=== PATIENT | male | born 1960 | race Caucasian/White ===

== ENCOUNTER 2023-04-18 14:37 | Outpatient (OUT) | payer MEDICARE, MEDICAID, SELFPAY ==
[2023-04-18 14:59] LABS: Estimated GFR (African America >60 (>=60); Estimated GFR (Non-African Ame 58 (>=60)
--- NOTE | 2023-04-18 15:55 | CT_ITS ---
The [address] [address] Patient Name: DAMI MAHAN MRN: [id number] date: 1960 Sex: M Assigned Patient Location: LAB Current Patient Location: LAB Accession/Order Number: [id number] Exam Date: 04/18/2023 15:43 Report Date: 04/18/2023 17:00 At the request of: NON-STAFF PHYSICIAN Procedure: CT angio head CT angio head, CT angio neck, 04/18/2023 3:43 PM EDT INDICATION: Lightheadedness R42, Family History Of Aneurysm Z82.49 COMPARISON: This study was compared to the prior CTA of the head dated 12/23/2017 TECHNIQUE: Pre and postcontrast enhanced CT angiography of the head and neck were acquired with contrast .3 D MIP images were reconstructed in sagittal and coronal format at the scanner and were evaluated at the time of dictation. Dose reduction techniques were achieved by using automated exposure control and/or adjustment of mA and/or kV according to patient size and/or use of iterative reconstruction technique. FINDINGS: The great vessels enhance normally. No filling defects are identified within the carotid arteries. There is no stenosis at the origin of the internal carotid arteries. No abnormality of [place] is noted. The IVETTE MCA and [place] PIL[place] are unremarkable. The anterior and posterior communicating arteries are patent. There is no aneurysm or significant stenosis. No abnormality of the vertebral and basilar arteries is noted. The left vertebral artery is dominant. No mass, mass effect or midline shift or hemorrhage in the brain parenchyma is noted. No significant soft tissue abnormality within the neck is noted. The visualized portion of the lungs is unremarkable. No suspicious bone lesion is noted. Multilevel degenerative changes of cervical spine. CT/CT angio head IMPRESSION: No CT evidence of aneurysm, embolus or severe stenosis or dissection in the major arteries in the current study. CAROTID STENOSIS REFERENCE: MILD = <50% stenosis. MODERATE = 50-69% stenosis. SEVERE = >70% stenosis. Electronically authenticated by: AKIL TRISTAN Date: 04/18/2023 17:00
--- NOTE | 2023-04-18 15:55 | CT_ITS ---
The [address] [address] Patient Name: DAMI MAHAN MRN: [id number] date: 1960 Sex: M Assigned Patient Location: LAB Current Patient Location: LAB Accession/Order Number: [id number] Exam Date: 04/18/2023 15:43 Report Date: 04/18/2023 17:00 At the request of: NON-STAFF PHYSICIAN Procedure: CT angio neck CT angio head, CT angio neck, 04/18/2023 3:43 PM EDT INDICATION: Lightheadedness R42, Family History Of Aneurysm Z82.49 COMPARISON: This study was compared to the prior CTA of the head dated 12/23/2017 TECHNIQUE: Pre and postcontrast enhanced CT angiography of the head and neck were acquired with contrast .3 D MIP images were reconstructed in sagittal and coronal format at the scanner and were evaluated at the time of dictation. Dose reduction techniques were achieved by using automated exposure control and/or adjustment of mA and/or kV according to patient size and/or use of iterative reconstruction technique. FINDINGS: The great vessels enhance normally. No filling defects are identified within the carotid arteries. There is no stenosis at the origin of the internal carotid arteries. No abnormality of [place] is noted. The IVETTE MCA and CAN [place]EL[place] are unremarkable. The anterior and posterior communicating arteries are patent. There is no aneurysm or significant stenosis. No abnormality of the vertebral and basilar arteries is noted. The left vertebral artery is dominant. No mass, mass effect or midline shift or hemorrhage in the brain parenchyma is noted. No significant soft tissue abnormality within the neck is noted. The visualized portion of the lungs is unremarkable. No suspicious bone lesion is noted. Multilevel degenerative changes of cervical spine. CT/CT angio neck IMPRESSION: No CT evidence of aneurysm, embolus or severe stenosis or dissection in the major arteries in the current study. CAROTID STENOSIS REFERENCE: MILD = <50% stenosis. MODERATE = 50-69% stenosis. SEVERE = >70% stenosis. Electronically authenticated by: AKIL TRISTAN Date: 04/18/2023 17:00
== END 2023-04-18 14:38 | disposition home or self-care (01) ==
LOC: LAB 14:37
PROVIDERS: PCP Internal Medicine
DX: R42 Dizziness and giddiness (principal); Z82.49 Family history of ischemic heart disease and other diseases of the circulatory system
CPT/HCPCS: 36415; 70496; 70498; 82565; 84520; Q9967

== ENCOUNTER 2023-04-26 13:47 | Outpatient (OUT) | payer MEDICARE, MEDICAID, SELFPAY ==
--- NOTE | 2023-04-26 13:59 | FL_ITS ---
The [address] [address] Patient Name: DAMI MAHAN MRN: [id number] date: 1960 Sex: M Assigned Patient Location: OR Current Patient Location: OR Accession/Order Number: [id number] Exam Date: 04/26/2023 14:00 Report Date: 04/26/2023 15:03 At the request of: STEPHEN DAVISON Procedure: FL cineradiography PROCEDURE: FL cineradiography, FL upper GI w air COMPARISON: None. HISTORY: Chest Discomfort TECHNIQUE: An air contrast upper gastrointestinal series was performed in the usual manner. Standard level fluoroscopic mode of operation utilized. FINDINGS: ESOPHAGUS:No visible obstruction, dilatation, reflux or hernia STOMACH: No obstruction, mass, or ulceration. Normal motility. DUODENUM:No ulceration or diverticulum. OTHER: Negative. FL/FL cineradiography IMPRESSION: 1. Normal examination. 2. No gastroesophageal reflux during time of study. Electronically authenticated by: FRANSICO STEINBERG Date: 04/26/2023 15:03
--- NOTE | 2023-04-26 13:59 | FL_ITS ---
The [address] [address] Patient Name: DAMI MAHAN MRN: [id number] date: 1960 Sex: M Assigned Patient Location: AR Current Patient Location: AR Accession/Order Number: [id number] Exam Date: 04/26/2023 14:00 Report Date: 04/26/2023 15:03 At the request of: STEPHEN DAVISON Procedure: FL upper GI w air PROCEDURE: FL cineradiography, FL upper GI w air COMPARISON: None. HISTORY: Chest Discomfort TECHNIQUE: An air contrast upper gastrointestinal series was performed in the usual manner. Standard level fluoroscopic mode of operation utilized. FINDINGS: ESOPHAGUS:No visible obstruction, dilatation, reflux or hernia STOMACH: No obstruction, mass, or ulceration. Normal motility. DUODENUM:No ulceration or diverticulum. OTHER: Negative. FL/FL upper GI w air IMPRESSION: 1. Normal examination. 2. No gastroesophageal reflux during time of study. Electronically authenticated by: FRANSICO STEINBERG Date: 04/26/2023 15:03
== END 2023-04-26 13:48 | disposition home or self-care (01) ==
LOC: FL 13:47
PROVIDERS: PCP Internal Medicine; Visit Provider Internal Medicine
DX: R07.89 Other chest pain (principal); K21.9 Gastro-esophageal reflux disease without esophagitis
CPT/HCPCS: 74246; 76120

== ENCOUNTER 2023-10-16 17:06 | Inpatient (IN) | payer MEDICARE, MEDICAID, SELFPAY ==
[2023-10-16 17:11] VITALS: BP 119/76; PULSE 117; TEMP 37.2; O2SAT 95; BMI 27.9
--- NOTE | 2023-10-16 17:24 | XR_ITS ---
The [address] [address] Patient Name: DAMI MAHAN MRN: [id number] date: 1960 Sex: M Assigned Patient Location: ER Current Patient Location: ED.MAIN Accession/Order Number: [id number] Exam Date: 10/16/2023 18:28 Report Date: 10/16/2023 18:56 At the request of: RUDDY PERAZA Procedure: XR chest 1V EXAM: XR chest 1V at 1823 hours HISTORY: Cough COMPARISON: 06/21/2021 TECHNIQUE: AP upright portable chest x-ray FINDINGS: The heart is borderline enlarged without cardiac decompensation. This may in part be related to projection. No acute infiltrate, effusion or pneumothorax is identified. The osseous structures are grossly intact. XR/XR chest 1V IMPRESSION: No acute infiltrate or evidence of cardiac decompensation. The overall appearance of the chest is essentially unchanged. Electronically authenticated by: CUONG POWELL Date: 10/16/2023 18:56
--- NOTE | 2023-10-16 17:26 | ED_ITS ---
HPI HPI - General Adult General Chief complaint: Nausea/Vomiting/Diarrhea Stated complaint: Nausea/Vomiting/Diarrhea Time Seen by Provider: 10/16/23 17:06 Source: patient Mode of arrival: walk-in History of Present Illness HPI narrative: Patient is a 63-year-old male sent to the emergency department from his PCP office for fever, tachycardia and vomiting. On arrival to the emergency department, patient states he has had vomiting and diarrhea for the last 2 days with some associated cough and congestion. He has not noted any objective fever at home, his PCP office reported a temperature of 102.6 Fahrenheit and the patient arrives to the emergency department afebrile. He has had 2 episodes of emesis and 1 episode of diarrhea today. He has not had any blood in his stool, no sick contacts. He has been taking Motrin and Tylenol for the last 2 days intermittently. No urinary symptoms. He has had a previous cholecystectomy. Related Data Home Medications ?Medication ?Instructions ?Recorded ?Confirmed benztropine 0.5 mg tablet 0.5 mg PO BID 10/16/23 10/16/23 dicyclomine 10 mg capsule 10 mg PO Q8H PRN abdominal pain 10/16/23 10/16/23 famotidine 20 mg tablet 20 mg PO .qd 10/16/23 10/16/23 meloxicam 15 mg tablet 15 mg PO .qd 10/16/23 10/16/23 omeprazole 40 mg capsule,delayed 40 mg PO BID 10/16/23 10/16/23 release oxcarbazepine 300 mg tablet 450 mg PO BID 10/16/23 10/16/23 simvastatin 20 mg tablet 20 mg PO QPM 10/16/23 10/16/23 tizanidine 4 mg tablet 4 mg PO .qhs PRN muscle spasticity 10/16/23 10/16/23 topiramate 25 mg tablet 25 mg PO Q12H 10/16/23 10/16/23 venlafaxine 75 mg tablet 75 mg PO QAM 10/16/23 10/16/23 Allergies Allergy/AdvReac Type Severity Reaction Status Date / Time No Known Drug Allergies Allergy Verified 10/16/23 17:15 Opioid HPI Opioid Management Most Recent Opioid Data: No Data to Display Review of Systems ROS Constitutional Reports: fever and chills Ears, nose, mouth, and throat Reports: nasal congestion; Denies: throat pain Cardiovascular Denies: chest pain Respiratory Reports: cough; Denies: shortness of breath Gastrointestinal Reports: nausea, vomiting and diarrhea; Denies: abdominal pain Musculoskeletal Denies: back pain Integumentary/Breast Denies: rash Hematologic/Lymphatic Denies: easy bruising or easy bleeding Exam Narrative Exam Narrative: Gen.: Awake, alert, in no distress Head: Normocephalic, atraumatic ENT: Moist mucous membranes Respiratory: No respiratory distress, lungs clear bilaterally Cardio: Regular rate and rhythm Gastrointestinal: Abdomen is soft, nondistended and nontender to palpation; small, soft umbilical hernia Extremities: Moves extremities equally Psych: Normal mood and affect Neuro: No focal neuro deficit Skin: Warm, dry, intact Constitutional Vital Signs, click to edit/add: Last Vital Signs Temp 98.9 F 10/16/23 17:11 Pulse 92 H 10/16/23 19:03 Resp 18 10/16/23 19:03 BP 115/67 10/16/23 19:03 Pulse Ox 94 L 10/16/23 19:03 O2 Del Method Room Air 10/16/23 17:11 Course Vital Signs Vital signs: Vital Signs Temperature 98.9 F 10/16/23 17:11 Pulse Rate 117 H 10/16/23 17:11 Respiratory Rate 18 10/16/23 17:11 Blood Pressure 119/76 10/16/23 17:11 Pulse Oximetry 95 10/16/23 17:11 Oxygen Delivery Method Room Air 10/16/23 17:11 Temperature 98.9 F 10/16/23 17:11 Pulse Rate 92 H 10/16/23 19:03 Respiratory Rate 18 10/16/23 19:03 Blood Pressure 115/67 10/16/23 19:03 Pulse Oximetry 94 L 10/16/23 19:03 Oxygen Delivery Method Room Air 10/16/23 17:11 Medical Decision Making MDM Narrative Medical decision making narrative: Patient treated with 2 L of IV fluids, Zofran. He had no episodes of emesis in the ER. He did not produce a stool specimen. He had no requirements for pain medication. Lab studies show mild leukocytosis with bandemia as well as elevated lactic acid and procalcitonin. Blood cultures and venous pH also obtained. Patient with acute kidney injury, CT scan cannot be performed with IV contrast as a result. LFTs and bilirubin are normal. CT of the abdomen and pelvis shows concern for possible small bowel obstruction. These images were reviewed by general surgery, Dr. Uribe and I discussed the case with him. He recommended admission for observation and placement of an NG tube only if the patient has persistent vomiting. GI panel was ordered but the patient did not produce a stool specimen. We will admit for dehydration and acute kidney injury, general surgery is aware of patient's admission. Stable at time of admission Medical Records Medical records reviewed: Yes I reviewed the patient's medical records Lab Data Lab results reviewed: Yes I reviewed the patient's lab results Labs: Lab Results 10/16/23 10/16/23 10/16/23 Range/Units 17:20 17:23 18:40 WBC 13.5 H (4.0-11.0) 10^3/uL RBC 4.35 L (4.70-6.10) 10^6/uL Hgb 12.7 L (14.0-18.0) g/dL Hct 37.1 L (42.0-54.0) % MCV 85.3 (80.0-94.0) fL MCH 29.2 (25.9-34.0) pg MCHC 34.2 (29.9-35.2) g/dL RDW 13.0 (11.0-15.0) % Plt Count 249 (150-450) 10^3/uL MPV 8.7 L (9.5-13.5) fL Seg Neuts % (Manual) 89.0 Band Neutrophils % 7.0 H (0-5) % Lymphocytes % (Manual) 2.0 L (20.5-60.0) % Monocytes % (Manual) 2.0 (1.7-12.0) % Eosinophils % (Manual) 0.0 L (0.9-7.0) % Basophils % (Manual) 0.0 L (0.2-2.0) % Neutrophils # (Manual) 12.01 H (1.4-6.5) 10^3/uL Band Neutrophils # 0.9 H (0.0-0.3) 10^3/uL Lymphocytes # (Manual) 0.27 L (1.20-3.80) 10^3/uL Monocytes # (Manual) 0.27 L (0.30-0.80) 10^3/uL Eosinophils # (Manual) 0.00 (0.00-0.70) 10^3/uL Basophils # (Manual) 0.00 (0.00-0.10) 10^3/uL VBG pH 7.360 (7.330-7.430) VBG pCO2 40.9 (40.0-52.0) mmHg Sodium 138 (136-145) mmol/L Potassium 3.6 (3.5-5.1) mmol/L Chloride 104 (98-107) mmol/L Carbon Dioxide 22.5 (21.0-32.0) mmol/L Anion Gap 15.1 BUN 43.0 H (7.0-18.0) mg/dL Creatinine 2.14 H (0.70-1.30) mg/dL Est GFR ( Amer) 38 L (>=60) Est GFR (Non-Af Amer) 31 L (>=60) BUN/Creatinine Ratio 20.1 Glucose 184 H (74-106) mg/dL Lactate 3.8 H* (0.4-2.0) mmol/L Calcium 9.2 (8.5-10.1) mg/dL Total Bilirubin 0.5 (0.2-1.0) mg/dL AST 30 (15-37) U/L ALT 52 (16-63) U/L Alkaline Phosphatase 130 H (46-116) U/L Total Protein 7.3 (6.4-8.2) g/dL Albumin 3.3 L (3.4-5.0) g/dL Globulin 4.0 g/dL Albumin/Globulin Ratio 0.8 Lipase 13.0 L (16.0-77.0) U/L Procalcitonin 0.51 H (0.00-0.50) ng/mL Urine Color (YELLOW) Urine Clarity (CLEAR) Urine pH (5.0-9.0) Ur Specific [place] (1.005-1.025) Urine Protein (NEG/TRACE) mg/dL Urine Glucose (UA) (NEGATIVE) mg/dL Urine Ketones (NEGATIVE) mg/dL Urine Occult Blood (NEGATIVE) Urine Nitrite (NEGATIVE) Urine Bilirubin (NEGATIVE) Urine Urobilinogen (0.2-1.0) EU/dL Ur Leukocyte Esterase (NEGATIVE) Adenovirus (PCR) Not detected (NOT DETECTE) B. pertussis DNA (PCR) Not detected (NOT DETECTE) B.parapertussis DNA PCR Not detected (NOT DETECTE) C. pneumoniae DNA (PCR) Not detected (NOT DETECTE) Coronavirus Type OC43 Not detected (NOT DETECTE) Coronavirus Type HKU1 Not detected (NOT DETECTE) Coronavirus Type 229E Not detected (NOT DETECTE) Coronavirus Type NL63 Not detected (NOT DETECTE) Human Metapneumovir PCR Not detected (NOT DETECTE) Influenza Type A (PCR) Not detected (NOT DETECTE) Influenza Type B (PCR) Not detected (NOT DETECTE) M. pneumoniae (PCR) Not detected (NOT DETECTE) Parainfluenza PCR Not detected (NOT DETECTE) Parainfluenza 2 (PCR) Not detected (NOT DETECTE) Parainfluenza 3 (PCR) Not detected (NOT DETECTE) Parainfluenza 4 (PCR) Not detected (NOT DETECTE) RSV (RT-PCR) Not detected (NOT DETECTE) Entero/Rhino (PCR) Not detected (NOT DETECTE) SARS-CoV-2 (PCR) Not detected (NOT DETECTE) 10/16/23 Range/Units 19:10 WBC (4.0-11.0) 10^3/uL RBC (4.70-6.10) 10^6/uL Hgb (14.0-18.0) g/dL Hct (42.0-54.0) % MCV (80.0-94.0) fL MCH (25.9-34.0) pg MCHC (29.9-35.2) g/dL RDW (11.0-15.0) % Plt Count (150-450) 10^3/uL MPV (9.5-13.5) fL Seg Neuts % (Manual) Band Neutrophils % (0-5) % Lymphocytes % (Manual) (20.5-60.0) % Monocytes % (Manual) (1.7-12.0) % Eosinophils % (Manual) (0.9-7.0) % Basophils % (Manual) (0.2-2.0) % Neutrophils # (Manual) (1.4-6.5) 10^3/uL Band Neutrophils # (0.0-0.3) 10^3/uL Lymphocytes # (Manual) (1.20-3.80) 10^3/uL Monocytes # (Manual) (0.30-0.80) 10^3/uL Eosinophils # (Manual) (0.00-0.70) 10^3/uL Basophils # (Manual) (0.00-0.10) 10^3/uL VBG pH (7.330-7.430) VBG pCO2 (40.0-52.0) mmHg Sodium (136-145) mmol/L Potassium (3.5-5.1) mmol/L Chloride (98-107) mmol/L Carbon Dioxide (21.0-32.0) mmol/L Anion Gap BUN (7.0-18.0) mg/dL Creatinine (0.70-1.30) mg/dL Est GFR ( Amer) (>=60) Est GFR (Non-Af Amer) (>=60) BUN/Creatinine Ratio Glucose (74-106) mg/dL Lactate (0.4-2.0) mmol/L Calcium (8.5-10.1) mg/dL Total Bilirubin (0.2-1.0) mg/dL AST (15-37) U/L ALT (16-63) U/L Alkaline Phosphatase (46-116) U/L Total Protein (6.4-8.2) g/dL Albumin (3.4-5.0) g/dL Globulin g/dL Albumin/Globulin Ratio Lipase (16.0-77.0) U/L Procalcitonin (0.00-0.50) ng/mL Urine Color Yellow (YELLOW) Urine Clarity Clear (CLEAR) Urine pH 5.5 (5.0-9.0) Ur Specific [place] 1.010 (1.005-1.025) Urine Protein Negative (NEG/TRACE) mg/dL Urine Glucose (UA) Negative (NEGATIVE) mg/dL Urine Ketones Negative (NEGATIVE) mg/dL Urine Occult Blood Negative (NEGATIVE) Urine Nitrite Negative (NEGATIVE) Urine Bilirubin Negative (NEGATIVE) Urine Urobilinogen 0.2 (0.2-1.0) EU/dL Ur Leukocyte Esterase Negative (NEGATIVE) Adenovirus (PCR) (NOT DETECTE) B. pertussis DNA (PCR) (NOT DETECTE) B.parapertussis DNA PCR (NOT DETECTE) C. pneumoniae DNA (PCR) (NOT DETECTE) Coronavirus Type OC43 (NOT DETECTE) Coronavirus Type HKU1 (NOT DETECTE) Coronavirus Type 229E (NOT DETECTE) Coronavirus Type NL63 (NOT DETECTE) Human Metapneumovir PCR (NOT DETECTE) Influenza Type A (PCR) (NOT DETECTE) Influenza Type B (PCR) (NOT DETECTE) M. pneumoniae (PCR) (NOT DETECTE) Parainfluenza PCR (NOT DETECTE) Parainfluenza 2 (PCR) (NOT DETECTE) Parainfluenza 3 (PCR) (NOT DETECTE) Parainfluenza 4 (PCR) (NOT DETECTE) RSV (RT-PCR) (NOT DETECTE) Entero/Rhino (PCR) (NOT DETECTE) SARS-CoV-2 (PCR) (NOT DETECTE) Imaging Data CT scan - abdomen: Attestation: I have reviewed the pertinent imaging results. Radiologist's impression: ITS Impressions Chest X-Ray 10/16/23 17:24 IMPRESSION: No acute infiltrate or evidence of cardiac decompensation. The overall appearance of the chest is essentially unchanged. Electronically authenticated by: CUONG POWELL Date: 10/16/2023 18:56 Abdomen/Pelvis CT 10/16/23 18:22 IMPRESSION: Multiple fluid distended loops of small bowel with transition point in the central to right abdomen concerning for small bowel obstruction. Electronically authenticated by: EDWIGE LOGAN Date: 10/16/2023 19:32 Discharge Plan Discharge Chief Complaint: Nausea/Vomiting/Diarrhea Clinical Impression: Acute kidney injury, Nausea, vomiting and diarrhea, Dehydration Patient Disposition: Admitted as Observation Time of Disposition Decision: 20:04 Prescriptions / Home Meds: No Action benztropine 0.5 mg tablet 0.5 mg PO BID venlafaxine 75 mg tablet 75 mg PO QAM tizanidine 4 mg tablet 4 mg PO .qhs PRN (Reason: muscle spasticity) Rx Instructions: 2 mg to 4 mg po q hs prn meloxicam 15 mg tablet 15 mg PO .qd topiramate 25 mg tablet 25 mg PO Q12H oxcarbazepine 300 mg tablet 450 mg PO BID omeprazole 40 mg capsule,delayed release(DR/EC) 40 mg PO BID famotidine 20 mg tablet 20 mg PO .qd simvastatin 20 mg tablet 20 mg PO QPM dicyclomine 10 mg capsule 10 mg PO Q8H PRN (Reason: abdominal pain) Print Language: Irish Referrals: STEPHEN DAVISON [Primary Care Provider] - 1 week
[2023-10-16] MEDS: ONDANSETRON PF 4 MG/2 ML VIAL IV (17:37)
[2023-10-16 17:38] LABS: Adenovirus NOT DETECTED (NOT DETECTE); Bordetella parapertussis NOT DETECTED (NOT DETECTE); Coronavirus 229E NOT DETECTED (NOT DETECTE); Coronavirus HKU1 NOT DETECTED (NOT DETECTE); Coronavirus NL63 NOT DETECTED (NOT DETECTE); Coronavirus OC43 NOT DETECTED (NOT DETECTE); Human Metapneumovirus NOT DETECTED (NOT DETECTE); Human Rhinovirus/Enterovirus NOT DETECTED (NOT DETECTE); Influenza A NOT DETECTED (NOT DETECTE); Influenza B NOT DETECTED (NOT DETECTE); Mycoplasma pneumoniae NOT DETECTED (NOT DETECTE); Parainfluenza Virus 1 NOT DETECTED (NOT DETECTE); Parainfluenza Virus 2 NOT DETECTED (NOT DETECTE); Parainfluenza Virus 3 NOT DETECTED (NOT DETECTE); Parainfluenza Virus 4 NOT DETECTED (NOT DETECTE); Respiratory Syncytial Virus NOT DETECTED (NOT DETECTE); SARS-CoV-2 NOT DETECTED (NOT DETECTE)
[2023-10-16] MEDS: FAMOTIDINE/PF 20 MG/2 ML VIAL IV (17:38)
[2023-10-16] MEDS: 0.9 % SODIUM CHLORIDE 1,000 ML 999 ML IV (17:38)
[2023-10-16 17:40] LABS: Hematocrit 37.1 % (42.0-54.0); Hemoglobin 12.7 g/dL (14.0-18.0); Mean Corpuscular HGB Conc 34.2 g/dL (29.9-35.2); Mean Corpuscular Hemoglobin 29.2 pg (25.9-34.0); Mean Corpuscular Volume 85.3 fL (80.0-94.0); Mean Platelet Volume 8.7 fL (9.5-13.5); Platelet Count 249 10^3/uL (150-450); Red Blood Count 4.35 10^6/uL (4.70-6.10); White Blood Count 13.5 10^3/uL (4.0-11.0)
[2023-10-16 18:16] LABS: Alanine Aminotransferase 52 U/L (16-63); Albumin Globulin Ratio 0.8; Albumin Level 3.3 g/dL (3.4-5.0); Alkaline Phosphatase 130 U/L (46-116); Anion Gap 15.1; Aspartate Amino Transferase 30 U/L (15-37); BUN Creatinine Ratio 20.1; Bilirubin Total 0.5 mg/dL (0.2-1.0); Calcium 9.2 mg/dL (8.5-10.1); Carbon Dioxide 22.5 mmol/L (21.0-32.0); Chloride 104 mmol/L (98-107); Estimated GFR (African America 38 (>=60); Estimated GFR (Non-African Ame 31 (>=60); Glucose 184 mg/dL (74-106); Potassium 3.6 mmol/L (3.5-5.1); Sodium 138 mmol/L (136-145); Total Protein 7.3 g/dL (6.4-8.2)
[2023-10-16 18:22] LABS: Lactate/Lactic Acid 3.8 mmol/L (0.4-2.0)
--- NOTE | 2023-10-16 18:22 | CT_ITS ---
[address] [address] Patient Name: DAMI MAHAN MRN: [id number] date: 1960 Sex: M Assigned Patient Location: ER Current Patient Location: Accession/Order Number: [id number] Exam Date: 10/16/2023 18:29 Report Date: 10/16/2023 19:32 At the request of: RUDDY PERAZA Procedure: CT abdomen pelvis wo con EXAMINATION: CT abdomen pelvis wo con, 10/16/2023 3:29 PM PDT HISTORY: vomiting and diarrhea COMPARISON: None. TECHNIQUE: CT scan of the abdomen and pelvis was performed without IV contrast. CT dose reduction technique was used, including Automated Exposure Control. FINDINGS: Lung: Mild bronchiectasis. Liver: No significant finding. Gallbladder: Absent. Spleen: No significant finding. Pancreas: No significant finding. Adrenal glands: No significant finding. Kidneys, ureters and bladder: No renal/urinary tract calculi. No hydronephrosis. Simple right renal cyst. Bladder is unremarkable. Bowel: Multiple distended loops of small bowel with transition point in the central to right lower abdomen to decompressed small bowel. Fluid in the large bowel. Colonic diverticulosis without diverticulitis. Peritoneum/retroperitoneum: engorgement of the vasa recta. Trace free fluid. Lymph nodes: No significant finding. Vessels: Mild scattered atherosclerotic calcification. Body wall: Fat-containing ventral hernia without complicating features. Reproductive: No significant finding. Bones: No significant finding. CT/CT abdomen pelvis wo con IMPRESSION: Multiple fluid distended loops of small bowel with transition point in the central to right abdomen concerning for small bowel obstruction. Electronically authenticated by: EDWIGE LOGAN Date: 10/16/2023 19:32
[2023-10-16 18:29] LABS: Band Neutrophils Absolute 0.9 10^3/uL (0.0-0.3); Lymphocytes Absolute Manual 0.27 10^3/uL (1.20-3.80); Monocytes Absolute Manual 0.27 10^3/uL (0.30-0.80); Segmented Neut Absolute Manual 12.01 10^3/uL (1.4-6.5)
[2023-10-16 18:58] LABS: PCO2 VBG 40.9 mmHg (40.0-52.0)
[2023-10-16 19:03] VITALS: BP 115/67; PULSE 92; O2SAT 94
[2023-10-16] MEDS: 0.9 % SODIUM CHLORIDE 1,000 ML 1000 ML IV (19:16)
[2023-10-16 19:25] LABS: Bilirubin Urine NEGATIVE (NEGATIVE); Blood Urine NEGATIVE (NEGATIVE); Clarity Urine CLEAR (CLEAR); Color Urine YELLOW (YELLOW); Glucose Urine UA NEGATIVE (NEGATIVE); Ketones Urine NEGATIVE (NEGATIVE); Leukocyte Esterase Urine NEGATIVE (NEGATIVE); Nitrite Urine NEGATIVE (NEGATIVE); Protein Urine NEGATIVE (NEG/TRACE); Urobilinogen Urine 0.2 EU/dL (0.2-1.0); pH Urine 5.5 (5.0-9.0)
--- NOTE | 2023-10-16 19:26 | PC.NURSE ---
Ambulates to BR and back without difficulty. U/a obtained and taken to lab. Denies needs at this time.
[2023-10-16 19:27] LABS: Urine Microscopic Indicated NO
[2023-10-16 19:28] LABS: PROCALCITONIN 0.51 ng/mL (0.00-0.50)
[2023-10-16 21:19] LABS: Lactate/Lactic Acid 1.5 mmol/L (0.4-2.0)
--- OUTSIDE RECORDS SUMMARY | 2023-10-16 21:27 | XMS_ITS | CCD ---
Author Organization [facility] Care Team Providers Care Beverage Host Name Role Phone ADÁN EDWARDS Consulting Unavailable MARIA L, YOSVANY Admitting Unavailable MOTT, DR MITCHELL Primary Care Unavailable LOWJacque, YOSVANY Attending Unavailable LOWE, YOSVANY Consulting Unavailable SAROJ, SAVI Attending Unavailable AHMED, ADÁN Consulting Unavailable MOTT, DR MITCHELL Primary Care Unavailable SAROJ, SAVI Admitting Unavailable Rojelio, Cj Consulting Unavailable SAROJ, SAVI Consulting Unavailable PANTERA, DR MITCHELL Admitting Unavailable MOTT, DR MITCHELL Attending Unavailable MOTT, DR MITCHELL Consulting Unavailable PANTERA, DR MITCHELL Primary Care Unavailable REQUEST, DR CALZADA LISTED Admitting Unavaila ble MISC, DR PATEL Primary Care Unavailable REQUEST, DR CALZADA LISTED Attending Unavaila ble REQUEST, NONE LISTED Consulting Unavaila ble REQUEST, NONE LISTED Consulting Unavaila ble MISC, DR PATEL Primary Care Unavailable REQUEST, NONE LISTED Admitting Unavaila ble REQUEST, DR CALZADA LISTED Attending Unavaila THOR Blackmon Primary Care Physician Unavailable Unavailable LOLA Mott Primary Care Provider MD Jose Kimbrough Attending Provider Unavailable Unavailable Jose Kimbrough Attending Unavail able Jose Kimbrough Admitting Unavail able Thor Mott Primary Care Unavailable Thor Mott Unavailable Pantera DAVILA, Dr. Thor Salazar Primary Care [place] vailable Luis E DAVILA, Dr. Jose Steiner Attending Unavailable Luis E II, Dr. Jose Steiner Referring Unavailable Palak Wagner Attending Unavailable Palak Wagner Attending Unavailable Palak Wagner Attending Unavailable Humberto Hernandez Referring Unavaila ble Humberto Hernandez Attending Unavaila Humberto Hitchcock Admitting Unavaila Palak Concepcion Attending Unavailable Palak Wagner Admitting Unavailable BEA FOUNTAIN Attending Unavailable THOR MOTT Attending Unavailable THOR MOTT Attending Unavailable JAYE SMITH Attending Unavailable BEA FOUNTAIN Attending Unavailable Allergies Allergy Classification Reported Allergen(s) Allergy Type Date of Onset Reaction(s) Facility (7 sources) Shellfish; Translations: [shellfish] [facility] (2 sources) Shellfish; Translations: [shellfish derived] Allergy to substance 7 Swelling of Lip/Tongue/Thro at [facility] (8 sources) Shellfish; Translations: [shellfish] Drug allergy [facility] Medications Current Medications Medication Drug Class(es) Dates Sig (Normalized) Sig (Original) benztropine mesylate 0.5 mg oral tablet (19 sources) Anticholinergic, Antihistamine Start: 03-14-2022 take 1 tablet by mouth twice daily benztropine 0.5 mg oral tablet 0.5 mg = 1 tab(s), Oral, BID, Refills(s) 0, Other (see comment) Start Date: 03/14/22 Status: Ordered Start: 10-10-2016 take 1 mg by mouth once daily benztropine 1 mg, Oral, Daily, Refills(s) 0, Psychosis Start Date: 10/10/16 Status: Ordered take 1 tablet by taryn th twice daily as needed Benztropine Mesylate 1 MG Oral Tablet TAKE 1 TABLET TWICE DAILY NEEDED. Quantity: 0 Refills: 0 Ordered: 06-Dec-2021 DO Active Fiber Tab (2 sources) Start: 06-05-2023 take 1 tablet by taryn th twice daily Fiber Tabs 1,250 mg, Oral, BID, Refills(s) 0, Constipation Start Date: 06/05/23 Status: Ordered Start: 06-05-2023 Fiber Tabs Ref ills(s) 0 Start Date: 06/05/23 Status: Ordered dicyclomine hydrochloride 10 mg oral capsule (7 sources) Anticholinergic Start: 06-05-2023 take 1 capsule by mouth four times daily as needed for muscle spasms dicyclomine 10 mg Cap 10 mg = 1 cap(s), Oral, QID, PRN Spasm, Refills(s) 0 Start Date: 06/05/23 Status: Ordered Start: 06-05-2023 dicyclomine 10 mg Cap Refills(s) 0 Start Date: 06/05/23 Status: Ordered Start: 10-26-2020 End: 10-21-2021 take 1 capsule by mouth twice daily dicyclomine 10 mg Cap 10 mg = 1 cap(s), Oral, BID, X 90 day(s), # 180 cap(s), Refills(s) 3, Pharmacy: [facility], 167, cm, 10/26/20 15:36:00 EDT, Height/Length Dosing, 82.8, kg, 10/26/20 15:36:00 EDT, Weight Dosing Start Date: 10/26/20 Stop Date: 10/21/21 Status: Ordered famotidine 40 mg oral tablet (6 sources) Histamine-2 Receptor Antagonist Start: 06-05-2023 End: 09-03-2023 take 1 tablet by mouth once daily at bedtime Pepcid 40 mg Tab 40 mg = 1 tab(s), Oral, Once a day (at bedtime), X 90 day(s), # 90 tab(s), Refills(s) 0, Pharmacy: [facility], 167, cm, 06/05/23 15:25:00 EST, Height/Length Dosing, 80.1, kg, 06/05/23 15:25:00 EST, Weight Dosing Start Date: 06/05/23 Stop Date: 09/03/23 Status: Ordered Start: 03-05-2023 End: 09-01-2023 take 1 tablet by mouth once daily at bedtime Pepcid 20 mg Tab 20 mg = 1 tab(s), Oral, Once a day (at bedtime), X 90 day(s), # 90 tab(s), Refills(s) 1, Pharmacy: [facility], 167, cm, 03/05/23 14:46:00 EDT, Height/Length Dosing, 81.8, kg, 03/05/23 14:46:00 EDT, Weight Dosing Start Date: 03/05/23 Stop Date: 09/01/23 Status: Ordered Start: 05-08-2022 End: 08-06-2022 take 1 tablet by mouth once daily at bedtime Pepcid 20 mg Tab 20 mg = 1 tab(s), Oral, Once a day (at bedtime), X 90 day(s), # 90 tab(s), Refills(s) 0, Pharmacy: [facility], 167, cm, 05/08/22 15:44:00 EST, Height/Length Dosing, 80.1, kg, 05/08/22 15:44:00 EST, Weight Dosing Start Date: 05/08/22 Stop Date: 08/06/22 Status: Ordered Fish Oils (10 sources) Start: 09-04-2017 take 1000 mg by mouth twice daily Fish Oil 1,000 mg, Oral, BID, Refill(s) 0, Prophylaxis Start Date: 09/04/17 Status: Ordered meloxicam 15 mg oral tablet (20 sources) Nonsteroidal Anti-inflammatory Drug Start: 08-08-2021 take 1 tablet by mouth once daily meloxicam 15 mg oral tablet 15 mg = 1 tab(s), Oral, Daily, Refills(s) 0 Start Date: 10/04/21 Status: Ordered Start: 11-03-2019 meloxicam 7.5 mg oral tablet Refills(s) 0 Start Date: 11/03/19 Status: Ordered Methocarbamol (7 sources) Muscle Relaxant Start: 05-08-2022 methocarbamol Oral, TID, Refills(s) 0, Spasm Start Date: 05/08/22 Status: Ordered Start: 05-08-2022 methocarbamol Refills(s) 0 Start Date: 05/08/22 Status: Ordered take 1 tablet by taryn th twice daily as needed Methocarbamol 750 MG Oral Tablet TAKE 1 TABLET TWICE DAILY NEEDED. Quantity: 0 Refills: 0 Ordered: 23-Jan-2023 DO Active Miralax 3350 17 gram packet (3 sources) Start: 01-21-2020 Miralax 3350 1 7 gram packet 17 gram, Oral, Daily, # 30 EA, Refills(s) 1, Pharmacy: [facility], 167.64, cm, 01/21/20 15:03:00 EDT, Height/Length Measured, 77.7, kg, 01/21/20 15:03:00 EDT, Weight Measured Start Date: 01/21/20 Status: Ordered omeprazole 40 mg delayed release oral capsule (16 sources) Proton Pump Inhibitor Start: 06-05-2023 omeprazole 40 mg Cap -DR 40 mg = 1 cap(s), Oral, Daily, Refills(s) 0, Control of stomach acid Start Date: 06/05/23 Status: Ordered Start: 03-05-2023 End: 09-01-2023 take 1 capsule by mouth once daily omeprazole 20 mg Cap-DR 20 mg = 1 cap(s), Oral, Daily, X 90 day(s), # 90 cap(s), Refills(s) 1, Pharmacy: [facility], 167, cm, 03/05/23 14:46:00 EDT, Height/Length Dosing, 81.8, kg, 03/05/23 14:46:00 EDT, Weight Dosing Start Date: 03/05/23 Stop Date: 09/01/23 Status: Ordered Start: 01-27-2021 Omeprazole 20 MG Oral Capsule Delayed Release TAKE ONE CAPSULE BY MOUTH ONCE DAILY 30 MINUTES BEFORE MORING MEAL Quantity: 30 Refills: 0 Ordered: 19-Jul-2021 DO Start : 19-Jul-2021 Active omeprazole 20 mg Cap-DR (3 sources) Start: 01-27-2021 take 1 capsule by mouth once daily omeprazole 20 mg Cap-DR 20 mg = 1 cap(s), Oral, Daily, # 30 cap(s), Refills(s) 5, Pharmacy: [facility], 167, cm, 10/26/20 15:36:00 EDT, Height/Length Dosing, 82.8, kg, 10/26/20 15:36:00 EDT, Weight Dosing Start Date: 01/27/21 Status: Ordered polyethylene glycol 3350 92362 mg powder for oral solution (10 sources) Osmotic Laxative Start: 01-21-2020 Miralax 3350 17 gram packet 17 gram, Oral, Daily, # 30 EA, Refills(s) 1, Pharmacy: [facility], 167.64, cm, 01/21/20 15:03:00 EDT, Height/Length Measured, 77.7, kg, 01/21/20 15:03:00 EDT, Weight Measured Start Date: 01/21/20 Status: Ordered polyethylene glycol 3350 with electrolytes Oral Pwdr for Marina 4000 mL (NuLytely) (2 sources) Start: 10-04-2021 take 1 dose by mouth once polyethylene glycol 3350 with electrolytes Oral Pwdr for Marina 4000 mL (NuLytely) See Instructions, 1 EA, Refill(s) 0, PER PHYSICIAN INSTRUCTIONS. PRIOR TO COLONOSCOPY., [facility], 167, cm, 10/04/21 15:39:00 EDT, Height/Length Dosing, 79.6, kg, 10/04/21 15:39:00 EDT, Weight Dosing Start Date: 10/04/21 Status: Ordered simvastatin 20 mg oral tablet (19 sources) HMG-CoA Reductase Inhibitor Start: 10-10-2016 take 20 mg by mouth once daily at bedtime simvastatin 20 mg, Oral, Once a day (at bedtime), Refills(s) 0, High cholesterol Start Date: 10/10/16 Status: Ordered topiramate 25 mg oral tablet (3 sources) Start: 03-05-2023 take 1 tablet by mouth once daily Topamax 25 mg Tab 25 mg = 1 tab(s), Oral, Daily, Refills(s) 0, Headache Start Date: 03/05/23 Status: Ordered venlafaxine 75 mg oral tablet (19 sources) Serotonin and Norepinephrine Reuptake Inhibitor Start: 10-10-2016 take 75 mg by mouth once daily venlafaxine 75 mg, Oral, Daily, Refills(s) 0, Depression Start Date: 10/10/16 Status: Ordered vitamin B12 (2 sources) Vitamin B12 Start: 06-05-2023 Vitamin B12 Oral, Daily, Refills(s) 0, Prophylaxis Start Date: 06/05/23 Status: Ordered Start: 06-05-2023 Vitamin B12 Re fills(s) 0 Start Date: 06/05/23 Status: Ordered Completed/Discontinued Medications Medication Drug Class(es) Dates Sig (Normalized) Sig (Original) iloperidone 6 mg oral tablet (19 sources) Atypical Antipsychotic Start: 04-04-2021 take 0.5 tablet by mouth twice daily Fanapt 6 MG Oral Tablet TAKE 1/2 TABLET (3MG) TWICE A DAY ORALLY Quantity: 0 Refills: 0 Ordered: 15-Jun-2021 DO Start : 04-Apr-2021 Active Start: 10-10-2016 take 6 mg by mouth twice daily Fanapt 6 mg, Oral, BID, Refills(s) 0, Psychosis Start Date: 10/10/16 Status: Ordered OXcarbazepine 300 mg oral tablet (20 sources) Anti-epileptic Agent Start: 04-17-2021 take 2 tablets by mouth at bedtime OXcarbazepine 300 MG Oral Tablet TAKE TWO TABLETS BY MOUTH AT BEDTIME FOR 30 DAYS Quantity: 60 Refills: 0 Ordered: 19-Jul-2021 DO Start : 17-Apr-2021 Active Start: 10-21-2019 Trileptal Oral , BID, Refills(s) 0, Seizure Start Date: 10/21/19 Status: Ordered Start: 10-21-2019 Trileptal Oral , Refills(s) 0 Start Date: 10/21/19 Status: Ordered Trileptal 300 MG /5ML Oral Suspension as directed Quantity: 0 Refills: 0 Ordered: 06-Dec-2021 DO Active psyllium 525 mg oral capsule (10 sources) Start: 10-04-2021 End: 01-02-2022 take 8 capsules by mouth once daily Metamucil 525 mg oral capsule 1,575 mg = 3 cap(s), Oral, Daily, with at least 8 ounces of water, X 90 day(s), # 270 cap(s), Refills(s) 0, Pharmacy: [facility], 167, cm, 10/04/21 15:39:00 EDT, Height/Length Dosing, 79.6, kg, 10/04/21 15:39:00 EDT, Weight Dosing Start Date: 10/04/21 Stop Date: 01/02/22 Status: Ordered Start: 10-04-2021 Daily Fiber 40 0 MG Oral Capsule TAKE THREE CAPSULES BY MOUTH DAILY WITH AT LEAST 8 OUNCES OF WATER Quantity: 270 Refills: 0 Ordered: 04-Oct-2021 DO Start : 04-Oct-2021 Active tiZANidine 4 mg oral tablet (19 sources) Central alpha-2 Adrenergic Agonist Start: 04-17-2021 take 0.5-1 tablets by mouth twice daily tiZANidine HCl - 4 MG Oral Tablet TAKE HALF TO ONE TABLET TWICE A DAY FOR 30 DAYS Quantity: 60 Refills: 0 Ordered: 19-Jul-2021 DO Start : 17-Apr-2021 Active Start: 10-06-2018 take 4 mg by mouth once daily tizanidine 4 mg, Oral, Daily, Refills(s) 0, Muscle pain Start Date: 10/06/18 Status: Ordered Problems Active Problems Problem Classification Problem Date Documented Da te Episodic/Chronic Abdominal hernia (16 sources) Umbilical hernia; Translations: [Umbilical hernia without obstruction or gangrene] Onset: 2 Episodic Abdominal pain (19 sources) Abdominal pain; Translations: [Unspecified abdominal pain] Onset: 2 Episodic Anxiety disorders (8 sources) Anxiety; Translations: [Anxiety state, unspecified] Chronic Aortic; peripheral; and visceral artery aneurysms (20 sources) Aortic aneurysm of unspecified site, without rupture; Translations: [Aneurysm of ascending aorta] Onset: 2 10-21-2019 Chronic Deficiency and other anemia (4 sources) Anemia; Translations: [Anemia, unspecified] Onset: 3 Episodic Disorders of lipid metabolism (8 sources) Hyperlipidemia; Translations: [Other and unspecified hyperlipidemia] Chronic Diverticulosis and diverticulitis (11 sources) Diverticula of intestine; Translations: [Diverticulosis of intestine, part unspecified, without perforation or abscess without bleeding] Onset: 2 Chronic Esophageal disorders (16 sources) Gastroesophageal reflux disease; Translations: [Gastroesophageal reflux disease without esophagitis] Onset: 2 01-21-2020 Chronic Essential hypertension (8 sources) Essential hypertension; Translations: [Unspecified essential hypertension] Chronic Hemorrhoids (11 sources) Hemorrhoids; Translations: [Unspecified hemorrhoids] Onset: 2 Episodic Miscellaneous mental health disorders (13 sources) Mental disorder 10-21-2019 Chronic Mood disorders (13 sources) Depressive disorder 10-21-2019 Chronic Nonspecific chest pain (4 sources) Chest pain, unspecified; Translations: [Chest pain] Onset: 2 Episodic Osteoarthritis (13 sources) Osteoarthritis 10-21-2019 Chronic Other aftercare (1 source) Other usp (current) drug therapy; Translations: [OTH CUSTOMER SUPPORT REPRESENTATIVE CURRENT DRUG THERAPY] Onset: 2 Episodic Other and unspecified benign neoplasm (18 sources) History of polyp of colon; Translations: [Personal history of colonic polyps] Onset: 2 Episodic Other and unspecified benign neoplasm (13 sources) Polyp of colon 10-21-2019 Episodic Other circulatory disease (8 sources) History of hypotension; Translations: [Personal history of other diseases of circulatory system] Episodic Other connective tissue disease (1 source) Diastasis of muscle; Translations: [Separation of muscle (nontraumatic), other site] Onset: 2 Episodic Other connective tissue disease (7 sources) Diastasis recti 03-14-2022 Episodic Other disorders of stomach and duodenum (13 sources) Gastroparesis syndrome 01-21-2020 Episodic Other gastrointestinal disorders (18 sources) Chronic idiopathic constipation; Translations: [Chronic idiopathic constipation] Onset: 2 Chronic Other gastrointestinal disorders (1 source) H/O: gastrointestinal disease; Translations: [Personal history of other diseases of the digestive system] Onset: 2 Episodic Other gastrointestinal disorders (1 source) Digestive system finding; Translations: [Other specified symptoms and signs involving the digestive system and abdomen] Onset: 2 Episodic Other gastrointestinal disorders (9 sources) H/O: abdominal hernia 02-14-2022 Episodic Other gastrointestinal disorders (9 sources) Irregular bowel habits 02-14-2022 Episodic Other gastrointestinal disorders (3 sources) Altered bowel function; Translations: [Change in bowel habit] Onset: 3 Episodic Other nervous system disorders (1 source) Chronic pain; Translations: [Other chronic pain] Onset: 4 Chronic Other nervous system disorders (4 sources) Abnormal reflex; Translations: [ABNORMAL REFLEX] Onset: 2 Episodic Other nutritional; endocrine; and metabolic disorders (2 sources) Body mass index 25-29 - overweight; Translations: [Body Mass Index 29.0-29.9, adult] Episodic Other nutritional; endocrine; and metabolic disorders (2 sources) Overweight; Translations: [Overweight] Episodic Other nutritional; endocrine; and metabolic disorders (13 sources) Overweight in adulthood with body mass index of 25 or more but less than 30; Translations: [Overweight] 03-14-2022 Episodic Other screening for suspected conditions (not mental disorders or infectious disease) (4 sources) Abnormal electrocardiogram [ECG] [EKG]; Translations: [Blood chemistry abnormal] Onset: 2 Episodic Other upper respiratory infections (1 source) Acute pharyngitis, unspecified; Translations: [ACUTE PHARYNGITIS UNSPECIFIED] Onset: 1 Episodic Pneumonia (except that caused by tuberculosis or sexually transmitted disease) (1 source) Pneumonia, unspecified organism; Translations: [PNEUMONIA UNSPECIFIED ORGANISM] Onset: 2 Episodic Residual codes; unclassified (20 sources) Sleep apnea; Translations: [Unspecified sleep apnea] 10-21-2019 Chronic Residual codes; unclassified (1 source) Pain, unspecified; Translations: [PAIN UNSPECIFIED] Onset: 1 Episodic Sickle cell anemia (8 sources) Sickle cell trait; Translations: [Sickle-cell trait] Chronic Unclassified (2 sources) COUGH, UNSPECIFIED; Translations: [COUGH, UNSPECIFIED] Onset: 2 Unclassified (4 sources) CONTACT W/AND (SUSP) EXPOS COVID-19; Translations: [CONTACT W/AND (SUSP) EXPOS COVID-19] Onset: 1 Unclassified (1 source) Aneurysm of the ascending aorta, without rupture; Translations: [Aneurysm of the ascending aorta, without rupture] Onset: 3 Past or Other Problems Problem Classification Problem Date Documented Da te Episodic/Chronic Immunizations and screening for infectious disease (2 sources) Patient encounter status; Translations: [Other specified vaccination] Resolved: 01-23-2023 Episodic Unclassified (1 source) COUGH, UNSPECIFIED; Translations: [COUGH, UNSPECIFIED] Onset: 06-21-2021 Unclassified (1 source) CONTACT W/AND (SUSP) EXPOS COVID-19; Translations: [CONTACT W/AND (SUSP) EXPOS COVID-19] Onset: 05-25-2021 Unclassified (6 sources) Never smoked tobacco; Translations: [Never a smoker] Results Test Name Value Interpretation Reference Range Facility IntraOperative Documentson 0 08-07-2023 IntraOperative Documents [id number] Normal [facility] Postoperative Documentson Postoperative Documents [id number] [facility] Reminderson 08-05-2023 Reminders - From: Janes Blanco To: [facility] - Reminders/Recalls; Sent: 08/05/2023 15:13:53 EST Show up: 07/18/2033 15:13:00 EST Subject: Ambulatory Reminder Due Date/Time: 07/29/2033 15:13:00 EST Reminder/Recall Repeat colonoscopy in 10 years(2033) [facility] Result Letter Officeon 08-05 Result Letter Office (Inserted Image. Un able to display) August 05, 2023 CECILIO DERICKJacque [address] [place] [id number] : 1960 Below is a summary of the results of your recent colonoscopy. Your results have been sent to your primary care provider along with recommendations on when the procedure should be repeated. COLONOSCOPY Type of polyp no polyps identified Based on your results we are recommending you repeat the procedure in 10 years EGD Normal EGD Please contact the office with any further questions or concerns or if you wish to make an appointment. [facility] [phone] [facility] Consenton 07-31-2023 Consent [id number] [facility] Discharge Instructionson Discharge Instructions [id number] [facility] Progress Note-Physicianon Progress Note-Physician Patient: CECILIO NICKERSON Age: 63 years Sex: Male : 1960 Associated Diagnoses: None Author: MD Em, Mikala Townsend Postoperative Information Postoperative disposition: Postoperative disposition: To PACU. Optimetrix number: Optimetrix number [id number]. Anesthetic utilized: General. Health Status Allergies: Allergic Reactions (Selected) Severity Not Documented Shellfish- Hives. Physical Examination VS/Measurements Pain Assessment: Controlled. General: Awake, Alert, Appropriate. Respiratory: Adequate air exchange. Cardiovascular: Stable, Normal peripheral perfusion. Neurological: Normal sensory function, Normal motor function. Assessment Anesthetic outcome No anesthetic complications noted. Adequate pain relief. able to void without difficulty, able to ambulate with assist, tolerating PO intake, no N/V. Review / Management Condition: Stable. Plan Transfer/Discharge: Transfer/Discharge Discharge when meets criteria ( To home ). Normal [facility] Comment on above: Result Comment: Elec tronically Signed By: MD Em, Mikala Townsend\.br\Date and Time Signed: 07/31/23 11:48 EST Main OR Intraoperative Recor don 07-30-2023 Main OR Intraoperative Record IntraOp Document Type FT Summary Primary Physician: Humberto Hernandez MD Finalized Date/Time: 07/30/23 10:47:30 Pt. Name: CECILIO NICKERSON Nicolas Coates/Sex: 1960 Male Med Rec #: [id number] Physician: Humberto Hernandez MD Financial #: [id number] Pt. Type: O Room/Bed: / Admit/Disch: 07/29/23 13:25:45 - 07/29/23 23:59:59 Institution: Case Times FT Entry 1 Patient Times In Room 07/29/23 16:04:00 Out Room 07/29/23 16:33:00 Procedure Times Start 07/29/23 16:09:00 Stop 07/29/23 16:31:00 Anesthesia Times Start 07/29/23 16:04:00 Stop 07/29/23 16:33:00 Time at [facility] 07/29/23 16:20:00 Last Modified By: Bertha Charles RN 07/29/23 16:33:34 General Comments: EGD stop time at 1612./EDDIE CAZARES Colonoscopy start time at 1615./EDDIE CAZARES 07/30/23 Chart opened to review and send charges [facility] Case Attendance FT Entry 1 Entry 2 Entry 3 Case Attendee Russell CARDOZA, Truong Charles RN, Airam Sanchez Role Performed Anesthesiologist Hair Sample Matcher - Primary Staff - Other Machine Candle Molder Time In 07/29/23 16:04:00 07/29/23 16:04:00 07/29/23 16:04:00 Time Out 07/29/23 16:33:00 07/29/23 16:33:00 07/29/23 16:33:00 Procedure EGD AND COLONOSCOPY(.) EGD AND COLONOSCOPY(.) EGD AND COLONOSCOPY(.) Comments Dr. Strickland is supervising Last Modified By: Melvin MORGAN, Bertha Charles RN, Bertha Saini RN 07/29/23 16:33:35 07/29/23 16:33:35 07/29/23 16:33:35 Entry 4 Entry 5 Case Attendee Luis Enrique Nowak MD, Humberto Still Role Performed Scrub - Primary Surgeon - Primary Time In 07/29/23 16:04:00 07/29/23 16:04:00 Time Out 07/29/23 16:33:00 07/29/23 16:33:00 Procedure EGD AND COLONOSCOPY(.) EGD AND COLONOSCOPY(.) Comments Last Modified By: Bertha Charles RN, RN, Kristin N 07/29/23 16:33:35 07/29/23 16:33:35 Perioperative Protocols FT Pre-Care Text: Implements protective measures prior to operative or invasive procedure, confirms identity before the operative or invasive procedure, verifies operative procedure, surgical site, and laterality Entry 1 Procedure(s) EGD AND COLONOSCOPY(.) Patient Identity Birthday, ID Band Verified (select at Check, Patient least 2): Participation Consents / H and P Anesthesia Consent, Operative Site N/A Verified HandP, Surgery/Procedure Marking Verified Consent Surgical Site No Laterality Verified n/a Verified Procedure Verified Yes Correct Patient Yes Position Verified Availability Equipment, Medication Prep Dry n/a Verified (If Applicable) PreOp Antibiotic No Time Out Bertha Charles RN, Given Participants Truong Muñoz Miles, Kirstyn K, Sparks, Micala E, Sarmini MD, Humberto Still Time Out Complete 07/29/23 16:07:00 Outcomes Met? Yes Last Modified By: Bertha Charles RN 07/29/23 16:07:36 Post-Care Text: The patient is free from signs and symptoms of injury caused by extraneous objects Allergy Information FT Pre-Care Text: Verifies allergies Entry 1 Allergies Reviewed? Yes Allergies Reviewed Self/Patient With Outcomes Met? Yes Last Modified By: Bertha Charles RN 07/29/23 16:07:44 Post-Care Text: The patient received appropriate medication(s) safely administered during the perioperative period Surgical Procedures FT Entry 1 Procedure Description Procedure EGD AND COLONOSCOPY Modifiers . Surgeon Description EGD with gastric biopsy. Colonoscopy Primary Procedure Yes Primary Surgeon Mary BHAGAT, Humberto Still Start 07/29/23 16:09:00 Stop 07/29/23 16:31:00 Anesthesia Type General Surgical Service Gastroenterology Wound Class 2 - Clean-Contaminated Last Modified By: Bertha Charles RN 07/29/23 16:31:36 General Case Data FT Pre-Care Text: Classifies surgical wound, implements aseptic technique, initiates traffic control Entry 1 Case Information OR ENDO 1 FT Case Level Level 2 Wound Class 2 - Clean-Contaminated Specialty Gastroenterology ASA Class 2 Preop Diagnosis Abdominal pain, change Postop Same As Preop No in bowel habits GERD, left sided chest pain Postop Diagnosis EGD- Mild duodenitis. Outcomes Met? Yes Colonoscopy- Diverticulosis Last Modified By: Bertha Charles RN 07/29/23 16:23:01 Post-Care Text: The patient is free from signs and symptoms of infection Skin Assessment (Pre Procedure) FT Pre-Care Text: Implements protective measures to prevent skin/ tissue injury due to thermal or mechanical sources Evaluates for signs and symptoms of physical injury to skin and tissue Entry 1 Skin Integrity Intact, [place], Warm, and Skin Abnormality No Dry Outcomes Met? Yes Last Modified By: Bertha Charles RN 07/29/23 16:09:56 Post-Care Text: The patient is free from signs and symptoms of injury caused by extraneous objects Patient Positioning FT Pre-Care Text: Identifies physical alterations that require additional precautions for procedure-specific positioning, v (more content not included)... Normal [facility] Progress Note-Physicianon Progress Note-Physician Patient: CECILIO NICKERSON Age: 63 years Sex: Male : 1960 Associated Diagnoses: None Author: Ayush Borja Jr, DO Preoperative Information Anesthesia Preop Info: Time patient last ate or drank 07/29/2023 00:00:00. Anesthesia history: Patient history: None. Family history+: None. Informed consent: Signed by patient. Re-evaluation prior to induction: Initial evaluation reviewed: No significant change. Review of Systems Eye: Negative except as documented in history of present illness. Ear/Nose/Mouth/Throat: Negative except as documented in history of present illness. Respiratory: Negative except as documented in history of present illness. Cardiovascular: Negative except as documented in history of present illness. Musculoskeletal: Negative except as documented in history of present illness. Neurologic: Negative except as documented in history of present illness. Health Status Allergies: Allergic Reactions (Selected) Severity Not Documented Shellfish- Hives. Problem list: All Problems Low vitamin B12 level / SNOMED CT 3640731241 / Confirmed Sleep apnea / SNOMED CT 518061995 / Confirmed Reducible umbilical hernia / SNOMED CT 123791377 / Confirmed Colon polyps / SNOMED CT 847479219 / Confirmed BMI 28.0-28.9,adult / SNOMED CT 6132731181 / Confirmed Osteoarthritis / SNOMED CT 7999819484 / Confirmed Psychiatric disorder / SNOMED CT 034661933 / Confirmed Left-sided chest pain / SNOMED CT 494565084 / Confirmed Irregular bowel habits / SNOMED CT 9365139023 / Confirmed History of colon polyps / SNOMED CT 0097610142 / Confirmed Hemorrhoids / SNOMED CT 515217013 / Confirmed History of umbilical hernia / SNOMED CT 301860582 / Confirmed Gastroparesis / SNOMED CT 518957896 / Confirmed GERD (gastroesophageal reflux disease) / SNOMED CT 560225564 / Confirmed Epigastric hernia / SNOMED CT 939304550 / Confirmed Diverticulosis / SNOMED CT 9098150503 / Confirmed Diastasis recti / SNOMED CT 079677977 / Confirmed Depression / SNOMED CT 38952148 / Confirmed Chronic idiopathic constipation / SNOMED CT 725179953 / Confirmed Ascending aortic aneurysm / SNOMED CT 3350572265 / Confirmed Anemia / SNOMED CT 431911297 / Confirmed Change in bowel habits / SNOMED CT 944088071 / Confirmed Abdominal pain / SNOMED CT 40784795 / Confirmed Canceled: Blood in diaper / SNOMED CT 609719808 Canceled: Change in bowel habits / SNOMED CT 597544317 Histories Procedure history: Esophagogastroduodenoscopy ([id number]) on 11/15/2021 at 61 Years. Comments: 11/15/2021 14:24 EDT - Gerry RN, Danita normal Colonoscopy ([id number]) on 11/15/2021 at 61 Years. Comments: 11/15/2021 14:24 EDT - Gerry RN Danita diverticulosis t/o colon Cholecystectomy; (35277). Colonoscopy (311436061). Social History Social & Psychosocial Habits Alcohol 06/05/2023 Risk Assessment: Denies Alcohol Use Substance Abuse 06/05/2023 Risk Assessment: Denies Substance Abuse Tobacco 06/05/2023 Risk Assessment: Denies Tobacco Use 06/05/2023 Tobacco Use: Never (less than 100 in l Smokeless tobacco use: Never . Physical Examination Airway: Mallampati classification: II (soft palate, fauces, uvula visible). Respiratory: adequate air exchange. Cardiovascular: Regular rhythm. Plan [place] [employer] (ASA) physical status classification: Class II. Anesthetic Preoperative Plan: Anesthesia General. Normal [facility] Comment on above: Result Comment: Elec tronically Signed By: Ayush Borja Jr, DO\.jamel\Date and Time Signed: 07/30/23 15:58 EST Consent for Treatmenton 07-18 Consent for Treatment [id number] [facility] Discharge Instructionson Discharge Instructions CECILIO NICKERSON :1960 Visit Date:07/29/2023 Inpatient Discharge Instructions Your Care Team Admitting Physician - Humberto Hernandez MD Referring Physician - Humberto Hernandez MD Reason for Your Visit ABDOMINAL PAIN, CHANGE IN BOWEL HABITS, GERD, LEFT SIDED CHEST PAIN Your Diagnosis Abdominal pain, chronic, generalized Other chronic pain Tests Performed Pathology Tissue Exam -- Results Pending -- Please visit your patient portal for your results or contact your primary care physician. This Is Your Medications List benztropine (benztropine 0.5 mg oral tablet) cyanocobalamin (Vitamin B12) dicyclomine (dicyclomine 10 mg Cap) famotidine (Pepcid 40 mg Tab) iloperidone (Fanapt) meloxicam (meloxicam 15 mg oral tablet) methocarbamol omeprazole (omeprazole 40 mg Cap-DR) oxcarbazepine (Trileptal) polycarbophil (Fiber Tabs) polyethylene glycol 3350 (Miralax 3350 17 gram packet) simvastatin tizanidine topiramate (Topamax 25 mg Tab) venlafaxine Procedure History Colonoscopy (11/15/2021), Esophagogastroduodenoscopy (11/15/2021), Cholecystectomy;, Colonoscopy. Discharge Vitals Temperature (Temporal Artery) 36.4 ?C Heart Rate (Monitored) 67 Respiratory Rate 22 Blood Pressure 107/62 Height 167 cm Weight 80.1 kg BMI 28.72 What to do next Instructions From Your Doctor Event Name Event Result Discharge Activity Resume normal activities in 24 hours Discharge Restrictions No driving for 24 hrs Discharge Diet(s) Regular Call Your Doctor For Persistent or heavy bleeding [facility]acy Information [facility] [place] [facility] [place] Discharge Instructions Discharge Instructions New Follow Up Appointments after Discharge Follow Up with Humberto Hernandez When: Only if needed Comments: Call for any problems. Where: [facility] Vladislav Morrison, [facility] [address] [phone] Business (1) Medications What How Much When Why Instructions Next Dose Unchanged benztropine (benztropine 0.5 mg oral tablet) 1 Tablets By Mouth 2 times a day Unchanged cyanocobalamin (Vitamin B12) By Mouth Every day Unchanged dicyclomine (dicyclomine 10 mg Cap) 1 Capsules By Mouth 4 times a day as needed for Spasm Unchanged famotidine (Pepcid 40 mg Tab) 1 Tablets By Mouth Once a day (at bedtime) GERD (gastroesophageal reflux disease) Duration: 90 Days Unchanged iloperidone (Fanapt) 6 Milligram By Mouth 2 times a day Unchanged meloxicam (meloxicam 15 mg oral tablet) 1 Tablets By Mouth Every day Unchanged methocarbamol By Mouth 3 times a day Unchanged omeprazole (omeprazole 40 mg Cap-DR) 1 Capsules By Mouth Every day Unchanged oxcarbazepine (Trileptal) By Mouth 2 times a day Unchanged polycarbophil (Fiber Tabs) 1,250 Milligram By Mouth 2 times a day Unchanged polyethylene glycol 3350 (Miralax 3350 17 gram packet) 17 Gram By Mouth Every day Chronic idiopathic constipation Unchanged simvastatin 20 Milligram By Mouth Once a day (at bedtime) Unchanged tizanidine 4 Milligram By Mouth Every day Unchanged topiramate (Topamax 25 mg Tab) 1 Tablets By Mouth Every day Unchanged venlafaxine 75 Milligram By Mouth Every day Test Results No qualifying data available. Allergies shellfish (Hives) Problems Ongoing - Any problem that you are currently receiving treatment for. Abdominal pain Anemia Ascending aortic aneurysm BMI 28.0-28.9,adult Change in bowel habits Chronic idiopathic constipation Colon polyps Depression Diastasis recti Diverticulosis Epigastric hernia Gastroparesis GERD (gastroesophageal reflux disease) Hemorrhoids History of colon polyps History of umbilical hernia Irregular bowel habits Left-sided chest pain Low vitamin B12 level Osteoarthritis Psychiatric disorder Reducible umbilical hernia Sleep apnea Education Materials Diverticulosis Many people have small pouches in their colon called diverticulum. The diverticulum bulge outward through weak spots in the colon. You could have one or more of these pouches in the colon. The condition of having these pouches in the colon is called diverticulosis or diverticular disease. Diverticulosis is usually diagnosed by tests to evaluate something else. For example, you may have had a colonoscopy to screen for colon cancer when the diverticulosis was found. Most people with diverticulosis do not have any discomfort or problems. If symptoms develop, they may include mild cramps, bloating, and constipation. A complication of this condition is called diverticulitis. This is when the diverticulum become inflamed and infected. How to treat diverticulosis: Increasing the amount of fiber in the diet may reduce symptoms of diverticulosis and prevent complications such as diverticulitis (infected diverticuli). Fiber keeps stool soft and lowers pressure ins (more content not included)... Normal [facility] Comment on above: Result Comment: Elec tronically Signed By: Michell Husain RN\.jamel\Date and Time Signed: 07/29/23 16:41 EST Endoscopic Procedure Report - Otheron 07-29-2023 Endoscopic Procedure Report - Other Patient: CECILIO NICKERSON Age: 63 years Sex: Male : 1960 Associated Diagnoses: None Author: Humberto Hernandez MD Pre-Procedure Procedure Date 07/29/2023 16:32:00 . Procedure Type: Colonoscopy. Procedure provider Performed by Humberto Hernandez MD. Current history and physical Documented on chart. Colorectal neoplasm risk assessment Average risk. Informed Consent After discussing the rationale, risks and benefits, and alternatives to this procedure, the patient provided signed consent for the procedure. Pre-procedure diagnosis: Diagnostic: Abdominal pain, diarrhea, change in bowel habits. ASA Classification: Class II. . Monitoring: See anesthesia record. . Procedure The procedure was performed in the hospital. See anesthesia record for sedation given during procedure. The patient was positioned starting in the left lateral decubitus position. Endoscope type used was a pediatric-size. The endoscope was lubricated then introduced through the anus. The scope was advanced to the terminal ileum. No difficulties encountered during the procedure. The bowel preparation quality was adequate (see polyps greater than or equal to 6 millimeters). The patient tolerated the procedure well. Time to Cecum: 5 min Withdrawal time: 11 min Findings 1. Small internal hemorrhoids 2. Sigmoid diverticulosis, otherwise normal colon 3. Normal terminal ileum Images Procedure images: [id number] . Post-Procedure Complications: none. Estimated blood loss: none. Specimens: none. Devices/ implants: none left in place. Impression and Plan 1. Small internal hemorrhoids 2. Sigmoid diverticulosis, otherwise normal colon 3. Normal terminal ileum Recommendations: Repeat colonoscopy:: In 10 years. Follow-up:: in clinic as scheduled. Diet:: Previous. Medication resumption:: Continue current medications, Avoid NSAIDs. Return to activities:: After 24 hours. Education and Follow-up: Counseled: Patient, Family. [facility] Comment on above: Result Comment: Elec tronically Signed By: Humberto Hernandez MD\.br\Date and Time Signed: 07/29/23 16:33 EST Other Comment: Abigail hoskins Attachment - attachment storage system not supported [id number] Can be viewed in source systemMissing Attachment - attachment storage system not supported [id number] Can be viewed in source systemMissing Attachment - attachment storage system not supported [id number] Can be viewed in source system Endoscopic Procedure Report - Other Patient: CECILIO NICKERSON Age: 63 years Sex: Male : 1960 Associated Diagnoses: None Author: Humberto Hernandez MD Pre-Procedure Procedure Date 07/29/2023 16:12:00 . Procedure Type: Esophagogastroduodenoscopy with biopsy. Procedure provider Performed by Humberto Hrenandez MD. Current history and physical Documented on chart. Informed Consent After discussing the rationale, risks and benefits, and alternatives to this procedure, the patient provided signed consent for the procedure. Pre-procedure diagnosis: abdominal pain, change in bowel habits. Medications Anticoagulant/antiplatelet None. ASA Classification: Class II. . Monitoring: See anesthesia record. . Procedure The procedure was performed in the hospital. See anesthesia record for sedation given during procedure. The patient was positioned starting in the left lateral decubitus position and with safety measures. Endoscope type used was an adult-size, introduced orally, advanced to the 3rd portion of the duodenum. No difficulty was encountered during the procedure. Views were excellent. The patient tolerated the procedure well. Extent reached: Duodenum third portion Findings 1. Normal esophagus 2. Normal examined stomach. Random biopsies were taken to rule out H. pylori 3. Mild patchy erythema in the duodenal bulb, otherwise normal examined duodenum Post-Procedure Complications: none. Estimated blood loss: minimal. Specimens: sent to pathology. Devices/ implants: none left in place. Impression and Plan 1. Normal esophagus 2. Normal examined stomach. Random biopsies were taken to rule out H. pylori 3. Mild patchy erythema in the duodenal bulb, otherwise normal examined duodenum Recommendations: -Resume previous diet -Resume home medications -Await pathology results, follow in GI clinic in 1-2 after discharge Normal [facility] Comment on above: Result Comment: Elec tronically Signed By: Humberto Hernandez MD\.br\Date and Time Signed: 07/29/23 16:13 EST Inpatient Patient Summaryon 07-29-2023 Inpatient Patient Summary [place] [id number] [facility] Clinical Discharge Instructions PERSON INFORMATION Name: CECILIO NICKERSON [facility]#:[id number] PHYSICIANS Admitting Physician: Humberto Hernandez MD Attending Physician: Humberto Hernandez MD PCP: THOR MOTT MD Discharge Diagnosis: Other chronic pain Comment: PATIENT EDUCATION INFORMATION Instructions: Medication Leaflets: Follow up: MEDICATION LIST Medications to Continue with No Changes Other Medications benztropine (benztropine 0.5 mg oral tablet) 1 Tablets By Mouth 2 times a day. cyanocobalamin (Vitamin B12) By Mouth every day. dicyclomine (dicyclomine 10 mg Cap) 1 Capsules By Mouth 4 times a day as needed Spasm. famotidine (Pepcid 40 mg Tab) 1 Tablets By Mouth once a day (at bedtime) for 90 Days. Refills: 0. iloperidone (Fanapt) 6 Milligram By Mouth 2 times a day. meloxicam (meloxicam 15 mg oral tablet) 1 Tablets By Mouth every day. methocarbamol By Mouth 3 times a day. omeprazole (omeprazole 40 mg Cap-DR) 1 Capsules By Mouth every day. oxcarbazepine (Trileptal) By Mouth 2 times a day. polycarbophil (Fiber Tabs) 1,250 Milligram By Mouth 2 times a day. polyethylene glycol 3350 (Miralax 3350 17 gram packet) 17 Gram By Mouth every day. Refills: 1. simvastatin 20 Milligram By Mouth once a day (at bedtime). tizanidine 4 Milligram By Mouth every day. topiramate (Topamax 25 mg Tab) 1 Tablets By Mouth every day. venlafaxine 75 Milligram By Mouth every day. Comment: Normal [facility] Main OR PACU I Recordon 07-18 Main OR PACU I Record PACU Phase I Document Type FT Summary Primary Physician: Humberto Hernandez MD Finalized Date/Time: 07/29/23 17:19:05 Pt. Name: CECILIO NICKERSON Nicolas Ozuna/Sex: 1960 Male Med Rec #: [id number] Physician: Humberto Hernandez MD Financial #: [id number] Pt. Type: O Room/Bed: / Admit/Disch: 07/29/23 13:25:45 - Institution: Case Times PACU I FT Pre-Care Text: Identifies barriers to communication and implements measures to provide psychological support Develops individualized plan of care, and ensures continuity of care Maintains patient's dignity and privacy, and maintains patient confidentiality Identifies and reports philosophical, cultural, and spiritual beliefs and values Identifies individual values and wishes concerning care Implements aseptic technique, and administers prescribed antibiotic therapy and immunizing agents as ordered Evaluates postoperative tissue perfusion Implements thermoregulation measures, and monitors body temperature Evaluates postoperative respiratory status Evaluates postoperative cardiac status Evaluates postoperative neurological status Assesses pain control, collaborated in initiating patient-controlled analgesia and implements alternative methods of pain control Verifies allergies, administers prescribed medications and solutions, evaluates response to medications Entry 1 In PACU I 07/29/23 16:34:00 Discharge from PACU 07/29/23 17:04:00 I Outcomes Met? Yes Last Modified By: Michell Husain RN 07/29/23 17:18:45 Post-Care Text: The patient demonstrates knowledge of the expected response to the operative or invasive procedure The patient's care is consistent with the individualized perioperative plan of care The patient's right to privacy is maintained The patient's value system, lifestyle, ethnicity, and culture are considered, respected, and incorporated into the perioperative plan of care The patient participates in decisions affecting his or her perioperative plan of care The patient is free from signs and symptoms of infection The patient has wound/tissue perfusion consistent with or improved from baseline levels established preoperatively The patient is at or returning to normothermia at the conclusion of the immediate postoperative period The patient's respiratory function is consistent with or improved from baseline levels established preoperatively The patient's cardiovascular status is consistent with or improved from baseline levels established preoperatively The patient's cardiovascular status is consistent with or improved from baseline levels established preoperatively The patient demonstrates and/or reports adequate pain control throughout the perioperative period The patient received appropriate medication(s), safely administered during the perioperative period Acuity Level PACU I FT Entry 1 Start Time 07/29/23 16:34:00 Stop Time 07/29/23 17:04:00 Acuity Level Acuity Level I Last Modified By: Michell Husain RN 07/29/23 17:19:01 Finalized By: Michell Husain RN Document Signatures Signed By: Michell Husain RN 07/29/23 17:19 Normal [facility] Main OR Preoperative Recordo n 07-29-2023 Main OR Preoperative Record Holding Area Document Type FT Summary Primary Physician: Humberto Hernandez MD Finalized Date/Time: 07/29/23 13:42:27 Pt. Name: CECILIO NICKERSON Nicolas Argueta/Sex: 1960 Male Med Rec #: [id number] Physician: Humberto Hernandez MD Financial #: [id number] Pt. Type: O Room/Bed: / Admit/Disch: 07/29/23 13:25:45 - Institution: Case Times Holding FT Pre-Care Text: Verifies consent for planned procedure, identifies individual values and wishes concerning care, includes family members in perioperative teaching Secures patient's records' belongings, and valuables, maintains patient's dignity and privacy, and maintains patient confidentiality Entry 1 In Holding 07/29/23 13:30:00 Outcomes Met? Yes Last Modified By: Winsome Perdomo RN 07/29/23 13:41:07 Post-Care Text: The patient participates in decisions affecting his or her perioperative plan of care The patient's right to privacy is maintained Surgery Checklist FT Entry 1 Patient Birthday, ID Band Procedure History and Physical, Identification: Check, Patient Verification: Surgical Consent, With Participation Patient NPO after Midnight: Yes Date/Time: 07/29/23 10:30:00 Personal Items: Glasses Personal Items glasses, clothes, shoes Comment: Limitations: n/a Complaints of Pain: No Pain Comment: denies Operative Site n/a Marking: Marked By: n/a Availability Equipment Verified: Does Patient Smoke No Patient states Yes Comment - Adult Feliciano- relative postop adult Supervision supervision available Case Cancelled in No Holding Area see comments below for reason Last Modified By: Winsome Perdomo RN 07/29/23 13:42:24 General Comments: Pt finished colon prep at 1030, states stool is clear liquid. Has been NPO since. /MDRN Finalized By: Winsome Perdomo RN Document Signatures Signed By: Winsome Perdomo RN 07/29/23 13:42 Normal [facility] Monitor Recordon 07-29-2023 Monitor Record [id number] Normal [facility] Monitor Record [id number] [facility] Outpatient Surgery Discharge Instructionon 07-29-2023 Outpatient Surgery Discharge Instruction [place] [id number] Patient Discharge Instructions PERSON INFORMATION Name: CECILIO NICKERSON Date of : 1960 Current Date: 07/29/2023 16:35:21 PHYSICIANS Admitting Physician: Mary BHAGAT, Humberto Still Discharge Diagnosis: Other chronic pain CECILIO NICKERSON has been given the following list of follow-up instructions, prescriptions, and patient education materials: PATIENT FOLLOW-UP INFORMATION Diet: Regular Discharge Activity: Resume normal activities in 24 hours Discharge Restrictions: No driving for 24 hrs Call Your Doctor For: Persistent or heavy bleeding IF UNABLE TO CONTACT YOUR PHYSICIAN AND YOU FEEL IT IS AN EMERGENCY, GO TO THE NEAREST EMERGENCY ROOM OR CALL 911 KALLI Plascencia VINCENT O, have received the attached patient education materials/instructions and have verbalized understanding: May we do a follow up call? Yes No I was present when discharge instructions were given __ Patient Signature Date Clinican/Nurse Signature Date Follow up: [facility] [place] [facility] [place] You may receive a survey from Martha Becerra asking you to rate your care experience. Your feedback is important and will help us understand what we do well and how we can improve the quality of care we provide to you, your loved ones and our community. It?s an honor to serve you. Thank you for choosing [facility] HERE ARE THE MEDICATION CHANGES THAT OCCURRED DURING YOUR HOSPITAL STAY Medications to Continue with No Changes Other Medications benztropine (benztropine 0.5 mg oral tablet) 1 Tablets By Mouth 2 times a day. cyanocobalamin (Vitamin B12) By Mouth every day. dicyclomine (dicyclomine 10 mg Cap) 1 Capsules By Mouth 4 times a day as needed Spasm. famotidine (Pepcid 40 mg Tab) 1 Tablets By Mouth once a day (at bedtime) for 90 Days. Refills: 0. iloperidone (Fanapt) 6 Milligram By Mouth 2 times a day. meloxicam (meloxicam 15 mg oral tablet) 1 Tablets By Mouth every day. methocarbamol By Mouth 3 times a day. omeprazole (omeprazole 40 mg Cap-DR) 1 Capsules By Mouth every day. oxcarbazepine (Trileptal) By Mouth 2 times a day. polycarbophil (Fiber Tabs) 1,250 Milligram By Mouth 2 times a day. polyethylene glycol 3350 (Miralax 3350 17 gram packet) 17 Gram By Mouth every day. Refills: 1. simvastatin 20 Milligram By Mouth once a day (at bedtime). tizanidine 4 Milligram By Mouth every day. topiramate (Topamax 25 mg Tab) 1 Tablets By Mouth every day. venlafaxine 75 Milligram By Mouth every day. PATIENT EDUCATION INFORMATION Instructions: Medication Leaflets: [facility] Patient Education - Texton 0 07-29-2023 Patient Education - Text Diverticulosis Many people have small pouches in their colon called diverticulum. The diverticulum bulge outward through weak spots in the colon. You could have one or more of these pouches in the colon. The condition of having these pouches in the colon is called diverticulosis or diverticular disease. Diverticulosis is usually diagnosed by tests to evaluate something else. For example, you may have had a colonoscopy to screen for colon cancer when the diverticulosis was found. Most people with diverticulosis do not have any discomfort or problems. If symptoms develop, they may include mild cramps, bloating, and constipation. A complication of this condition is called diverticulitis. This is when the diverticulum become inflamed and infected. How to treat diverticulosis: Increasing the amount of fiber in the diet may reduce symptoms of diverticulosis and prevent complications such as diverticulitis (infected diverticuli). Fiber keeps stool soft and lowers pressure inside the colon so that bowel contents can move through easily. You should eat 20 to 35 grams of fiber each day. The table below shows the amount of fiber in some foods that you can easily add to your diet. Adding fiber slowly may decrease the bloating and fullness sometimes felt with an immediate high fiber diet. The doctor may also recommend taking a fiber product such as Citrucel or Metamucil once a day. In the past people with diverticulosis were to avoid nuts, corn, and seeds. This has not been found to be true. If you find that certain foods create cramping or bloating, avoid that food. Foods high in fiber include: Fresh fruits, fresh vegetables, legumes (beans), whole wheat bread, bran muffins or cereal, and nuts. See the table below for examples of high fiber foods. Remember, your goal is 20-35 grams per day. Amount of fiber in different foods Food Serving Grams of fiber Fruits Apple (with skin) 1 medium apple 4.4 Banana 1 medium banana 3.1 Oranges 1 orange 3.1 Prunes 1 cup, pitted 12.4 Juices Apple, unsweetened, w/added ascorbic acid 1 cup 0.5 Grapefruit, white, canned, sweetened 1 cup 0.2 Grape, unsweetened, w/added ascorbic acid 1 cup 0.5 [place] 1 cup 0.7 Vegetables Cooked Green beans 1 cup 4.0 Carrots 1/2 cup sliced 2.3 Peas 1 cup 8.8 Potato (baked, with skin) 1 medium potato 3.8 Raw [place] (with peel) 1 cucumber 1.5 Lettuce 1 cup shredded 0.5 Tomato 1 medium tomato 1.5 Spinach 1 cup 0.7 Legumes Baked beans, canned, no salt added 1 cup 13.9 Kidney beans, canned 1 cup 13.6 Schmidt beans, canned 1 cup 11.6 Lentils, boiled 1 cup 15.6 Breads, pastas, flours Bran muffins 1 medium muffin 5.2 Oatmeal, cooked 1 cup 4.0 White bread 1 slice 0.6 Whole-wheat bread 1 slice 1.9 Pasta and rice, cooked Macaroni 1 cup 2.5 Rice, brown 1 cup 3.5 Rice, white 1 cup 0.6 Spaghetti (regular) 1 cup 2.5 Nuts Almonds 1/2 cup 8.7 Peanuts 1/2 cup 7.9 Chart from [facility] 2013. SEEK IMMEDIATE MEDICAL CARE IF: You develop abdominal (belly) pain. An oral temperature above _ 101? F__develops. Repeated vomiting occurs. Blood is being passed in stools (bright red or black tarry stools). You develop any bowel problems or changes which you have not had before. Extra Information: To learn how much fiber and other nutrients are in different foods, visit the [place] Department of Agriculture (USDA) National Nutrient Database at: http://www.nal.usda.gov/fnic /foodcomp/search/ Created using data from the USDA National Nutrient Database for Standard Reference. Available at http://www.nal.usda.gov/fnic /foodcomp/search/. Information adapted from: ExitCare? Patient Information ?2009 [employer] 2012 [email or web address] [email or web address]/[email or web address]-jd [email or web address]-vjunxb Endoscopy Care After Procedure Please read the instructions outlined below and refer to this sheet in the next few weeks. These discharge instructions provide you with general information on caring for yourself after you leave the hospital. Your doctor may also give you specific instructions. While your treatment has been planned according to the most current medical practices available, unavoidable complications occasionally occur. If you have any problems or questions after discharge, please call your doctor. ACTIVITY ? You may resume your regular activity but move at a slower pace for the next 24 hours. ? Take frequent rest periods for the next 24 hours. ? Walking will help expel (get rid of) the air and reduce the bloated feeling in your abdomen. ? No driving for 24 hours (because of the anesthesia (medicine) used during the test). ? You may shower. ? Do not sign any important legal documents or operate any machinery for 24 hours (because of the anesthesia used during the test). NUTRITION ? Drink plenty of fluids. ? You may resume your normal diet. ? Begin with a light meal and progress to your nor (more content not included)... [facility] Insurance Correspondenceon 0 2023 Insurance Correspondence [id number]#1.00TIFF [facility] Consultation Noteon 06-18-19 Consultation Note [id number]#1.00TIFF [facility] Consultation Noteon 06-13-20 Consultation Note [id number]#1.00TIFF [facility] RAD - CT Reporton 06-13-2023 RAD - CT Report [id number]#1.00TIFF [facility] RAD - CT Report [id number]#1.00TIFF [facility] RAD - CT Report [id number]#1.00TIFF [facility] RAD - MISCon 06-13-2023 RAD - MISC [id number]#1.00TIFF [facility] Consent for Procedure/Surger yon 06-07-2023 Consent for Procedure/Surgery [id number]#1.00TIFF [facility] Physician Referralon 023 Physician Referral [id number]#1.00TIFF [facility] Gastroenterology Office/Clin ic Noteon 06-05-2023 Gastroenterology Office/Clinic Note Chief Complaint Non Cardiac left side chest pain and belching. HPI Staff This is a 62 year old male who presents today for complaints of abdominal pain. Patient states that Dr Mott referred patient to schedule this appointment fro a second opinion. Patient c/o intermittent left side non cardiac chest pain. Patient states that he will notice the pain the evenings after dinner. Dr Mott prescribed omeprazole 40 mg and Dicyclomine. History of Present Illness Patient is a 62-year-old male who presents for follow-up. Patient was previously evaluated 02/2023 and has history of generalized abdominal pain, GERD, and constipation. Previous labs 02/2023 revealed normal H&H, normal BMP, normal magnesium, B12 slightly low at 292. Patient was previously advised to start B12 supplementation. Patient is currently taking omeprazole 20 mg daily and Pepcid 20 mg at bedtime for acid reflux. Patient was also previously advised regarding fiber supplementation daily for constipation. Patient had previous ultrasound of abdomen 02/2022 that was negative. Patient reported history of umbilical hernia and I had previously ordered CT abdomen/pelvis to further evaluate however insurance would not cover. Patient was previously referred to general surgery for further evaluation/management of umbilical hernia. Patient had seen general surgery 02/2022 and was advised to observe umbilical hernia. Previous EGD 11/15/2021 that revealed normal esophagus, normal stomach, normal duodenum. Patient had previous colonoscopy 11/15/2021 that revealed hemorrhoids, diverticulosis, and was recommended to repeat colonoscopy in 2026. Previous colonoscopy 09/[address] Medina that revealed hemorrhoids, hypertrophic sigmoid folds, tubular adenoma removed from the ascending colon, 2 descending polyps that pathology revealed were tubular adenoma and hyperplastic, and tubular adenoma removed from sigmoid colon, random colon biopsy within normal limits. Patient reported during most recent visit with me that he had joined [employer] and was exercising routinely. He reported that exercise had helped his bowel movements and was having 1 bowel movement that was formed daily. He reported taking 2 capsules of fiber supplementation daily. He reported belching had improved with omeprazole 20 mg daily and Pepcid 20 mg at bedtime. He explained if he over ate he would have pain in umbilical region?educated to follow-up with general surgery regarding. During today's visit, patient reports he has been experiencing left sided chest pain that started about 1 month ago and is described as sharp , occurring 30 minutes after eating with associated belching. Denies current chest pain. Reports chest pain occurs 2-3 times a week. Is having acid reflux that is occurring 2 times a week. He explains he is currently taking omeprazole 40mg daily and pepcid 20mg at bedtime. Reports having previous cardiac evaluation 2 years ago. He explains he is currently having a change in bowel habits over the last month. Was previously having 1 formed BM daily. Is now having 4 loose BMs a week. Is having occasional periumbilical pain described as sharp that started 2 weeks, occurring 1-2 times a week. Periumbilical pain is worse with tomato based products. Is taking oral B12 supplementation daily. Patient reports hx. of aortic aneurysm and follows with cardiology regarding. Denies black/bloody stools, nausea/vomiting, fevers/chills, and denies having any other GI complaints. Review of Systems PHQ Score Initial Depression Screen Score: 0 SCORE ROS - Provider Constitutional: no fever, no chills. Skin: no Jaundice. ENMT: Denies dysphagia. Yes acid reflux. Respiratory: no shortness of breath. Gastrointestinal: no nausea, no vomiting, yes loose stools, no GI bleeding. Physical Exam Vitals & Measurements T: 36.4 ?C(Temporal Artery) HR: 65(Peripheral) BP: 148/92 HT: 66 in HT: 167 cm WT: 80.1 kg WT: 176.22 lb BMI: 28.72 General: Well developed, well nourished, in no acute distress Head: Normocephalic/atraumatic Lungs: Normal respiratory effort and clear to auscultation Cardio: Grade III/ systolic heart murmur, Regular rate and rhythm, normal S1 and S2, no rub Abdomen: Soft, non-distended, non-tender. Outpouch of umbilicus- likely umbilical hernia and upper mid abdomen- likely abdominal hernia. Normoactive bowel sounds present in all 4 abdominal quadrants, bilaterally. Mental Status: Alert and oriented x3. Normal mood and affect Assessment/Plan BP elevated today at 148/92- BP managed by patient's PCP. 1. Abdominal pain (R10.9: Unspecified abdominal pain) Is having occasional periumbilical pain described as sharp that started 2 weeks, occurring 1-2 times a week. Periumbilical pain is worse with tomato based products. Previous EGD 11/15/2021 that revealed normal esophagus, normal stomach, normal duodenum. Ordered referral to cardiology to evaluate for cardiac etiology prior to proceeding with EGD. Ordered: CBC w/ Auto Diff (more content not included)... [facility] Comment on above: Result Comment: Elec tronically Signed By: Kristy MILTON, Palak Qiu\.br\Date and Time Signed: 06/05/23 16:51 EST Patient Educationon 06-05-20 Patient Education Gastroenterology Food Choices for Gastroesophageal Reflux Disease, Adult When you have gastroesophageal reflux disease (GERD), the foods you eat and your eating habits are very important. Choosing the right foods can help ease the discomfort of GERD. Consider working with a dietitian to help you make healthy food choices. What are tips for following this plan? Reading food labels ? Look for foods that are low in saturated fat. Foods that have less than 5% of daily value (DV) of fat and 0 g of trans fats may help with your symptoms. Cooking ? Cook foods using methods other than frying. This may include baking, steaming, grilling, or broiling. These are all methods that do not need a lot of fat for cooking. ? To add flavor, try to use herbs that are low in spice and acidity. Meal planning ? Choose healthy foods that are low in fat, such as fruits, vegetables, whole grains, low-fat dairy products, lean meats, fish, and poultry. ? Eat frequent, small meals instead of three large meals each day. Eat your meals slowly, in a relaxed setting. Avoid bending over or lying down until 2?3 hours after eating. ? Limit high-fat foods such as fatty meats or fried foods. ? Limit your intake of fatty foods, such as oils, butter, and shortening. ? Avoid the following as told by your health care provider: ? Foods that cause symptoms. These may be different for different people. Keep a food diary to keep track of foods that cause symptoms. ? Alcohol. ? Drinking large amounts of liquid with meals. ? Eating meals during the 2?3 hours before bed. Lifestyle ? Maintain a healthy weight. Ask your health care provider what weight is healthy for you. If you need to lose weight, work with your health care provider to do so safely. ? Exercise for at least 30 minutes on 5 or more days each week, or as told by your health care provider. ? Avoid wearing clothes that fit tightly around your waist and chest. ? Do not use any products that contain nicotine or tobacco. These products include cigarettes, chewing tobacco, and vaping devices, such as e-cigarettes. If you need help quitting, ask your health care provider. ? Sleep with the head of your bed raised. Use a wedge under the mattress or blocks under the bed frame to raise the head of the bed. ? Chew sugar-free gum after mealtimes. What foods should I eat? Eat a healthy, well-balanced diet of fruits, vegetables, whole grains, low-fat dairy products, lean meats, fish, and poultry. Each person is different. Foods that may trigger symptoms in one person may not trigger any symptoms in another person. Work with your health care provider to identify foods that are safe for you. The items listed above may not be a complete list of recommended foods and beverages. Contact a dietitian for more information. What foods should I avoid? Limiting some of these foods may help manage the symptoms of GERD. Everyone is different. Consult a dietitian or your health care provider to help you identify the exact foods to avoid, if any. Fruits Any fruits prepared with added fat. Any fruits that cause symptoms. For some people this may include citrus fruits, such as oranges, grapefruit, pineapple, and ida. Vegetables Deep-fried vegetables. [place]ian fries. Any vegetables prepared with added fat. Any vegetables that cause symptoms. For some people, this may include tomatoes and tomato products, chili peppers, onions and garlic, and horseradish. Grains Pastries or quick breads with added fat. Meats and other proteins High-fat meats, such as fatty beef or pork, hot dogs, ribs, ham, sausage, salami, and diaz. Fried meat or protein, including fried fish and fried chicken. Nuts and nut butters, in large amounts. Dairy Whole milk and chocolate milk. Sour cream. Cream. Ice cream. Cream cheese. Milkshakes. Fats and oils Butter. Margarine. Shortening. Ghee. Beverages Coffee and tea, with or without caffeine. Carbonated beverages. Sodas. Energy drinks. Fruit juice made with acidic fruits, such as orange or grapefruit. Tomato juice. Alcoholic drinks. Sweets and desserts Chocolate and cocoa. Donuts. Seasonings and condiments Pepper. Peppermint and spearmint. Added salt. Any condiments, herbs, or seasonings that cause symptoms. For some people, this may include arenas, hot sauce, or vinegar-based salad dressings. The items listed above may not be a complete list of foods and beverages to avoid. Contact a dietitian for more information. Questions to ask your health care provider Diet and lifestyle changes are usually the first steps that are taken to manage symptoms of GERD. If diet and lifestyle changes do not improve your symptoms, talk with your health care provider about taking medicines. Where to find more information ? International [employer] for Gastrointestinal Disorders: aboutgerd.org Summary ? When you have gastroesophageal reflux di (more content not included)... [facility] Ambulatory Visit Summaryon 0 03-05-2023 Ambulatory Visit Summary CECILIO NICKERSON :1960 Visit Date:03/05/2023 Ambulatory Visit Instructions Your Diagnosis GERD (gastroesophageal reflux disease) Chronic idiopathic constipation Anemia Abdominal pain History of colon polyps Your Care Team Attending Physician - Palak Wagner CNP Primary Care Physician - THOR MOTT MD This Is Your Medications List famotidine (Pepcid 20 mg Tab) omeprazole (omeprazole 20 mg Cap-DR) Contact prescribing physician if questions or concerns benztropine (benztropine 0.5 mg oral tablet) iloperidone (Fanapt) meloxicam (meloxicam 15 mg oral tablet) methocarbamol oxcarbazepine (Trileptal) polyethylene glycol 3350 (Miralax 3350 17 gram packet) simvastatin tizanidine topiramate (Topamax 25 mg Tab) venlafaxine Procedures Performed Colonoscopy (11/15/2021), Esophagogastroduodenoscopy (11/15/2021), Cholecystectomy;, Colonoscopy. Discharge Vitals Temperature (Temporal Artery) 36.3 ?C Heart Rate (Peripheral) 59 Blood Pressure 135/86 Height 167 cm Height 66 in Weight 81.8 kg Weight 179.96 lb BMI 29.33 What to do next You Need to Schedule the Following Appointments Follow Up with Palak Wagner CNP When: Within 6 months Where: Medications What How Much When Why Instructions New famotidine (Pepcid 20 mg Tab) 1 Tablets By Mouth Once a day (at bedtime) GERD (gastroesophageal reflux disease) Duration: 90 Days Refills: 1 Pickup at [facility] Changed omeprazole (omeprazole 20 mg Cap-DR) 1 Capsules By Mouth Every day GERD (gastroesophageal reflux disease) Duration: 90 Days Pickup at [facility] Unchanged benztropine (benztropine 0.5 mg oral tablet) 1 Tablets By Mouth 2 times a day Contact prescribing physician if questions or concerns Unchanged iloperidone (Fanapt) 6 Milligram By Mouth 2 times a day Contact prescribing physician if questions or concerns Unchanged meloxicam (meloxicam 15 mg oral tablet) 1 Tablets By Mouth Every day Contact prescribing physician if questions or concerns Unchanged methocarbamol Contact prescribing physician if questions or concerns Unchanged oxcarbazepine (Trileptal) By Mouth Contact prescribing physician if questions or concerns Unchanged polyethylene glycol 3350 (Miralax 3350 17 gram packet) 17 Gram By Mouth Every day Chronic idiopathic constipation Contact prescribing physician if questions or concerns Unchanged simvastatin 20 Milligram By Mouth Once a day (at bedtime) Contact prescribing physician if questions or concerns Unchanged tizanidine 4 Milligram By Mouth Every day Contact prescribing physician if questions or concerns Unchanged topiramate (Topamax 25 mg Tab) Contact prescribing physician if questions or concerns Unchanged venlafaxine 75 Milligram By Mouth Every day Contact prescribing physician if questions or concerns Pharmacy Information [facility]: [address], [place] [phone] Allergies shellfish (Hives) Problems Ongoing - Any problem that you are currently receiving treatment for. Abdominal pain Anemia Ascending aortic aneurysm BMI 28.0-28.9,adult Chronic idiopathic constipation Colon polyps Depression Diastasis recti Diverticulosis Epigastric hernia Gastroparesis GERD (gastroesophageal reflux disease) Hemorrhoids History of colon polyps History of umbilical hernia Irregular bowel habits Osteoarthritis Psychiatric disorder Reducible umbilical hernia Sleep apnea Education Materials Chronic Constipation Chronic constipation is a condition in which a person has three or fewer bowel movements a week, for 3 months or longer. This condition is especially common in older adults. What are the causes? Causes of chronic constipation may include: ? Not drinking enough fluid, eating enough food or fiber, or getting enough physical activity. ? . ? A tear in the anus (anal fissure). ? Blockage in the bowel (bowel obstruction). ? Narrowing of the bowel (bowel stricture). ? Having a long-term medical condition, such as: ? Diabetes, hypothyroidism, or iron-deficiency anemia. ? Stroke or spinal cord injury. ? Multiple sclerosis or Parkinson's disease. ? Colon cancer. ? Dementia. ? Inflammatory bowel disease (IBD), outward collapse of the rectum (rectal prolapse), or hemorrhoids. ? Taking certain medicines, including: ? Narcotics. These are a certain type of prescription pain medicine. ? Antacids or iron supplements. ? Water pills (diuretics). ? Certain blood pressure medicines. ? Anti-seizure medicines. ? Antidepressants. ? Medicines for Parkinson's disease. Other causes of this condition may include: ? Stress. ? Problems in the nerves and muscles that control the movement of stool. ? Weak or impaired pelvic floor muscles. What increases the risk? You may be at hig (more content not included)... Normal [facility] Auto Diffon 03-05-2023 Basophils/100 WBC (Bld) 0.4 % Normal 0.0-2.0 [facility] Comment on above: Order Comment: Order Added by Discern Expert. Performed By: #### 2 [id number], [id number], 6080531, 8289050, [id number], [id number] ####[address] [place] [address] Basophils/Leukocytes Auto (Bld) [Pure # fraction] 0.0 E9/L Normal 0.0-0.2 [facility] Comment on above: Order Comment: Order Added by Discern Expert. Performed By: #### 2 371195, [id number], 0789714, 8199853, [id number], [id number] ####[address] [address] Eosinophils/100 WBC (Bld) 2.7 % Normal 0.0-8.0 [facility] Comment on above: Order Comment: Order Added by Discern Expert. Performed By: #### 2 979051, 5608455, 4151930, 1592570, [id number], [id number] ####[address] [address] Eosinophils/Leukocyt es Auto (Bld) [Pure # fraction] 0.2 E9/L Normal 0.0-0.5 [facility] Comment on above: Order Comment: Order Added by Discern Expert. Performed By: #### 2 469710, 7758784, 2568461, 6227693, [id number], 7463972 ####[address] [address] Lymphocytes/100 WBC (Bld) 15.7 % Normal 14.0-50.0 [facility] Comment on above: Order Comment: Order Added by Discern Expert. Performed By: #### 2 390424, 9107608, 0932115, 5493535, [id number], [id number] ####[address] [address] Lymphocytes/Leukocyt es Auto (Bld) [Pure # fraction] 1.1 E9/L Normal 1.0-4.0 [facility] Comment on above: Order Comment: Order Added by Discern Expert. Performed By: #### 2 722332, 4083323, 2743667, 6988973, [id number], 3090896 ####[facility] [address] [place] [address] Monocytes/100 WBC (Bld) 8.5 % Normal 4.0-14.0 [facility] Comment on above: Order Comment: Order Added by Discern Expert. Performed By: #### 2 053208, 4238206, 7574799, 8417269, 14521708, 6136537 ####[facility] [address] [place] [address] Monocytes/Leukocytes Auto (Bld) [Pure # fraction] 0.6 E9/L Normal 0.2-1.0 [facility] Comment on above: Order Comment: Order Added by Discern Expert. Performed By: #### 2 261827, 2424799, 5635558, 9255062, 11346108, 0645133 ####[address] [address] Neutrophils/100 WBC (Bld) 72.7 % Normal 36.0-75.0 [facility] Comment on above: Order Comment: Order Added by Discern Expert. Performed By: #### 2 274680, 3616833, 3831309, 9475697, [id number], 6346924 ####[address] [place] [address] Neutrophils/Leukocyt es Auto (Bld) [Pure # fraction] 5.3 E9/L Normal 2.0-7.5 [facility] Comment on above: Order Comment: Order Added by Discern Expert. Performed By: #### 2 416301, 6527129, 1740710, 4169455, 17776689, 9919044 ####[facility] [address] [place] [address] BMPon 03-05-2023 Anion gap [Moles/Vol] 10 mmol/L Normal 6-16 [facility] Comment on above: Performed By: #### 2 134229, 1510314, 4965062, 4980096, 70161328, 2809797 ####[facility] [address] [place] [address] Calcium [Mass/Vol] 9.3 mg/dL Normal 8.9-11.1 [facility] Comment on above: Performed By: #### 2 081505, 5954056, 6400290, 6258963, 09501632, 4075702 ####[facility] [address] [place] [address] Chloride [Moles/Vol] 104 mmol/L Normal 101-111 [facility] Comment on above: Performed By: #### 2 839020, 0353195, 7678930, 3011308, 76444580, 6286849 ####[facility] [address] [place] [address] CO2 [Moles/Vol] 29 mmol/L Normal 21-31 [facility] Comment on above: Performed By: #### 2 302616, 6094950, 4904877, 5536024, [id number], 8375980 ####[facility] [address] [place] [address] Creatinine [Mass/Vol] 1.1 mg/dL Normal 0.5-1.3 [facility] Comment on above: Performed By: #### 2 690037, 2483812, 9751695, 5819667, 98873080, 1940526 ####[facility] [address] [place] [address] Glucose [Mass/Vol] 97 mg/dL Normal 55-199 [facility] Comment on above: Result Comment: If t his glucose result represents a fasting glucose, interpretation should refer to the following reference range: 55-99 mg/dL Performed By: #### 2 197681, 4592077, 4067842, 4779323, 17373785, 3307294 ####[facility] [address] [place] [address] Potassium [Moles/Vol] 4.5 mmol/L Normal 3.5-5.3 [facility] Comment on above: Performed By: #### 2 397285, 5913507, 0521317, 0202651, 21506651, 9759151 ####[facility] [address] [place] [address] Sodium [Moles/Vol] 138 mmol/L Normal 135-145 [facility] Comment on above: Performed By: #### 2 165013, 6288390, 1119864, 5276027, 90224197, 3558016 ####[facility] [address] [place] [address] Urea nitrogen [Mass/Vol] 19 mg/dL Normal 5-21 [facility] Comment on above: Performed By: #### 2 897182, 4243101, 4705186, 9684074, 16914070, 2060097 ####[facility] [address] [place] [address] Urea nitrogen/Creatinine [Mass ratio] 17 No Units Normal 10-20 [facility] Comment on above: Performed By: #### 2 702674, 4139711, 6147855, 8548922, 47486291, 3305191 ####[facility] [address] [place] [address] CBC w/ Auto Diffon 3 Erythrocyte distribution width (RBC) [Ratio] 13.4 % Normal 10.9-14.2 [facility] Comment on above: Performed By: #### 2 271366, 9957858, 8277241, 7625506, 01034884, 8986427 ####[facility] [address] [place] [address] Hematocrit (Bld) [Volume fraction] 39.5 % Normal 37.7-49.0 [facility] Comment on above: Performed By: #### 2 317818, 7243974, 5153921, 5962902, 27936955, 2538900 ####[facility] [address] [place] [address] Hemoglobin (Bld) [Mass/Vol] 13.5 g/dL Normal 13.5-17.5 [facility] Comment on above: Performed By: #### 2 293315, 6853941, 5373916, 1106260, 22591921, 8689427 ####[facility] [address] [place] [address] MCH (RBC) [Entitic mass] 29.8 pg Normal 27.0-34.0 [facility] Comment on above: Performed By: #### 2 788073, 8126483, 7258727, 0629951, 35762578, 0074134 ####[address] [address] MCHC (RBC) [Mass/Vol] 34.3 g/dL Normal 31.4-36.0 [facility] Comment on above: Performed By: #### 2 725277, 4311125, 6811771, 0189246, 35436831, 0698572 ####[address] [address] MCV (RBC) [Entitic vol] 86.8 fL Normal 80.0-100.0 [facility] Comment on above: Performed By: #### 2 387527, 8301243, 1911429, 2930960, 87154448, 7883333 ####[address] [address] Platelet mean volume (Bld) [Entitic vol] 7.0 fL Normal 6.4-10.8 [facility] Comment on above: Performed By: #### 2 686657, 7628221, 2425401, 4810708, 15055004, 5244839 ####[address] [place] [address] Platelets (Bld) [#/Vol] 195.0 E9/L Normal 150.0-500. 0 [facility] Comment on above: Performed By: #### 2 684685, 7125817, 6140655, 7876108, 90001238, 5182050 ####[address] [place] [address] RBC (Bld) [#/Vol] 4.5 E12/L Normal 4.3-5.9 [facility] Comment on above: Performed By: #### 2 814864, 2918479, 6711440, 2341036, 07885959, 5296993 ####[facility] [address] [place] [address] WBC corrected for nucl RBC Auto (Bld) [#/Vol] 7.3 E9/L Normal 4.0-11.0 [facility] Comment on above: Performed By: #### 2 842502, 3432313, 4109997, 7071793, 89596347, 5126402 ####[facility] [address] [place] [address] Consent for Treatmenton 02-15 Consent for Treatment [id number]:127 Normal [facility] Gastroenterology Office/Clin ic Noteon 03-05-2023 Gastroenterology Office/Clinic Note Chief Complaint Intermittent mid abdominal pain. HPI Staff This is a 62 year old male who presents today for a 6 month follow up. Patients last office visit was 08/28/2022 for GERD and constipation. History of Present Illness Patient is a 62-year-old male who presents for follow-up. Patient was previously evaluated 08/2022 and had reported during visit with me that he was taking Pepcid 20 mg at bedtime and omeprazole 20 mg daily that was controlling his acid reflux. He reported rare occasions of acid reflux and belching had improved with Pepcid at bedtime with omeprazole. He reported having discomfort in umbilical region over the last 3 months off-and-on?patient with history of umbilical hernia and was advised to follow-up with general surgery regarding. He reported having 1 formed bowel movement daily and was taking 2 capsules of fiber daily. Patient had previous ultrasound of abdomen 02/2022 that was negative. Previous labs 01/2022 revealed slightly low hemoglobin of 13.3, normal hematocrit, normal BUN, normal creatinine, normal LFTs. Patient was previously ordered CBC/BMP, B12 and magnesium level 08/2022- not done. Patient had also reported umbilical hernia over the last year and I previously ordered CT abdomen/pelvis to further evaluate for umbilical hernia which his insurance would not cover. Patient was previously referred to general surgery for further management/evaluation of umbilical hernia. Patient saw Dr. Uribe, general surgery 03/14/22 who indicated hernia was small and to observe umbilical hernia. Patient reported during most recent visit with me 04/2022 that he was having pain in umbilical region that had improved and is following with general surgery regarding. Previous EGD 11/15/2021 that revealed normal esophagus, normal stomach, normal duodenum. Patient had previous colonoscopy 11/15/2021 that revealed hemorrhoids, diverticulosis, and was recommended to repeat colonoscopy in 2026. Previous colonoscopy 09/[address] Medina that revealed hemorrhoids, hypertrophic sigmoid folds, tubular adenoma removed from the ascending colon, 2 descending polyps that pathology revealed were tubular adenoma and hyperplastic, and tubular adenoma removed from sigmoid colon, random colon biopsy within normal limits. During today's visit, patient reports he joined [employer] and has been exercising routinely: has been walking and has been stretching, performing yoga, ramon, and Pilates. He explains exercise has helped his bowel movements. Is having 1 BM that is formed daily on average. Is taking 2 capsules of fiber supplementation daily. Reports rare occasions of loose stool. He reports belching has improved with omeprazole 20mg daily and pepcid 20mg at bedtime. Patient reports if he overeats, he will have pain in umbilical region, occurring 2 times a month that has improved- educated to follow-up with general surgery regarding given hx. umbilical hernia. Patient reports having black stool that occurred last week and is having no further black stool- educated to call office if he experiences black stool again. He reports stool is currently brown in color. Denies bloody stools, nausea/vomiting, fevers/chills, and denies having any other GI complaints. Review of Systems ROS - Provider Constitutional: no fever, no chills. Skin: no Jaundice. ENMT: Denies dysphagia and heartburn. Respiratory: no shortness of breath. Cardiovascular: no chest pain. Gastrointestinal: no nausea, no vomiting, no diarrhea. See HPI for details regarding. Physical Exam Vitals & Measurements T: 36.3 ?C(Temporal Artery) HR: 59(Peripheral) BP: 135/86 HT: 66 in HT: 167 cm WT: 81.8 kg WT: 179.96 lb BMI: 29.33 General: Well developed, well nourished, in no acute distress Head: Normocephalic/atraumatic Lungs: Normal respiratory effort and clear to auscultation Cardio: Regular rate and rhythm, normal S1 and S2, no murmur, no rub Abdomen: Soft, non-distended, non-tender. Outpouch of umbilicus- likely umbilical hernia and upper mid abdomen- likely abdominal hernia. Normoactive bowel sounds present in all 4 abdominal quadrants, bilaterally. Mental Status: Alert and oriented x3. Normal mood and affect Assessment/Plan 1. GERD (gastroesophageal reflux disease) (K21.9: Gastro-esophageal reflux disease without esophagitis) Belching improved with omeprazole 20mg daily and pepcid 20mg at bedtime. Previous EGD 11/15/2021 that revealed normal esophagus, normal stomach, normal duodenum. Continue omeprazole 20mg daily and pepcid 20mg at bedtime. Ordered: famotidine, 20 mg = 1 tab(s), Oral, Once a day (at bedtime), X 90 day(s), # 90 tab(s), Refills(s) 1, Pharmacy: [facility], 167, cm, 03/05/23 14:46:00 EDT, Height/Length Dosing, 81.8, kg, 03/05/23 14:46:00 EDT, Weight Dosing omeprazole, 20 mg = 1 cap(s), Oral, Daily, X 90 day(s), # 90 cap(s), Refills(s) 1, Pharmacy: [facility], 167, cm, 03/05/23 14:46:00 EDT, Height/Length Dosing, 81.8, kg, 03/05/23 14:46:00 EDT, Maxi (more content not included)... Normal [facility] Comment on above: Result Comment: Elec tronically Signed By: Kristy MILTON, Palak Qiu\.br\Date and Time Signed: 03/05/23 15:24 EDT Magnesiumon 03-05-2023 Magnesium [Mass/Vol] 2.1 mg/dL Normal 1.3-2.4 [facility] Comment on above: Performed By: #### 2 996261, 6384957, 2015143, 8494574, 37941213, 0572465 ####[facility] [address] [place] [address] Patient Educationon 03-05-20 Patient Education Gastroenterology Chronic Constipation Chronic constipation is a condition in which a person has three or fewer bowel movements a week, for 3 months or longer. This condition is especially common in older adults. What are the causes? Causes of chronic constipation may include: ? Not drinking enough fluid, eating enough food or fiber, or getting enough physical activity. ? . ? A tear in the anus (anal fissure). ? Blockage in the bowel (bowel obstruction). ? Narrowing of the bowel (bowel stricture). ? Having a long-term medical condition, such as: ? Diabetes, hypothyroidism, or iron-deficiency anemia. ? Stroke or spinal cord injury. ? Multiple sclerosis or Parkinson's disease. ? Colon cancer. ? Dementia. ? Inflammatory bowel disease (IBD), outward collapse of the rectum (rectal prolapse), or hemorrhoids. ? Taking certain medicines, including: ? Narcotics. These are a certain type of prescription pain medicine. ? Antacids or iron supplements. ? Water pills (diuretics). ? Certain blood pressure medicines. ? Anti-seizure medicines. ? Antidepressants. ? Medicines for Parkinson's disease. Other causes of this condition may include: ? Stress. ? Problems in the nerves and muscles that control the movement of stool. ? Weak or impaired pelvic floor muscles. What increases the risk? You may be at higher risk for chronic constipation if: ? You are older than age 70. ? You are female. ? You live in a long-term care facility. ? You have a long-term disease. ? You have a mental health disorder or eating disorder. What are the signs or symptoms? The main symptom of chronic constipation is having three or fewer bowel movements a week for several weeks. Other signs and symptoms may vary from person to person. These include: ? Pushing hard (straining) to pass stool, or having hard or lumpy stools. ? Painful bowel movements. ? Having lower abdominal discomfort, such as cramps or bloating. ? Being unable to have a bowel movement when you feel the urge, or feeling like you still need to pass stool after a bowel movement. ? Feeling that you have something in your rectum that is blocking or preventing bowel movements. ? Seeing blood on the toilet paper or in your stool. ? Worsening confusion (in older adults). How is this diagnosed? This condition may be diagnosed based on: ? Your symptoms and medical history. You will be asked about your symptoms, lifestyle, diet, and any medicines that you are taking. ? A physical exam. ? Your abdomen will be examined. ? A digital rectal exam may be done. For this exam, a health care provider places a lubricated, gloved finger into the rectum. ? Tests to check for any underlying causes of your constipation. These may be ordered if you have bleeding in your rectum, weight loss, or a family history of colon cancer. In these cases, you may have: ? Imaging studies of the colon. These may include X-ray, ultrasound, or a CT scan. ? Blood tests. ? A procedure to examine the inside of your colon (colonoscopy). ? More specialized tests to check: ? Whether your anal sphincter works well. This is a ring-shaped muscle that controls the closing of the anus. ? How well food moves through your colon. ? Tests to measure the nerve signal in your pelvic floor muscles (electromyography). How is this treated? Treatment for chronic constipation depends on the cause. Most often, treatment starts with: ? Being more active and getting regular exercise. ? Drinking more fluids. ? Adding fiber to your diet. Sources of fiber include fruits, vegetables, whole grains, and fiber supplements. ? Using medicines such as stool softeners or medicines that increase contractions in your digestive system (pro-motility agents). ? Training your pelvic muscles with biofeedback. ? Surgery, if there is obstruction. Treatment may also include: ? Stopping or changing some medicines if they cause constipation. ? Using a fiber supplement (bulk laxative) or stool softener. ? Using a prescription laxative. This works by absorbing water into your colon (osmotic laxative). You may also need to see a specialist who treats conditions of the digestive system (endoscopy support specialist). Follow these instructions at home: Medicines ? Take pzak-uoh-jodvpcb and prescription medicines only as told by your health care provider. ? If you are taking a laxative, take it as told by your health care provider. Eating and drinking ? Eat a balanced diet that includes enough fiber. Ask your health care provider to recommend a diet that is right for you. ? Drink clear fluids, especially water. Avoid drinking alcohol, caffeine, and soda. These can make constipation worse. ? Drink enough fluid to keep your urine pale yellow. General instructions ? Get some physical activity every day. Ask your h (more content not included)... Normal [facility] Vit B12on 03-05-2023 Cobalamin (Vitamin B12) [Mass/Vol] 292 pg/mL Normal 50-1500 [facility] Comment on above: Performed By: #### 2 636496, 0533269, 0253158, 4899280, 77605137, 7030370 ####[facility] [address] [place] [address] eGFRon 03-05-2023 GFR/1.73 sq M.predicted among non-blacks MDRD (S/P/Bld) [Vol rate/Area] 75 mL/min/1.73 m2 Normal >=59 [facility] Comment on above: Order Comment: Order added by Discern Expert. Result Comment: Sales Coach alexa kidney disease could be indicated at eGFR's of less than 60 mL/min/1.73m2. Kidney failure is indicated at less than 15 mL/min/1.73m2. Performed By: #### 2 647756, 4651015, 3339544, 3268300, 35291676, 9666711 ####[facility] [address] [place] [address] Office Visit (Cardiology)on 01-23-2023 Follow-up visit Diagnoses/Problems Assessed Essential hypertension (401.9) (I10) Hyperlipidemia (272.4) (E78.5) History of orthostatic hypotension (V12.59) (Z86.79) Ascending aortic aneurysm (441.2) (I71.21) Overweight with body mass index (BMI) of 28 to 28.9 in adult (278.02,V85.24) (E66.3,Z68.28) Never a smoker Orders Ascending aortic aneurysm CT Angio Chest; Status:Hold For - Scheduling,Retrospective Authorization; Requested for:16Oct2023; Patient taking Metformin or Derivatives? : No Radiologist to Determine Optimal Study : Y What are the patient's signs and symptoms? : aortic aneurysm Overweight with body mass index (BMI) of 28 to 28.9 in adult Healthy Weight Tips; Status:Complete - Retrospective Authorization; Done: 23Jan2023 Some eating tips that can help you lose weight.; Status:Complete - Retrospective Authorization; Done: 23Jan2023 SocHx: Never a smoker Tobacco Use Screening; Status:Complete; Done: 23Jan2023 Patient Instructions Please bring all medicines, vitamins, and herbal supplements with you when you come to the office. Prescriptions will not be filled unless you are compliant with your follow up appointments or have a follow up appointment scheduled as per instruction of your physician. Refills should be requested at the time of your visit. Follow up in 1 year. Chief Complaint CECILIO NICKERSON is being seen for an annual follow-up of. History of Present Illness walks 1.5 miles a day Patient returns in follow-up of problems as noted. In the interim he has done well. He denies any the orthostatic symptomatology that he used to have in the past. Blood pressure is adequately controlled as his hyperlipidemia and because of all the above we suggest no adjustments or changes in therapy. His ascending aortic aneurysm was again evaluated by CT scan with contrast and it demonstrates no change in dimension and hence we do not recommend surgical consultation at this time. He was educated regarding cardiac signs and symptoms to watch for and we also reminded him of the merits of diet and weight loss. Surgical History Problems History of Cholecystectomy History of Colonoscopy 15nov2021 History of Oral surgery History of Sinus surgery Past Medical History Problems History of Encounter for immunization (V03.89) (Z23) Resolved Date: 23 Jan 2023 Current Meds Medication NameInstruction Benztropine Mesylate 1 MG Oral TabletTAKE 1 TABLET TWICE DAILY NEEDED. Daily Fiber 400 MG Oral CapsuleTAKE THREE CAPSULES BY MOUTH DAILY WITH AT LEAST 8 OUNCES OF WATER Fanapt 6 MG Oral TabletTAKE 1/2 TABLET (3MG) TWICE A DAY ORALLY Meloxicam 15 MG Oral TabletTAKE ONE TABLET BY MOUTH DAILY Methocarbamol 750 MG Oral TabletTAKE 1 TABLET TWICE DAILY NEEDED. Omeprazole 20 MG Oral Capsule Delayed ReleaseTAKE ONE CAPSULE BY MOUTH ONCE DAILY 30 MINUTES BEFORE MORING MEAL OXcarbazepine 300 MG Oral TabletTAKE TWO TABLETS BY MOUTH AT BEDTIME FOR 30 DAYS Pepcid 20 MG Oral TabletTAKE 1 TABLET AT BEDTIME. Simvastatin 20 MG Oral TabletTAKE ONE TABLET BY MOUTH ONCE DAILY IN THE EVENING ORALLY ONCE A DAY 90 DAYS tiZANidine HCl - 4 MG Oral TabletTAKE HALF TO ONE TABLET TWICE A DAY FOR 30 DAYS Venlafaxine HCl - 75 MG Oral TabletTAKE ONE TABLET BY MOUTH ONCE DAILY IN THE MORNING Allergies Medication No Known Drug Allergies Recorded By: Lauren Tellez; 11/02/2021 12:16:06 PM Social History Problems Never a smoker No caffeine use No illicit drug use Occasional alcohol use Review of Systems Constitutional: not feeling tired. Eyes: no eyesight problems. ENT: no hearing loss and no nosebleeds. Cardiovascular: no intermittent leg claudication and as noted in HPI. Respiratory: no chronic cough and no shortness of breath. Gastrointestinal: no change in bowel habits and no blood in stools. Genitourinary: no urinary frequency and no hematuria. Skin: no skin rashes. Neurological: no seizures and no frequent falls. Psychiatric: no depression and not suicidal. All other systems have been reviewed and are negative for complaint. Vitals Vital Signs Recorded: [id number] 03:43PM Heart Rate58, L Radial Lrlqcrfl323, LUE, Sitting Kgxddwiss29, LUE, Sitting Height5 ft 6 in Uhotds698 lb BMI Smoqdqodhw25.73 kg/m2 BSA Calculated1.9 Tobacco Useb) No PHQ-2 #1. Over the last 2 weeks have you felt down, depressed or hopeless? (If yes, answer PHQ-9 below)No PHQ-2 #2. Over the last 2 weeks have you felt little interest or pleasure in doing things? (If yes, answer PHQ-9 below)No Falls Screening (Age 18+)c) Not medically indicated Physical Exam Constitutional: alert and in no acute distress. Eyes: no erythema, swelling or discharge from the eye . Neck: neck is supple, symmetric, trachea midline, no masses and no thyromegaly . Pulmonary: no increased work of breathing or signs of respiratory distress and lungs clear to auscultation. Cardiovascular: carotid pulses 2+ bilaterally with no bruit (more content not included)... Normal [facility] Tobacco Screening.on 023 Adult depression screening assessment No [facility] Buy buy tea 250 DO Work Phone: Fall risk assessment c) Not medically indicated [facility] [employer] tea 250 DO Work Phone: Tobacco use status [facility] b) No -[facility]-Sandu marielena 250 DO Work Phone: CT angio cheston 11-08-2022 CT angio chest [facility] Main [place] [address] [place] [address] Scan Report Signed Patient: Cecilio Nickerson MR#: [id number] : 1960 Acct:[id number] Age/Sex: 62 / M ADM Date: 11/08/22 Loc: CT Room: Type: [facility] Attending Dr: Jose Kimbrough MD Copies to: Jose Kimbrough MD Ordering Provider: Jose Kimbrough MD Date of Service: 11/08/22 CT/CT angio chest: I71.21 CTA Chest TECHNIQUE: Axial imaging with 2-D and 3-D reconstruction. 90cc of Isovue-[address] exam was performed using one or more the following dose reduction techniques: Automated exposure control, adjustment of the MA and/or Kv according to patient size, or use of the iterative reconstruction technique. History: Recheck ascending aortic aneurysm COMPARISON: 11/22/21 THYROID: Unremarkable TRACHEA AND BRONCHI: Patent ESOPHAGUS: Unremarkable. HEART: Similar mild cardiomegaly. PERICARDIAL EFFUSION: None CORONARY ARTERY CALCIFICATION: Present MEDIASTINUM: No adenopathy. No pneumoperitoneum. No mediastinal hematoma. PULMONARY LEXY: No hilar mass or adenopathy is seen. THORACIC AORTA fusiform aneurysmal dilatation of the ascending aorta measures up to 4.9 cm in diameter unchanged from prior examination. PULMONARY EMBOLUS: None LUNG NODULE None LUNGS: Lungs are clear PLEURAL EFFUSION: Done PNEUMOTHORAX: No pneumothorax seen. CHEST WALL: No abnormality AXILLA: Unremarkable BONY STRUCTURES degenerative change of thoracic spine. UPPER ABDOMEN: Cholecystectomy CT/CT angio chest IMPRESSION: Similar 4.9 cm fusiform ascending aortic aneurysm. Impression dictated by: Lorenzo Terry M.D.11/08/2022 4:13 PM Dictation Location: [place] [address] Transcribed By: [facility] 11/08/22 1613 Dictated By: Lorenzo Terry DO 11/08/22 1609 Signed By: 11/08/22 1613 [facility] Radiologyon 11-08-2022 CTA Chest vessels Normal [facility]-Sandu marielena 250 DO Work Phone: Gastroenterology Office/Clin ic Noteon 08-28-2022 Gastroenterology Office/Clinic Note Chief Complaint Followup from 05/08/22. HPI Staff Patient is a 62 year old male here today to followup from 05/08/22 office visit for constipation and GERD. History of Present Illness Patient is a 62-year-old male who presents for follow-up. Patient was previously evaluated 04/2022 and has PMH of HLD?managed by patient's PCP. Patient had reported during previous evaluation 11/2021 having mid abdominal discomfort that had improved. Patient taking fiber supplementation daily. Patient had previous ultrasound of abdomen 02/2022 that was negative. Previous labs 01/2022 revealed slightly low hemoglobin of 13.3, normal hematocrit, normal BUN, normal creatinine, normal LFTs. Patient had also reported umbilical hernia over the last year and I previously ordered CT abdomen/pelvis to further evaluate for umbilical hernia which his insurance would not cover. Patient was previously referred to general surgery for further management/evaluation of umbilical hernia. Patient saw Dr. Uribe, general surgery 03/14/22 who indicated hernia was small and to observe umbilical hernia. Patient reported during most recent visit with me 04/2022 that he was having pain in umbilical region that had improved and is following with general surgery regarding. Previous EGD 11/15/2021 that revealed normal esophagus, normal stomach, normal duodenum. Patient had previous colonoscopy 11/15/2021 that revealed hemorrhoids, diverticulosis, and was recommended to repeat colonoscopy in 2026. Previous colonoscopy 09/[address] Medina that revealed hemorrhoids, hypertrophic sigmoid folds, tubular adenoma removed from the ascending colon, 2 descending polyps that pathology revealed were tubular adenoma and hyperplastic, and tubular adenoma removed from sigmoid colon, random colon biopsy within normal limits. Patient reported acid reflux was occurring 2 times a week with associated belching for years. Patient was taking omeprazole 20 mg daily. He also reported 5 BMs a week that were primarily formed and is taking 2 capsules of fiber daily. Pepcid 20 mg at bedtime was added to patient's regimen for acid reflux. Patient was not seen in office 08/08/22 as patient was noted as no show for his appointment. During today's visit, patient reports he is doing well. He explains when he was taking pepcid 20mg at bedtime with omeprazole 20mg daily this was controlling his acid reflux. He explains he needs refill on pepcid. Rare occasions of acid reflux. He reports his belching improved with pepcid at bedtime with omeprazole daily. He reports he is getting discomfort in umbilical region over the last 3 months off/on- patient with hx. of umbilical hernia- patient to follow-up with Dr. Uribe, general surgery regarding. Is having 1 BM, formed daily. Is taking 2 capsules of fiber daily. Denies black/bloody stools, nausea/vomiting, fevers/chills, and denies having any other GI complaints. Review of Systems PHQ Score Initial Depression Screen Score: 1 ROS - Provider Constitutional: no fever, no chills. Skin: no Jaundice. ENMT: Denies dysphagia. Respiratory: no shortness of breath. Gastrointestinal: no nausea, no vomiting, no diarrhea, no GI bleeding. Physical Exam Vitals & Measurements T: 36 ?C(Temporal Artery) HR: 71(Peripheral) BP: 122/77 HT: 66 in HT: 167 cm WT: 82.1 kg WT: 180.62 lb BMI: 29.44 General: Well developed, well nourished, in no acute distress Head: Normocephalic/atraumatic Lungs: Normal respiratory effort and clear to auscultation Cardio: Regular rate and rhythm, normal S1 and S2, no murmur, no rub Abdomen: Soft, non-distended, non-tender. Normoactive bowel sounds present in all 4 abdominal quadrants, bilaterally. Outpouch of umbilicus- likely umbilical hernia and upper mid abdomen- likely abdominal hernia. Mental Status: Alert and oriented x3. Normal mood and affect Assessment/Plan 1. GERD (gastroesophageal reflux disease) (K21.9: Gastro-esophageal reflux disease without esophagitis) Well-controlled with omeprazole 20mg daily and pepcid 20mg at bedtime. Previous EGD 11/15/2021 that revealed normal esophagus, normal stomach, normal duodenum. Continue omeprazole 20 mg daily and pepcid 20mg at bedtime. Refilled pepcid today. Ordered vitamin B12 level and magnesium level to evaluate for deficiencies and BMP to evaluate renal function while on PPI long-term. Ordered: famotidine, 20 mg = 1 tab(s), Oral, Once a day (at bedtime), X 90 day(s), # 90 tab(s), Refills(s) 1, Pharmacy: [facility], 167, cm, 08/28/22 14:54:00 EDT, Height/Length Dosing, 82.1, kg, 08/28/22 14:54:00 EDT, Weight Dosing Basic Metabolic Panel Magnesium Level Vitamin B12 Level 2. History of colon polyps (Z86.010: Personal history of colonic polyps) Previous colonoscopy 11/15/2021 that revealed hemorrhoids, diverticulosis. Previous colonoscopy 09/[address] Medina that revealed hemorrhoids, hypertrophic sigmoid folds, tubular adenoma removed from the ascending colon, 2 descending polyps that pathology re (more content not included)... Normal [facility] Comment on above: Result Comment: Elec tronically Signed By: Palak Wagner CNP\.br\Date and Time Signed: 08/28/22 15:13 EDT Patient Educationon 08-29-19 Patient Education Gastroenterology Chronic Constipation Chronic constipation is a condition in which a person has three or fewer bowel movements a week, for three months or longer. This condition is especially common in older adults. The two main kinds of chronic constipation are secondary constipation and functional constipation. Secondary constipation results from another condition or a treatment. Functional constipation, also called primary or idiopathic constipation, is divided into three types: ? Normal transit constipation. In this type, movement of stool through the colon (stool transit) occurs normally. ? Slow transit constipation. In this type, stool moves slowly through the colon. ? Outlet constipation or pelvic floor dysfunction. In this type, the nerves and muscles that empty the rectum do not work normally. What are the causes? Causes of secondary constipation may include: ? Failing to drink enough fluid, eat enough food or fiber, or get physically active. ? . ? A tear in the anus (anal fissure). ? Blockage in the bowel (bowel obstruction). ? Narrowing of the bowel (bowel stricture). ? Having a long-term medical condition, such as: ? Diabetes. ? Hypothyroidism. ? Multiple sclerosis. ? Parkinson disease. ? Stroke. ? Spinal cord injury. ? Dementia. ? Colon cancer. ? Inflammatory bowel disease (IBD). ? Iron-deficiency anemia. ? Outward collapse of the rectum (rectal prolapse). ? Hemorrhoids. ? Taking certain medicines, including: ? Narcotics. These are a certain type of prescription pain medicine. ? Antacids. ? Iron supplements. ? Water pills (diuretics). ? Certain blood pressure medicines. ? Anti-seizure medicines. ? Antidepressants. ? Medicines for Parkinson disease. The cause of functional constipation is not known, but some conditions are associated with it. These conditions include: ? Stress. ? Problems in the nerves and muscles that control stool transit. ? Weak or impaired pelvic floor muscles. What increases the risk? You may be at higher risk for chronic constipation if you: ? Are older than age 70. ? Are female. ? Live in a long-term care facility. ? Do not get much exercise or physical activity (have a sedentary lifestyle). ? Do not drink enough fluids. ? Do not eat enough food, especially fiber. ? Have a long-term disease. ? Have a mental health disorder or eating disorder. ? Take many medicines. What are the signs or symptoms? The main symptom of chronic constipation is having three or fewer bowel movements a week for several weeks. Other signs and symptoms may vary from person to person. These include: ? Pushing hard (straining) to pass stool. ? Painful bowel movements. ? Having hard or lumpy stools. ? Having lower belly discomfort, such as cramps or bloating. ? Being unable to have a bowel movement when you feel the urge. ? Feeling like you still need to pass stool after a bowel movement. ? Feeling that you have something in your rectum that is blocking or preventing bowel movements. ? Seeing blood on the toilet paper or in your stool. ? Worsening confusion (in older adults). How is this diagnosed? This condition may be diagnosed based on: ? Symptoms and medical history. You will be asked about your symptoms, lifestyle, diet, and any medicines that you are taking. ? Physical exam. ? Your belly (abdomen) will be examined. ? A digital rectal exam may be done. For this exam, a health care provider places a lubricated, gloved finger into the rectum. ? Other tests to check for any underlying causes of your constipation. These may be ordered if you have bleeding in your rectum, weight loss, or a family history of colon cancer. In these cases, you may have: ? Imaging studies of the colon. These may include X-ray, ultrasound, or CT scan. ? Blood tests. ? A procedure to examine the inside of your colon (colonoscopy). ? More specialized tests to check: ? Whether your anal sphincter works well. This is a ring-shaped muscle that controls the closing of the anus. ? How well food moves through your colon. ? Tests to measure the nerve signal in your pelvic floor muscles (electromyography). How is this treated? Treatment for chronic constipation depends on the cause. Most often, treatment starts with: ? Being more active and getting regular exercise. ? Drinking more fluids. ? Adding fiber to your diet. Sources of fiber include fruits, vegetables, whole grains, and fiber supplements. ? Using medicines such as stool softeners or medicines that increase contractions in your digestive system (pro-motility agents). ? Training your pelvic muscles with biofeedback. ? Surgery, if there is obstruction. Treatment for secondary chronic constipation depends on the underlying condition. You may need to: ? Stop or change some medicines if they cause constipation. ? Use a fiber (more content not included)... Normal [facility] Tobacco Screening.on 022 Adult depression screening assessment No [facility] [employer] 250 DO Work Phone: Fall risk assessment a) No falls within the last year [facility] [employer] 250 DO Work Phone: Tobacco use status [facility] b) No [facility] CHNLy 250 DO Work Phone: Creatinine and Glomerular fi ltration rate.predicted panel (S/P/Bld)Ordered By: Jose Kimbrough on 11-22-2021 Creatinine [Mass/Vol] 1.09 mg/dL 0.64-1.27 [facility] Estimated glomerular filtrat ion rate (GFR) non- AmericanOrdered By: Jose Kimbrough on 11-22-2021 GFR/1.73 sq M.predicted among non-blacks MDRD (S/P/Bld) [Vol rate/Area] > 60 mL/Min [facility] No Panel InformationOrdered By: Jose Kimbrough on 11-22-2021 Estimated GFR () > 60 mL/Min [facility] Comment on above: GFR estimated refere nce range: According to KDOQI guidelines, <60 ml/min/1.73m2 is sufficient to diagnose a patient with chronic kidney disease. Pharmacy Creatinine Clearance (Chem N/A [facility] No Panel Informationon 11-22 14\S\14 [facility] Work Phone: > 60 Normal [facility] lk 600 DO Work Phone: Comment on above: GFR estimated refere nce range: According to KDOQI guidelines, <60 ml/min/1.73m2 is sufficient to diagnose a patient with chronic kidney disease.PERFORMED BY:[facility] [place] [place], [place] [id number] MEDICAL DIRECTORESTEBAN RUIZ M.D. 1.09\S\1.09 Normal 0.64-1.27 [facility] lk 600 DO Work Phone: [phone] 25.3\S\25.3 Normal 22.0-30.0 [facility] 600 DO Work Phone: [phone] 103\S\103 Normal 95-114 [facility] 600 DO Work Phone: [phone] 4.3\S\4.3 Normal 3.5-5.1 [facility] 600 DO Work Phone: [phone] 138\S\138 Normal 136-146 [facility] lk 600 DO Work Phone: [phone] Radiologyon 11-22-2021 CTA Chest vessels [facility] Work Phone: Serum or plasma chloride april surement (moles/volume)Ordered By: Jose Kimbrough on 11-22-2021 Chloride [Moles/Vol] 103 mmol/L 95-114 [facility] Serum or plasma potassium me asurement (moles/volume)Ordered By: Jose Kimbrough on 11-22-2021 Potassium [Moles/Vol] 4.3 mmol/L 3.5-5.1 [facility] Serum or plasma sodium measu rement (moles/volume)Ordered By: Jose Kimbrough on 11-22-2021 Sodium [Moles/Vol] 138 mmol/L 136-146 [facility] Serum or plasma total carbon dioxide measurement (moles/volume)Ordered By: Jose Kimbrough on 11-22-2021 CO2 [Moles/Vol] 25.3 mmol/L 22.0-30.0 [facility] Serum or plasma urea nitroge n measurement (mass/volume)Ordered By: Jose Kimbrough on 11-22-2021 Urea nitrogen [Mass/Vol] 14 mg/dL 9- [facility] MRI CSPINE WO CONon 08-18-19 MRI CSPINE WO CON EXAM: MRI CSPINE WO CON INDICATION: Abnormal reflex. COMPARISON: MRI cervical spine on 12/23/2017. TECHNIQUE: Sagittal T2, sagittal T1, sagittal STIR, axial T2, axial T2*imaging was obtained without any contrast administration. FINDINGS: Overall quality of the study is degraded due to motion artifact. The visualized portion of the posterior fossa appears unremarkable. There is prominence of the cerebellar sulci, suggestive of volume loss. The craniocervical alignment is preserved. There is no cervical lymphadenopathy. The visualized portion of the parotid gland, submandibular glands demonstrates normal signal intensity. The prevertebral soft tissues appear unremarkable. The cervical alignment is preserved. The vertebral body heights are preserved. There is no focal bone marrow edema to suggest acute fracture. The bone marrow signal is diffusely heterogeneous, not significantly changed from the prior study dated back to 2018. This is likely related to heterogeneous fatty marrow replacement. Superior endplate deformity at T2 is likely related to prominent Schmorl node. This is new from the prior study of 2018. However, there is no associated bone marrow edema, suggestive of chronic changes. The cervical cord demonstrates normal signal and morphology. Degenerative disc disease are described level by level below: C2-C3: Mild central disc protrusion without any significant thecal sac compression or neural foraminal narrowing. C3-C4: Broad-based posterior disc-osteophyte complex extending up to the lateral recess. Constellation of the findings are causing [id number] right neural foraminal narrowing. There is also mild effacement of the ventral thecal sac on the right. C4-C5: Broad-based posterior disc-osteophyte complex extending up to the lateral recess. Constellation of the findings are causing mild bilateral neural foraminal narrowing, left greater than the right. C5-C6: There is broad-based disc bulge superimposed with posterior disc-osteophyte complex. There is also mild facet hypertrophy. This is causing effacement of the ventral subarachnoid space. The disc-osteophyte complex is extending up to the lateral recess causing mild right, minimal left-sided neural foraminal narrowing. C6-C7: Broad-based posterior disc-osteophyte complex extending up to the lateral recess. There is no significant thecal sac compression. The disc-osteophyte complex is extending up to the right lateral recess causing mild right-sided neural foraminal narrowing. C7-T1: Broad-based posterior disc-osteophyte complex extending up to the left paracentral region. There is also superimposed disc protrusion with fissuring. There is no significant neural foraminal narrowing. There is mild effacement of the ventral thecal sac on the left. IMPRESSION: Heterogeneous bone marrow signal is likely related to heterogeneous fatty marrow replacement. No acute fracture. Superior endplate deformity at T2 is likely chronic in nature. Multilevel degenerative disc disease without any significant neural foraminal narrowing or thecal sac compression. Electronically authenticated by: ADÁN EDWARDS Date: 2021-08-17 13:09 Normal [facility] Comprehensive Metabolic [facility] 06-28-2021 Albumin [Mass/Vol] 4.5 g/dL Normal 3.6-5.1 [facility] Comment on above: Performed By: #### C MP #### [facility] [address], [place] [id number] Albumin/Globulin [Mass ratio] 1.9 {ratio} Normal 1.0-2.5 [facility] Specialist Comment on above: Performed By: #### C MP #### [facility] [address], [place] [id number] ALP [Catalytic activity/Vol] 108 U/L Normal 40-129 [facility] Specialist Comment on above: Performed By: #### C MP #### [facility] [address], [place] [id number] ALT [Catalytic activity/Vol] 36 U/L Normal 9-46 [facility] Comment on above: Result Comment: 05/17 Female reference range changed. Performed By: #### C MP #### [facility] [address], [place] [id number] Anion gap [Moles/Vol] 17 mmol/L Normal 12-20 [facility] Specialist Comment on above: Result Comment: Effe ctive 06/22/2019 reference range changed. Performed By: #### C MP #### [facility] [address], [place] [id number] AST [Catalytic activity/Vol] 29 U/L Normal 10-40 [facility] Comment on above: Performed By: #### C MP #### [facility] [address], [place] [id number] BUN/CREA 21 Ratio Normal 6-22 [facility] Comment on above: Performed By: #### C MP #### [facility] [address], [place] [id number] Calcium [Mass/Vol] 9.9 mg/dL Normal 8.6-10.2 [facility] Comment on above: Performed By: #### C MP #### [facility] [address], [place] [id number] Chloride [Moles/Vol] 107 mmol/L Normal 98-107 [facility] Comment on above: Performed By: #### C MP #### [facility] [address], [place] [id number] CO2 [Moles/Vol] 23 mmol/L Normal 20-31 [facility] Comment on above: Performed By: #### C MP #### [facility] [address], [place] [id number] Creatinine [Mass/Vol] 1.1 mg/dL Normal 0.7-1.4 [facility] Comment on above: Performed By: #### C MP #### [facility] [address], [place] [id number] eGFRAA 86 mL/min/1.73m2 Normal >60 [facility] Comment on above: Performed By: #### C MP #### [facility] [address], [place] [id number] eGFRNAA 71 mL/min/1.73m2 Normal >60 [facility] Specialist Comment on above: Performed By: #### C MP #### [facility] [address], [place] [id number] Globulin (S) [Mass/Vol] 2.4 g/dL Normal 1.9-3.7 [facility] Specialist Comment on above: Performed By: #### C MP #### [facility] [address], [place] [id number] Glucose [Mass/Vol] 84 mg/dL Normal 65-99 [facility] Specialist Comment on above: Result Comment: For FASTING Glucose --- ADA reference ranges: Normal 65-99 mg/dl Prediabetes 100-125 Diabetes >/= 126 Performed By: #### C MP #### [facility] [address], [place] [id number] Potassium [Moles/Vol] 4.5 mmol/L Normal 3.5-5.5 [facility] Specialist Comment on above: Performed By: #### C MP #### [facility] [address], [place] [id number] Protein [Mass/Vol] 6.9 g/dL Normal 6.1-8.1 [facility] Tender Comment on above: Performed By: #### C MP #### [facility] [address], [place] [id number] Sodium [Moles/Vol] 143 mmol/L Normal 135-146 [facility] Comment on above: Performed By: #### C MP #### [facility] [address], [place] [id number] TBIL <0.3 Normal [facility] Specialist Comment on above: Performed By: #### C MP #### [facility] [address], [place] [id number] Urea nitrogen [Mass/Vol] 22 mg/dL Normal 7-25 [facility] Comment on above: Performed By: #### C MP #### [facility] [address], [place] [id number] BNPon 06-21-2021 Natriuretic peptide B (Bld) [Mass/Vol] 114.0 pg/mL Normal <=900.0 [facility] Comment on above: Performed By: #### H STROPN, CMP, BNP #### [facility] [address] [place] [address] Dr. Ashely Garibay CBC AUTO DIFFon 06-21-2021 BASO # 0.0 103/ul Normal 0.0-0.1 [facility] Comment on above: Performed By: #### C BC #### [facility] [address] [place] [address] Dr. Ashely Garibay Basophils/100 WBC (Bld) 0.2 % Normal 0.2-2.0 [facility] Comment on above: Performed By: #### C BC #### [facility] [address] [place] [address] Dr. Ashely Garibay EO # 0.0 103/ul Normal 0.0-0.7 [facility] Comment on above: Performed By: #### C BC #### [facility] [address] [place] [address] Dr. Ashely Garibay Eosinophils/100 WBC (Bld) 0.1 % Critically low 0.9-7.0 [facility] Comment on above: Performed By: #### C BC #### [facility] [address] [place] [address] Dr. Ashely Garibay Erythrocyte distribution width (RBC) [Ratio] 13.0 % Normal 11.0-15.0 [facility] Comment on above: Performed By: #### C BC #### [facility] [address] [place] [address] Dr. Ashely Garibay Hematocrit (Bld) [Volume fraction] 43.2 % Normal 42.0-54.0 [facility] Comment on above: Performed By: #### C BC #### [facility] [address] [place] [address] Dr. Ashely Garibay Hemoglobin (Bld) [Mass/Vol] 14.8 g/dL Normal 14.0-18.0 [facility] Comment on above: Performed By: #### C BC #### [facility] [address] [place] [address] Dr. Ashely Garibay IG # 0.08 10e3/ul Critically high 0.00-0.03 [facility] Comment on above: Performed By: #### C BC #### [facility] [address] [place] [address] Dr. Ashely Garibay IG % 0.8 % Critically high 0.0-0.5 [facility] Comment on above: Performed By: #### C BC #### [facility] [address] [place] [address] Dr. Ashely Garibay LYMPH # 0.8 103/ul Critically low 1.2-3.8 [facility] Comment on above: Performed By: #### C BC #### [facility] [address] [place] [address] Dr. Ashely Garibay Lymphocytes/100 WBC (Bld) 7.6 % Critically low 20.5-60.0 [facility] Comment on above: Performed By: #### C BC #### [facility] [address] [place] [address] Dr. Ashely Garibay MANUAL DIFF REQ NO Normal [facility] Comment on above: Performed By: #### C BC #### [facility] [address] [place] [address] Dr. Ashely Garibay MCH (RBC) [Entitic mass] 28.6 pg Normal 25.9-34.0 [facility] Comment on above: Performed By: #### C BC #### [facility] [address] [place] [address] Dr. Ashely Garibay MCHC (RBC) [Mass/Vol] 34.3 g/dL Normal 29.9-35.2 [facility] Comment on above: Performed By: #### C BC #### [facility] [address] [place] [address] Dr. Ashely Garibay MCV (RBC) [Entitic vol] 83.6 fL Normal 80.0-94.0 [facility] Comment on above: Performed By: #### C BC #### [facility] [address] [place] [address] Dr. Ashely Garibay MONO # 0.7 103/ul Normal 0.3-0.8 [facility] Comment on above: Performed By: #### C BC #### [facility] [address] [place] [address] Dr. Ashely Garibay Monocytes/100 WBC (Bld) 6.3 % Normal 1.7-12.0 [facility] Comment on above: Performed By: #### C BC #### [facility] [address] [place] [address] Dr. Ashely Garibay NEUT # 9.0 103/ul Critically high 1.4-6.5 [facility] Comment on above: Performed By: #### C BC #### [facility] [address] [place] [address] Dr. Ashely Garibay Neutrophils/100 WBC (Bld) 85.0 % Critically high 43.0-75.0 [facility] Comment on above: Performed By: #### C BC #### [facility] [address] [place] [address] Dr. Ashely Garibay Platelet mean volume (Bld) [Entitic vol] 9.3 fL Critically low 9.5-13.5 [facility] Comment on above: Performed By: #### C BC #### [facility] [address] [place] [address] Dr. Ashely Garibay PLT 146 103/ul Critically low 150-450 [facility] Comment on above: Performed By: #### C BC #### [facility] [address] [place] [address] Dr. Ashely Garibay RBC 5.17 106/ul Normal 4.70-6.10 [facility] Comment on above: Performed By: #### C BC #### [facility] [address] [place] [address] Dr. Ashely Garibay WBC 10.6 103/ul Normal 4.0-11.0 [facility] Comment on above: Performed By: #### C BC #### [facility] [address] [place] [address] Dr. Ashely Garibay CTA CHEST WO W CONon 01-05-2 022 CTA CHEST WO W CON EXAM: CTA chest. CLINICAL SYMPTOMS: Male, 60 years, CHEST PAIN, UNSPECIFIED. COMPARISONS: Chest radiograph, same date. TECHNIQUE: Helical CTA of the pulmonary arteries was performed following rapid injection of intravenous contrast with coronal and sagittal MIP images following the administration of 100 mL of Visipaque 270 IV contrast. Dose reduction techniques were achieved by using automated exposure control and/or adjustment of mA and/or KVP according to patient size and/or use of iterative reconstruction technique. CTA: There are no filling defects identified in the pulmonary arteries to suggest pulmonary embolism. The ascending aorta measures 4.6 cm in diameter. No aortic dissection. CT CHEST: There is left lower lobe airspace disease suggesting pneumonia. No mediastinal or hilar adenopathy. Heart size is normal. The visualized portion of the abdomen is unremarkable. IMPRESSION: No evidence for pulmonary embolism or aortic dissection. Ascending aorta aneurysm measuring 4.6 cm in diameter. Left lower lobe pneumonia. Electronically authenticated by: CJ MULLER Date: 2021-06-21 16:57 Normal [facility] Covid-19 PCR (CVDTB)on SARS-CoV-2 (COVID-19) RNA NIECY+probe Ql (Unsp spec) Not detected Normal NOT DETECTED [facility] Comment on above: Result Comment: When diagnostic testing is negative, the possibility of a false negative should be considered in the context of a patient's recent exposures and the presence of clinical signs and symptoms consistent with SARS-CoV-2. This test is not yet approved or cleared by the [place] Food and Drug Administration (FDA). This test was developed by [employer], [place], [place]. The performance characteristics of this test were validated by [facility]. The results are not intended to be used as the sole means for clinical diagnosis or patient management decisions. The [facility] is authorized under Clinical Laboratory Improvement Amendments (CLIA) to perform high- complexity testing. This test is not yet approved or cleared by the [place] FDA. When there are no FDA-approved or cleared tests available, and other criteria are met, FDA can make tests available under an emergency access mechanism called an Emergency Use Authorization (EUA). The EUA for this test is supported by the [place] of Health and Human Service's declaration that circumstances exist to justify the emergency use of in vitro diagnostics for the detection and/or diagnosis of the virus that causes COVID-19. This EUA will remain in effect for the duration of the COVID-19 declaration justifying emergency of IVDs, unless it is terminated or revoked by the FDA (after which the test may no longer be used). Performed By: #### C VDTBH ####[facility] [id number] [place], [place] [id number]. Ashely Garibay D-DIMERon 06-21-2021 D-DIMER 0.74 mg/L FEU Critically high 0.19-0.50 [facility] Comment on above: Performed By: #### P TT, DDIM, PT #### [facility] [address] [address] [address] Ashely Garibay D-DIMER COMMENTS SEE BELOW Normal [facility] Comment on above: Result Comment: Incr eases in D-Dimer concentration observed with thromboembolic events can be variable due to localization, size, and age of the thrombus. Therefore, a thromboembolic event cannot be diagnosed with certainty on the basis of the reference range. D-Dimers may also be elevated for a variety of disorders including: advanced age, , coronary disease, cancer, liver disease, infection, inflammation, hematoma, DIC, trauma, post-surgery, diabetes, thrombolytic or anticoagulant therapy, stress, and generalized hospitalization. Performed By: #### P TT, DDIM, PT #### [facility] [address] [address] [address] Ashely Garibay PROF 14(COMP METB)on 022 Albumin [Mass/Vol] 3.6 g/dL Normal 3.5-5.0 [facility] Comment on above: Performed By: #### H STROPN, CMP, BNP #### [facility] [address] [address] [address] Ashely Garibay Albumin/Globulin [Mass ratio] 0.8 {ratio} Normal [facility] Comment on above: Performed By: #### H STROPN, CMP, BNP #### [facility] [address] [address] [address] Ashely Garibay ALP [Catalytic activity/Vol] 130 U/L Critically high 38-126 [facility] Comment on above: Performed By: #### H STROPN, CMP, BNP #### [facility] [address] [address] [address] Ashely Garibay ALT [Catalytic activity/Vol] 94 U/L Critically high 21-72 [facility] Comment on above: Performed By: #### H STROPN, CMP, BNP #### [facility] [address] [address] [address] Ashely Garibay Anion gap [Moles/Vol] 16.8 mmol/L Normal [facility] Comment on above: Performed By: #### H STROPN, CMP, BNP #### [facility] [address] [address] [address] Ashely Garibay AST [Catalytic activity/Vol] 85 U/L Critically high 17-59 [facility] Comment on above: Performed By: #### H STROPN, CMP, BNP #### [facility] [address] [place] [address] Dr. Ashely Garibay Bilirubin [Mass/Vol] 0.9 mg/dL Normal 0.2-1.3 [facility] Comment on above: Performed By: #### H STROPN, CMP, BNP #### [facility] [address] [place] [address] Dr. Ashely Garibay Calcium [Mass/Vol] 8.9 mg/dL Normal 8.4-10.2 [facility] Comment on above: Performed By: #### H STROPN, CMP, BNP #### [facility] [address] [address] [address] Ashely Garibay Chloride [Moles/Vol] 101 mmol/L Normal 98-107 [facility] Comment on above: Performed By: #### H STROPN, CMP, BNP #### [facility] [address] [place] [address] Dr. Ashely Garibay CO2 [Moles/Vol] 25.4 mmol/L Normal 22.0-30.0 [facility] Comment on above: Performed By: #### H STROPN, CMP, BNP #### [facility] [address] [place] [address] Dr. Ashely Garibay Creatinine [Mass/Vol] 2.07 mg/dL Critically high 0.66-1.25 [facility] Comment on above: Performed By: #### H STROPN, CMP, BNP #### [facility] [address] [address] [address] Ashely Garibay EGFR-AF PERUVIAN 40 mL/min/1.73m2 Critically low >=60 [facility] Comment on above: Performed By: #### H STROPN, CMP, BNP #### [facility] [address] [place] [address] Dr. Ashely Garibay EGFR-NON AF PERUVIAN 33 mL/min/1.73m2 Critically low >=60 [facility] Comment on above: Performed By: #### H STROPN, CMP, BNP #### [facility] [address] [place] [address] Dr. Ashely Garibay Globulin (S) [Mass/Vol] 4.7 g/dL Normal [facility] Comment on above: Performed By: #### H STROPN, CMP, BNP #### [facility] [address] [place] [address] Dr. Ashely Garibay Glucose [Mass/Vol] 99 mg/dL Normal 74-106 [facility] Comment on above: Performed By: #### H STROPN, CMP, BNP #### [facility] [address] [place] [address] Dr. Ashely Garibay Potassium [Moles/Vol] 4.2 mmol/L Normal 3.4-5.0 [facility] Comment on above: Performed By: #### H STROPN, CMP, BNP #### [facility] [address] [place] [address] Dr. Ashely Garibay Protein [Mass/Vol] 8.3 g/dL Critically high 6.1-8.2 T [facility] Comment on above: Performed By: #### H STROPN, CMP, BNP #### [facility] [address] [address] [address] Ashely Garibay Sodium [Moles/Vol] 139 mmol/L Normal 137-145 [facility] Comment on above: Performed By: #### H STROPN, CMP, BNP #### [facility] [address] [place] [address] Dr. Ashely Garibay Urea nitrogen [Mass/Vol] 31.0 mg/dL Critically high 9.0-20.0 [facility] Comment on above: Performed By: #### H STROPN, CMP, BNP #### [facility] [address] [place] [address] Dr. Ashely Garibay Urea nitrogen/Creatinine [Mass ratio] 15.0 mg/mg Normal [facility] Comment on above: Performed By: #### H STROPN, CMP, BNP #### [facility] [address] [place] [address] Dr. Ashely Garibay PROTIMEon 06-21-2021 INR Coag (PPP) [Relative time] 1.02 {INR} Normal [facility] Comment on above: Performed By: #### P TT, DDIM, PT #### [facility] [address] [place] [address] Dr. Ashely Garibay INR GUIDELINES SEE BELOW Normal [facility] Comment on above: Result Comment: SENA RED INR: 2.0 - 3.0 CONDITIONS NOT LISTED BELOW 2.5 - 3.5 FOR PROSTHETIC HEART VALVE REPLACEMENT 2.5 - 3.5 RECURRENT THROMBOSIS Performed By: #### P TT, DDIM, PT #### [facility] [address] [place] [address] Dr. Ashely Garibay PT Coag (PPP) [Time] 11.0 s Normal 9.0-11.6 [facility] Comment on above: Performed By: #### P TT, DDIM, PT #### [facility] [address] [place] [address] Dr. Ashely Garibay PTTon 06-21-2021 aPTT Coag (Bld) [Time] 32.2 s Normal 22.3-36.2 [facility] Comment on above: Performed By: #### P TT, DDIM, PT #### [facility] [address] [place] [address] Dr. Ashely Garibay TROPONIN, HIGH SENSITIVITYon 06-21-2021 HSTROP 19.4 pg/mL Normal 4.0-42.2 [facility] Comment on above: Result Comment: CUT- OFF POINTS HAVE BEEN ESTABLISHED BASED ON THE FOURTH UNIVERSAL DEFINITIONS OF MYOCARDIAL INFARCTION. THE UPPER REFERENCE LIMIT (URL) OF TROPONIN, DEFINED THE 99TH PERCENTILE OF cTnI DISTRIBUTION IN A REFERENCE POPULATION, HAS BEEN CONFIRMED THE DECISION THRESHOLD FOR MA DIAGNOSIS. Performed By: #### H STROPN, CMP, BNP ####[facility] [id number] [place], [place] [address]Cc. Ashely Garibay XR CHEST 1 Von 06-21-2021 XR CHEST 1 V EXAM: XR CHEST 1 V INDICATION: Chest pain, unspecified. COMPARISON: Radiograph on 07/15/2019. FINDINGS: Portable AP upright chest radiograph. The cardiomediastinal contour is within normal limits. The heart size is enlarged. Calcified aortic knob. There are ill-defined reticulonodular opacities in the bilateral lower lung zones. No gross abnormalities of the visualized osseous structures. No pleural effusion. No visible pneumothorax. IMPRESSION: Ill-defined reticulonodular opacities in the bilateral lower lung zones. Differential diagnoses include mild basilar fibrosis versus atelectasis. Pneumonia is also in the differential diagnosis, less likely. Electronically authenticated by: ADÁN EDWARDS Date: 2021-06-21 21:12 Normal [facility] Covid-19 PCR (CVDTB)on 05-17 SARS-CoV-2 (COVID-19) RNA NIECY+probe Ql (Unsp spec) Not detected Normal NOT DETECTED [facility] Comment on above: Result Comment: This test is not yet approved or cleared by the [place] FDA. When there are no FDA-approved or cleared tests available, and other criteria are met, FDA can make tests available under an emergency access mechanism called an Emergency Use Authorization (EUA). The EUA for this test is supported by the [place] of Health and Human Service's (HHS's) declaration that circumstances exist to justify the emergency use of in vitro diagnostics for the detection and/or diagnosis of the virus that causes COVID-19. This EUA will remain in effect (meaning this test can be used) for the duration of the COVID-19 declaration justifying emergency of IVDs, unless it is terminated or revoked by FDA (after which the test may no longer be used). When diagnostic testing is negative, the possibility of a false negative should be considered in the context of a patient's recent exposures and the presence of clinical signs and symptoms consistent with SARS-CoV-2. Performed By: #### C [facility] #### [facility] [address] [place] [address] Dr. Ashely Garibay Vital Signs Date Time Vital Sign Value Performing Clinician Facility 07-29-2023 17:00-0500 Heart rate 63 /min Paul [facility] 07-29-2023 17:00-0500 Respiratory rate 21 /min Paul Sar[facility] 07-29-2023 17:00-0500 Systolic blood pressure 128 mm[Hg] Paul Sarmini [facility] 07-29-2023 16:50-0500 Blood Pressure Location Paul Sarmini [facility] 07-29-2023 16:50-0500 Diastolic blood pressure 76 mm[Hg] Paul Sarmini [facility] 07-29-2023 16:50-0500 Heart rate 64 /min Paul Sarmini [facility] 07-29-2023 16:50-0500 Mean blood pressure 93 mm[Hg] Paul Sarmini [facility] 07-29-2023 16:50-0500 Respiratory rate 27 /min Paul Sarmini [facility] 07-29-2023 16:50-0500 SaO2% (BldA) [Mass fraction] 97 % Paul Sarmini [facility] 07-29-2023 16:50-0500 Systolic blood pressure 127 mm[Hg] Paul Sarmini [facility] 07-29-2023 16:45-0500 Diastolic blood pressure 68 mm[Hg] Paul Sarmini [facility] 07-29-2023 16:45-0500 Heart rate 66 /min Paul Sarmini [facility] 07-29-2023 16:45-0500 Mean blood pressure 83 mm[Hg] Paul Sarmini [facility] 07-29-2023 16:45-0500 Respiratory rate 13 /min Paul Sarmini [facility] 07-29-2023 16:45-0500 Systolic blood pressure 112 mm[Hg] Paul Sarmini [facility] 07-29-2023 16:34-0500 Body temperature 97.52 [degF] Paul Sarmini [facility] 07-29-2023 16:30-0500 Respiratory rate 14 /min Paul Sarmini [facility] 07-29-2023 16:25-0500 Respiratory rate 14 /min Paul Sarmini [facility] 07-29-2023 16:20-0500 Respiratory rate 14 /min Paul Sarmini [facility] 07-29-2023 13:35-0500 Body temperature 97.7 [degF] Paul Sarmini [facility] 06-05-2023 15:25-0500 Diastolic blood pressure 92 mm[Hg] Palak Wagner [facility] 06-05-2023 15:25-0500 Mean blood pressure 111 mm[Hg] Palak Kristy [facility] 06-05-2023 15:25-0500 Systolic blood pressure 148 mm[Hg] Palak Kristy [facility] 06-05-2023 15:03-0500 Blood Pressure Location Palak Kristy [facility] 06-05-2023 15:03-0500 Body temperature 97.52 [degF] Palak Kristy [facility] 06-05-2023 15:03-0500 Diastolic blood pressure 90 mm[Hg] Palak Kristy [facility] 06-05-2023 15:03-0500 Heart rate 65 /min Palak Kristy [facility] 06-05-2023 15:03-0500 Systolic blood pressure 156 mm[Hg] Palak Kristy [facility] 03-05-2023 14:41-0400 Blood Pressure Location Palak Kristy [facility] 03-05-2023 14:41-0400 Body temperature 97.34 [degF] Palak Kristy [facility] 03-05-2023 14:41-0400 Diastolic blood pressure 86 mm[Hg] Palak Kristy [facility] 03-05-2023 14:41-0400 Heart rate 59 /min Palak Kristy [facility] 03-05-2023 14:41-0400 Systolic blood pressure 135 mm[Hg] Palak Kristy [facility] 01-23-2023 15:43-0400 Body height 167.64 cm Thor Hector Pantera Work Phone: [facility] [address] DO Work Phone: 01-23-2023 15:43-0400 Body mass index (BMI) [Ratio] 28.73 kg/m2 Thor Hcetor Pantera Work Phone: [facility] [address] DO Work Phone: 01-23-2023 15:43-0400 Body surface area Derived from formula 1.9 m2 Thor Hector Pantera Work Phone: [facility] [address] DO Work Phone: 01-23-2023 15:43-0400 Body weight 80.74 kg Thor Hector Mott Work Phone: [facility] [address] DO Work Phone: 01-23-2023 15:43-0400 Diastolic blood pressure 62 mm[Hg] Thor Hector Pantera Work Phone: [facility] [address] DO Work Phone: 01-23-2023 15:43-0400 Heart rate 58 /min Thor Hector Mott Work Phone: [facility] DO Work Phone: 01-23-2023 15:43-0400 Systolic blood pressure 104 mm[Hg] Thor Hector Mott Work Phone: [facility] [address] DO Work Phone: 05-08-2022 15:42-0500 Blood Pressure Location Palak Wagner [facility] 05-08-2022 15:42-0500 Body temperature 97.52 [degF] Palak Wagner [facility] 05-08-2022 15:42-0500 Diastolic blood pressure 74 mm[Hg] Palak Kristy [facility] 05-08-2022 15:42-0500 Heart rate 68 /min Palak Kristy [facility] 05-08-2022 15:42-0500 Systolic blood pressure 119 mm[Hg] Palak Kristy [facility] 03-14-2022 15:47-0400 Blood Pressure Location Kenan NILL [facility] 03-14-2022 15:47-0400 Diastolic blood pressure 80 mm[Hg] Kenan NILL [facility] 03-14-2022 15:47-0400 Heart rate 72 /min Kenan NILL [facility] 03-14-2022 15:47-0400 Respiratory rate 16 /min Kenan NILL [facility] 03-14-2022 15:47-0400 Systolic blood pressure 120 mm[Hg] Kenan NILL [facility] 02-14-2022 10:15-0400 Blood Pressure Location Palak Sanchesmetz [facility] 02-14-2022 10:15-0400 Body temperature 97.16 [degF] Palak Kristy [facility] 02-14-2022 10:15-0400 Diastolic blood pressure 77 mm[Hg] Palak Sanchesmetz [facility] 02-14-2022 10:15-0400 Heart rate 63 /min Palak Sanchesmetz [facility] 02-14-2022 10:15-0400 Systolic blood pressure 117 mm[Hg] Palak Sanchesmetz [facility] 12-11-2021 12:52-0400 Blood Pressure Location Palak Wagner [facility] 12-11-2021 12:52-0400 Body temperature 96.8 [degF] Palak Wagner [facility] 12-11-2021 12:52-0400 Diastolic blood pressure 66 mm[Hg] Palak Wagner [facility] 12-11-2021 12:52-0400 Heart rate 61 /min Palak Wagner [facility] 12-11-2021 12:52-0400 SaO2% (BldA) [Mass fraction] 98 % Palak Wagner [facility] 12-11-2021 12:52-0400 Systolic blood pressure 103 mm[Hg] Palak Wagner [facility] 12-06-2021 13:34-0400 Body height 167.64 cm Jose Kimbrough MD Work Phone: [facility] DO Work Phone: 12-06-2021 13:34-0400 Body mass index (BMI) [Ratio] 28.25 kg/m2 Jose Kimbrough MD Work Phone: [facility] DO Work Phone: 12-06-2021 13:34-0400 Body surface area Derived from formula 1.89 m2 Jose Kimbrough MD Work Phone: [facility] DO Work Phone: 12-06-2021 13:34-0400 Body weight 79.38 kg Jose Kimbrough MD Work Phone: [facility] DO Work Phone: 12-06-2021 13:34-0400 Diastolic blood pressure 68 mm[Hg] Jose Kimbrough MD Work Phone: [facility] DO Work Phone: 12-06-2021 13:34-0400 Heart rate 60 /min Jose Kimbrough MD Work Phone: [facility] DO Work Phone: 12-06-2021 13:34-0400 Systolic blood pressure 120 mm[Hg] Jose Kimbrough MD Work Phone: [facility] DO Work Phone: 11-15-2021 13:05-0400 Diastolic blood pressure 85 mm[Hg] Lees SAL[facility] 11-15-2021 13:05-0400 Heart rate 60 /min Lees SAL[facility] 11-15-2021 13:05-0400 Respiratory rate 12 /min Le[facility] 11-15-2021 13:05-0400 SaO2% (BldA) [Mass fraction] 97 % Lees [facility] 11-15-2021 13:05-0400 Systolic blood pressure 129 mm[Hg] Le[facility] 11-15-2021 12:50-0400 Diastolic blood pressure 79 mm[Hg] [facility] 11-15-2021 12:50-0400 Heart rate 65 /min Le[facility] SAL[facility] 11-15-2021 12:50-0400 Respiratory rate 25 /min Le[facility] 11-15-2021 12:50-0400 SaO2% (BldA) [Mass fraction] 94 % [facility] 11-15-2021 12:50-0400 Systolic blood pressure 116 mm[Hg] [facility] 11-15-2021 12:45-0400 Diastolic blood pressure 70 mm[Hg] [facility] 11-15-2021 12:45-0400 Heart rate 64 /min [facility] 11-15-2021 12:45-0400 Respiratory rate 24 /min [facility] 11-15-2021 12:45-0400 SaO2% (BldA) [Mass fraction] 96 % [facility] 11-15-2021 12:45-0400 Systolic blood pressure 110 mm[Hg] [facility] 11-15-2021 12:38-0400 Body temperature 98.24 [degF] [facility] 11-15-2021 12:35-0400 Respiratory rate 3 /min [facility] 11-15-2021 12:30-0400 Respiratory rate 18 /min [facility] 11-15-2021 12:24-0400 Respiratory rate 18 /min [facility] 11-15-2021 11:46-0400 Blood Pressure Location [facility] 11-15-2021 11:46-0400 Body temperature 98.6 [degF] [facility] 10-04-2021 15:40-0400 Diastolic blood pressure 86 mm[Hg] Palaklesia SanchesKristy [facility] 10-04-2021 15:40-0400 Mean blood pressure 104 mm[Hg] Palak Kristy [facility] 10-04-2021 15:40-0400 Systolic blood pressure 140 mm[Hg] Palak Kristy [facility] 10-04-2021 15:32-0400 Blood Pressure Location Palaklesia SanchesKristy [facility] 10-04-2021 15:32-0400 Body temperature 97.52 [degF] Palak Kristy [facility] 10-04-2021 15:32-0400 Diastolic blood pressure 89 mm[Hg] Palak Kristy [facility] 10-04-2021 15:32-0400 Heart rate 73 /min Palak Kristy [facility] 10-04-2021 15:32-0400 SaO2% (BldA) [Mass fraction] 97 % Palak Kristy [facility] 10-04-2021 15:32-0400 Systolic blood pressure 149 mm[Hg] Palak Wagner [facility] Encounters Encounter Date Encounter Type Care Provider Facility Start: 10-10-2023 End: 10-10-2023 ambulatory BEA FOUNTAIN Not Available Start: 10-07-2023 End: 10-07-2023 ambulatory JAYE SMITH Not Available Start: 09-04-2023 End: 09-04-2023 ambulatory THOR MOTT Not Available Start: 07-29-2023 End: 07-30-2023 ambulatory Paul Talal Sarmini Facility:[facility] Start: 07-29-2023 End: 07-29-2023 Patient encounter procedure Paulmarcella Mcnealal [facility] Start: 07-04-2023 End: 07-04-2023 ambulatory BEA FOUNTAIN Not Available Start: 06-05-2023 End: 06-06-2023 ambulatory Palak Wagner Facility:[facility] Start: 06-05-2023 End: 06-05-2023 Patient encounter procedure Palak Wagner [facility] Start: 05-08-2023 End: 05-08-2023 ambulatory THOR MOTT Not Available Start: 03-05-2023 End: 03-06-2023 ambulatory Palak Wagner Facility:[facility] Start: 03-05-2023 End: 03-06-2023 ambulatory Palak Wagner Facility:[facility] Start: 03-05-2023 End: 03-05-2023 Patient encounter procedure Palak Wagner [facility] Start: 01-23-[address] Thor Mott II Facility: Start: 01-23-2023 Office outpatient vi sit 25 minutes Thor Mott Work Phone: [facility] DO Work Phone: Start: 11-13-2022 Chart Update Jose grayson MD Work Phone: [facility] DO Work Phone: Start: 11-08-2022 End: 11-08-2022 ambulatory Jose Kimbrough Facility:[facility] Start: 08-28-2022 End: 08-29-2022 ambulatory Palak Wagner Facility:[facility] Start: 08-08-2022 End: 08-08-2022 Patient encounter procedure Palak Wagner [facility] Start: 05-08-2022 End: 05-08-2022 Patient encounter procedure Palak Wagner [facility] Start: 03-22-2022 End: 03-22-2022 Patient encounter procedure Palak Wagner [facility] Start: 03-14-2022 End: 03-14-2022 Patient encounter procedure Kenan Terry [facility] Start: 02-21-2022 End: 02-21-2022 Patient encounter procedure Palak Wagner [facility] Start: 02-14-2022 End: 02-14-2022 Patient encounter procedure Palak Wagner [facility] Start: 12-11-2021 End: 12-11-2021 Patient encounter procedure Palak Sanchesmetz [facility] Start: 12-06-2021 Office outpatient vi sit 15 minutes Jose Kimbrough MD Work Phone: [facility] 250 DO Work Phone: Start: 11-23-2021 Chart Update Jose grayson MD Work Phone: [facility] 600 DO Work Phone: Start: 11-22-2021 Chart Update Jose grayson MD Work Phone: [facility] 600 DO Work Phone: Start: 11-22-2021 End: 11-22-2021 Patient encounter procedure LOLA Mott Work Phone: [facility] [place] Start: 11-15-2021 End: 11-15-2021 Patient encounter procedure [facility] Start: 10-31-2021 End: 10-31-2021 Patient encounter procedure Nabeel CHUNG [facility] Start: 10-04-2021 End: 10-04-2021 Patient encounter procedure Palak Wagner [facility] Start: 08-16-2021 End: 08-17-2021 ambulatory ADÁN EDWARDS Facility:[facility] Start: 06-21-2021 End: 06-21-2021 ambulatory SAVI KYLE Facility:[facility] Start: 05-25-2021 End: 05-25-[address] THOR MOTT Facility:[facility] Start: 09-20-2020 End: 09-21-2020 ambulatory NONE LISTED REQUEST Facility:[facility] Start: 08-29-2020 End: 08-30-2020 ambulatory NONE LISTED REQUEST Facility: Patient encounter status [facility] Procedures Date Procedure Procedure Detail Performing Clinician Start: 07-29-2023 Colonoscopy Humberto leblanc Start: 07-29-2023 Esophagogastroduodenoscopy Paulra Hernandez Start: 11-22-2021 CT of chest II Thor Mott Work Phone: Start: 11-15-2021 Colonoscopy Nabeel Gutierrez Comment on above: diverticulosis t/o c olon Start: 11-15-2021 Esophagogastroduodenoscopy Nabeel CHUNG Comment on above: normal Cholecystectomy Palak rothman Cholecystectomy Jose anguiano MD Work Phone: Colonoscopy Palak Wagner Colonoscopy Jose Kimbrough MD Work Phone: Comment on above: [id number]; 15nov2021; Nasal sinus procedure Corina Kimbrough MD Work Phone: Operation on mouth Jose Tobin MD Work Phone: Plan of Treatment Date Care Activity Detail Author Start: 01-29-2024 FUV, Provider: Jose Kimbrough, Status: Pen, Time: 3:40 PM FUV, Provider: Jose Kimbrough, Status: Pen, Time: 3:40 PM [facility] 250 DO Work Phone: Start: 01-09-2023 FUV, Provider: Jose Kimbrough, Status: Pen, Time: 1:00 PM FUV, Provider: Jose Kimbrough, Status: Pen, Time: [facility]: Start: 12-06-2021 FUV, Provider: Jose Kimbrough, Status: Pen, Time: 1:15 PM FUV, Provider: Jose Kimbrough, Status: Pen, Time: 1:15 [facility] Work Phone: Immunizations Immunization Date Immunization Notes Care Provider Fa [facility] 04-04-2023 influenza virus vaccine, unspecified formulation Palaklesia SanchesKristy [facility] 04-11-2022 influenza virus vaccine, unspecified formulation Palak Chavarriaz [facility] 04-11-2022 influenza, injectabl e, quadrivalent, preservative free Thor Mott Work Phone: [facility] 250 DO Work Phone: 03-17-2022 influenza virus vaccine, unspecified formulation Palak Wagner [facility] 03-17-2022 influenza, seasonal, injectable Thor Mott Work Phone: [facility] 250 DO Work Phone: Comment on above: Series: 06-05-2021 Pfizer-BioNTech COVID-19 Vacc 30 MCG/0.3ML Intramuscular Suspension Jose Kimbrough MD Work Phone: [facility] Comment on above: Result Comment: 2021: [id number] 04-13-2021 influenza virus vaccine, unspecified formulation Palak Sanchesmetz [facility] 04-13-2021 influenza, injectabl e, quadrivalent, contains preservative Jose Kimbrough MD Work Phone: [facility] 250 DO Work Phone: 09-20-2020 Pfizer-BioNTech COVID-19 Vacc 30 MCG/0.3ML Intramuscular Suspension Jose Kimbrough MD Work Phone: [facility] 08-29-2020 Pfizer-BioNTech COVID-19 Vacc 30 MCG/0.3ML Intramuscular Suspension Jose Kimbrough MD Work Phone: [facility] 03-29-2020 influenza virus vaccine, unspecified formulation Palak Wagner [facility] 03-29-2020 influenza, injectabl e, quadrivalent, preservative free Jose Kimbrough MD Work Phone: [facility] [employer] 250 DO Work Phone: 03-17-2020 influenza virus vaccine, unspecified formulation Jose Kimbrough MD Work Phone: [facility] 05-27-2019 zoster vaccine recombinant Jose Kimbrough MD Work Phone: [facility] 03-18-2019 influenza virus vaccine, unspecified formulation Palak Wagner [facility] 03-17-2019 influenza virus vaccine, unspecified formulation [facility] Work Phone: 02-20-2019 zoster vaccine recombinant Jose Kimbrough MD Work Phone: [facility] 07-17-2017 influenza virus vaccine, unspecified formulation Palak Wagner [facility] 07-17-2017 seasonal influenza, intradermal, preservative free Jose Kimbrough MD Work Phone: [facility] [employer] 250 DO Work Phone: 03-17-2017 influenza virus vaccine, unspecified formulation Jose Kimbrough MD Work Phone: [facility] [employer] 600 DO Work Phone: 08-14-2016 zoster vaccine, live Jose Kimbrough MD Work Phone: [facility] 05-03-2016 influenza virus vaccine, unspecified formulation Palak Wagner [facility] 05-03-2016 influenza, injectabl e, quadrivalent, contains preservative Jose Kimbrough MD Work Phone: [facility] 250 DO Work Phone: 03-17-2016 influenza virus vaccine, unspecified formulation Jose Kimbrough MD Work Phone: [facility] 600 DO Work Phone: 03-17-2015 influenza virus vaccine, unspecified formulation Jose Kimbrough MD Work Phone: [facility] 600 DO Work Phone: 12-15-2014 pneumococcal polysaccharide vaccine, 23 valchalo Kimbrough MD Work Phone: [facility] 600 DO Work Phone: 12-14-2014 pneumococcal conjuga te vaccine, 13 valchalo Kimbrough MD Work Phone: [facility] 08-15-2014 pneumococcal conjuga te vaccine, 13 valchalo Kimbrough MD Work Phone: [facility] 11-25-2013 pneumococcal polysaccharide vaccine, 23 valchalo Kimbrough MD Work Phone: [facility] 03-17-2011 pneumococcal polysaccharide vaccine, 23 valchalo Kimbrough MD Work Phone: [facility] 600 DO Work Phone: NEGATED: Highlighted row has not occurred!02-14-2022 influenza virus vaccine, unspecified formulation Palak Wagner [facility] Payers Date Payer Category Payer Medicaid [id number] 1961 Self-pay 1961 Unknown [id number] 1961 Unknown [id number] 1960 Unknown [id number] 2.16.84 [id number] 1958 Unknown [id number] 2.16.84 [id number] 1958 Unknown [id number] 2.16.84 [id number] 1958 Unknown [id number] 2.16. [id number] 1958 Unknown [id number] 2.16.8 40.1.281784.3.579.2.727 1958 Unknown [id number] 2.16.8 40.1.969031.3.579.2.727 1958 Unknown [id number] 2.16.8 40.1.756909.3.579.2.727 1958 Unknown [id number] 2.16.8 40.1.047367.3.579.2.727 1958 Unknown [id number] 2.16.8 40.1.916054.3.579.2.727 1958 Unknown [id number] 2.16.84 0.1.945957.3.579.2.1259 1958 Unknown [id number] 2.16.84 0.1.275368.3.579.2.1259 1958 Unknown [id number] 2.16.84 0.1.262761.3.579.2.1259 1958 Unknown [id number] 2.16.84 0.1.124499.3.579.2.1259 1958 Unknown [id number] 2.16.840 .1.764198.3.579.2.1259 Unknown [id number] 2.16.84 0.1.634359.3.579.2.593 Unknown [id number] 2.16.84 0.1.207853.3.579.2.593 Unknown Unknown HCAP/HFA/FAP Active [id number] Unknown [id number] 2.16.8 [id number] Social History Date Type Detail Facility Start: 10-04-2021 End: 06-05-2023 Tobacco smoking status Never smoked tobacco (finding) [facility] Tobacco smoking status Never [facility] Sex Assigned At Male [facility] Never a smoker Never a smoker [facility] [employer] DO Work Phone: Start: 1960 Sex Assigned At Male F [facility] Functional Status Date Assessment Result Facility 07-29-2023 Functional Status N/A [facility] 06-05-2023 Functional Status N/A [facility] 03-05-2023 Functional Status N/A [facility] 05-08-2022 Functional Status N/A [facility] 03-14-2022 Functional Status N/A [facility] 02-14-2022 Functional Status N/A [facility] 12-11-2021 Functional Status N/A [facility] Clinical Notes 10-04-2021 to 07-31-2023 LaboratoryRadiology Note Date & Type Note Facility 07-31-2023 Note [id number] [facility] 07-29-2023 Hospital Discharge instructions Patient Education 07/29/2023 16:41:15 Diverticulosis MAGR (CUSTOM) Diverticulosis Many people have small pouches in their colon called diverticulum. The diverticulum bulge outward through weak spots in the colon. You could have one or more of these pouches in the colon. The condition of having these pouches in the colon is called diverticulosis or diverticular disease. Diverticulosis is usually diagnosed by tests to evaluate something else. For example, you may have had a colonoscopy to screen for colon cancer when the diverticulosis was found. Most people with diverticulosis do not have any discomfort or problems. If symptoms develop, they may include mild cramps, bloating, and constipation. A complication of this condition is called diverticulitis. This is when the diverticulum become inflamed and infected. How to treat diverticulosis: Increasing the amount of fiber in the diet may reduce symptoms of diverticulosis and prevent complications such as diverticulitis (infected diverticuli). Fiber keeps stool soft and lowers pressure inside the colon so that bowel contents can move through easily. You should eat 20 to 35 grams of fiber each day. The table below shows the amount of fiber in some foods that you can easily add to your diet. Adding fiber slowly may decrease the bloating and fullness sometimes felt with an immediate high fiber diet. The doctor may also recommend taking a fiber product such as Citrucel or Metamucil once a day. In the past people with diverticulosis were to avoid nuts, corn, and seeds. This has not been found to be true. If you find that certain foods create cramping or bloating, avoid that food. Foods high in fiber include: Fresh fruits, fresh vegetables, legumes (beans), whole wheat bread, bran muffins or cereal, and nuts. See the table below for examples of high fiber foods. Remember, your goal is 20-35 grams per day. Amount of fiber in different foods Food Serving Grams of fiber Fruits Apple (with skin) 1 medium apple 4.4 Banana 1 medium banana 3.1 Oranges 1 orange 3.1 Prunes 1 cup, pitted 12.4 Juices Apple, unsweetened, w/added ascorbic acid 1 cup 0.5 Grapefruit, white, canned, sweetened 1 cup 0.2 Grape, unsweetened, w/added ascorbic acid 1 cup 0.5 [place] 1 cup 0.7 Vegetables Cooked Green beans 1 cup 4.0 Carrots 1/2 cup sliced 2.3 Peas 1 cup 8.8 Potato (baked, with skin) 1 medium potato 3.8 Raw [place] (with peel) 1 cucumber 1.5 Lettuce 1 cup shredded 0.5 Tomato 1 medium tomato 1.5 Spinach 1 cup 0.7 Legumes Baked beans, canned, no salt added 1 cup 13.9 Kidney beans, canned 1 cup 13.6 Schmidt beans, canned 1 cup 11.6 Lentils, boiled 1 cup 15.6 Breads, pastas, flours Bran muffins 1 medium muffin 5.2 Oatmeal, cooked 1 cup 4.0 White bread 1 slice 0.6 Whole-wheat bread 1 slice 1.9 Pasta and rice, cooked Macaroni 1 cup 2.5 Rice, brown 1 cup 3.5 Rice, white 1 cup 0.6 Spaghetti (regular) 1 cup 2.5 Nuts Almonds 1/2 cup 8.7 Peanuts 1/2 cup 7.9 Chart from [facility] 2013. SEEK IMMEDIATE MEDICAL CARE IF: You develop abdominal (belly) pain. An oral temperature above _ 101 F__develops. Repeated vomiting occurs. Blood is being passed in stools (bright red or black tarry stools). You develop any bowel problems or changes which you have not had before. Extra Information: To learn how much fiber and other nutrients are in different foods, visit the [place] Department of Agriculture (USDA) National Nutrient Database at: http://www.nal.usda.gov/fnic/rebecca dcomp/search/ Created using data from the USDA National Nutrient Database for Standard Reference. Available at http://www.nal.usda.gov/fnic/rebecca dcomp/search/. Information adapted from: ExitCare Patient Information 2009 [employer]. [facility] 2012 [email or web address] [email or web address] -[email or web address] 07/29/2023 16:40:57 Duodenitis Duodenitis Duodenitis is inflammation of the lining of the first part of the small intestine (duodenum). It is commonly caused by an infection from bacteria, which may also lead to open sores (ulcers) in the intestine. Duodenitis may develop suddenly and last for a short time (acute), or it may develop gradually and last for months or years (chronic). What are the causes? The most common cause of duodenitis is an infection from a type of bacteria called Helicobacter pylori (H. pylori). Other causes of this condition include: Long-term use of NSAIDs. Excessive use of alcohol. An infection of the small intestine caused by the Giardia parasite (giardiasis). Crohn's disease. Certain diseases of the body's defense system (immune system). Certain treatments for cancer. What increases the risk? The following factors may make you more likely to develop this condition: Smoking cigarettes. Drinking alcohol. Having a family history of duodenitis. Taking NSAIDs. Eating a high-fat diet. What are the signs or symptoms? Symptoms of this condition may include: Gnawing or burning pain in the upper center of the abdomen (epigastric pain). This may get worse when the stomach is empty and may get better after eating. Abdominal cramps. Nausea and vomiting. Bloody vomit. Stools that are bloody, dark, or look like tar. Diarrhea. Weight loss. Fatigue. How is this diagnosed? This condition may be diagnosed based on your medical history and a physical exam. You may also have tests, such as: Blood tests. Stool tests. A test that checks the gases in your breath. An X-ray that is done after you swallow a liquid (barium) that makes your digestive tract easier to see. Endoscopy. This is an exam of the duodenum that is done by putting a thin tube with a tiny camera on the end (endoscope) down your throat. A sample of tissue from your duodenum (biopsy) may be removed with the endoscope and examined under a microscope for signs of inflammation and infection. How is this treated? Treatment depends on the cause of your condition. Treatment may include: Antibiotic medicine to treat H. pylori infection. Stopping your intake of NSAIDs. Medicine to reduce stomach acids. Medicines to treat other conditions, such as Crohn's disease or giardiasis. Surgery to treat severe inflammation that causes scarring or severe bleeding. Follow these instructions at home: Medicines Take ieys-lxe-jvcelfl and prescription medicines only as told by your health care provider. If you were prescribed an antibiotic medicine, take it as told by your health care provider. Do not stop taking the antibiotic even if you start to feel better. Eating and drinking Eat small, frequent meals. Do not drink alcohol. Drink enough water to keep your urine pale yellow. Follow instructions from your health care provider about eating or drinking restrictions. You may be asked to avoid: ?Caffeinated drinks. ?Chocolate. ?Peppermint or mint-flavored food or drinks. ?Garlic or onions. ?Spicy foods. ?[place] fruits. ?Tomato-based foods. ?Fatty or fried foods. General instructions Do not use any products that contain nicotine or tobacco, such as cigarettes and e-cigarettes. If you need help quitting, ask your health care provider. Keep all follow-up visits as told by your health care provider. This is important. Contact a health care provider if: You have a fever. Your symptoms come back, get worse, or do not get better with treatment. Get help right away if: You vomit blood. You have severe abdominal pain. Your abdomen swells and is painful. You have a lot of blood in your stool. You feel dizzy or light-headed. Summary Duodenitis is inflammation of the lining of the first part of the small intestine. This part of the small intestine is called the duodenum. Duodenitis may develop suddenly and last for a short time (acute), or it may develop gradually and last longer (chronic). The most common cause of duodenitis is an infection from a type of bacteria. Take xghg-lqo-pdjtarf and prescription medicines only as told by your health care provider. This information is not intended to replace advice given to you by your health care provider. Make sure you discuss any questions you have with your health care provider. Document Revised: 12/12/2021 Document Reviewed: 12/13/2021 [employer] Patient Education 2022 [employer]. 07/29/2023 16:40:51 Hemorrhoids, Qfrv-je-Zgto Hemorrhoids Hemorrhoids are swollen veins that may develop: In the butt (rectum). These are called internal hemorrhoids. Around the opening of the butt (anus). These are called external hemorrhoids. Hemorrhoids can cause pain, itching, or bleeding. Most of the time, they do not cause serious problems. They usually get better with diet changes, lifestyle changes, and other home treatments. What are the causes? This condition may be caused by: Having trouble pooping (constipation). Pushing hard (straining) to poop. Watery poop (diarrhea). . Being very overweight (obese). Sitting for long periods of time. Heavy lifting or other activity that causes you to strain. Anal sex. Riding a bike for a long period of time. What are the signs or symptoms? Symptoms of this condition include: Pain. Itching or soreness in the butt. Bleeding from the butt. Leaking poop. Swelling in the area. One or more lumps around the opening of your butt. How is this diagnosed? A doctor can often diagnose this condition by looking at the affected area. The doctor may also: Do an exam that involves feeling the area with a gloved hand (digital rectal exam). Examine the area inside your butt using a small tube (anoscope). Order blood tests. This may be done if you have lost a lot of blood. Have you get a test that involves looking inside the colon using a flexible tube with a camera on the end (sigmoidoscopy or colonoscopy). How is this treated? This condition can usually be treated at home. Your doctor may tell you to change what you eat, make lifestyle changes, or try home treatments. If these do not help, procedures can be done to remove the hemorrhoids or make them smaller. These may involve: Placing rubber bands at the base of the hemorrhoids to cut off their blood supply. Injecting medicine into the hemorrhoids to shrink them. Shining a type of light energy onto the hemorrhoids to cause them to fall off. Doing surgery to remove the hemorrhoids or cut off their blood supply. Follow these instructions at home: Eating and drinking Eat foods that have a lot of fiber in them. These include whole grains, beans, nuts, fruits, and vegetables. Ask your doctor about taking products that have added fiber (fibersupplements). Reduce the amount of fat in your diet. You can do this by: ?Eating low-fat dairy products. ?Eating less red meat. ?Avoiding processed foods. Drink enough fluid to keep your pee (urine) pale yellow. Managing pain and swelling Take a warm-water bath (sitz bath) for 20 minutes to ease pain. Do this 3 4 times a day. You may do this in a bathtub or using a portable sitz bath that fits over the toilet. If told, put ice on the painful area. It may be helpful to use ice between your warm baths. ?Put ice in a plastic bag. ?Place a towel between your skin and the bag. ?Leave the ice on for 20 minutes, 2 3 times a day. General instructions Take wfuj-jlp-bwlulny and prescription medicines only as told by your doctor. ?Medicated creams and medicines may be used as told. Exercise often. Ask your doctor how much and what kind of exercise is best for you. Go to the bathroom when you have the urge to poop. Do not wait. Avoid pushing too hard when you poop. Keep your butt dry and clean. Use wet toilet paper or moist towelettes after pooping. Do not sit on the toilet for a long time. Keep all follow-up visits as told by your doctor. This is important. Contact a doctor if you: Have pain and swelling that do not get better with treatment or medicine. Have trouble pooping. Cannot poop. Have pain or swelling outside the area of the hemorrhoids. Get help right away if you have: Bleeding that will not stop. Summary Hemorrhoids are swollen veins in the butt or around the opening of the butt. They can cause pain, itching, or bleeding. Eat foods that have a lot of fiber in them. These include whole grains, beans, nuts, fruits, and vegetables. Take a warm-water bath (sitz bath) for 20 minutes to ease pain. Do this 3 4 times a day. This information is not intended to replace advice given to you by your health care provider. Make sure you discuss any questions you have with your health care provider. Document Revised: 12/13/2021 Document Reviewed: 12/13/2021 [employer] Patient Education 2022 [employer]. 07/29/2023 16:40:37 Endoscopy, Care After Procedure [facility] ([facility]) Endoscopy Care After Procedure Please read the instructions outlined below and refer to this sheet in the next few weeks. These discharge instructions provide you with general information on caring for yourself after you leave the hospital. Your doctor may also give you specific instructions. While your treatment has been planned according to the most current medical practices available, unavoidable complications occasionally occur. If you have any problems or questions after discharge, please call your doctor. ACTIVITY You may resume your regular activity but move at a slower pace for the next 24 hours. Take frequent rest periods for the next 24 hours. Walking will help expel (get rid of) the air and reduce the bloated feeling in your abdomen. No driving for 24 hours (because of the anesthesia (medicine) used during the test). You may shower. Do not sign any important legal documents or operate any machinery for 24 hours (because of the anesthesia used during the test). NUTRITION Drink plenty of fluids. You may resume your normal diet. Begin with a light meal and progress to your normal diet. Avoid alcoholic beverages for 24 hours or as instructed by your caregiver. MEDICATIONS You may resume your normal medications unless your caregiver tells you otherwise. WHAT YOU CAN EXPECT TODAY You may experience abdominal discomfort such as a feeling of fullness or gas pains. FOLLOW-UP Your doctor will discuss the results of your test with you. SEEK IMMEDIATE MEDICAL ATTENTION IF ANY OF THE FOLLOWING OCCUR: Excessive nausea (feeling sick to your stomach) and/or vomiting. Severe abdominal pain and distention (swelling). Trouble swallowing. Temperature over 100 F (37.8 C). Rectal bleeding or vomiting of blood. Document Released: 01/15/2005 Document Re-Released: 11/25/2006 [employer] Patient Information [employer]. 07/29/2023 16:40:34 Colonoscopy, Care After Surgery [facility] (CUSTOM) Colonoscopy Care After Surgery Please read the instructions outlined below and refer to this sheet in the next few weeks. These discharge instructions provide you with general information on caring for yourself after you leave the hospital. Your doctor may also give you specific instructions. While your treatment has been planned according to the most current medical practices available, unavoidable complications occasionally occur. If you have any problems or questions after discharge, please call your doctor. ACTIVITY You may resume your regular activity, but move at a slower pace for the next 24 hours. Take frequent rest periods for the next 24 hours. Walking will help get rid of the air and reduce the bloated feeling in your abdomen (belly). No driving for 24 hours (because of the anesthesia (medicine) used during the test). You may shower. Do not sign any important legal documents or operate any machinery for 24 hours (because of the anesthesia used during the test). NUTRITION Drink plenty of fluids. You may resume your normal diet as instructed by your doctor. Begin with a light meal and progress to your normal diet. Heavy or fried foods are harder to digest and may make you feel nauseated (sick to your stomach). Avoid alcoholic beverages for 24 hours or as instructed. MEDICATIONS You may resume your normal medications unless your doctor tells you otherwise. WHAT YOU CAN EXPECT TODAY Some feelings of bloating in the abdomen. Passage of more gas than usual. Spotting of blood in your stool or on the toilet paper. FOLLOW-UP Your doctor will discuss the results of your test with you. SEEK IMMEDIATE MEDICAL ATTENTION IF: There is more than a spotting of blood in your stool. There is abdominal distention (your abdomen is swollen). There is vomiting. You have a temperature over 101.5 F. There is abdominal pain or discomfort that is severe or gets worse throughout the day. Follow Up Care 06/05/2023 16:35:30 With:Humberto Hernandez Address: [facility] [address], [address] [phone]- [phone] Business (1) When: only if needed Comments:Call for any problems. [facility] 06-05-2023 Hospital Discharge instructions Patient Education 06/05/2023 16:03:23 Food Choices for Gastroesophageal Reflux Disease, Adult Food Choices for Gastroesophageal Reflux Disease, Adult When you have gastroesophageal reflux disease (GERD), the foods you eat and your eating habits are very important. Choosing the right foods can help ease the discomfort of GERD. Consider working with a dietitian to help you make healthy food choices. What are tips for following this plan? Reading food labels Look for foods that are low in saturated fat. Foods that have less than 5% of daily value (DV) of fat and 0 g of trans fats may help with your symptoms. Cooking Cook foods using methods other than frying. This may include baking, steaming, grilling, or broiling. These are all methods that do not need a lot of fat for cooking. To add flavor, try to use herbs that are low in spice and acidity. Meal planning Choose healthy foods that are low in fat, such as fruits, vegetables, whole grains, low-fat dairy products, lean meats, fish, and poultry. Eat frequent, small meals instead of three large meals each day. Eat your meals slowly, in a relaxed setting. Avoid bending over or lying down until 2 3 hours after eating. Limit high-fat foods such as fatty meats or fried foods. Limit your intake of fatty foods, such as oils, butter, and shortening. Avoid the following as told by your health care provider: ?Foods that cause symptoms. These may be different for different people. Keep a food diary to keep track of foods that cause symptoms. ?Alcohol. ?Drinking large amounts of liquid with meals. ?Eating meals during the 2 3 hours before bed. Lifestyle Maintain a healthy weight. Ask your health care provider what weight is healthy for you. If you need to lose weight, work with your health care provider to do so safely. Exercise for at least 30 minutes on 5 or more days each week, or as told by your health care provider. Avoid wearing clothes that fit tightly around your waist and chest. Do not use any products that contain nicotine or tobacco. These products include cigarettes, chewing tobacco, and vaping devices, such as e-cigarettes. If you need help quitting, ask your health care provider. Sleep with the head of your bed raised. Use a wedge under the mattress or blocks under the bed frame to raise the head of the bed. Chew sugar-free gum after mealtimes. What foods should I eat? Eat a healthy, well-balanced diet of fruits, vegetables, whole grains, low-fat dairy products, lean meats, fish, and poultry. Each person is different. Foods that may trigger symptoms in one person may not trigger any symptoms in another person. Work with your health care provider to identify foods that are safe for you. The items listed above may not be a complete list of recommended foods and beverages. Contact a dietitian for more information. What foods should I avoid? Limiting some of these foods may help manage the symptoms of GERD. Everyone is different. Consult a dietitian or your health care provider to help you identify the exact foods to avoid, if any. Fruits Any fruits prepared with added fat. Any fruits that cause symptoms. For some people this may include citrus fruits, such as oranges, grapefruit, pineapple, and ida. Vegetables Deep-fried vegetables. Liberian fries. Any vegetables prepared with added fat. Any vegetables that cause symptoms. For some people, this may include tomatoes and tomato products, chili peppers, onions and garlic, and horseradish. Grains Pastries or quick breads with added fat. Meats and other proteins High-fat meats, such as fatty beef or pork, hot dogs, ribs, ham, sausage, salami, and diaz. Fried meat or protein, including fried fish and fried chicken. Nuts and nut butters, in large amounts. Dairy Whole milk and chocolate milk. Sour cream. Cream. Ice cream. Cream cheese. Milkshakes. Fats and oils Butter. Margarine. Shortening. Ghee. Beverages Coffee and tea, with or without caffeine. Carbonated beverages. Sodas. Energy drinks. Fruit juice made with acidic fruits, such as orange or grapefruit. Tomato juice. Alcoholic drinks. Sweets and desserts Chocolate and cocoa. Donuts. Seasonings and condiments Pepper. Peppermint and spearmint. Added salt. Any condiments, herbs, or seasonings that cause symptoms. For some people, this may include arenas, hot sauce, or vinegar-based salad dressings. The items listed above may not be a complete list of foods and beverages to avoid. Contact a dietitian for more information. Questions to ask your health care provider Diet and lifestyle changes are usually the first steps that are taken to manage symptoms of GERD. If diet and lifestyle changes do not improve your symptoms, talk with your health care provider about taking medicines. Where to find more information [employer]: aboutgerd.org Summary When you have gastroesophageal reflux disease (GERD), food and lifestyle choices may be very helpful in easing the discomfort of GERD. Eat frequent, small meals instead of three large meals each day. Eat your meals slowly, in a relaxed setting. Avoid bending over or lying down until 2 3 hours after eating. Limit high-fat foods such as fatty meats or fried foods. This information is not intended to replace advice given to you by your health care provider. Make sure you discuss any questions you have with your health care provider. Document Revised: 12/12/2020 Document Reviewed: 12/12/2020 [employer] Patient Education 2022 [employer]. Follow Up Care 03/05/2023 15:29:52 With:Palak Wagner CNP Address: When:1 week Comments:Following EGD/Colonoscopy. [facility] 06-05-2023 Evaluation + Plan note Future Scheduled TestsFecal WBC Lactoferrin 06/05/23Giardia lamblia, Direct Detection EIA 06/05/23O & P Exam, Routine 06/05/23Clostridium Difficile PCR 06/05/23Enteric Panel by PCR 06/05/23CBC w/ Auto Diff 06/05/23Comprehensive Metabolic Panel 06/05/23Vitamin B12 Level 06/05/23 [facility] 03-05-2023 Hospital Discharge instructions Patient Education 03/05/2023 15:18:13 Chronic Constipation Chronic Constipation Chronic constipation is a condition in which a person has three or fewer bowel movements a week, for 3 months or longer. This condition is especially common in older adults. What are the causes? Causes of chronic constipation may include: Not drinking enough fluid, eating enough food or fiber, or getting enough physical activity. . A tear in the anus (anal fissure). Blockage in the bowel (bowel obstruction). Narrowing of the bowel (bowel stricture). Having a long-term medical condition, such as: ?Diabetes, hypothyroidism, or iron-deficiency anemia. ?Stroke or spinal cord injury. ?Multiple sclerosis or Parkinson's disease. ?Colon cancer. ?Dementia. ?Inflammatory bowel disease (IBD), outward collapse of the rectum (rectal prolapse), or hemorrhoids. Taking certain medicines, including: ?Narcotics. These are a certain type of prescription pain medicine. ?Antacids or iron supplements. ?Water pills (diuretics). ?Certain blood pressure medicines. ?Anti-seizure medicines. ?Antidepressants. ?Medicines for Parkinson's disease. Other causes of this condition may include: Stress. Problems in the nerves and muscles that control the movement of stool. Weak or impaired pelvic floor muscles. What increases the risk? You may be at higher risk for chronic constipation if: You are older than age 70. You are female. You live in a long-term care facility. You have a long-term disease. You have a mental health disorder or eating disorder. What are the signs or symptoms? The main symptom of chronic constipation is having three or fewer bowel movements a week for several weeks. Other signs and symptoms may vary from person to person. These include: Pushing hard (straining) to pass stool, or having hard or lumpy stools. Painful bowel movements. Having lower abdominal discomfort, such as cramps or bloating. Being unable to have a bowel movement when you feel the urge, or feeling like you still need to pass stool after a bowel movement. Feeling that you have something in your rectum that is blocking or preventing bowel movements. Seeing blood on the toilet paper or in your stool. Worsening confusion (in older adults). How is this diagnosed? This condition may be diagnosed based on: Your symptoms and medical history. You will be asked about your symptoms, lifestyle, diet, and any medicines that you are taking. A physical exam. ?Your abdomen will be examined. ?A digital rectal exam may be done. For this exam, a health care provider places a lubricated, gloved finger into the rectum. Tests to check for any underlying causes of your constipation. These may be ordered if you have bleeding in your rectum, weight loss, or a family history of colon cancer. In these cases, you may have: ?Imaging studies of the colon. These may include X-ray, ultrasound, or a CT scan. ?Blood tests. ?A procedure to examine the inside of your colon (colonoscopy). ?More specialized tests to check: ?Whether your anal sphincter works well. This is a ring-shaped muscle that controls the closing of the anus. ?How well food moves through your colon. ?Tests to measure the nerve signal in your pelvic floor muscles (electromyography). How is this treated? Treatment for chronic constipation depends on the cause. Most often, treatment starts with: Being more active and getting regular exercise. Drinking more fluids. Adding fiber to your diet. Sources of fiber include fruits, vegetables, whole grains, and fiber supplements. Using medicines such as stool softeners or medicines that increase contractions in your digestive system (pro-motility agents). Training your pelvic muscles with biofeedback. Surgery, if there is obstruction. Treatment may also include: Stopping or changing some medicines if they cause constipation. Using a fiber supplement (bulk laxative) or stool softener. Using a prescription laxative. This works by absorbing water into your colon (osmotic laxative). You may also need to see a specialist who treats conditions of the digestive system (endoscopy support specialist). Follow these instructions at home: Medicines Take [id number] and prescription medicines only as told by your health care provider. If you are taking a laxative, take it as told by your health care provider. Eating and drinking Eat a balanced diet that includes enough fiber. Ask your health care provider to recommend a diet that is right for you. Drink clear fluids, especially water. Avoid drinking alcohol, caffeine, and soda. These can make constipation worse. Drink enough fluid to keep your urine pale yellow. General instructions Get some physical activity every day. Ask your health care provider what activities are safe for you. Get colon cancer screenings as told by your health care provider. Keep all follow-up visits as told by your health care provider. This is important. Contact a health care provider if you have: Three or fewer bowel movements a week. Stools that are hard or lumpy. Blood on the toilet paper or in your stool after you have a bowel movement. Unexplained weight loss. Rectum (rectal) pain. Stool leakage. Nausea or vomiting. Get help right away if you have: Rectal bleeding or you pass blood clots. Severe rectal pain. Body tissue that pushes out (protrudes) from your anus. Severe pain or bloating (distension) in your abdomen. Vomiting that you cannot control. Summary Chronic constipation is a condition in which a person has three or fewer bowel movements a week, for 3 months or longer. You may have a higher risk for this condition if you are an older adult, you are female, or you have a long-term disease. Treatment for this condition depends on the cause. Most treatments for chronic constipation include adding fiber to your diet, drinking more fluids, and getting more physical activity. You may also need to treat any underlying medical conditions or stop or change certain medicines if they cause constipation. If lifestyle changes do not relieve constipation, your health care provider may recommend taking a laxative. This information is not intended to replace advice given to you by your health care provider. Make sure you discuss any questions you have with your health care provider. Document Revised: 04/20/2020 Document Reviewed: 04/20/2020 [employer] Patient Education 2022 [employer]. 03/05/2023 15:04:46 Food Choices for Gastroesophageal Reflux Disease, Adult Food Choices for Gastroesophageal Reflux Disease, Adult When you have gastroesophageal reflux disease (GERD), the foods you eat and your eating habits are very important. Choosing the right foods can help ease the discomfort of GERD. Consider working with a dietitian to help you make healthy food choices. What are tips for following this plan? Reading food labels Look for foods that are low in saturated fat. Foods that have less than 5% of daily value (DV) of fat and 0 g of trans fats may help with your symptoms. Cooking Cook foods using methods other than frying. This may include baking, steaming, grilling, or broiling. These are all methods that do not need a lot of fat for cooking. To add flavor, try to use herbs that are low in spice and acidity. Meal planning Choose healthy foods that are low in fat, such as fruits, vegetables, whole grains, low-fat dairy products, lean meats, fish, and poultry. Eat frequent, small meals instead of three large meals each day. Eat your meals slowly, in a relaxed setting. Avoid bending over or lying down until 2 3 hours after eating. Limit high-fat foods such as fatty meats or fried foods. Limit your intake of fatty foods, such as oils, butter, and shortening. Avoid the following as told by your health care provider: ?Foods that cause symptoms. These may be different for different people. Keep a food diary to keep track of foods that cause symptoms. ?Alcohol. ?Drinking large amounts of liquid with meals. ?Eating meals during the 2 3 hours before bed. Lifestyle Maintain a healthy weight. Ask your health care provider what weight is healthy for you. If you need to lose weight, work with your health care provider to do so safely. Exercise for at least 30 minutes on 5 or more days each week, or as told by your health care provider. Avoid wearing clothes that fit tightly around your waist and chest. Do not use any products that contain nicotine or tobacco. These products include cigarettes, chewing tobacco, and vaping devices, such as e-cigarettes. If you need help quitting, ask your health care provider. Sleep with the head of your bed raised. Use a wedge under the mattress or blocks under the bed frame to raise the head of the bed. Chew sugar-free gum after mealtimes. What foods should I eat? Eat a healthy, well-balanced diet of fruits, vegetables, whole grains, low-fat dairy products, lean meats, fish, and poultry. Each person is different. Foods that may trigger symptoms in one person may not trigger any symptoms in another person. Work with your health care provider to identify foods that are safe for you. The items listed above may not be a complete list of recommended foods and beverages. Contact a dietitian for more information. What foods should I avoid? Limiting some of these foods may help manage the symptoms of GERD. Everyone is different. Consult a dietitian or your health care provider to help you identify the exact foods to avoid, if any. Fruits Any fruits prepared with added fat. Any fruits that cause symptoms. For some people this may include citrus fruits, such as oranges, grapefruit, pineapple, and ida. Vegetables Deep-fried vegetables. Liberian fries. Any vegetables prepared with added fat. Any vegetables that cause symptoms. For some people, this may include tomatoes and tomato products, chili peppers, onions and garlic, and horseradish. Grains Pastries or quick breads with added fat. Meats and other proteins High-fat meats, such as fatty beef or pork, hot dogs, ribs, ham, sausage, salami, and diaz. Fried meat or protein, including fried fish and fried chicken. Nuts and nut butters, in large amounts. Dairy Whole milk and chocolate milk. Sour cream. Cream. Ice cream. Cream cheese. Milkshakes. Fats and oils Butter. Margarine. Shortening. Ghee. Beverages Coffee and tea, with or without caffeine. Carbonated beverages. Sodas. Energy drinks. Fruit juice made with acidic fruits, such as orange or grapefruit. Tomato juice. Alcoholic drinks. Sweets and desserts Chocolate and cocoa. Donuts. Seasonings and condiments Pepper. Peppermint and spearmint. Added salt. Any condiments, herbs, or seasonings that cause symptoms. For some people, this may include arenas, hot sauce, or vinegar-based salad dressings. The items listed above may not be a complete list of foods and beverages to avoid. Contact a dietitian for more information. Questions to ask your health care provider Diet and lifestyle changes are usually the first steps that are taken to manage symptoms of GERD. If diet and lifestyle changes do not improve your symptoms, talk with your health care provider about taking medicines. Where to find more information [employer] Disorders: aboutgerd.org Summary When you have gastroesophageal reflux disease (GERD), food and lifestyle choices may be very helpful in easing the discomfort of GERD. Eat frequent, small meals instead of three large meals each day. Eat your meals slowly, in a relaxed setting. Avoid bending over or lying down until 2 3 hours after eating. Limit high-fat foods such as fatty meats or fried foods. This information is not intended to replace advice given to you by your health care provider. Make sure you discuss any questions you have with your health care provider. Document Revised: 12/12/2020 Document Reviewed: 12/12/2020 [employer] Patient Education 2022 [employer]. 03/05/2023 14:56:07 Colonoscopy, Adult Colonoscopy, Adult A colonoscopy is a procedure to look at the entire large intestine. This procedure is done using a long, thin, flexible tube that has a camera on the end. You may have a colonoscopy: As a part of normal colorectal screening. If you have certain symptoms, such as: ?A low number of red blood cells in your blood (anemia). ?Diarrhea that does not go away. ?Pain in your abdomen. ?Blood in your stool. A colonoscopy can help screen for and diagnose medical problems, including: An abnormal growth of cells or tissue (tumor). Abnormal growths within the lining of your intestine (polyps). Inflammation. Areas of bleeding. Tell your health care provider about: Any allergies you have. All medicines you are taking, including vitamins, herbs, eye drops, creams, and [id number] medicines. Any problems you or family members have had with anesthetic medicines. Any bleeding problems you have. Any surgeries you have had. Any medical conditions you have. Any problems you have had with having bowel movements. Whether you are or may be . What are the risks? Generally, this is a safe procedure. However, problems may occur, including: Bleeding. Damage to your intestine. Allergic reactions to medicines given during the procedure. Infection. This is rare. What happens before the procedure? Eating and drinking restrictions Follow instructions from your health care provider about eating or drinking restrictions, which may include: A few days before the procedure: ?Follow a low-fiber diet. ?Avoid nuts, seeds, dried fruit, raw fruits, and vegetables. 1 3 days before the procedure: ?Eat only gelatin dessert or ice pops. ?Drink only clear liquids, such as water, clear juice, clear broth or bouillon, black coffee or tea, or clear soft drinks or sports drinks. ?Avoid liquids that contain red or purple dye. The day of the procedure: ?Do not eat solid foods. You may continue to drink clear liquids until up to 2 hours before the procedure. ?Do not eat or drink anything starting 2 hours before the procedure, or within the time period that your health care provider recommends. Bowel prep If you were prescribed a bowel prep to take by mouth (orally) to clean out your colon: Take it as told by your health care provider. Starting the day before your procedure, you will need to drink a large amount of liquid medicine. The liquid will cause you to have many bowel movements of loose stool until your stool becomes almost clear or light green. If your skin or the opening between the buttocks (anus) gets irritated from diarrhea, you may relieve the irritation using: ?Wipes with medicine in them, such as adult wet wipes with aloe and vitamin E. ?A product to soothe skin, such as petroleum jelly. If you vomit while drinking the bowel prep: ?Take a break for up to 60 minutes. ?Begin the bowel prep again. ?Call your health care provider if you keep vomiting or you cannot take the bowel prep without vomiting. To clean out your colon, you may also be given: ?Laxative medicines. These help you have a bowel movement. ?Instructions for enema use. An enema is liquid medicine injected into your rectum. Medicines Ask your health care provider about: Changing or stopping your regular medicines or supplements. This is especially important if you are taking iron supplements, diabetes medicines, or blood thinners. Taking medicines such as aspirin and ibuprofen. These medicines can thin your blood. Do not take these medicines unless your health care provider tells you to take them. Taking rfqk-[id number]-cwtmgvs medicines, vitamins, herbs, and supplements. General instructions Ask your health care provider what steps will be taken to help prevent infection. These may include washing skin with a germ-killing soap. If you will be going home right after the procedure, plan to have a responsible adult: ?Take you home from the hospital or clinic. You will not be allowed to drive. ? Care for you for the time you are told. What happens during the procedure? An IV will be inserted into one of your veins. You will be given a medicine to make you fall asleep (general anesthetic). You will lie on your side with your knees bent. A lubricant will be put on the tube. Then the tube will be: ?Inserted into your anus. ?Gently eased through all parts of your large intestine. Air will be sent into your colon to keep it open. This may cause some pressure or cramping. Images will be taken with the camera and will appear on a screen. A small tissue sample may be removed to be looked at under a microscope (biopsy). The tissue may be sent to a lab for testing if any signs of problems are found. If small polyps are found, they may be removed and checked for cancer cells. When the procedure is finished, the tube will be removed. The procedure may vary among health care providers and hospitals. What happens after the procedure? Your blood pressure, heart rate, breathing rate, and blood oxygen level will be monitored until you leave the hospital or clinic. You may have a small amount of blood in your stool. You may pass gas and have mild cramping or bloating in your abdomen. This is caused by the air that was used to open your colon during the exam. If you were given a sedative during the procedure, it can affect you for several hours. Do not drive or operate machinery until your health care provider says that it is safe. It is up to you to get the results of your procedure. Ask your health care provider, or the department that is doing the procedure, when your results will be ready. Summary A colonoscopy is a procedure to look at the entire large intestine. Follow instructions from your health care provider about eating and drinking before the procedure. If you were prescribed an oral bowel prep to clean out your colon, take it as told by your health care provider. During the colonoscopy, a flexible tube with a camera on its end is inserted into the anus and then passed into all parts of the large intestine. This information is not intended to replace advice given to you by your health care provider. Make sure you discuss any questions you have with your health care provider. Document Revised: 05/28/2022 Document Reviewed: 01/24/2022 [employer] Patient Education 2022 [employer]. Follow Up Care 08/28/2022 15:16:00 With:Palak Wagner CNP Address: When:6 months [facility] 05-08-2022 Hospital Discharge instructions Patient Education 05/08/2022 15:47:37 Colonoscopy, Adult Colonoscopy, Adult A colonoscopy is an exam to look at the entire large intestine. During the exam, a lubricated, flexible tube that has a camera on the end of it is inserted into the anus and then passed into the rectum, colon, and other parts of the large intestine. You may have a colonoscopy as a part of normal colorectal screening or if you have certain symptoms, such as: Lack of red blood cells (anemia). Diarrhea that does not go away. Abdominal pain. Blood in your stool (feces). A colonoscopy can help screen for and diagnose medical problems, including: Tumors. Polyps. Inflammation. Areas of bleeding. Tell a health care provider about: Any allergies you have. All medicines you are taking, including vitamins, herbs, eye drops, creams, and rvfc-kpe-gvthsap medicines. Any problems you or family members have had with anesthetic medicines. Any blood disorders you have. Any surgeries you have had. Any medical conditions you have. Any problems you have had passing stool. What are the risks? Generally, this is a safe procedure. However, problems may occur, including: Bleeding. A tear in the intestine. A reaction to medicines given during the exam. Infection (rare). What happens before the procedure? Eating and drinking restrictions Follow instructions from your health care provider about eating and drinking, which may include: A few days before the procedure follow a low-fiber diet. Avoid nuts, seeds, dried fruit, raw fruits, and vegetables. 1 3 days before the procedure follow a clear liquid diet. Drink only clear liquids, such as clear broth or bouillon, black coffee or tea, clear juice, clear soft drinks or sports drinks, gelatin dessert, and popsicles. Avoid any liquids that contain red or purple dye. On the day of the procedure do not eat or drink anything starting 2 hours before the procedure, or within the time period that your health care provider recommends. Up to 2 hours before the procedure, you may continue to drink clear liquids, such as water or clear fruit juice. Bowel prep If you were prescribed an oral bowel prep to clean out your colon: Take it as told by your health care provider. Starting the day before your procedure, you will need to drink a large amount of medicated liquid. The liquid will cause you to have multiple loose stools until your stool is almost clear or light green. If your skin or anus gets irritated from diarrhea, you may use these to relieve the irritation: ?Medicated wipes, such as adult wet wipes with aloe and vitamin E. ?A skin-soothing product like petroleum jelly. If you vomit while drinking the bowel prep, take a break for up to 60 minutes and then begin the bowel prep again. If vomiting continues and you cannot take the bowel prep without vomiting, call your health care provider. To clean out your colon, you may also be given: ?Laxative medicines. ?Instructions about how to use an enema. General instructions Ask your health care provider about: ?Changing or stopping your regular medicines or supplements. This is especially important if you are taking iron supplements, diabetes medicines, or blood thinners. ?Taking medicines such as aspirin and ibuprofen. These medicines can thin your blood. Do not take these medicines before the procedure if your health care provider tells you not to. Plan to have someone take you home from the hospital or clinic. What happens during the procedure? An IV may be inserted into one of your veins. You will be given medicine to help you relax (sedative). To reduce your risk of infection: ?Your health care team will wash or sanitize their hands. ?Your anal area will be washed with soap. You will be asked to lie on your side with your knees bent. Your health care provider will lubricate a long, thin, flexible tube. The tube will have a camera and a light on the end. The tube will be inserted into your anus. The tube will be gently eased through your rectum and colon. Air will be delivered into your colon to keep it open. You may feel some pressure or cramping. The camera will be used to take images during the procedure. A small tissue sample may be removed to be examined under a microscope (biopsy). If small polyps are found, your health care provider may remove them and have them checked for cancer cells. When the exam is done, the tube will be removed. The procedure may vary among health care providers and hospitals. What happens after the procedure? Your blood pressure, heart rate, breathing rate, and blood oxygen level will be monitored until the medicines you were given have worn off. Do not drive for 24 hours after the exam. You may have a small amount of blood in your stool. You may pass gas and have mild abdominal cramping or bloating due to the air that was used to inflate your colon during the exam. It is up to you to get the results of your procedure. Ask your health care provider, or the department performing the procedure, when your results will be ready. Summary A colonoscopy is an exam to look at the entire large intestine. During a colonoscopy, a lubricated, flexible tube with a camera on the end of it is inserted into the anus and then passed into the colon and other parts of the large intestine. Follow instructions from your health care provider about eating and drinking before the procedure. If you were prescribed an oral bowel prep to clean out your colon, take it as told by your health care provider. After your procedure, your blood pressure, heart rate, breathing rate, and blood oxygen level will be monitored until the medicines you were given have worn off. This information is not intended to replace advice given to you by your health care provider. Make sure you discuss any questions you have with your health care provider. Document Released: 05/31/2001 Document Revised: 03/26/2018 Document Reviewed: 08/14/2016 [employer] Patient Education 2020 [employer]. Follow Up Care 04/05/2022 13:22:50 With:Palak Wagner CNP Address: When:3 months [facility] 02-14-2022 Evaluation + Plan note Future Scheduled TestsCT Abdomen/Pelvis w/ Contrast 02/14/22 [facility] 02-14-2022 Hospital Discharge instructions Patient Education 02/14/2022 10:05:46 Chronic Constipation Chronic Constipation Chronic constipation is a condition in which a person has three or fewer bowel movements a week, for three months or longer. This condition is especially common in older adults. The two main kinds of chronic constipation are secondary constipation and functional constipation. Secondary constipation results from another condition or a treatment. Functional constipation, also called primary or idiopathic constipation, is divided into three types: Normal transit constipation. In this type, movement of stool through the colon (stool transit) occurs normally. Slow transit constipation. In this type, stool moves slowly through the colon. Outlet constipation or pelvic floor dysfunction. In this type, the nerves and muscles that empty the rectum do not work normally. What are the causes? Causes of secondary constipation may include: Failing to drink enough fluid, eat enough food or fiber, or get physically active. . A tear in the anus (anal fissure). Blockage in the bowel (bowel obstruction). Narrowing of the bowel (bowel stricture). Having a long-term medical condition, such as: ?Diabetes. ?Hypothyroidism. ?Multiple sclerosis. ?Parkinson disease. ?Stroke. ?Spinal cord injury. ?Dementia. ?Colon cancer. ?Inflammatory bowel disease (IBD). ?Iron-deficiency anemia. ?Outward collapse of the rectum (rectal prolapse). ?Hemorrhoids. Taking certain medicines, including: ?Narcotics. These are a certain type of prescription pain medicine. ?Antacids. ?Iron supplements. ?Water pills (diuretics). ?Certain blood pressure medicines. ?Anti-seizure medicines. ?Antidepressants. ?Medicines for Parkinson disease. The cause of functional constipation is not known, but some conditions are associated with it. These conditions include: Stress. Problems in the nerves and muscles that control stool transit. Weak or impaired pelvic floor muscles. What increases the risk? You may be at higher risk for chronic constipation if you: Are older than age 70. Are female. Live in a long-term care facility. Do not get much exercise or physical activity (have a sedentary lifestyle). Do not drink enough fluids. Do not eat enough food, especially fiber. Have a long-term disease. Have a mental health disorder or eating disorder. Take many medicines. What are the signs or symptoms? The main symptom of chronic constipation is having three or fewer bowel movements a week for several weeks. Other signs and symptoms may vary from person to person. These include: Pushing hard (straining) to pass stool. Painful bowel movements. Having hard or lumpy stools. Having lower belly discomfort, such as cramps or bloating. Being unable to have a bowel movement when you feel the urge. Feeling like you still need to pass stool after a bowel movement. Feeling that you have something in your rectum that is blocking or preventing bowel movements. Seeing blood on the toilet paper or in your stool. Worsening confusion (in older adults). How is this diagnosed? This condition may be diagnosed based on: Symptoms and medical history. You will be asked about your symptoms, lifestyle, diet, and any medicines that you are taking. Physical exam. ?Your belly (abdomen) will be examined. ?A digital rectal exam may be done. For this exam, a health care provider places a lubricated, gloved finger into the rectum. Other tests to check for any underlying causes of your constipation. These may be ordered if you have bleeding in your rectum, weight loss, or a family history of colon cancer. In these cases, you may have: ?Imaging studies of the colon. These may include X-ray, ultrasound, or CT scan. ?Blood tests. ?A procedure to examine the inside of your colon (colonoscopy). ?More specialized tests to check: ?Whether your anal sphincter works well. This is a ring-shaped muscle that controls the closing of the anus. ?How well food moves through your colon. ?Tests to measure the nerve signal in your pelvic floor muscles (electromyography). How is this treated? Treatment for chronic constipation depends on the cause. Most often, treatment starts with: Being more active and getting regular exercise. Drinking more fluids. Adding fiber to your diet. Sources of fiber include fruits, vegetables, whole grains, and fiber supplements. Using medicines such as stool softeners or medicines that increase contractions in your digestive system (pro-motility agents). Training your pelvic muscles with biofeedback. Surgery, if there is obstruction. Treatment for secondary chronic constipation depends on the underlying condition. You may need to: Stop or change some medicines if they cause constipation. Use a fiber supplement (bulk laxative) or stool softener. Use prescription laxative. This works by absorbing water into your colon (osmotic laxative). You may also need to see a specialist who treats conditions of the digestive system (endoscopy support specialist). Follow these instructions at home: Take cbcu-[id number] and prescription medicines only as told by your health care provider. If you are taking a laxative, take it as told by your health care provider. Eat a balanced diet that includes enough fiber. Ask your health care provider to recommend a diet that is right for you. Drink clear fluids, especially water. Avoid drinking alcohol, caffeine, and soda. Drink enough fluid to keep your urine pale yellow. Get some physical activity every day. Ask your health care provider what physical activities are safe for you. Get colon cancer screenings as told by your health care provider. Keep all follow-up visits as told by your health care provider. This is important. Contact a health care provider if: You are having three or fewer bowel movements a week. Your stools are hard or lumpy. You notice blood on the toilet paper or in your stool after you have a bowel movement. You have unexplained weight loss. You have rectum (rectal) pain. You have stool leakage. You experience nausea or vomiting. Get help right away if: You have rectal bleeding or you pass blood clots. You have severe rectal pain. You have body tissue that pushes out (protrudes) from your anus. You have severe pain or bloating (distension) in your abdomen. You have vomiting that you cannot control. Summary Chronic constipation is a condition in which a person has three or fewer bowel movements a week, for three months or longer. You may have a higher risk for this condition if you are an older adult, or if you do not drink enough water or get enough physical activity (are sedentary). Treatment for this condition depends on the cause. Most treatments for chronic constipation include adding fiber to your diet, drinking more fluids, and getting more physical activity. You may also need to treat any underlying medical conditions or stop or change certain medicines if they cause constipation. If lifestyle changes do not relieve constipation, your health care provider may recommend taking a laxative. This information is not intended to replace advice given to you by your health care provider. Make sure you discuss any questions you have with your health care provider. Document Released: 12/31/2017 Document Revised: 05/16/2018 Document Reviewed: 02/18/2018 [employer] Patient Education 2020 [employer]. Follow Up Care 12/11/2021 13:08:43 With:Palak Wagner CNP Address: When:1 month [facility] 12-11-2021 Hospital Discharge instructions Patient Education 12/11/2021 12:52:05 High-Fiber Diet High-Fiber Diet Fiber, also called dietary fiber, is a type of carbohydrate that is found in fruits, vegetables, whole grains, and beans. A high-fiber diet can have many health benefits. Your health care provider may recommend a high-fiber diet to help: Prevent constipation. Fiber can make your bowel movements more regular. Lower your cholesterol. Relieve the following conditions: ?Swelling of veins in the anus (hemorrhoids). ?Swelling and irritation (inflammation) of specific areas of the digestive tract (uncomplicated diverticulosis). ?A problem of the large intestine (colon) that sometimes causes pain and diarrhea (irritable bowel syndrome, IBS). Prevent overeating as part of a weight-loss plan. Prevent heart disease, type 2 diabetes, and certain cancers. What is my plan? The recommended daily fiber intake in grams (g) includes: 38 g for men age 50 or younger. 30 g for men over age 50. 25 g for women age 50 or younger. 21 g for women over age 50. You can get the recommended daily intake of dietary fiber by: Eating a variety of fruits, vegetables, grains, and beans. Taking a fiber supplement, if it is not possible to get enough fiber through your diet. What do I need to know about a high-fiber diet? It is better to get fiber through food sources rather than from fiber supplements. There is not a lot of research about how effective supplements are. Always check the fiber content on the nutrition facts label of any prepackaged food. Look for foods that contain 5 g of fiber or more per serving. Talk with a diet and nutrition faculty member (dietitian) if you have questions about specific foods that are recommended or not recommended for your medical condition, especially if those foods are not listed below. Gradually increase how much fiber you consume. If you increase your intake of dietary fiber too quickly, you may have bloating, cramping, or gas. Drink plenty of water. Water helps you to digest fiber. What are tips for following this plan? Eat a wide variety of high-fiber foods. Make sure that half of the grains that you eat each day are whole grains. Eat breads and cereals that are made with whole-grain flour instead of refined flour or white flour. Eat brown rice, bulgur wheat, or millet instead of white rice. Start the day with a breakfast that is high in fiber, such as a cereal that contains 5 g of fiber or more per serving. Use beans in place of meat in soups, salads, and pasta dishes. Eat high-fiber snacks, such as berries, raw vegetables, nuts, and popcorn. Choose whole fruits and vegetables instead of processed forms like juice or sauce. What foods can I eat? Fruits Berries. Pears. Apples. Oranges. Avocado. Prunes and raisins. Dried figs. Vegetables Sweet potatoes. Spinach. Kale. Artichokes. Cabbage. Broccoli. Cauliflower. Green peas. Carrots. Squash. Grains Whole-grain breads. Multigrain cereal. Oats and oatmeal. Brown rice. Barley. Bulgur wheat. Millet. Quinoa. Bran muffins. Popcorn. [place] wafer crackers. Meats and other proteins [place], kidney, and marcos beans. Soybeans. Split peas. Lentils. Nuts and seeds. Dairy Fiber-fortified yogurt. Beverages Fiber-fortified soy milk. Fiber-fortified orange juice. Other foods Fiber bars. The items listed above may not be a complete list of recommended foods and beverages. Contact a dietitian for more options. What foods are not recommended? Fruits Fruit juice. Cooked, strained fruit. Vegetables Fried potatoes. Canned vegetables. Well-cooked vegetables. Grains White bread. Pasta made with refined flour. White rice. Meats and other proteins Fatty cuts of meat. Fried chicken or fried fish. Dairy Milk. Yogurt. Cream cheese. Sour cream. Fats and oils [place]. Beverages Soft drinks. Other foods Cakes and pastries. The items listed above may not be a complete list of foods and beverages to avoid. Contact a dietitian for more information. Summary Fiber is a type of carbohydrate. It is found in fruits, vegetables, whole grains, and beans. There are many health benefits of eating a high-fiber diet, such as preventing constipation, lowering blood cholesterol, helping with weight loss, and reducing your risk of heart disease, diabetes, and certain cancers. Gradually increase your intake of fiber. Increasing too fast can result in cramping, bloating, and gas. Drink plenty of water while you increase your fiber. The best sources of fiber include whole fruits and vegetables, whole grains, nuts, seeds, and beans. This information is not intended to replace advice given to you by your health care provider. Make sure you discuss any questions you have with your health care provider. Document Released: 06/03/2006 Document Revised: 04/07/2018 Document Reviewed: 04/07/2018 [employer] Patient Education 2020 [employer]. 12/11/2021 12:52:04 Hemorrhoids Hemorrhoids Hemorrhoids are swollen veins in and around the rectum or anus. There are two types of hemorrhoids: Internal hemorrhoids. These occur in the veins that are just inside the rectum. They may poke through to the outside and become irritated and painful. External hemorrhoids. These occur in the veins that are outside the anus and can be felt as a painful swelling or hard lump near the anus. Most hemorrhoids do not cause serious problems, and they can be managed with home treatments such as diet and lifestyle changes. If home treatments do not help the symptoms, procedures can be done to shrink or remove the hemorrhoids. What are the causes? This condition is caused by increased pressure in the anal area. This pressure may result from various things, including: Constipation. Straining to have a bowel movement. Diarrhea. . Obesity. Sitting for long periods of time. Heavy lifting or other activity that causes you to strain. Anal sex. Riding a bike for a long period of time. What are the signs or symptoms? Symptoms of this condition include: Pain. Anal itching or irritation. Rectal bleeding. Leakage of stool (feces). Anal swelling. One or more lumps around the anus. How is this diagnosed? This condition can often be diagnosed through a visual exam. Other exams or tests may also be done, such as: An exam that involves feeling the rectal area with a gloved hand (digital rectal exam). An exam of the anal canal that is done using a small tube (anoscope). A blood test, if you have lost a significant amount of blood. A test to look inside the colon using a flexible tube with a camera on the end (sigmoidoscopy or colonoscopy). How is this treated? This condition can usually be treated at home. However, various procedures may be done if dietary changes, lifestyle changes, and other home treatments do not help your symptoms. These procedures can help make the hemorrhoids smaller or remove them completely. Some of these procedures involve surgery, and others do not. Common procedures include: Rubber band ligation. Rubber bands are placed at the base of the hemorrhoids to cut off their blood supply. Sclerotherapy. Medicine is injected into the hemorrhoids to shrink them. Infrared coagulation. A type of light energy is used to get rid of the hemorrhoids. Hemorrhoidectomy surgery. The hemorrhoids are surgically removed, and the veins that supply them are tied off. Stapled hemorrhoidopexy surgery. The surgeon matias the base of the hemorrhoid to the rectal wall. Follow these instructions at home: Eating and drinking Eat foods that have a lot of fiber in them, such as whole grains, beans, nuts, fruits, and vegetables. Ask your health care provider about taking products that have added fiber (fiber supplements). Reduce the amount of fat in your diet. You can do this by eating low-fat dairy products, eating less red meat, and avoiding processed foods. Drink enough fluid to keep your urine pale yellow. Managing pain and swelling Take warm sitz baths for 20 minutes, 3 4 times a day to ease pain and discomfort. You may do this in a bathtub or using a portable sitz bath that fits over the toilet. If directed, apply ice to the affected area. Using ice packs between sitz baths may be helpful. ?Put ice in a plastic bag. ?Place a towel between your skin and the bag. ?Leave the ice on for 20 minutes, 2 3 times a day. General instructions Take rsou-nma-yuqzbxv and prescription medicines only as told by your health care provider. Use medicated creams or suppositories as told. Get regular exercise. Ask your health care provider how much and what kind of exercise is best for you. In general, you should do moderate exercise for at least 30 minutes on most days of the week (150 minutes each week). This can include activities such as walking, biking, or yoga. Go to the bathroom when you have the urge to have a bowel movement. Do not wait. Avoid straining to have bowel movements. Keep the anal area dry and clean. Use wet toilet paper or moist towelettes after a bowel movement. Do not sit on the toilet for long periods of time. This increases blood pooling and pain. Keep all follow-up visits as told by your health care provider. This is important. Contact a health care provider if you have: Increasing pain and swelling that are not controlled by treatment or medicine. Difficulty having a bowel movement, or you are unable to have a bowel movement. Pain or inflammation outside the area of the hemorrhoids. Get help right away if you have: Uncontrolled bleeding from your rectum. Summary Hemorrhoids are swollen veins in and around the rectum or anus. Most hemorrhoids can be managed with home treatments such as diet and lifestyle changes. Taking warm sitz baths can help ease pain and discomfort. In severe cases, procedures or surgery can be done to shrink or remove the hemorrhoids. This information is not intended to replace advice given to you by your health care provider. Make sure you discuss any questions you have with your health care provider. Document Released: 05/31/2001 Document Revised: 10/30/2019 Document Reviewed: 10/23/2018 [employer] Patient Education 2020 [employer]. 12/11/2021 12:52:02 Diverticulosis Diverticulosis Diverticulosis is a condition that develops when small pouches (diverticula) form in the wall of the large intestine (colon). The colon is where water is absorbed and stool is formed. The pouches form when the inside layer of the colon pushes through weak spots in the outer layers of the colon. You may have a few pouches or many of them. What are the causes? The cause of this condition is not known. What increases the risk? The following factors may make you more likely to develop this condition: Being older than age 60. Your risk for this condition increases with age. Diverticulosis is rare among people younger than age 30. By age 80, many people have it. Eating a low-fiber diet. Having frequent constipation. Being overweight. Not getting enough exercise. Smoking. Taking whev-aku-ajmbeae pain medicines, like aspirin and ibuprofen. Having a family history of diverticulosis. What are the signs or symptoms? In most people, there are no symptoms of this condition. If you do have symptoms, they may include: Bloating. Cramps in the abdomen. Constipation or diarrhea. Pain in the lower left side of the abdomen. How is this diagnosed? This condition is most often diagnosed during an exam for other colon problems. Because diverticulosis usually has no symptoms, it often cannot be diagnosed independently. This condition may be diagnosed by: Using a flexible scope to examine the colon (colonoscopy). Taking an X-ray of the colon after dye has been put into the colon (barium enema). Doing a CT scan. How is this treated? You may not need treatment for this condition if you have never developed an infection related to diverticulosis. If you have had an infection before, treatment may include: Eating a high-fiber diet. This may include eating more fruits, vegetables, and grains. Taking a fiber supplement. Taking a live bacteria supplement (probiotic). Taking medicine to relax your colon. Taking antibiotic medicines. Follow these instructions at home: Drink 6 8 glasses of water or more each day to prevent constipation. Try not to strain when you have a bowel movement. If you have had an infection before: ?Eat more fiber as directed by your health care provider or your diet and nutrition faculty member (dietitian). ?Take a fiber supplement or probiotic, if your health care provider approves. Take wmth-jsq-agadefl and prescription medicines only as told by your health care provider. If you were prescribed an antibiotic, take it as told by your health care provider. Do not stop taking the antibiotic even if you start to feel better. Keep all follow-up visits as told by your health care provider. This is important. Contact a health care provider if: You have pain in your abdomen. You have bloating. You have cramps. You have not had a bowel movement in 3 days. Get help right away if: Your pain gets worse. Your bloating becomes very bad. You have a fever or chills, and your symptoms suddenly get worse. You vomit. You have bowel movements that are bloody or black. You have bleeding from your rectum. Summary Diverticulosis is a condition that develops when small pouches (diverticula) form in the wall of the large intestine (colon). You may have a few pouches or many of them. This condition is most often diagnosed during an exam for other colon problems. If you have had an infection related to diverticulosis, treatment may include increasing the fiber in your diet, taking supplements, or taking medicines. This information is not intended to replace advice given to you by your health care provider. Make sure you discuss any questions you have with your health care provider. Document Released: 02/28/2005 Document Revised: 05/16/2018 Document Reviewed: 04/22/2017 [employer] Patient Education 2020 [employer]. Follow Up Care 11/22/2021 09:59:49 With:Palak Wagner CNP Address: When:3 months [facility] 11-15-2021 Hospital Discharge instructions Patient Education 11/15/2021 12:56:45 Upper Endoscopy, Adult, Care After Upper Endoscopy, Adult, Care After This sheet gives you information about how to care for yourself after your procedure. Your health care provider may also give you more specific instructions. If you have problems or questions, contact your health care provider. What can I expect after the procedure? After the procedure, it is common to have: A sore throat. Mild stomach pain or discomfort. Bloating. Nausea. Follow these instructions at home: Follow instructions from your health care provider about what to eat or drink after your procedure. Return to your normal activities as told by your health care provider. Ask your health care provider what activities are safe for you. Take txhk-hfz-ikzfoch and prescription medicines only as told by your health care provider. Do not drive for 24 hours if you were given a sedative during your procedure. Keep all follow-up visits as told by your health care provider. This is important. Contact a health care provider if you have: A sore throat that lasts longer than one day. Trouble swallowing. Get help right away if: You vomit blood or your vomit looks like coffee grounds. You have: ?A fever. ?Bloody, black, or tarry stools. ?A severe sore throat or you cannot swallow. ?Difficulty breathing. ?Severe pain in your chest or abdomen. Summary After the procedure, it is common to have a sore throat, mild stomach discomfort, bloating, and nausea. Do not drive for 24 hours if you were given a sedative during the procedure. Follow instructions from your health care provider about what to eat or drink after your procedure. Return to your normal activities as told by your health care provider. This information is not intended to replace advice given to you by your health care provider. Make sure you discuss any questions you have with your health care provider. Document Released: 12/02/2012 Document Revised: 11/25/2018 Document Reviewed: 11/03/2018 [employer] Patient Education 2020 [employer]. 11/15/2021 12:56:45 Colonoscopy, Care After Surgery [facility] (CUSTOM) Colonoscopy Care After Surgery Please read the instructions outlined below and refer to this sheet in the next few weeks. These discharge instructions provide you with general information on caring for yourself after you leave the hospital. Your doctor may also give you specific instructions. While your treatment has been planned according to the most current medical practices available, unavoidable complications occasionally occur. If you have any problems or questions after discharge, please call your doctor. ACTIVITY You may resume your regular activity, but move at a slower pace for the next 24 hours. Take frequent rest periods for the next 24 hours. Walking will help get rid of the air and reduce the bloated feeling in your abdomen (belly). No driving for 24 hours (because of the anesthesia (medicine) used during the test). You may shower. Do not sign any important legal documents or operate any machinery for 24 hours (because of the anesthesia used during the test). NUTRITION Drink plenty of fluids. You may resume your normal diet as instructed by your doctor. Begin with a light meal and progress to your normal diet. Heavy or fried foods are harder to digest and may make you feel nauseated (sick to your stomach). Avoid alcoholic beverages for 24 hours or as instructed. MEDICATIONS You may resume your normal medications unless your doctor tells you otherwise. WHAT YOU CAN EXPECT TODAY Some feelings of bloating in the abdomen. Passage of more gas than usual. Spotting of blood in your stool or on the toilet paper. FOLLOW-UP Your doctor will discuss the results of your test with you. SEEK IMMEDIATE MEDICAL ATTENTION IF: There is more than a spotting of blood in your stool. There is abdominal distention (your abdomen is swollen). There is vomiting. You have a temperature over 101.5 F. There is abdominal pain or discomfort that is severe or gets worse throughout the day. 11/15/2021 12:56:45 Diverticulosis [facility] (CUSTOM) Diverticulosis Many people have small pouches in their colon called diverticulum. The diverticulum bulge outward through weak spots in the colon. You could have one or more of these pouches in the colon. The condition of having these pouches in the colon is called diverticulosis or diverticular disease. Diverticulosis is usually diagnosed by tests to evaluate something else. For example, you may have had a colonoscopy to screen for colon cancer when the diverticulosis was found. Most people with diverticulosis do not have any discomfort or problems. If symptoms develop, they may include mild cramps, bloating, and constipation. A complication of this condition is called diverticulitis. This is when the diverticulum become inflamed and infected. How to treat diverticulosis: Increasing the amount of fiber in the diet may reduce symptoms of diverticulosis and prevent complications such as diverticulitis (infected diverticuli). Fiber keeps stool soft and lowers pressure inside the colon so that bowel contents can move through easily. You should eat 20 to 35 grams of fiber each day. The table below shows the amount of fiber in some foods that you can easily add to your diet. Adding fiber slowly may decrease the bloating and fullness sometimes felt with an immediate high fiber diet. The doctor may also recommend taking a fiber product such as Citrucel or Metamucil once a day. In the past people with diverticulosis were to avoid nuts, corn, and seeds. This has not been found to be true. If you find that certain foods create cramping or bloating, avoid that food. Foods high in fiber include: Fresh fruits, fresh vegetables, legumes (beans), whole wheat bread, bran muffins or cereal, and nuts. See the table below for examples of high fiber foods. Remember, your goal is 20-35 grams per day. Amount of fiber in different foods Food Serving Grams of fiber Fruits Apple (with skin) 1 medium apple 4.4 Banana 1 medium banana 3.1 Oranges 1 orange 3.1 Prunes 1 cup, pitted 12.4 Juices Apple, unsweetened, w/added ascorbic acid 1 cup 0.5 Grapefruit, white, canned, sweetened 1 cup 0.2 Grape, unsweetened, w/added ascorbic acid 1 cup 0.5 [place] 1 cup 0.7 Vegetables Cooked Green beans 1 cup 4.0 Carrots 1/2 cup sliced 2.3 Peas 1 cup 8.8 Potato (baked, with skin) 1 medium potato 3.8 Raw [place] (with peel) 1 cucumber 1.5 Lettuce 1 cup shredded 0.5 Tomato 1 medium tomato 1.5 Spinach 1 cup 0.7 Legumes Baked beans, canned, no salt added 1 cup 13.9 Kidney beans, canned 1 cup 13.6 Schmidt beans, canned 1 cup 11.6 Lentils, boiled 1 cup 15.6 Breads, pastas, flours Bran muffins 1 medium muffin 5.2 Oatmeal, cooked 1 cup 4.0 White bread 1 slice 0.6 Whole-wheat bread 1 slice 1.9 Pasta and rice, cooked Macaroni 1 cup 2.5 Rice, brown 1 cup 3.5 Rice, white 1 cup 0.6 Spaghetti (regular) 1 cup 2.5 Nuts Almonds 1/2 cup 8.7 Peanuts 1/2 cup 7.9 Chart from [facility] 2013. SEEK IMMEDIATE MEDICAL CARE IF: You develop abdominal (belly) pain. An oral temperature above _ 101 F__develops. Repeated vomiting occurs. Blood is being passed in stools (bright red or black tarry stools). You develop any bowel problems or changes which you have not had before. Extra Information: To learn how much fiber and other nutrients are in different foods, visit the [place] Department of Agriculture (USDA) National Nutrient Database at: http://www.nal.usda.gov/fnic/rebecca dcomp/search/ Created using data from the USDA National Nutrient Database for Standard Reference. Available at http://www.nal.usda.gov/fnic/rebecca dcomp/search/. Information adapted from: [employer] Patient Information 2009 [employer]. [employer] 2012 [email or web address].Flutter/contents /pvbhqutsstnv-fqddmwj-fdiomu-the -basics [facility] 11-15-2021 Evaluation + Plan note Extrac maryjane from: Title:Post-anesthesia - General Author:Marvin Dunn DO Date:11/15/21 Plan Transfer/ Discharge: Condition stable. Extracted from: Title:Pre-anesthesia - Endoscopy Author:Marvin Nguyen Jr., DO Date:11/15/21 Plan [place] [employer] Anesthesiologists (ASA) physical status classification: Class II. Anesthetic Preoperative Plan Anesthesia: General. . Anesthetic plan, risks, benefits, and alternatives discussed with the patient and/or family. Patient verbalized understanding. Future Scheduled Tests Laboratory* CBC w/ Auto Diff 10/04/21 * Comprehensive Metabolic Panel 10/04/21 Radiology* US Abdomen Complete 10/04/21 [facility]04[facility]20[facility]22 Hospital Discharge instructions Patient Education 10/04/2021 15:27:33 Colonoscopy, Adult Colonoscopy, Adult A colonoscopy is an exam to look at the entire large intestine. During the exam, a lubricated, flexible tube that has a camera on the end of it is inserted into the anus and then passed into the rectum, colon, and other parts of the large intestine. You may have a colonoscopy as a part of normal colorectal screening or if you have certain symptoms, such as: Lack of red blood cells (anemia). Diarrhea that does not go away. Abdominal pain. Blood in your stool (feces). A colonoscopy can help screen for and diagnose medical problems, including: Tumors. Polyps. Inflammation. Areas of bleeding. Tell a health care provider about: Any allergies you have. All medicines you are taking, including vitamins, herbs, eye drops, creams, and bhhy-lap-mmipdao medicines. Any problems you or family members have had with anesthetic medicines. Any blood disorders you have. Any surgeries you have had. Any medical conditions you have. Any problems you have had passing stool. What are the risks? Generally, this is a safe procedure. However, problems may occur, including: Bleeding. A tear in the intestine. A reaction to medicines given during the exam. Infection (rare). What happens before the procedure? Eating and drinking restrictions Follow instructions from your health care provider about eating and drinking, which may include: A few days before the procedure follow a low-fiber diet. Avoid nuts, seeds, dried fruit, raw fruits, and vegetables. 1 3 days before the procedure follow a clear liquid diet. Drink only clear liquids, such as clear broth or bouillon, black coffee or tea, clear juice, clear soft drinks or sports drinks, gelatin dessert, and popsicles. Avoid any liquids that contain red or purple dye. On the day of the procedure do not eat or drink anything starting 2 hours before the procedure, or within the time period that your health care provider recommends. Up to 2 hours before the procedure, you may continue to drink clear liquids, such as water or clear fruit juice. Bowel prep If you were prescribed an oral bowel prep to clean out your colon: Take it as told by your health care provider. Starting the day before your procedure, you will needto drink a large amount of medicated liquid. The liquid will cause you to have multiple loose stools until your stool is almost clear or light green. If your skin or anus gets irritated from diarrhea, you may use these to relieve the irritation: ?Medicated wipes, such as adult wet wipes with aloe and vitamin E. ?A skin-soothing product like petroleum jelly. If you vomit while drinking the bowel prep, take a break for up to 60 minutes and then begin the bowel prep again. If vomiting continues and you cannot take the bowel prep without vomiting, call yourhealth care provider. To clean out your colon, you may also be given: ?Laxative medicines. ?Instructions about how to use an enema. General instructions Ask your health care provider about: ?Changing or stopping your regular medicines or supplements. This is especially important if you are taking iron supplements, diabetes medicines, or blood thinners. ?Taking medicines such as aspirin and ibuprofen. These medicines can thin your blood. Do not take these medicines before the procedure if your health care provider tells you not to. Plan to have someone take you home from the hospital or clinic. What happens during the procedure? An IV may be inserted into one of your veins. You will be given medicine to help you relax (sedative). To reduce your risk of infection: ?Your health care team will wash or sanitize their hands. ?Your anal area will be washed with soap. You will be asked to lie on your side with your knees bent. Your health care provider will lubricate a long, thin, flexible tube. The tube will have a camera and a light on the end. The tube will be inserted into your anus. The tube will be gently eased through your rectum and colon. Air will be delivered into your colon to keep it open. You may feel some pressure or cramping. The camera will be used to take images during the procedure. A small tissue sample may be removed to be examined under a microscope (biopsy). If small polyps are found, your health care provider may remove them and have them checked for cancer cells. When the exam is done, the tube will be removed. The procedure may vary among health care providers and hospitals. What happens after the procedure? Your blood pressure, heart rate, breathing rate, and blood oxygen level will be monitored until themedicines you were given have worn off. Do not drive for 24 hours after the exam. You may have a small amount of blood in your stool. You may pass gas and have mild abdominal cramping or bloating due to the air that was used to inflate your colon during the exam. It is up to you to get the results of your procedure. Ask your health care provider, or the department performing the procedure, when your results will be ready. Summary A colonoscopy is an exam to look at the entire large intestine. During a colonoscopy, a lubricated, flexible tube with a camera on the end of it is inserted into the anus and then passed into the colon and other parts of the large intestine. Follow instructions from your health care provider about eating and drinking before the procedure. If you were prescribed an oral bowel prep to clean out your colon, take it as told by your health care provider. After your procedure, your blood pressure, heart rate, breathing rate, and blood oxygen level will be monitored until the medicines you were given have worn off. This information is not intended to replace advice given to you by your health care provider. Make sure you discuss any questions you have with your health care provider. Document Released: 05/31/2001 Document Revised: 03/26/2018 Document Reviewed: 08/14/2016 [employer] Patient Education 2020 [employer]. Follow Up Care 05/16/2021 10:18:44 With:Palak Wagner CNP Address: When:2 to 4 weeks [facility] 04-20-2022 Evaluation + Plan note Future Scheduled Tests Laboratory* CBC w/ Auto Diff 10/04/21 * Comprehensive Metabolic Panel 10/04/21 Radiology* US Abdomen Complete 10/04/21 [facility] evaluation + Plan note Future Appointments Appointment Date:11/15/2021 12:15:00 PM Scheduled Provider: Location:[facility] Appointment Type:Surgery FT Future Scheduled Tests Laboratory* CBC w/ Auto Diff 10/04/21 * Comprehensive Metabolic Panel 10/04/21 Radiology* US Abdomen Complete 10/04/21 [facility] evaluation + Plan note Future Appointments Appointment Date:03/07/2022 12:20:00 PM Scheduled Provider:Palak Wagner CNP Location:[facility] Appointment Type:[facility] Follow Up Future Scheduled Tests Laboratory* CBC w/ Auto Diff 10/04/21 * Comprehensive Metabolic Panel 10/04/21 Radiology* US Abdomen Complete 10/04/21 [facility] Evaluation + Plan note Future Appointments Appointment Date:02/21/2022 10:00:00 AM Scheduled Provider: [facility] Type:US Abdominal/Pelvis () Appointment Date:03/22/2022 03:20:00 PM Scheduled Provider:Palak Wagner CNP Location:[facility] Appointment Type:[facility] Follow Up Future Scheduled Tests Radiology* CT Abdomen/Pelvis w/ Contrast 02/14/22 * US Abdomen Complete 02/21/22 [facility] Evaluation + Plan note Future Appointments Appointment Date:03/22/2022 03:20:00 PM Scheduled Provider:Palak Wagner CNP Location:[facility] Appointment Type:BAD Follow Up Future Scheduled Tests Radiology* CT [facility] Appointment Date:08/08/2022 02:40:00 PM Scheduled Provider:Palak Wagner CNP Location:[facility] Appointment Type:BAD Follow Up Future Scheduled Tests Radiology* CT Abdomen/Pelvis w/ Contrast 02/14/22 [facility] Evaluation + Plan note Future Appointments Appointment Date:08/28/2022 02:40:00 PM Scheduled Provider:Palak Wagner CNP Location:[facility] Appointment Type:BAD Follow Up Future Scheduled Tests Radiology* CT Abdomen/Pelvis w/ Contrast 02/14/22 [facility] Evaluation + Plan note Future Appointments Appointment Date:09/03/2023 02:40:00 PM Scheduled Provider:Palak Wagner CNP Location:[facility] Appointment Type:[facility] Follow Up [facility] Evaluation + Plan note Future Appointments Appointment Date:07/29/2023 02:45:00 PM Scheduled Provider: Location:[facility] Appointment Type:Surgery FT Future Scheduled Tests Laboratory* Fecal WBC Lactoferrin 06/05/23 * Giardia lamblia, Direct Detection EIA 06/05/23 * O & P Exam, Routine 06/05/23 * Clostridium Difficile PCR 06/05/23 * Enteric Panel by PCR 06/05/23 * CBC w/ Auto Diff 06/05/23 * Comprehensive Metabolic Panel 06/05/23 * Vitamin B12 Level 06/05/23 [facility] evaluation noteNo assessment information available [facility] Work Phone: History of Present illness Narrative* walks 1.5 miles a day * Patient returns in follow-up of problems as noted. In the interim he has done well. He denies any the orthostatic symptomatology that he used to have in the past. Blood pressure is adequately controlled as his hyperlipidemia and because of all the above we suggest no adjustments or changes in therapy. His ascending aortic aneurysm was again evaluated by CT scan with contrast and it demonstrates no change in dimension and hence we do not recommend surgical consultation at this time. He was educated regarding cardiac signs and symptoms to watch for and we also reminded him of the merits of dietand weight loss. [facility] [address] DO Work Phone: Hospital course Narrative No data available for this section [facility] Discharge instructions No data available for this section [facility] Progress note No data available for this section [facility] Reason for referral (narrative) Referred by: Palak Wagner CNP [facility] Summary Purpose Family History No Family History Records FoundUnknown Family Member Name Dates Details Family history of aortic ane urysm: Brother(V17.49, Z82.49) Status:Active Family history of hypertensi on: Father(V17.49, Z82.49) Status:Active Family history of myocardial infarction: Father(V17.3, Z82.49) Status:Active Unknown Family Member Name Dates Details Family history of aortic ane urysm: Brother(V17.49, Z82.49) Status:Active Family history of hypertensi on: Father(V17.49, Z82.49) Status:Active Family history of myocardial infarction: Father(V17.3, Z82.49) Status:Active Unknown Family Member Name Dates Details Family history of aortic ane urysm: Brother(V17.49, Z82.49) Status:Active Family history of hypertensi on: Father(V17.49, Z82.49) Status:Active Family history of myocardial infarction: Father(V17.3, Z82.49) Status:Active Unknown Family Member Name Dates Details Family history of aortic ane urysm: Brother(V17.49, Z82.49) Status:Active Family history of hypertensi on: Father(V17.49, Z82.49) Status:Active Family history of myocardial infarction: Father(V17.3, Z82.49) Status:Active Unknown Family Member Name Dates Details Family history of aortic ane urysm: Brother(V17.49, Z82.49) Status:Active Family history of hypertensi on: Father(V17.49, Z82.49) Status:Active Family history of myocardial infarction: Father(V17.3, Z82.49) Status:Active Unknown Family Member Name Dates Details Family history of aortic ane urysm: Brother(V17.49, Z82.49) Status:Active Family history of hypertensi on: Father(V17.49, Z82.49) Status:Active Family history of myocardial infarction: Father(V17.3, Z82.49) Status:Active Advance Directives No Advanced Directives Records Found Advance Directive Response Recorded Date/ Time Advance Directives No February 3:52pm Chief Complaint and Reason for Visit Chief Complaint AAA I71.2 I10 Chief Complaint CECILIO NICKERSON is being seen for an annual follow-up of.CECILIO NICKERSON is being seen for an annual follow-up of. Additional Source Comments (unrecognized sect ion and content) No Status Records FoundNo Status Records FoundNo Status Records FoundNo Status Records FoundNo Status Records FoundNo Status Records FoundNo Status Records Found INFORMATION SOURCE (unrecogn ized section and content) DATE CREATED AUTHOR 06/29/2021 [facility] DATE CREATED AUTHOR AUTHOR'S ORGANIZ ATION 08/18/2021 [facility] DATE CREATED AUTHOR AUTHOR'S ORGANIZ ATION 11/23/2022 [facility] DATE CREATED AUTHOR AUTHOR'S ORGANIZ ATION 01/24/2023 [facility] DATE CREATED AUTHOR AUTHOR'S ORGANIZ ATION 01/24/2023 [employer] DATE CREATED AUTHOR AUTHOR'S ORGANIZ ATION 08/14/2023 [facility] DATE CREATED AUTHOR AUTHOR'S ORGANIZ ATION 10/12/2023 [facility] Specialists EPIC Care Teams (unrecognized sec tion and content) Team Status: Inactive Member Role Status Dates Thor Mott II MD Primary Care Provider Active Jose Kimbrough MD Attending Provider Active Team Status: Active Member Role Status Dates Thor Mott II MD Primary Care Provider Active Goals (unrecognized section and content) Goals may be documented in a n alternate section FOR RECORDS PERTAINING TO PATIENTS WHO ARE OR HAVE BEEN ENROLLED IN A CHEMICAL DEPENDENCY/SUBSTANCEABUSE PROGRAM, SOME INFORMATION MAY BE OMITTED. This clinical summary was aggregated from multiple sources. Caution should be exercised in using it in the provision of clinical care. This summary normalizes information from multiple sources, and as a consequence, information in this document may materially change the coding, format and clinical context of patient data. In addition, data may be omitted in some cases. CLINICAL DECISIONS SHOULD BE BASED ON THE PRIMARY CLINICAL RECORDS. [facility] [employer] [facility]. provides no warranty or guarantee of the accuracy or completeness of information in this document.
[2023-10-16 21:28] VITALS: BP 107/67; PULSE 110; TEMP 36.6; O2SAT 93; BMI 28.0
[2023-10-16] MEDS: HEPARIN SODIUM (PORCINE) 5,000 UNIT/ML VIAL 5000 UNIT SUBQ (23:02)
[2023-10-16] MEDS: 0.9 % SODIUM CHLORIDE 1,000 ML 100 ML IV (23:02)
[2023-10-16] MEDS: TOPIRAMATE 25 MG TABLET PO (23:02)
[2023-10-16 23:09] VITALS: BP 102/66; PULSE 73; TEMP 36.6; O2SAT 90
[2023-10-17] VITALS (7 sets, daily range): BP systolic 104–120; BP diastolic 60–76; PULSE 72–101; TEMP 35.4–36.9; O2SAT 92–95
--- NOTE | 2023-10-17 | CONS_ITS ---
CONSULTATION DATE: 10/17/2023 REASON FOR CONSULTATION: Nausea, vomiting, diarrhea, abnormal CT scan. HISTORY OF PRESENT ILLNESS: Patient is a 63-year-old male who presented to the emergency room last evening with a two day history of nausea, vomiting, diarrhea. He does have a history of TMJ, anxiety, depression, chronic abdominal complaints for which he is followed by Gastroenterology at [facility]. Workup in the emergency room revealed evidence of dehydration. He did undergo a CT scan of the abdomen and pelvis without IV contrast, that revealed dilated loops of small bowel. There was no free fluid or inflammatory changes. The stomach was decompressed. These images were personally reviewed. He has had no further nausea, vomiting, diarrhea since he has come to the hospital. His labs have improved with hydration, not normalized. He did have an acute abdominal series this morning that still revealed evidence of dilated loops of small bowel. Denies any significant abdominal pain. His only abdominal surgery has been laparoscopic cholecystectomy in the past. He did have a recent EGD and colonoscopy in July at [facility]. Those results are not currently available. Patient denies any recent antibiotic use or travel. No new medications or lrvd-all-aabxdmy medication. Has had no other ill contacts. ALLERGIES: He has no known drug allergies. MEDICATIONS: Some medications include benztropine, dicyclomine, famotidine, loperamide, meloxicam, omeprazole, oxcarbazepine, simvastatin, tizanidine, toperimate, venlafaxine. PAST SURGICAL HISTORY: As noted in the HPI. SOCIAL HISTORY: Patient denies tobacco use, alcohol use, illicit drug use. FAMILY HISTORY: Noncontributory. REVIEW OF SYSTEMS: Ten system review of systems is negative for recent weight loss or weight gain. Denies increased fatigue or light-headedness. Has had no earache or tinnitus. No sinus congestion. No sore throat or hoarseness. No chest pain, palpitations or syncope. No chronic cough, shortness of breath or hemoptysis. He has had the abdominal complaints as noted in the HPI. No dysuria, frequency, urgency or hematuria. No headaches, seizures or tremors. No easy bruising or bleeding. No heat or cold intolerance. No polydipsia, polyphagia or polyuria. PHYSICAL EXAM: VITAL SIGNS: Patient is afebrile. Blood pressure 105/65, heart rate is 78 and regular. Respiratory rate is 18. O2 saturation is 95% on room air. GENERAL: In general, he is a well developed, well nourished male, currently in no acute distress. HEENT: Normocephalic, atraumatic. Sclerae anicteric. Conjunctiva not injected. Oral mucosa is moist without lesions. NECK: Supple. There is no adenopathy, thyromegaly or JVD. LUNGS: Clear bilaterally. CARDIAC EXAM: Regular rhythm and rate without appreciable murmurs, rubs or gallops. ABDOMEN: Distended. There are hypoactive bowel sounds. It is soft, non-tender with no peritoneal signs. No masses. No hepatosplenomegaly. There is a reducible, soft, non-tender umbilical hernia with a less than 1 cm fascial defect. No CVA tenderness. SKIN: Warm and dry without lesions, rashes or ulcers. NEURO EXAM: Non-focal. Non-lateralizing. Patient is awake, alert, oriented with appropriate affect. ASSESSMENT: A 63-year-old male with nausea, vomiting diarrhea, dilated loops of small bowel, most consistent with a gastroenteritis. Certainly, if he does have any further diarrhea, I would recommend stool studies be performed. He is currently being hydrated and on presumptive antibiotics for possible infection. Certainly a partial small bowel obstruction could not be ruled out. Appears less likely based on CT and exam findings. RECOMMENDATIONS: I would recommend continued supportive care with IV hydration. Patient NPO. May require small bowel follow through for further evaluation, but I would hold off on that for today. Thank you for allowing me to participate in his care. I will be happy to follow along with you during his hospital course. CC: Sean Villegas M.D. JENNIE
[2023-10-17 04:53] LABS: Basophils Percent Auto 0.4 % (0.2-2.0); Eosinophils Absolute Auto 0.3 10^3/uL (0.0-0.7); Eosinophils Percent Auto 2.6 % (0.9-7.0); Hematocrit 33.1 % (42.0-54.0); Immature Granulocytes Abs Auto 0.04 10^3/uL (0.00-0.03); Immature Granulocytes Pct Auto 0.4 % (0.0-0.5); Lymphocytes Absolute Auto 1.5 10^3/uL (1.2-3.8); Lymphocytes Percent Auto 12.9 % (20.5-60.0); Mean Corpuscular HGB Conc 33.2 g/dL (29.9-35.2); Mean Corpuscular Hemoglobin 28.9 pg (25.9-34.0); Mean Corpuscular Volume 86.9 fL (80.0-94.0); Mean Platelet Volume 8.7 fL (9.5-13.5); Monocytes Absolute Auto 1.1 10^3/uL (0.3-0.8); Monocytes Percent Auto 10.1 % (1.7-12.0); Neutrophils Absolute Auto 8.3 10^3/uL (1.4-6.5); Neutrophils Percent Auto 73.6 % (43.0-75.0); Platelet Count 227 10^3/uL (150-450); Red Blood Count 3.81 10^6/uL (4.70-6.10); Red Cell Distribution Width 13.1 % (11.0-15.0); White Blood Count 11.2 10^3/uL (4.0-11.0)
[2023-10-17 05:15] LABS: Alanine Aminotransferase 42 U/L (16-63); Albumin Globulin Ratio 0.7; Albumin Level 2.6 g/dL (3.4-5.0); Alkaline Phosphatase 103 U/L (46-116); Anion Gap 11.5; Aspartate Amino Transferase 23 U/L (15-37); BUN Creatinine Ratio 22.3; Bilirubin Total 0.4 mg/dL (0.2-1.0); Calcium 8.5 mg/dL (8.5-10.1); Carbon Dioxide 25.3 mmol/L (21.0-32.0); Chloride 110 mmol/L (98-107); Estimated GFR (African America 58 (>=60); Estimated GFR (Non-African Ame 48 (>=60); Globulin 3.5 g/dL; Glucose 99 mg/dL (74-106); Potassium 3.8 mmol/L (3.5-5.1); Sodium 143 mmol/L (136-145); Total Protein 6.1 g/dL (6.4-8.2)
--- NOTE | 2023-10-17 05:45 | XR_ITS ---
The [address] [address] Patient Name: DAMI MAHAN MRN: [id number] date: 1960 Sex: M Assigned Patient Location: [place] Current Patient Location: [place] Accession/Order Number: [id number] Exam Date: 10/17/2023 06:20 Report Date: 10/17/2023 07:55 At the request of: MARLYN BARFIELD Procedure: XR acute abdomen series EXAMINATION: XR acute abdomen series HISTORY: sbo COMPARISON: 10/16/2023 FINDINGS: LUNGS: Moderate right basilar infiltrate and small pleural effusion obscuring the hemidiaphragm. The left lung is clear MEDIASTINUM: No abnormal widening. BOWEL GAS PATTERN: Non-obstructed. mild dilation of small bowel loops measuring up to 4.6 cm. Air is seen extending down to the sigmoid colon. Scattered air-fluid levels. FREE AIR: None. CALCIFICATIONS: None significant. BONES: No fracture or visible bone lesion. OTHER: Negative. XR/XR acute abdomen series IMPRESSION: Dilated small bowel loops with air-fluid levels. An ileus is favored Moderate right basilar infiltrate and small pleural effusion Electronically authenticated by: LC CHUA Date: 10/17/2023 07:55
[2023-10-17] MEDS: PIPERACILLIN SODIUM/TAZOBACTAM 3.375 GM in 0.9 % SODIUM CHLORIDE 50 ML IV ×3 (06:38→21:07)
--- NOTE | 2023-10-17 07:27 | PM.GSCN ---
History of Present Illness Consult details Consult date: 10/17/23 Requesting physician: Sean Villegas Narrative: patient seen/examined/chart and x-ray images reviewed/consult dictated; in brief, patient is a 63 yo male with a h/o TMJ, anxiety/depression, gastroparesis, long h/o chronic abd complaints for which he is followed by gastroenterology at [facility]; presented to ED yesterday with complaint of 2 day h/o N/V and diarrhea; found to be dehydrated; abd/pelvic ct scan with dilated loops of small bowel, no free fluid or inflammation; no further N/V or diarrhea since coming to the hospital; denies significant abd pain; only abd operation LS cholecystectomy; exam with distended abd, hyperactive bs; nontender, no peritoneal signs; labs improving with hydration; AAS still with some dilated loops of small bowel; likely gastroenteritis; cannot rule out partial small bowel obstruction; continue hydration, supportive care, npo; will follow. [facility] Medical History (Updated 10/16/23 @ 21:48 by Jose Nagel) TMJ dysfunction ?M26.609 - Unspecified temporomandibular joint disorder, unspecified side (ICD-10) Aortic aneurysm ?I71.9 - Aortic aneurysm of unspecified site, without rupture (ICD-10) Anxiety ?F41.9 - Anxiety disorder, unspecified (ICD-10) Depression ?F32.A - Depression, unspecified (ICD-10) Surgical History (Updated 10/16/23 @ 22:23 by Jose Nagel) H/O colonoscopy ?Z98.890 - Other specified postprocedural states (ICD-10) Social History Highest level of school completed/degree received: 12th grade, no diploma Meds Home Medications and Allergies Home Medications ?Medication ?Instructions ?Recorded ?Confirmed ?Type benztropine 0.5 mg tablet 0.5 mg PO BID 10/16/23 10/16/23 History dicyclomine 10 mg capsule 10 mg PO Q8H PRN abdominal pain 10/16/23 10/16/23 History famotidine 20 mg tablet 20 mg PO .qd 10/16/23 10/16/23 History iloperidone 4 mg tablet (Fanapt) 4 mg PO BID 10/16/23 10/16/23 History meloxicam 15 mg tablet 15 mg PO .qd 10/16/23 10/16/23 History omeprazole 40 mg capsule,delayed 40 mg PO BID 10/16/23 10/16/23 History release oxcarbazepine 300 mg tablet 450 mg PO BID 10/16/23 10/16/23 History simvastatin 20 mg tablet 20 mg PO QPM 10/16/23 10/16/23 History tizanidine 4 mg tablet 4 mg PO .qhs PRN muscle spasticity 10/16/23 10/16/23 History topiramate 25 mg tablet 25 mg PO Q12H 10/16/23 10/16/23 History venlafaxine 75 mg tablet 75 mg PO QAM 10/16/23 10/16/23 History Allergies Allergy/AdvReac Type Severity Reaction Status Date / Time No Known Drug Allergies Allergy Verified 10/16/23 21:22 Exam Constitutional Vital Signs, click to edit/add: Last Vital Signs Temp 98.5 F 10/17/23 03:45 Pulse 78 10/17/23 03:45 Resp 20 10/17/23 03:45 BP 105/65 10/17/23 03:45 Pulse Ox 95 10/17/23 03:45 O2 Del Method Room Air 10/17/23 03:45 Results Labs Labs: Abnormal lab results 10/16/23 10/16/23 10/17/23 Range/Units 17:23 18:40 04:11 WBC 13.5 H 11.2 H (4.0-11.0) 10^3/uL RBC 4.35 L 3.81 L (4.70-6.10) 10^6/uL Hgb 12.7 L 11.0 L (14.0-18.0) g/dL Hct 37.1 L 33.1 L (42.0-54.0) % MPV 8.7 L 8.7 L (9.5-13.5) fL Lymph % (Auto) 12.9 L (20.5-60.0) % Neut # (Auto) 8.3 H (1.4-6.5) 10^3/uL Perry # (Auto) 1.1 H (0.3-0.8) 10^3/uL Abs Immat Gran (auto) 0.04 H (0.00-0.03) 10^3/uL Band Neutrophils % 7.0 H (0-5) % Lymphocytes % (Manual) 2.0 L (20.5-60.0) % Eosinophils % (Manual) 0.0 L (0.9-7.0) % Basophils % (Manual) 0.0 L (0.2-2.0) % Neutrophils # (Manual) 12.01 H (1.4-6.5) 10^3/uL Band Neutrophils # 0.9 H (0.0-0.3) 10^3/uL Lymphocytes # (Manual) 0.27 L (1.20-3.80) 10^3/uL Monocytes # (Manual) 0.27 L (0.30-0.80) 10^3/uL Chloride 110 H (98-107) mmol/L BUN 43.0 H 33.0 H (7.0-18.0) mg/dL Creatinine 2.14 H 1.48 H (0.70-1.30) mg/dL Est GFR ( Amer) 38 L 58 L (>=60) Est GFR (Non-Af Amer) 31 L 48 L (>=60) Glucose 184 H (74-106) mg/dL Lactate 3.8 H* (0.4-2.0) mmol/L Alkaline Phosphatase 130 H (46-116) U/L Total Protein 6.1 L (6.4-8.2) g/dL Albumin 3.3 L 2.6 L (3.4-5.0) g/dL Lipase 13.0 L (16.0-77.0) U/L Procalcitonin 0.51 H (0.00-0.50) ng/mL Diabetes panel 10/16/23 10/17/23 Range/Units 17:23 04:11 Sodium 138 143 (136-145) mmol/L Potassium 3.6 3.8 (3.5-5.1) mmol/L Chloride 104 110 H (98-107) mmol/L Carbon Dioxide 22.5 25.3 (21.0-32.0) mmol/L BUN 43.0 H 33.0 H (7.0-18.0) mg/dL Creatinine 2.14 H 1.48 H (0.70-1.30) mg/dL Glucose 184 H 99 (74-106) mg/dL Calcium 9.2 8.5 (8.5-10.1) mg/dL AST 30 23 (15-37) U/L ALT 52 42 (16-63) U/L Alkaline Phosphatase 130 H 103 (46-116) U/L Total Protein 7.3 6.1 L (6.4-8.2) g/dL Albumin 3.3 L 2.6 L (3.4-5.0) g/dL Calcium panel 10/16/23 10/17/23 Range/Units 17:23 04:11 Calcium 9.2 8.5 (8.5-10.1) mg/dL Albumin 3.3 L 2.6 L (3.4-5.0) g/dL Pituitary panel 10/16/23 10/17/23 Range/Units 17:23 04:11 Sodium 138 143 (136-145) mmol/L Potassium 3.6 3.8 (3.5-5.1) mmol/L Chloride 104 110 H (98-107) mmol/L Carbon Dioxide 22.5 25.3 (21.0-32.0) mmol/L BUN 43.0 H 33.0 H (7.0-18.0) mg/dL Creatinine 2.14 H 1.48 H (0.70-1.30) mg/dL Glucose 184 H 99 (74-106) mg/dL Calcium 9.2 8.5 (8.5-10.1) mg/dL Adrenal panel 10/16/23 10/17/23 Range/Units 17:23 04:11 Sodium 138 143 (136-145) mmol/L Potassium 3.6 3.8 (3.5-5.1) mmol/L Chloride 104 110 H (98-107) mmol/L Carbon Dioxide 22.5 25.3 (21.0-32.0) mmol/L BUN 43.0 H 33.0 H (7.0-18.0) mg/dL Creatinine 2.14 H 1.48 H (0.70-1.30) mg/dL Glucose 184 H 99 (74-106) mg/dL Calcium 9.2 8.5 (8.5-10.1) mg/dL Total Bilirubin 0.5 0.4 (0.2-1.0) mg/dL AST 30 23 (15-37) U/L ALT 52 42 (16-63) U/L Alkaline Phosphatase 130 H 103 (46-116) U/L Total Protein 7.3 6.1 L (6.4-8.2) g/dL Albumin 3.3 L 2.6 L (3.4-5.0) g/dL All other labs normal.
--- NOTE | 2023-10-17 08:25 | CM.NOTE ---
Rounds made with Dr. Villegas, will advance pt's diet today. If pt tolerates diet possible discharge to home this afternoon.
[2023-10-17] MEDS: PANTOPRAZOLE SODIUM 40 MG VIAL IV ×2 (10:37→20:09)
[2023-10-17] MEDS: VENLAFAXINE HCL 50 MG TABLET 75 MG PO (10:38)
[2023-10-17] MEDS: OXcarbazepine 300 MG TABLET 450 MG PO ×2 (10:38→20:09)
[2023-10-17] MEDS: BENZTROPINE MESYLATE 1 MG TABLET 0.5 MG PO ×2 (10:38→20:08)
[2023-10-17] MEDS: TOPIRAMATE 25 MG TABLET PO ×2 (10:39→20:09)
[2023-10-17] MEDS: HEPARIN SODIUM (PORCINE) 5,000 UNIT/ML VIAL 5000 UNIT SUBQ ×2 (10:39→20:09)
[2023-10-17] MEDS: FAMOTIDINE 20 MG TABLET PO (10:39)
--- NOTE | 2023-10-17 11:21 | P.HP_ITS ---
<Statement entered by Sean Villegas MD - 10/18/23 10:20> Patient was seen and evaluated in the room, she fairly comfortable except during the physical examination portion resulting in abdominal tenderness. Agree with above findings provided by nurse practitioners notations. Additional findings Criteria for acute renal failure with creatinine of 2.14 on admission, baseline is about 1.26 which is 170% above baseline. Also elevated liver function test possibly related to the severity of his sepsis. Continue current treatment plan HPI H&P: HPI History of Present Illness Chief complaint: Nausea/Vomiting, Dehydration, Acute Kidney Injury Narrative: 10/17/23 0910 This is a 63-year-old male patient with a past medical history as outlined below including GERD, hyperlipidemia, chronic headaches, chronic pain, chronic abdominal complaints, depression and anxiety; who presented to the ED last complaining of a 2 day course of abdominal pain and N/V/D. The patient reports onset of symptoms on Saturday with harsh, burning pain to the left upper quadrant. He began to experience vomiting on Saturday and light diarrhea that was uncontrollable, along with a mild cough/congestion. He had very little oral intake and noted his abdomen was distended. When his symptoms persisted into Saturday afternoon he presented to the ED for further evaluation. Workup in the ED revealed leukocytosis (13.5, with 7% bands), anemia (12.7), MURIEL (BUN 43, CR 2.14, GFR 31), lactic acidosis (3.8), and elevated procalcitonin (0.51). A UA, respiratory panel, and lipase were all unremarkable. Chest x-ray revealed no acute disease. A CT of the abdomen and pelvis was suspicious for small bowel obstruction with multiple fluid filled distended loops of small bowel with a transition point in the central to right abdomen. Dr. Uribe, general surgeon, was contacted by the ED provider. Dr. Uribe reviewed the CT imaging and felt the patient likely had acute gastroenteritis rather than complete SBO. He recommended an NG tube only be inserted if the patient was experiencing uncontrolled vomiting which he has not to date. The patient was admitted last night to the hospitalist service initially in observation. At the time of my exam, the patient is resting in bed. He reports subjective fevers and chills over the last 2 days but did not take his temperature at home. He denies melena or hematochezia, but did report dark black emesis with coffee- ground appearance we suspect possible upper GI bleeding. He continues to c/o mild LUQ pain, but has had no further emesis since admission. A repeat acute abdomen series x-ray this morning continue to note dilated small bowel loops with air-fluid levels, but favored an ileus. Moderate right basilar infiltrate was also noted on x-ray today. Patient's status is being changed to inpatient as he actually meets criteria for sepsis with infectious sources of right lower lobe pneumonia and/or gastroenteritis, along with SBO vs Ileus. Opioid HPI Opioid Management Most Recent Opioid Data: Last Pain Scale 4 10/17/23 12:43 Last Pain Assessment 10/17/23 12:43 Last ORT Total Score 2 10/16/23 21:28 Last ORT Risk Category Low Risk 10/16/23 21:28 Review of Systems ROS Status of ROS 10 or more systems reviewed and unremark able except as noted in history and below [facility] Medical History (Updated 10/17/23 @ 12:27 by Danielle Angeles NP) Intractable headache ?R51.9 - Headache, unspecified (ICD-10) Chronic pain ?G89.29 - Other chronic pain (ICD-10) Sickle cell trait ?D57.3 - Sickle-cell trait (ICD-10) Osteoarthritis ?M19.90 - Unspecified osteoarthritis, unspecified site (ICD-10) GERD (gastroesophageal reflux disease) ?K21.9 - Gastro-esophageal reflux disease without esophagitis (ICD-10) Umbilical hernia ?K42.9 - Umbilical hernia without obstruction or gangrene (ICD-10) Hyperlipidemia ?E78.5 - Hyperlipidemia, unspecified (ICD-10) TMJ dysfunction ?M26.609 - Unspecified temporomandibular joint disorder, unspecified side (ICD-10) Aortic aneurysm ?I71.9 - Aortic aneurysm of unspecified site, without rupture (ICD-10) Anxiety ?F41.9 - Anxiety disorder, unspecified (ICD-10) Depression ?F32.A - Depression, unspecified (ICD-10) Surgical History (Updated 10/16/23 @ 22:23 by Jose Nagel) H/O colonoscopy ?Z98.890 - Other specified postprocedural states (ICD-10) Social History Highest level of school completed/degree received: 12th grade, no diploma Meds Home Medications and Allergies Home Medications ?Medication ?Instructions ?Recorded ?Confirmed ?Type benztropine 0.5 mg tablet 0.5 mg PO BID 10/16/23 10/16/23 History dicyclomine 10 mg capsule 10 mg PO Q8H PRN abdominal pain 10/16/23 10/16/23 History famotidine 20 mg tablet 20 mg PO .qd 10/16/23 10/16/23 History iloperidone 4 mg tablet (Fanapt) 4 mg PO BID 10/16/23 10/16/23 History meloxicam 15 mg tablet 15 mg PO .qd 10/16/23 10/16/23 History omeprazole 40 mg capsule,delayed 40 mg PO BID 10/16/23 10/16/23 History release oxcarbazepine 300 mg tablet 450 mg PO BID 10/16/23 10/16/23 History simvastatin 20 mg tablet 20 mg PO QPM 10/16/23 10/16/23 History tizanidine 4 mg tablet 4 mg PO .qhs PRN muscle spasticity 10/16/23 10/16/23 History topiramate 25 mg tablet 25 mg PO Q12H 10/16/23 10/16/23 History venlafaxine 75 mg tablet 75 mg PO QAM 10/16/23 10/16/23 History Allergies Allergy/AdvReac Type Severity Reaction Status Date / Time No Known Drug Allergies Allergy Verified 10/16/23 21:22 Exam Constitutional Vital Signs, click to edit/add: Last Vital Signs Temp 98.0 F 10/17/23 10:36 Pulse 72 10/17/23 10:36 Resp 18 10/17/23 10:36 BP 104/60 10/17/23 10:36 Pulse Ox 93 L 10/17/23 10:36 O2 Del Method Room Air 10/17/23 10:36 Common normals: no apparent distress, oriented x3, alert and well nourished General appearance: cooperative Orientation/consciousness: Yes awake HENMS Common normals: normocephalic, head/scalp atraumatic, hearing grossly normal bilaterally, external nose normal and moist oral mucous membranes Head and scalp: normocephalic and atraumatic Face and sinus: normal facial exam Nose: external nose normal Eye Common normals: PERRL, EOMs intact bilaterally, conjunctivae normal and no scleral icterus Alignment: alignment normal Eyelid: eyelids normal Conjunctiva: conjunctiva(e) normal Pupil: PERRL Neck & C-Spine Common normals: full ROM, supple and no JVD Chest Common normals: inspection of chest normal Chest: symmetrical chest wall rise Respiratory Common normals: normal respiratory effort, no retractions, no use of accessory muscles and clear to auscultation bilaterally Effort & inspection: able to speak in complete sentences Auscultation: diminished lung sounds (RLL) Cardio Common normals: no JVD, regular rate, regular rhythm, S1 normal heart sound, S2 normal heart sound, no gallops, no clicks, no murmurs, no rub and peripheral pulses 2+ throughout GI Common normals: Normal to inspection, nondistended, normoactive bowel sounds present, soft to palpation, no hepatosplenomegaly, no masses and no bruits Auscultation: hyperactive bowel sounds Palpation: tender (Left side, greatest at LUQ) and rebound tenderness present (equivocal, LUQ); no guarding Bladder/kidney exam: bladder normal to palpation Back & Pelvis Common normals: thoracic and lumbar spine normal to inspection Extremity Common normals: normal capillary refill and no pedal edema General: normal exam except as noted; no clubbing and no cyanosis Neuro [place] Coma Scale: GCS not evaluated Common normals: CN's II-XII intact bilaterally, moves all extremities, no focal motor deficits and no sensory deficits noted Speech: speech normal Motor exam: strength 5/5 throughout Psych Common normals: mental status grossly normal, thought process normal, affect normal and activity/motor behavior normal Results Labs Labs: Short CBC 10/16/23 10/17/23 Range/Units 17:23 04:11 WBC 13.5 H 11.2 H (4.0-11.0) 10^3/uL Hgb 12.7 L 11.0 L (14.0-18.0) g/dL Hct 37.1 L 33.1 L (42.0-54.0) % Plt Count 249 227 (150-450) 10^3/uL BMP 10/16/23 10/17/23 17:23 04:11 Sodium 138 143 Potassium 3.6 3.8 Chloride 104 110 H Carbon Dioxide 22.5 25.3 BUN 43.0 H 33.0 H Creatinine 2.14 H 1.48 H Glucose 184 H 99 Calcium 9.2 8.5 Liver Function 10/16/23 10/17/23 Range/Units 17:23 04:11 Total Bilirubin 0.5 0.4 (0.2-1.0) mg/dL AST 30 23 (15-37) U/L ALT 52 42 (16-63) U/L Alkaline Phosphatase 130 H 103 (46-116) U/L Albumin 3.3 L 2.6 L (3.4-5.0) g/dL Urine 10/16/23 Range/Units 19:10 Urine Color Yellow (YELLOW) Urine Clarity Clear (CLEAR) Urine pH 5.5 (5.0-9.0) Ur Specific [place] 1.010 (1.005-1.025) Urine Protein Negative (NEG/TRACE) mg/dL Urine Glucose (UA) Negative (NEGATIVE) mg/dL ABG ABG results: 10/16/23 18:40 VBG pH 7.360 VBG pCO2 40.9 Pulse Oximetry Attestation: I have reviewed the pertinent pulse oximetry results. Imaging Chest x-ray: Attestation: I have reviewed the pertinent imaging results. Radiologist's impression: IMPRESSION: No acute infiltrate or evidence of cardiac decompensation. The overall appearance of the chest is essentially unchanged. CT scan - abdomen: Attestation: I have reviewed the pertinent imaging results. Radiologist's impression: IMPRESSION: Multiple fluid distended loops of small bowel with transition point in the central to right abdomen concerning for small bowel obstruction. Chest/Abdomen X-ray: Attestation: I have reviewed the pertinent imaging results. Radiologist's impression: IMPRESSION: Dilated small bowel loops with air-fluid levels. An ileus is favored Moderate right basilar infiltrate and small pleural effusion Assessment and Plan Assessment and Plan (1) SBO (small bowel obstruction): Assessment and Plan: Acute * Adm inpatient * We expect greater than a 2 midnight stay for medically necessary hospital care including General Surgery consult, IVPB ABX, and IVFs * C/S Dr Uribe, general surgeon - we appreciate his assistance with this pt's care * conservative management for now * Dr Uribe suspects gastroenteritis/ileus over SBO (cannot be ruled out) * SBO noted on CT A/P in the ED * NPO x/ ice chips * NS IVF @ 100/hr for hydration * Consider NGT if N/V recur - currently no further N/V/D since admission * Repeat Acute Abdomen XR in AM * CBC, CMP daily (2) Gastroenteritis: Assessment and Plan: Acute * Suspected w/ leukocytosis, clinical presentation of N/V/D, abd pain, and subjective fevers * GI panel ordered - pending collection * IVPB Zosyn for broad gram neg and anaerobic coverage * NS IVF * CBC, CMP daily (3) Pneumonia: Assessment and Plan: Acute * RLL infiltrate noted on repeat CXR today after receiving hydration * Pt c/o of some cough/congestion w/ onset of symptoms, but currently denies * Cannot r/o concurrent RLL pneumonia as additional infectious source * IVPB Zosyn as above will also cover concurrent pneumonia * O2 if needed to keep sats above 90%, currently satting 90-95% on RA * Duonebs PRN for SOB or wheezing (4) Sepsis: Assessment and Plan: Acute * AEB * SEP3 criteria - SOFA score of 2 (Cr 2.14), lactic acidosis (3.8), elevated procalcitonin (0.51), Source: gastroenteritis and/or pneumonia * 2 liter IVF boluses given in ED * lactic acidosis resolved to 1.5 on repeat lab * NS IVF at 100/hr * No evidence of mottling or impaired peripheral circulation on exam * See gastroenteritis and pneumonia above (5) Acute kidney injury: Assessment and Plan: Acute Laboratory Tests 10/16/23 10/17/23 17:23 04:11 BUN 43.0 H 33.0 H Creatinine 2.14 H 1.48 H Est GFR (Non-Af Amer) 31 L 48 L * Improved after IVF boluses and maintenance fluids overnight * 2/2 poor PO intake and acute infection/sepsis * NS IVF as above * CMP daily (6) Upper GI bleeding: Assessment and Plan: Acute * Suspected - pt reports coffee ground emesis at home * Hx of GERD * Mild anemia on labs * Send gastric fluid for occult blood testing if emesis recurs * IVP protonix BID - Hold home PPI * GS already consulted - consider endoscopy pending clinical course (7) Anemia: Assessment and Plan: Acute * Suspect acute on chronic - suspect UGIB * Add iron studies to AM labs * Monitor daily w/ CBC * Consider PRBC transfusion for hgb < 7 (8) Depression: Assessment and Plan: Chronic * Continue home Venlafaxine (9) Anxiety: Assessment and Plan: Chronic * Continue home Fanapt (10) Hyperlipidemia: Assessment and Plan: Chronic * Continue home statin (11) GERD (gastroesophageal reflux disease): Assessment and Plan: Chronic * See UGIB above (12) Chronic pain: Assessment and Plan: Chronic * Continue home antispasmodics, dicyclomine (13) Intractable headache: Assessment and Plan: Chronic * Continue home Topamax
[2023-10-17] MEDS: 0.9 % SODIUM CHLORIDE 1,000 ML 100 ML IV ×2 (11:33→23:48)
[2023-10-17 12:42] LABS: Reticulocyte Pct Auto 1.28 % (0.60-3.10)
[2023-10-17 12:46] LABS: Percent Iron Saturation 5.5 %
--- NOTE | 2023-10-17 14:12 | CM.NOTE ---
Important Message From Medicare discussed with pt, pt verbalizes understanding and signs paper. Original given to pt and copy placed on pt's chart.
[2023-10-17 19:17] LABS: Adenovirus F 40/41 NOT DETECTED (NOT DETECTE); Astrovirus NOT DETECTED (NOT DETECTE); Campylobacter NOT DETECTED (NOT DETECTE); Cryptosporidium NOT DETECTED (NOT DETECTE); Cyclospora cayetanensis NOT DETECTED (NOT DETECTE); Entamoeba histolytica NOT DETECTED (NOT DETECTE); Enteroaggregative E.coli NOT DETECTED (NOT DETECTE); Enteropathogenic E.coli NOT DETECTED (NOT DETECTE); Enterotoxigenic E. coli NOT DETECTED (NOT DETECTE); Giardia lamblia NOT DETECTED (NOT DETECTE); Norovirus GI/GII NOT DETECTED (NOT DETECTE); Plesiomonas shigelloides NOT DETECTED (NOT DETECTE); Rotavirus A NOT DETECTED (NOT DETECTE); Salmonella NOT DETECTED (NOT DETECTE); Sapovirus NOT DETECTED (NOT DETECTE); Shiga-like toxin-producing E.C NOT DETECTED (NOT DETECTE); Shigella/Enteroinvasive E.coli NOT DETECTED (NOT DETECTE); Vibrio NOT DETECTED (NOT DETECTE); Vibrio cholerae NOT DETECTED (NOT DETECTE); Yersinia enterocolitica NOT DETECTED (NOT DETECTE)
[2023-10-17 19:37] LABS: Occult Blood Negative
[2023-10-17] MEDS: ATORVASTATIN CALCIUM 10 MG TABLET PO (20:09)
[2023-10-18] VITALS (8 sets, daily range): BP systolic 108–140; BP diastolic 63–86; PULSE 69–81; TEMP 36.6–36.8; O2SAT 93–98
[2023-10-18] MEDS: PIPERACILLIN SODIUM/TAZOBACTAM 3.375 GM in 0.9 % SODIUM CHLORIDE 50 ML IV ×3 (05:07→21:13)
[2023-10-18 05:17] LABS: Basophils Absolute Auto 0.1 10^3/uL (0.0-0.1); Basophils Percent Auto 0.9 % (0.2-2.0); Eosinophils Absolute Auto 0.4 10^3/uL (0.0-0.7); Eosinophils Percent Auto 4.4 % (0.9-7.0); Hematocrit 32.8 % (42.0-54.0); Hemoglobin 10.7 g/dL (14.0-18.0); Immature Granulocytes Abs Auto 0.04 10^3/uL (0.00-0.03); Immature Granulocytes Pct Auto 0.5 % (0.0-0.5); Lymphocytes Absolute Auto 1.6 10^3/uL (1.2-3.8); Mean Corpuscular HGB Conc 32.6 g/dL (29.9-35.2); Mean Corpuscular Hemoglobin 28.7 pg (25.9-34.0); Mean Corpuscular Volume 87.9 fL (80.0-94.0); Mean Platelet Volume 8.9 fL (9.5-13.5); Monocytes Absolute Auto 0.8 10^3/uL (0.3-0.8); Monocytes Percent Auto 9.9 % (1.7-12.0); Neutrophils Absolute Auto 5.2 10^3/uL (1.4-6.5); Neutrophils Percent Auto 64.3 % (43.0-75.0); Platelet Count 235 10^3/uL (150-450); Red Blood Count 3.73 10^6/uL (4.70-6.10); Red Cell Distribution Width 13.1 % (11.0-15.0); White Blood Count 8.1 10^3/uL (4.0-11.0)
[2023-10-18 05:42] LABS: Alanine Aminotransferase 38 U/L (16-63); Albumin Globulin Ratio 0.7; Albumin Level 2.5 g/dL (3.4-5.0); Alkaline Phosphatase 101 U/L (46-116); Anion Gap 12.9; Aspartate Amino Transferase 53 U/L (15-37); BUN Creatinine Ratio 16.1; Bilirubin Total 0.3 mg/dL (0.2-1.0); Calcium 8.7 mg/dL (8.5-10.1); Carbon Dioxide 22.1 mmol/L (21.0-32.0); Chloride 112 mmol/L (98-107); Estimated GFR (African America >60 (>=60); Estimated GFR (Non-African Ame 52 (>=60); Globulin 3.4 g/dL; Glucose 77 mg/dL (74-106); Sodium 143 mmol/L (136-145); Total Protein 5.9 g/dL (6.4-8.2)
[2023-10-18 05:59] LABS: PROCALCITONIN 0.27 ng/mL (0.00-0.50)
--- NOTE | 2023-10-18 06:00 | XR_ITS ---
The [address] [address] Patient Name: DAMI MAHAN MRN: [id number] date: 1960 Sex: M Assigned Patient Location: [place] Current Patient Location: [place] Accession/Order Number: [id number] Exam Date: 10/18/2023 06:00 Report Date: 10/18/2023 07:19 At the request of: FELICIA MURRIETA Procedure: XR acute abdomen series EXAMINATION: XR acute abdomen series HISTORY: SBO vs ileus resolution COMPARISON: 10/17/2023 FINDINGS: LUNGS: Minimal right basilar infiltrate, significantly improved from yesterday's exam. The left lung is clear MEDIASTINUM: No abnormal widening. BOWEL GAS PATTERN: Air is seen throughout the GI tract and overall nonobstructive bowel gas pattern. Some mild gaseous distention of small bowel loops in the left abdomen measuring up to 3.6 cm. Scattered air-fluid levels. FREE AIR: None. CALCIFICATIONS: None significant. BONES: No fracture or visible bone lesion. OTHER: Negative. XR/XR acute abdomen series IMPRESSION: Significant improvement of now minimal right basilar infiltrate Findings suggesting an ileus Electronically authenticated by: LC CHUA Date: 10/18/2023 07:19
--- NOTE | 2023-10-18 07:56 | CM.NOTE ---
Rounds made with Dr. Villegas, will await abdominal x-ray results and further recommendations from Dr. Uribe prior to advancing diet.
[2023-10-18] MEDS: FAMOTIDINE 20 MG TABLET PO (09:30)
[2023-10-18] MEDS: HEPARIN SODIUM (PORCINE) 5,000 UNIT/ML VIAL 5000 UNIT SUBQ ×2 (09:30→20:28)
[2023-10-18] MEDS: OXcarbazepine 300 MG TABLET 450 MG PO ×2 (09:30→20:28)
[2023-10-18] MEDS: VENLAFAXINE HCL 50 MG TABLET 75 MG PO (09:30)
[2023-10-18] MEDS: PANTOPRAZOLE SODIUM 40 MG VIAL IV ×2 (09:30→20:29)
[2023-10-18] MEDS: TOPIRAMATE 25 MG TABLET PO ×2 (09:31→20:28)
[2023-10-18] MEDS: BENZTROPINE MESYLATE 1 MG TABLET 0.5 MG PO ×2 (09:32→20:28)
[2023-10-18] MEDS: 0.9 % SODIUM CHLORIDE 1,000 ML 100 ML IV ×2 (09:34→19:17)
--- NOTE | 2023-10-18 11:52 | PM.GSPN ---
Progress Note: A&P Assessment and Plan (1) SBO (small bowel obstruction): (2) Gastroenteritis: Assessment and Plan: improving; advance to full liquid diet; stool studies negative, may be viral; no evidence of obstruction; continue supportive care, can advance to low residue diet as tolerated. (3) Pneumonia: (4) Sepsis: (5) Acute kidney injury: (6) Upper GI bleeding: (7) Anemia: Assessment and Plan: normal EGD and colonoscopy 07/2023 at [facility] [place], except for mild diverticulosis. (8) Depression: (9) Anxiety: (10) Hyperlipidemia: (11) GERD (gastroesophageal reflux disease): (12) Chronic pain: (13) Intractable headache: Subjective Subjective Interval history: no N/V, several loose stools overnight; denies pain; tolerating clear liquid diet. afeb, VSS Exam Narrative Exam Narrative: abd: soft, decreased distension; normal bs, nontender Constitutional Vital Signs, click to edit/add: Last Vital Signs Temp 98 F 10/18/23 07:28 Pulse 79 10/18/23 07:28 Resp 20 10/18/23 07:28 BP 111/63 10/18/23 07:28 Pulse Ox 98 10/18/23 10:27 O2 Del Method Room Air 10/18/23 10:27
--- NOTE | 2023-10-18 14:54 | P.PN_ITS ---
<Statement entered by Sean Villegas MD - 10/19/23 08:31> This documentation has been reviewed and approved. Pt seen and evaluated at bedside - in am felt much improved. Case discuss with LABORATORY [employer]IMAL [employer]ET[employer]ER and gen surgery - advancing diet and see how eating goes, Agree with inoput an dfinding from [employer]ORATORY [employer]IMAL [employer]ETAKER notations Progress Note: Subjective Subjective Interval history: 10/18/23 0830 The pt is currently resting comfortably in bed. He reports improved L side pain, although it is not completely resolved, and had a loose bowel movement overnight. His stool was negative for occult blood and the complete GI panel was also negative. A repeat acute abdomen series XR showed persistent ileus, but improved bowel gas pattern and no evidence of a SBO. He continues to feel somewhat distended. Dr Uribe approved advancing his diet to clears and then up to low residue as tolerated. Exam Constitutional Vital Signs, click to edit/add: Last Vital Signs Temp 97.9 F 10/18/23 12:00 Pulse 76 10/18/23 12:00 Resp 18 10/18/23 12:00 BP 108/74 10/18/23 12:00 Pulse Ox 94 L 10/18/23 12:00 O2 Del Method Room Air 10/18/23 12:00 Common normals: no apparent distress, oriented x3 and alert General appearance: cooperative Orientation/consciousness: Yes awake HENSD Common normals: normocephalic, head/scalp atraumatic and hearing grossly normal bilaterally Eye Common normals: PERRL, EOMs intact bilaterally, conjunctivae normal and no scleral icterus General eye: normal appearance of both eyes Chest Common normals: inspection of chest normal Chest: symmetrical chest wall rise Respiratory Common normals: normal respiratory effort, no use of accessory muscles and clear to auscultation bilaterally Effort & inspection: able to speak in complete sentences Cardio Common normals: regular rate, S1 normal heart sound, S2 normal heart sound, no murmurs and peripheral pulses 2+ throughout Rhythm: regular rhythm (w/ frequent ectopy) GI Common normals: Normal to inspection, nondistended, normoactive bowel sounds present, soft to palpation and no hepatosplenomegaly Palpation: tender (diffuse BLQ); no guarding and no rebound tenderness present Bladder/kidney exam: bladder normal to palpation Extremity Common normals: normal to inspection and no calf tenderness General: no clubbing, no cyanosis and no edema Neuro Common normals: CN's II-XII intact bilaterally, moves all extremities, no focal motor deficits and no sensory deficits noted Psych Common normals: mental status grossly normal Progress Note: Objective Labs Labs: Short CBC 10/18/23 Range/Units 04:00 WBC 8.1 (4.0-11.0) 10^3/uL Hgb 10.7 L (14.0-18.0) g/dL Hct 32.8 L (42.0-54.0) % Plt Count 235 (150-450) 10^3/uL BMP 10/18/23 04:00 Sodium 143 Potassium 4.0 Chloride 112 H Carbon Dioxide 22.1 BUN 22.0 H Creatinine 1.37 H Glucose 77 Calcium 8.7 Liver Function 10/18/23 Range/Units 04:00 Total Bilirubin 0.3 (0.2-1.0) mg/dL AST 53 H (15-37) U/L ALT 38 (16-63) U/L Alkaline Phosphatase 101 (46-116) U/L Albumin 2.5 L (3.4-5.0) g/dL Progress Note: A&P Assessment and Plan (1) SBO (small bowel obstruction): Assessment and Plan: Acute * Improving * SBO/partial SBO resolved on repeat XR * BM produced overnight * Pain resolving * C/S Dr Uribe, general surgeon - we appreciate his assistance with this pt's care * OK to advance to clears and then up to low residue as tolerated * Continue NS IVF @ 100/hr for hydration * Consider NGT if N/V recur - no further N/V/D since admission * Possibly d/c later today or tomorrow once we are able to advance his diet successfully without recurrent symptoms * CBC, CMP daily (2) Gastroenteritis: Assessment and Plan: Acute * Suspected * GI panel neg - possibly viral * Continue IVPB Zosyn for broad gram neg and anaerobic coverage * leukocytosis resolved * NS IVF * CBC, CMP daily (3) Pneumonia: Assessment and Plan: Acute * Improving * Significantly improved RLL infiltrated on XR today * Remains afebrile * No significant cough * Continue IVPB Zosyn as above will also cover concurrent pneumonia * O2 if needed to keep sats above 90%, currently satting 90-95% on RA * Duonebs PRN for SOB or wheezing (4) Sepsis: Assessment and Plan: Acute * Resolving * Lactic acidosis resolved * Procalcitonin trending down - 0.27 today * Continue NS IVF at 100/hr * Still no evidence of mottling or impaired peripheral circulation on exam * See gastroenteritis and pneumonia above (5) Acute kidney injury: Assessment and Plan: Acute * Resolving * Renal function nearly back to baseline on AM labs today * 2/2 poor PO intake and acute infection/sepsis * Continue NS IVF as above * CMP daily (6) Upper GI bleeding: Assessment and Plan: Acute * Suspected - pt reports coffee ground emesis at home * Hx of GERD * Mild anemia on labs - stable * Send gastric fluid for occult blood testing if emesis recurs - no emesis to date * IVP protonix BID - Hold home PPI for now, resume at d/c * Likely follow up with current outpatient GI team after discharge for repeat endoscopy (7) Anemia: Assessment and Plan: Acute * Stable * Stool for occult blood neg * Iron deficiency/low TIBC, but high ferritin. Possibly reactive. * Monitor daily w/ CBC * Consider PRBC transfusion for hgb < 7 (8) Depression: Assessment and Plan: Chronic * Continue home Venlafaxine (9) Anxiety: Assessment and Plan: Chronic * Continue home Fanapt (10) Hyperlipidemia: Assessment and Plan: Chronic * Continue home statin (11) GERD (gastroesophageal reflux disease): Assessment and Plan: Chronic * See UGIB above (12) Chronic pain: Assessment and Plan: Chronic * Continue home antispasmodics, dicyclomine (13) Intractable headache: Assessment and Plan: Chronic * Continue home Topamax
--- NOTE | 2023-10-18 14:54 | PM.PN ---
Progress Note: Subjective Subjective Interval history: 10/18/23 0830 The pt is currently resting comfortably in bed. He reports improved L side pain, although it is not completely resolved, and had a loose bowel movement overnight. His stool was negative for occult blood and the complete GI panel was also negative. A repeat acute abdomen series XR showed persistent ileus, but improved bowel gas pattern and no evidence of a SBO. He continues to feel somewhat distended. Dr Uribe approved advancing his diet to clears and then up to low residue as tolerated. Exam Constitutional Vital Signs, click to edit/add: Last Vital Signs Temp 97.9 F 10/18/23 12:00 Pulse 76 10/18/23 12:00 Resp 18 10/18/23 12:00 BP 108/74 10/18/23 12:00 Pulse Ox 94 L 10/18/23 12:00 O2 Del Method Room Air 10/18/23 12:00 Common normals: no apparent distress, oriented x3 and alert General appearance: cooperative Orientation/consciousness: Yes awake HENMT Common normals: normocephalic, head/scalp atraumatic and hearing grossly normal bilaterally Eye Common normals: PERRL, EOMs intact bilaterally, conjunctivae normal and no scleral icterus General eye: normal appearance of both eyes Chest Common normals: inspection of chest normal Chest: symmetrical chest wall rise Respiratory Common normals: normal respiratory effort, no use of accessory muscles and clear to auscultation bilaterally Effort & inspection: able to speak in complete sentences Cardio Common normals: regular rate, S1 normal heart sound, S2 normal heart sound, no murmurs and peripheral pulses 2+ throughout Rhythm: regular rhythm (w/ frequent ectopy) GI Common normals: Normal to inspection, nondistended, normoactive bowel sounds present, soft to palpation and no hepatosplenomegaly Palpation: tender (diffuse BLQ); no guarding and no rebound tenderness present Bladder/kidney exam: bladder normal to palpation Extremity Common normals: normal to inspection and no calf tenderness General: no clubbing, no cyanosis and no edema Neuro Common normals: CN's II-XII intact bilaterally, moves all extremities, no focal motor deficits and no sensory deficits noted Psych Common normals: mental status grossly normal Progress Note: Objective Labs Labs: Short CBC 10/18/23 Range/Units 04:00 WBC 8.1 (4.0-11.0) 10^3/uL Hgb 10.7 L (14.0-18.0) g/dL Hct 32.8 L (42.0-54.0) % Plt Count 235 (150-450) 10^3/uL BMP 10/18/23 04:00 Sodium 143 Potassium 4.0 Chloride 112 H Carbon Dioxide 22.1 BUN 22.0 H Creatinine 1.37 H Glucose 77 Calcium 8.7 Liver Function 10/18/23 Range/Units 04:00 Total Bilirubin 0.3 (0.2-1.0) mg/dL AST 53 H (15-37) U/L ALT 38 (16-63) U/L Alkaline Phosphatase 101 (46-116) U/L Albumin 2.5 L (3.4-5.0) g/dL Progress Note: A&P Assessment and Plan (1) SBO (small bowel obstruction): Assessment and Plan: Acute Improving SBO/partial SBO resolved on repeat XR BM produced overnight Pain resolving C/S Dr Uribe, general surgeon - we appreciate his assistance with this pt's care OK to advance to clears and then up to low residue as tolerated Continue NS IVF @ 100/hr for hydration Consider NGT if N/V recur - no further N/V/D since admission Possibly d/c later today or tomorrow once we are able to advance his diet successfully without recurrent symptoms CBC, CMP daily (2) Gastroenteritis: Assessment and Plan: Acute Suspected GI panel neg - possibly viral Continue IVPB Zosyn for broad gram neg and anaerobic coverage leukocytosis resolved NS IVF CBC, CMP daily (3) Pneumonia: Assessment and Plan: Acute Improving Significantly improved RLL infiltrated on XR today Remains afebrile No significant cough Continue IVPB Zosyn as above will also cover concurrent pneumonia O2 if needed to keep sats above 90%, currently satting 90-95% on RA Duonebs PRN for SOB or wheezing (4) Sepsis: Assessment and Plan: Acute Resolving Lactic acidosis resolved Procalcitonin trending down - 0.27 today Continue NS IVF at 100/hr Still no evidence of mottling or impaired peripheral circulation on exam See gastroenteritis and pneumonia above (5) Acute kidney injury: Assessment and Plan: Acute Resolving Renal function nearly back to baseline on AM labs today 2/2 poor PO intake and acute infection/sepsis Continue NS IVF as above CMP daily (6) Upper GI bleeding: Assessment and Plan: Acute Suspected - pt reports coffee ground emesis at home Hx of GERD Mild anemia on labs - stable Send gastric fluid for occult blood testing if emesis recurs - no emesis to date IVP protonix BID - Hold home PPI for now, resume at d/c Likely follow up with current outpatient GI team after discharge for repeat endoscopy (7) Anemia: Assessment and Plan: Acute Stable Stool for occult blood neg Iron deficiency/low TIBC, but high ferritin. Possibly reactive. Monitor daily w/ CBC Consider PRBC transfusion for hgb < 7 (8) Depression: Assessment and Plan: Chronic Continue home Venlafaxine (9) Anxiety: Assessment and Plan: Chronic Continue home Fanapt (10) Hyperlipidemia: Assessment and Plan: Chronic Continue home statin (11) GERD (gastroesophageal reflux disease): Assessment and Plan: Chronic See UGIB above (12) Chronic pain: Assessment and Plan: Chronic Continue home antispasmodics, dicyclomine (13) Intractable headache: Assessment and Plan: Chronic Continue home Topamax
[2023-10-18] MEDS: ATORVASTATIN CALCIUM 10 MG TABLET PO (20:28)
[2023-10-19 03:06] VITALS: BP 132/82; PULSE 73; TEMP 37.1; O2SAT 93
[2023-10-19] MEDS: PIPERACILLIN SODIUM/TAZOBACTAM 3.375 GM in 0.9 % SODIUM CHLORIDE 50 ML IV (05:14)
[2023-10-19] MEDS: 0.9 % SODIUM CHLORIDE 1,000 ML 100 ML IV (05:14)
[2023-10-19 05:42] LABS: Basophils Percent Auto 0.3 % (0.2-2.0); Eosinophils Absolute Auto 0.3 10^3/uL (0.0-0.7); Hematocrit 28.1 % (42.0-54.0); Hemoglobin 9.4 g/dL (14.0-18.0); Immature Granulocytes Abs Auto 0.04 10^3/uL (0.00-0.03); Immature Granulocytes Pct Auto 0.4 % (0.0-0.5); Lymphocytes Percent Auto 10.4 % (20.5-60.0); Mean Corpuscular HGB Conc 33.5 g/dL (29.9-35.2); Mean Corpuscular Hemoglobin 28.7 pg (25.9-34.0); Mean Corpuscular Volume 85.7 fL (80.0-94.0); Mean Platelet Volume 8.7 fL (9.5-13.5); Monocytes Percent Auto 10.7 % (1.7-12.0); Neutrophils Absolute Auto 6.9 10^3/uL (1.4-6.5); Neutrophils Percent Auto 75.2 % (43.0-75.0); Platelet Count 235 10^3/uL (150-450); Red Blood Count 3.28 10^6/uL (4.70-6.10); Red Cell Distribution Width 12.8 % (11.0-15.0); White Blood Count 9.1 10^3/uL (4.0-11.0)
[2023-10-19 05:55] VITALS: O2SAT 94
[2023-10-19 05:58] LABS: Alanine Aminotransferase 40 U/L (16-63); Albumin Globulin Ratio 0.8; Albumin Level 2.6 g/dL (3.4-5.0); Alkaline Phosphatase 115 U/L (46-116); Aspartate Amino Transferase 45 U/L (15-37); BUN Creatinine Ratio 10.3; Bilirubin Total 0.3 mg/dL (0.2-1.0); Calcium 8.6 mg/dL (8.5-10.1); Carbon Dioxide 22.6 mmol/L (21.0-32.0); Chloride 110 mmol/L (98-107); Estimated GFR (African America >60 (>=60); Estimated GFR (Non-African Ame 57 (>=60); Globulin 3.2 g/dL; Glucose 98 mg/dL (74-106); Potassium 3.6 mmol/L (3.5-5.1); Sodium 142 mmol/L (136-145); Total Protein 5.8 g/dL (6.4-8.2)
[2023-10-19] MEDS: DICYCLOMINE HCL 10 MG CAPSULE PO (07:54)
[2023-10-19] MEDS: ACETAMINOPHEN 325 MG TABLET 650 MG PO (07:54)
[2023-10-19 08:00] VITALS: BP 124/76; PULSE 66; TEMP 37.7; O2SAT 92
[2023-10-19] MEDS: TOPIRAMATE 25 MG TABLET PO (09:58)
[2023-10-19] MEDS: HEPARIN SODIUM (PORCINE) 5,000 UNIT/ML VIAL 5000 UNIT SUBQ (09:58)
[2023-10-19] MEDS: OXcarbazepine 300 MG TABLET 450 MG PO (09:58)
[2023-10-19] MEDS: PANTOPRAZOLE SODIUM 40 MG VIAL IV (09:59)
[2023-10-19] MEDS: VENLAFAXINE HCL 50 MG TABLET 75 MG PO (09:59)
[2023-10-19] MEDS: FAMOTIDINE 20 MG TABLET PO (09:59)
[2023-10-19] MEDS: BENZTROPINE MESYLATE 1 MG TABLET 0.5 MG PO (09:59)
--- NOTE | 2023-10-19 11:30 | PM.DS1 ---
DS: Providers Provider Date of admission: 10/17/23 09:46 Primary care physician: STEPHEN DAVISON Admitting clinician: Sean Villegas Attending physician on admission: Sean Villegas Consults: 10/17/23 07:00 Consult to General Surgeon Routine Consulting Provider: Kenan Uribe Reason for consultation: Gastroenteritis vs SBO, N/V/D Has provider been notified: Yes Attending physician on discharge: Shaikh Stefanie Discharging clinician: Shaikh Stefanie Anticipated date of discharge: 10/19/23 DS: Diagnosis Discharge Diagnosis (1) SBO (small bowel obstruction): Assessment and plan: Resolved with conservative measures. Likely ileus due to gastroenteritis. (2) Gastroenteritis: Assessment and plan: Will d/c on oral ciprofloxacin and flagyl. (3) Pneumonia: Assessment and plan: mild basilar infiltrates on CT scan but no respiratory symptoms. Likely atelectasis - received IV zosyn x 3 days while inpatient. Stable for d/c - no need for resp coverage. Qualifiers: Pneumonia type: due to unspecified organism Laterality: bilateral Lung location: lower lobe of lung Qualified Code(s): J18.9 - Pneumonia, unspecified organism (4) Sepsis: Assessment and plan: Stable hemodynamics. Stable for d/c on PO abx Qualifiers: Sepsis type: sepsis due to unspecified organism Sepsis acute organ dysfunction status: with acute organ dysfunction Severe sepsis acute organ dysfunction type: acute renal failure Acute renal failure type: unspecified Severe sepsis shock status: without septic shock Qualified Code(s): A41.9 - Sepsis, unspecified organism; R65.20 - Severe sepsis without septic shock; N17.9 - Acute kidney failure, unspecified (5) Acute kidney injury: Assessment and plan: Renal function improved to baseline. likely from dehydration, sepsis. (6) Anemia: Assessment and plan: Monitor as outpatient Qualifiers: Anemia type: unspecified type Qualified Code(s): D64.9 - Anemia, unspecified (7) Lactic acidosis: Assessment and plan: resolved with hydration (8) Hyperlipidemia: Assessment and plan: C/w statin Qualifiers: Hyperlipidemia type: unspecified Qualified Code(s): E78.5 - Hyperlipidemia, unspecified (9) GERD (gastroesophageal reflux disease): Assessment and plan: C/w omeprazole. Qualifiers: Esophagitis presence: without esophagitis Qualified Code(s): K21.9 - Gastro-esophageal reflux disease without esophagitis DS: Summary Hospital Course Hospital Course: 63 y o male with chronic abdominal complaints/pain presented to ED with acute worsening of his abdominal pain associated with nausea, vomiting and diarrhea. Work up in ED revealed sepsis sec to gastroenteritis, MURIEL, lactic acidosis. CT Abd indicated that patient likely had small bowel obstruction but general surgery felt he had gastroenteritis for which he was treated with IV Zosyn. Patient was treated with IVF, and his symptoms were managed with combination of oral/IV narcotics and IV anti emetics. His clinical course improved during the course of admission. His diet was advanced and he is tolerating full liquid diet well. He denies nausea, vomiting or diarrhea. He reports mild abdominal discomfort that responds well to bentyl. He never required NGT insertion to decompress bowel. Of note - CT scan also revealed bibasilar infiltrates in lung, however he did not have any resp symptoms. I feel this is likely basilar atelectasis. He did received three days of IV zosyn that would adequately cover CAP but I do not feel we need to treat him for PNA based on my clinical impression. Stable for discharge. Patient instructed to return to ED if worsening symptoms. Status at Discharge Functional status at discharge: independent ambulation Overall status at discharge: patient is back to baseline Time Spent with Patient Time attestation: Total time spent providing and/or coordinating discharge services: Time spent: greater than 30 minutes Exam Constitutional Vital Signs, click to edit/add: Last Vital Signs Temp 99.8 F 10/19/23 08:00 Pulse 66 10/19/23 08:00 Resp 18 10/19/23 08:00 BP 124/76 10/19/23 08:00 Pulse Ox 92 L 10/19/23 08:00 O2 Del Method Room Air 10/19/23 08:00 Documenting provider has reviewed patient's vital signs: yes Common normals: no apparent distress, average body habitus and oriented x3 Respiratory Common normals: normal respiratory effort, no use of accessory muscles and clear to auscultation bilaterally Effort & inspection: able to speak in complete sentences Cardio Common normals: no JVD, regular rate, regular rhythm, S1 normal heart sound and S2 normal heart sound GI Common normals: Normal to inspection, nondistended, normoactive bowel sounds present, soft to palpation, non-tender and no hepatosplenomegaly Neuro Common normals: oriented x3, moves all extremities and no focal motor deficits Psych Common normals: mental status grossly normal, thought process normal, denies homicidal ideation and denies suicidal ideation DS: Data Data Completed and Pending Labs on day of discharge: Labs from last 24 hours 10/19/23 04:39 WBC 9.1 RBC 3.28 L Hgb 9.4 L Hct 28.1 L MCV 85.7 MCH 28.7 MCHC 33.5 RDW 12.8 Plt Count 235 MPV 8.7 L Neut % (Auto) 75.2 H Lymph % (Auto) 10.4 L Darke % (Auto) 10.7 Eos % (Auto) 3.0 Baso % (Auto) 0.3 Neut # (Auto) 6.9 H Lymph # (Auto) 1.0 L Darke # (Auto) 1.0 H Eos # (Auto) 0.3 Baso # (Auto) 0.0 Abs Immat Gran (auto) 0.04 H Imm/Tot Granulo (auto) 0.4 Sodium 142 Potassium 3.6 Chloride 110 H Carbon Dioxide 22.6 Anion Gap 13.0 BUN 13.0 Creatinine 1.26 Est GFR ( Amer) >60 Est GFR (Non-Af Amer) 57 L BUN/Creatinine Ratio 10.3 Glucose 98 Calcium 8.6 Total Bilirubin 0.3 AST 45 H ALT 40 Alkaline Phosphatase 115 Total Protein 5.8 L Albumin 2.6 L Globulin 3.2 Albumin/Globulin Ratio 0.8 Preliminary micro results at discharge 10/16/23 18:48 - Preliminary Blood NO GROWTH AT 36-48 HOURS. FINAL TO FOLLOW. 10/16/23 18:40 Blood Culture Result 1 - Preliminary Blood NO GROWTH AT 36-48 HOURS. FINAL TO FOLLOW. Discharge Plan Discharge Disposition: Home, Self-Care Discharge Medications: New ciprofloxacin HCl 500 mg tablet 500 mg PO BID Qty: 10 0RF ondansetron 4 mg tablet,disintegrating 4 mg PO Q8H PRN (Reason: nausea and vomiting) 3 Days Qty: 9 0RF metronidazole 500 mg tablet 500 mg PO Q8H 5 Days Qty: 15 0RF Continued benztropine 0.5 mg tablet 0.5 mg PO BID venlafaxine 75 mg tablet 75 mg PO QAM tizanidine 4 mg tablet 4 mg PO .qhs PRN (Reason: muscle spasticity) Rx Instructions: 2 mg to 4 mg po q hs prn meloxicam 15 mg tablet 15 mg PO .qd topiramate 25 mg tablet 25 mg PO Q12H oxcarbazepine 300 mg tablet 450 mg PO BID omeprazole 40 mg capsule,delayed release(DR/EC) 40 mg PO BID famotidine 20 mg tablet 20 mg PO .qd simvastatin 20 mg tablet 20 mg PO QPM dicyclomine 10 mg capsule 10 mg PO Q8H PRN (Reason: abdominal pain) Fanapt 4 mg tablet 4 mg PO BID Activity: increase activity as tolerated Diet: advance to your usual diet Print Language: Nicarag[place] Patient Instructions: Ciprofloxacin (By mouth), Metronidazole (By mouth), Ondansetron (By mouth), Acute Nausea and Vomiting (DC) Forms: Portal Instructions Follow Up Appointments: October 23 @ 11:30am with Dr. Davison [phone]
[2023-10-19 11:51] VITALS: O2SAT 97
--- NOTE | 2023-10-21 15:18 | CM.DCFOLLOWU ---
Person spoke with: patient How are you feeling? better How is your pain? minimal Did you understand your discharge instructions? yes Do you have any questions about your discharge instructions? no Were you given any prescriptions at discharge? yes Were you able to get your prescriptions filled? yes Do you understand how to take your medications as ordered? yes Do you have any questions about your follow up appointment and do you plan to keep your follow up appointment? no questions, reviewed follow up. Pt did express he is having hot/cold flashes and weight loss since hospital admission. Advised to call his PCP and see if they recommend anything or if they recommend coming to ED. Is there anything else that you would like to discuss? no Questions/Comments/Concerns/Other: N/A
== END 2023-10-19 14:15 | disposition home or self-care (01) | DRG 872 ==
LOC: ER 20:05 → MS 21:20
PROVIDERS: Physician Assistant; Registered Nurse; Admitting Provider Nurse Practitioner; Emergency Provider Emergency Medicine; PCP Internal Medicine; Visit Provider Internal Medicine
DX: A41.9 Sepsis, unspecified organism (principal); N17.9 Acute kidney failure, unspecified; E87.20 Acidosis, unspecified; K56.7 Ileus, unspecified; K52.9 Noninfective gastroenteritis and colitis, unspecified; E86.0 Dehydration; R65.20 Severe sepsis without septic shock; K21.9 Gastro-esophageal reflux disease without esophagitis; D64.9 Anemia, unspecified; R79.89 Other specified abnormal findings of blood chemistry; F41.9 Anxiety disorder, unspecified; F32.A Depression, unspecified; E78.5 Hyperlipidemia, unspecified; G89.29 Other chronic pain; R51.9 Headache, unspecified; Z20.822 Contact with and (suspected) exposure to COVID-19; M26.609 Unspecified temporomandibular joint disorder, unspecified side; D57.3 Sickle-cell trait; Z98.890 Other specified postprocedural states; Z79.899 Other long term (current) drug therapy
CPT/HCPCS: 0202U; 36415; 71045; 74022; 74176; 80053; 81003; 82271; 82728; 82800; 83540; 83550; 83605; 83690; 84145; 85007; 85025; 85027; 85045; 87040; 87507; 94761; 96361; 96365; 96366; 96372; 96375; 96376; 99285; G0328; G0378

== ENCOUNTER 2023-12-27 14:38 | Outpatient (OUT) | payer MEDICARE, MEDICAID, SELFPAY ==
[2024-01-03 11:09] LABS: Methylmalonic Acid, Serum 199 nmol/L (0-378)
== END 2023-12-27 14:39 | disposition home or self-care (01) ==
LOC: LAB 14:40
PROVIDERS: PCP Internal Medicine; Visit Provider Nurse Practitioner Adult Health
DX: G62.9 Polyneuropathy, unspecified (principal); R41.3 Other amnesia; G47.10 Hypersomnia, unspecified
CPT/HCPCS: 36415; 82607; 82746; 83921

== ENCOUNTER 2024-02-19 20:45 | Outpatient (OUT) | payer MEDICARE, MEDICAID, SELFPAY ==
--- OUTSIDE RECORDS SUMMARY | 2024-02-19 20:48 | XMS_ITS | CCD ---
Author Organization [facility] Care Team Providers Care Shade Cutter Name Role Phone ADÁN EDWARDS Consulting Unavailable MARIA L, YOSVANY Admitting Unavailable PANTERA, DR MITCHELL Primary Care Unavailable LOWJacque, YOSVANY [...] DR CALZADA LISTED Attending Unavaila ble REQUEST, DR CALZADA LISTED Consulting Unavaila ble REQUEST, NONE LISTED Consulting Unavaila ble MISC, DR PATEL Primary Care Unavailable REQUEST, DR CALZADA LISTED Admitting Unavaila ble REQUEST, DR CALZADA LISTED Attending Unavaila THOR Blackmon Primary Care Physician [phone] Unavailable Unavailable LOLA Mott Primary Care Provider [phone] MD Jose Kimbrough Attending Provider Unavailable Unavailable Thor Mott Unavailable Pantera DAVILA, Dr. Thor Salazar Primary Care [place] vailable Luis E DAVILA, Dr. Joes Steiner Attending Unavailable Luis E DAVILA, Dr. Jose Steiner Referring Unavailable Palak Wagner Admitting Unavailable Palak Wagner Attending Unavailable Palak Wagner Attending Unavailable Palak Wagner Attending Unavailable Kenan SORIA Attending Unavailable Humberto Hernandez Admitting Unavaila ble Humberto Hernandez Attending Unavaila ble Humberto Hernandez Referring Unavaila LOLA Blackmon Primary Care Provider MD Jose Kimbrough Attending Provider Jose Kimbrough Attending Unavail able Jose Kimbrough Admitting Unavail able Thor Mott Primary Care Unavailable JOSE KIMBROUGH Attending Unavailable THOR MOTT Primary Care Unavailable BEA FOUNTAIN Attending Unavailable THOR MOTT Attending Unavailable THOR MOTT Attending Unavailable JAYE SMITH Attending Unavailable BEA FOUNTAIN Attending Unavailable JANA QUEZADA Attending Unavailable THOR MOTT Attending Unavailable THOR MOTT Attending Unavailable SERGEY CHAWLA Attending Unavailable THOR MOTT Referring Unavailable JAYE SMITH Attending Unavailable BEA FOUNTAIN Attending Unavailable Allergies Allergy Classification Reported Allergen(s) Allergy Type Date of Onset Reaction(s) Facility (7 sources) Shellfish; Translations: [shellfish] Drug allergy (disorder) [address] [facility] Repository (2 sources) Shellfish; Translations: [shellfish derived] Allergy to substance 7 Swelling of Lip/Tongue/Thro at [facility] (8 sources) Shellfish; Translations: [shellfish] Drug allergy [facility] Medications Current Medications Medication Drug [...] Start: 06-05-2023 take 1 tablet by taryn twice daily Fiber Tabs 1,250 mg, Oral, [...] day(s), # 180 cap(s), Refills(s) 3, Pharmacy: [facility], 167, cm, 10/26/20 15:36:00 EDT, Height/Length [...] day(s), # 90 tab(s), Refills(s) 0, Pharmacy: [facility], 167, cm, 06/05/23 15:25:00 EST, Height/Length Dosing, 80.1, kg, 06/05/23 15:25:00 EST, Weight Dosing Start Date: 06/05/23 Stop Date: 09/03/23 Status: Ordered Start: 03-05-2023 End: 09-01-2023 take 1 tablet by mouth once daily at bedtime Pepcid 20 mg Tab 20 mg = 1 tab(s), Oral, Once a day (at bedtime), X 90 day(s), # 90 tab(s), Refills(s) 1, Pharmacy: [facility], 167, cm, 03/05/23 14:46:00 EDT, Height/Length Dosing, 81.8, kg, 03/05/23 14:46:00 EDT, Weight Dosing Start Date: 03/05/23 Stop Date: 09/01/23 Status: Ordered Start: 05-08-2022 End: 08-06-2022 take 1 tablet by mouth once daily at bedtime Pepcid 20 mg Tab 20 mg = 1 tab(s), Oral, Once a day (at bedtime), X 90 day(s), # 90 tab(s), Refills(s) 0, Pharmacy: [facility], 167, cm, 05/08/22 15:44:00 EST, Height/Length [...] Status: Ordered take 1 tablet by taryn twice daily as needed Methocarbamol 750 MG Oral Tablet TAKE 1 TABLET TWICE DAILY NEEDED. Quantity: 0 Refills: 0 Ordered: 23-Jan-2023 DO Active Miralax 3350 17 gram packet (3 sources) Start: 01-21-2020 Miralax 3350 1 7 gram packet 17 gram, Oral, Daily, # 30 EA, Refills(s) 1, Pharmacy: [facility], 167.64, cm, 01/21/20 15:03:00 EDT, Height/Length [...] day(s), # 90 cap(s), Refills(s) 1, Pharmacy: [facility], 167, cm, 03/05/23 14:46:00 EDT, Height/Length [...] Daily, # 30 cap(s), Refills(s) 5, Pharmacy: [facility], 167, cm, 10/26/20 15:36:00 EDT, Height/Length Dosing, 82.8, kg, 10/26/20 15:36:00 EDT, Weight Dosing Start Date: 01/27/21 Status: Ordered polyethylene glycol 3350 52234 mg powder for oral solution (10 sources) [...] day(s), # 270 cap(s), Refills(s) 0, Pharmacy: [facility], 167, cm, 10/04/21 15:39:00 [...] Onset: 3 Episodic Disorders of lipid metabolism (10 sources) Hyperlipidemia; Translations: [Other and unspecified hyperlipidemia] Onset: 4 Chronic Diverticulosis and diverticulitis (11 sources) Diverticula of intestine; Translations: [Diverticulosis of intestine, part unspecified, without perforation or abscess without bleeding] Onset: 2 Chronic Esophageal disorders (16 sources) Gastroesophageal reflux disease; Translations: [Gastroesophageal reflux disease without esophagitis] Onset: 2 01-21-2020 Chronic Essential hypertension (10 sources) Essential hypertension; Translations: [Unspecified essential hypertension] Onset: 4 Chronic Hemorrhoids (11 sources) Hemorrhoids; Translations: [Unspecified hemorrhoids] Onset: 2 Episodic Miscellaneous mental health disorders (13 sources) Mental disorder 10-21-2019 Chronic Mood disorders (13 sources) Depressive disorder 10-21-2019 Chronic Nonspecific chest pain (4 sources) Chest pain, unspecified; Translations: [Chest pain] Onset: 2 Episodic Osteoarthritis (13 sources) Osteoarthritis 10-21-2019 Chronic Other aftercare (1 source) Other vermin exterminator (current) drug therapy; Translations: [OTH NURSING HOME CURRENT DRUG THERAPY] Onset: 2 Episodic Other [...] than 30; Translations: [Overweight] 03-14-2022 Episodic Other nutritional; endocrine; and metabolic disorders (2 sources) Body mass index (BMI) 27.0-27.9, adult; Translations: [Body mass index (BMI) 27.0-27.9, adult] Onset: 4 Episodic Other screening for suspected conditions (not [...] unspecified; Translations: [PAIN UNSPECIFIED] Onset: 1 Episodic Residual codes; unclassified (2 sources) Other specified health status; Translations: [Other specified health status] Onset: 4 Episodic Sickle cell anemia (8 sources) Sickle cell trait; Translations: [Sickle-cell trait] Chronic Unclassified (2 sources) COUGH, UNSPECIFIED; Translations: [COUGH, UNSPECIFIED] Onset: 2 Unclassified (4 sources) CONTACT W/AND (SUSP) EXPOS COVID-19; Translations: [CONTACT W/AND (SUSP) EXPOS COVID-19] Onset: 1 Unclassified (1 source) Aneurysm of the ascending aorta, without rupture; Translations: [Aneurysm of the ascending aorta, without rupture] Onset: 4 Unclassified (1 source) Aneurysm of the ascending aorta, without rupture (CMS-HCC); Translations: [Aneurysm of the ascending aorta, without rupture (CMS-HCC)] Onset: 4 Past or Other Problems Problem Classification Problem [...] Never smoked tobacco; Translations: [Never a smoker] Unclassified (1 source) Aneurysm of the ascending aorta, without rupture (CMS-HCC); Translations: [Aneurysm of the ascending aorta, without rupture (CMS-HCC)] Onset: 12-09-2023 Results Test Name Value Interpretation Reference Range Facility CT angio cheston 11-06-2023 CT angio chest [facility] [address] CT Scan Report Signed Patient: Cecilio Nickerson MR#: [id number] : 1960 Acct:[id number] Age/Sex: 63 / M ADM Date: 11/06/23 Loc: CT Room: Type: [facility] Attending Dr: Jose Kimbrough MD Copies to: Jose Kimbrough MD Ordering Provider: Jose Kimbrough MD Date of Service: 11/06/23 CT/CT angio chest: I71.21 CTA CHEST WITH INTRAVENOUS CONTRAST COMPARISON: 11/08/2022 CLINICAL DATA: Follow-up aortic aneurysm. Spiral images were obtained through the chest following intravenous administration of 90 mL Isovue- 300. Sagittal and coronal MIP as well as 3-D volume rendered reconstructions of the aorta and its branches were reviewed. Evaluation is also performed with both narrow and wide window settings. This CT exam was performed using one or more following dose reduction techniques: Automated exposure control, adjustment of the mA and/or kV according to patient size, or use of iterative reconstruction technique. The heart is minimally prominent. There is a trace amount of pericardial fluid. There is aneurysmal dilatation of the ascending aorta with diameter of approximately 4.7 cm on the coronal reconstructions. This is similar when measured at a comparable level. There is no evidence of dissection. No enlarged lymph nodes are seen. There are no acute bony abnormalities. There is minimal atelectasis and/or scarring, greatest at the right middle lobe. No additional consolidation, pleural effusion or pneumothorax is noted. No pulmonary nodularity is seen. Limited cuts through the upper abdomen show no contributory findings. CT/CT angio chest IMPRESSION: MILD CARDIOMEGALY. STABLE ASCENDING AORTIC ANEURYSM. MINOR ATELECTASIS AND/OR SCARRING. Impression dictated by: Jana Wakefield M.D.11/06/2023 5:22 PM Dictation Location: [place] [address] Transcribed By: [facility] 11/06/23 1722 Dictated By: Jana Wakefield MD 11/06/23 1713 Signed By: 11/06/23 1722 Normal [facility] ISTAT XRay CREon 11-06-2023 ISTAT GFR > 60.0 Normal [facility] Comment on above: Result Comment: PERF ORMED BY: [place] [address] PATHOLOGIST TRAVEL NURSE ESTEBAN RUIZ M.D. Performed By: #### I SCRE #### [address] No Panel InformationOrdered By: Jose Kimbrough on 11-06-2023 Bedside Estimated GFR (eGFR) > 60.0 [facility] Whole blood creatinine measu rementOrdered By: Jose Kimbrough on 11-06-2023 Creatinine [Mass/Vol] 1.2 mg/dL Normal 0.6-1.3 [facility] Comment on above: ER/ESD physician is notified/shown all ISTAT results.Critical values may be confirmed by laboratory testing ifdeemed necessary by ER attending doctor. Result Comment: ER/E SD physician is notified/shown all ISTAT results. Critical values may be confirmed by laboratory testing if deemed necessary by ER attending doctor. Performed By: #### I SCRE #### [facility] [address] Consultation Noteon 10-18-19 Consultation Note [id number]#1.00TIFF Normal [facility] Consultation Note [id number]#1.00TIFF Normal [facility] Consultation Noteon 10-17-19 Consultation Note [id number]#1.00TIFF Normal [facility] IntraOperative Documentson 0 08-07-2023 IntraOperative Documents [id number]#1.00TIFF Normal [facility] Postoperative Documentson Postoperative Documents [id number]#1.00TIFF [facility] Reminderson 08-05-2023 Reminders - From: Janes Blanco To: [facility] - Reminders/Recalls; Sent: 08/05/2023 15:13:53 EST Show up: 07/18/2033 15:13:00 EST Subject: Ambulatory Reminder Due Date/Time: 07/29/2033 15:13:00 EST Reminder/Recall Repeat colonoscopy in 10 years(2033) [facility] Result Letter Officeon 08-05 Result Letter Office (Inserted Image. Un able to display) August 05, 2023 CECILIO NICKERSON [address] [place] [address] : 1960 Below is a summary of [...] if you wish to make an appointment. [facility] [phone] [facility] Consenton 07-31-2023 Consent [id number]#1.00TIFF [facility] Discharge Instructionson Discharge Instructions [id number]#1.00TIFF [facility] Progress Note-Physicianon Progress Note-Physician Patient: CECILIO NICKERSON Age: 63 years Sex: Male : 1960 Associated Diagnoses: None Author: MD Em, Mikala Townsend Postoperative Information Postoperative disposition: Postoperative disposition: To PACU. Optimetrix number: Optimetrix number [id number]. Anesthetic utilized: General. Health Status Allergies: Allergic [...] when meets criteria ( To home ). [facility] Comment on above: Result Comment: Elec tronically Signed By: MD Em, Mikala Townsend\.br\Date and Time Signed: 07/31/23 11:48 EST Main OR Intraoperative Recor don 07-30-2023 Main OR Intraoperative Record IntraOp Document Type FT Summary Primary Physician: Humberto Hernandez MD Finalized Date/Time: 07/30/23 10:47:30 Pt. Name: CECILIO NICKERSON /Sex: 1960 Male Med Rec #: [id number] Physician: Humberto Hernandez MD Financial #: [id number] Pt. Type: O Room/Bed: / Admit/Disch: 07/29/23 13:25:45 - 07/29/23 23:59:59 Institution: Case Times FT Entry 1 Patient Times In Room 07/29/23 16:04:00 Out Room 07/29/23 16:33:00 Procedure Times Start 07/29/23 16:09:00 Stop 07/29/23 16:31:00 Anesthesia Times Start 07/29/23 16:04:00 Stop 07/29/23 16:33:00 Time at [place] 07/29/23 16:20:00 Last Modified By: Bertha Charles RN 07/29/23 16:33:34 General Comments: EGD stop time at 1612./SAGE,RN Colonoscopy start time at 1615./KS,RN 07/30/23 Chart opened to review and send charges [facility] CSFA Case Attendance FT Entry 1 Entry 2 Entry 3 Case Attendee Truong Muñoz RN, Airam Sanchez Role Performed Anesthesiologist Market Superintendent - Primary Staff - Other Gate Keeper Time In 07/29/23 16:04:00 07/29/23 16:04:00 07/29/23 16:04:00 Time Out 07/29/23 16:33:00 07/29/23 16:33:00 07/29/23 16:33:00 Procedure EGD AND COLONOSCOPY(.) EGD AND COLONOSCOPY(.) EGD AND COLONOSCOPY(.) Comments Dr. Strickland is supervising Last Modified By: Melvin MORGAN, Bertha Charles RN, Bertha Charles RN, Bertha Grayson 07/29/23 16:33:35 07/29/23 16:33:35 07/29/23 16:33:35 Entry 4 Entry 5 Case Attendee Luis Enrique Nowak MD, Humberto Still Role Performed Scrub - Primary Surgeon - Primary Time In 07/29/23 16:04:00 07/29/23 16:04:00 Time Out 07/29/23 16:33:00 07/29/23 16:33:00 Procedure EGD AND COLONOSCOPY(.) EGD AND COLONOSCOPY(.) Comments Last Modified By: Melvin MORGAN, Bertha Charles RN, Bertha Grayson 07/29/23 16:33:35 07/29/23 16:33:35 Perioperative Protocols FT [...] Muñoz Miles, Kirstyn K, Sparks, Micala E, Mary BHAGAT, Humberto Still Time Out Complete 07/29/23 16:07:00 [...] and tissue Entry 1 Skin Integrity Intact, [place], Warm, and Skin Abnormality No Dry Outcomes Met? Yes Last Modified By: Bertha Charles RN 07/29/23 16:09:56 Post-Care Text: The patient is free from signs and symptoms of injury caused by extraneous objects Patient Positioning FT Pre-Care Text: Identifies physical alterations that require additional precautions for procedure-specific positioning, v (more content not included)... Normal [facility] Progress Note-Physicianon Progress Note-Physician Patient: CECILIO [...] Low vitamin B12 level / SNOMED CT 4080319484 / Confirmed Sleep apnea / SNOMED CT 101214006 / Confirmed Reducible umbilical hernia / SNOMED CT 018251786 / Confirmed Colon polyps / SNOMED CT 543638044 / Confirmed BMI 28.0-28.9,adult / SNOMED CT 4542793241 / Confirmed Osteoarthritis / SNOMED CT 1003988926 / Confirmed Psychiatric disorder / SNOMED CT 951731791 / Confirmed Left-sided chest pain / SNOMED CT 429294256 / Confirmed Irregular bowel habits / SNOMED CT 6251334321 / Confirmed History of colon polyps / SNOMED CT 2206938722 / Confirmed Hemorrhoids / SNOMED CT 787860878 / Confirmed History of umbilical hernia / SNOMED CT 034034445 / Confirmed Gastroparesis / SNOMED CT 467343999 / Confirmed GERD (gastroesophageal reflux disease) / SNOMED CT 574007283 / Confirmed Epigastric hernia / SNOMED CT 734054658 / Confirmed Diverticulosis / SNOMED CT 0715037164 / Confirmed Diastasis recti / SNOMED CT 874770383 / Confirmed Depression / SNOMED CT 44942959 / Confirmed Chronic idiopathic constipation / SNOMED CT 182826754 / Confirmed Ascending aortic aneurysm / SNOMED CT 0474075455 / Confirmed Anemia / SNOMED CT 948203199 / Confirmed Change in bowel habits / SNOMED CT 029711918 / Confirmed Abdominal pain / SNOMED CT 00786467 / Confirmed Canceled: Blood in diaper / SNOMED CT 185009861 Canceled: Change in bowel habits / SNOMED CT 318993547 Histories Procedure history: Esophagogastroduodenoscopy (838715571) on 11/15/2021 at 61 Years. Comments: 11/15/2021 14:24 EDT - Danita Garrett RN normal Colonoscopy (192975073) on 11/15/2021 at 61 Years. Comments: 11/15/2021 14:24 EDT Danita Thomas RN diverticulosis t/o colon Cholecystectomy; (87736). Colonoscopy (167563437). Social History Social & Psychosocial Habits Alcohol 06/05/2023 Risk Assessment: Denies Alcohol Use Substance Abuse 06/05/2023 Risk Assessment: Denies Substance Abuse Tobacco 06/05/2023 Risk Assessment: Denies Tobacco Use 06/05/2023 Tobacco Use: Never (less than 100 in l Smokeless tobacco use: Never . Physical Examination Airway: Mallampati classification: II (soft palate, fauces, uvula visible). Respiratory: adequate air exchange. Cardiovascular: Regular rhythm. Plan [place] [employer] Anesthesiologists (ASA) physical status classification: Class II. Anesthetic Preoperative Plan: Anesthesia General. Normal [facility] Comment on above: Result Comment: Elec tronically Signed By: Jonh Starkey DO, Ayush Qiu\.jamel\Date and Time Signed: 07/30/23 15:58 EST Consent for Treatmenton 07-18 Consent for Treatment [id number]#1.00TIFF [facility] Discharge Instructionson Discharge Instructions CECILIO NICKERSON :1960 [...] Persistent or heavy bleeding Pharmacy Information [facility] [place] [facility] Discharge Instructions Discharge Instructions New Follow Up Appointments after Discharge Follow Up with Humberto Hernandez When: Only if needed Comments: Call for any problems. Where: [facility] [address] [phone]- [phone] Business (1) Medications What How Much When [...] pressure ins (more content not included)... Normal [facility] Comment on above: Result Comment: Elec tronically Signed By: Rodrigue MORGAN, Michell\.br\Date and Time Signed: 07/29/23 16:41 EST Endoscopic Procedure Report - Otheron 07-29-2023 Endoscopic Procedure Report - Other Patient: CECILIO INCKERSON Age: 63 years Sex: Male : 1960 [...] hours. Education and Follow-up: Counseled: Patient, Family. [facility] Comment on above: Result Comment: Elec tronically Signed By: Humberto Hernandez MD\.br\Date and Time Signed: 07/29/23 16:33 EST Other Comment: Abigail hoskins Attachment - attachment storage system not supported [id number] Can be viewed in source systemMissing Attachment - attachment storage system not supported 4457835 Can be viewed in source systemMissing Attachment - attachment storage system not supported 7859468 Can be viewed in source system Endoscopic Procedure Report - Other Patient: CECILIO NICKERSON Age: 63 years Sex: Male : 1960 Associated Diagnoses: None Author: Humberto Hernandez MD Pre-Procedure Procedure Date 07/29/2023 16:12:00 . Procedure Type: Esophagogastroduodenoscopy with biopsy. Procedure provider Performed by Humberto Hernandez MD. [...] GI clinic in 1-2 after discharge Normal [facility] Comment on above: Result Comment: Elec tronically Signed By: Mary BHAGAT, Humberto Still\.br\Date and Time Signed: 07/29/23 16:13 EST Inpatient Patient Summaryon 07-29-2023 Inpatient Patient Summary [place] [address] [facility] Clinical Discharge Instructions PERSON INFORMATION Name: CECILIO NICKERSON PHYSICIANS Admitting Physician: Humberto Hernandez MD Attending [...] [address] By Mouth every day. Comment: Vicente [facility] Main OR PACU I Recordon 07-18 Main OR PACU I Record PACU Phase I Document Type FT Summary Primary Physician: Humberto Hernandez MD Finalized Date/Time: 07/29/23 17:19:05 Pt. Name: CECILIO NICKERSON Nicolas GloriaB./Sex: 1960 Male Med Rec #: [id number] Physician: Humberto Hernandez MD Financial #: [id number] Pt. Type: O Room/Bed: / Admit/Disch: 07/29/23 [...] By: Michell Husain RN 07/29/23 17:19 Normal [facility] Main OR Preoperative Recordo n 07-29-2023 Main OR Preoperative Record Holding Area Document Type FT Summary Primary Physician: Humberto Hernandez MD Finalized Date/Time: 07/29/23 13:42:27 Pt. Name: CECILIO NICKERSONO.B./Sex: 1960 Male Med Rec #: [id number] Physician: Humberto Hernandez MD Financial #: [id number] Pt. Type: O Room/Bed: / Admit/Disch: 07/29/23 [...] is clear liquid. Has been NPO since. /,RN Finalized By: Winsome Perdomo RN Document Signatures Signed By: Winsome Perdomo RN 07/29/23 13:42 Normal [facility] Monitor Recordon 07-29-2023 Monitor Record [id number]#1.00TIFF Normal [facility] Monitor Record [id number]#1.00TIFF Normal [facility] Outpatient Surgery Discharge Instructionon 07-29-2023 Outpatient Surgery Discharge Instruction [address] [address] Patient Discharge Instructions PERSON INFORMATION Name: CECILIO NICKERSON Date of : 1960 Current Date: 07/29/2023 16:35:21 PHYSICIANS Admitting Physician: Mary BHAGAT, Paul Talal Discharge Diagnosis: Other chronic pain CECILIO NICKERSON [...] THE NEAREST EMERGENCY ROOM OR CALL 911 I, CECILIO NICKERSON, have received the attached patient education materials/instructions [...] to serve you. Thank you for choosing [facility] HERE ARE THE MEDICATION CHANGES THAT OCCURRED [...] day. PATIENT EDUCATION INFORMATION Instructions: Medication Leaflets: [facility] Patient Education - Texton 0 07-29-2023 Patient [...] unsweetened, w/added ascorbic acid 1 cup 0.5 [place] 1 cup 0.7 Vegetables Cooked Green beans 1 cup 4.0 Carrots 1/2 cup sliced 2.3 Peas 1 cup 8.8 Potato (baked, with skin) 1 medium potato 3.8 Raw [place] (with peel) 1 cucumber 1.5 Lettuce 1 [...] 8.7 Peanuts 1/2 cup 7.9 Chart from [facility] 2013. SEEK IMMEDIATE MEDICAL CARE IF: You [...] of Agriculture (USDA) National Nutrient Database at: http://www.KSE.usda.gov/fnic /foodcomp/search/ Created using data from the USDA National Nutrient Database for Standard Reference. Available at http://www.KSE.usda.gov/fnic /foodcomp/search/. Information adapted from: [facility]? Patient Information ?2009 [employer]. [facility] 2013 http://www.[employer]./cont ents/lqeqqvbakght-ahqfirp-jj lnrb-wkb-kmvqde Endoscopy Care After Procedure Please read the [...] your nor (more content not included)... Normal [facility] Insurance Correspondenceon 0 2023 Insurance Correspondence [id number]#1.00TIFF [facility] Consultation Noteon 06-18-19 Consultation Note [id number]#1.00TIFF [facility] Consultation Noteon 06-13-20 Consultation Note [id number]#1.00TIFF [facility] RAD - CT Reporton 06-13-2023 RAD - CT Report [id number]#1.00TIFF [facility] RAD - CT Report [id number]#1.00TIFF [facility] RAD - CT Report [id number]#1.00TIFF [facility] RAD - MISCon 06-13-2023 RAD - MISC [id number]#1.00TIFF [facility] Consent for Procedure/Surger yon 06-07-2023 Consent for Procedure/Surgery [id number]#1.00TIFF [facility] Physician Referralon 023 Physician Referral [id number]#1.00TIFF [facility] Gastroenterology Office/Clin ic Noteon 06-05-2023 Gastroenterology [...] visit with me that he had joined [employer] and was exercising routinely. He reported that [...] Auto Diff (more content not included)... Normal [facility] Comment on above: Result Comment: Elec tronically Signed By: Palak Wagner CNP\.br\Date and Time Signed: 06/05/23 16:51 EST Patient [...] grapefruit, pineapple, and ida. Vegetables Deep-fried vegetables. Tristanian fries. Any vegetables prepared with added fat. [...] reflux di (more content not included)... Normal [facility] Ambulatory Visit Summaryon 0 03-05-2023 Ambulatory [...] Duration: 90 Days Refills: 1 Pickup at [facility] Changed omeprazole (omeprazole 20 mg Cap-DR) 1 [...] Pharmacy Information [facility]: [address], [place] [id number] [phone] Allergies shellfish (Hives) Problems Ongoing - Any [...] at hig (more content not included)... Normal [facility] Auto Diffon 03-05-2023 Basophils/100 WBC (Bld) 0.4 % Normal 0.0-2.0 [facility] Comment on above: Order Comment: Order Added by Discern Expert. Performed By: #### 2 557114, 2328967, 8116884, 3160387, 6623976, 99665089 ####[facility] [address] [place] [address] Basophils/Leukocytes Auto (Bld) [Pure # fraction] 0.0 E9/L Normal 0.0-0.2 [facility] Comment on above: Order Comment: Order Added by Discern Expert. Performed By: #### 2 798961, 6522744, 8223023, 5504212, 5455992, 06826300 ####[facility] [address] [place] [address] Eosinophils/100 WBC (Bld) 2.7 % Normal 0.0-8.0 [facility] Comment on above: Order Comment: Order Added by Discern Expert. Performed By: #### 2 248624, 1428173, 8873175, 5138542, 3139186, 65074811 ####[facility] [address] [place] [address] Eosinophils/Leukocyt es Auto (Bld) [Pure # fraction] 0.2 E9/L Normal 0.0-0.5 [facility] Comment on above: Order Comment: Order Added by Discern Expert. Performed By: #### 2 644478, 3064546, 2782769, 6564280, 4998132, 51772095 ####[address] [place] [address] Lymphocytes/100 WBC (Bld) 15.7 % Normal 14.0-50.0 [facility] Comment on above: Order Comment: Order Added by Discern Expert. Performed By: #### 2 174436, 1427294, 0834506, 9143431, 0344453, 83461158 ####[address] [place] [address] Lymphocytes/Leukocyt es Auto (Bld) [Pure # fraction] 1.1 E9/L Normal 1.0-4.0 [facility] Comment on above: Order Comment: Order Added by Marium Expert. Performed By: #### 2 641182, 0019503, 7012494, 7558263, 5721439, 60277233 ####[address] [address] Monocytes/100 WBC (Bld) 8.5 % Normal 4.0-14.0 [facility] Comment on above: Order Comment: Order Added by Marium Expert. Performed By: #### 2 545539, 1839729, 0977664, 6509117, 9606479, 09643250 ####[address] [place] [address] Monocytes/Leukocytes Auto (Bld) [Pure # fraction] 0.6 E9/L Normal 0.2-1.0 [facility] Comment on above: Order Comment: Order Added by Marium Expert. Performed By: #### 2 375345, 6299059, 4424392, 1865720, 4358338, 87553629 ####[address] [place] [address] Neutrophils/100 WBC (Bld) 72.7 % Normal 36.0-75.0 [facility] Comment on above: Order Comment: Order Added by Marium Expert. Performed By: #### 2 260528, 1984662, 6410071, 4886606, 2406543, 71647819 ####[facility] [address] [place] [address] Neutrophils/Leukocyt es Auto (Bld) [Pure # fraction] 5.3 E9/L Normal 2.0-7.5 [facility] Comment on above: Order Comment: Order Added by Discern Expert. Performed By: #### 2 401469, 1557717, 2742356, 9686470, 6677648, 78881572 ####[facility] [address] [place] [address] BMPon 03-05-2023 Anion gap [Moles/Vol] 10 mmol/L Normal 6-16 [facility] Comment on above: Performed By: #### 2 349146, 8667372, 2873133, 2958457, 4441355, 98066913 ####[facility] [address] [place] [address] Calcium [Mass/Vol] 9.3 mg/dL Normal 8.9-11.1 [facility] Comment on above: Performed By: #### 2 862135, 7299525, 1961104, 8496312, 6666976, 89442255 ####[facility] [address] [place] [address] Chloride [Moles/Vol] 104 mmol/L Normal 101-[address] [facility] Comment on above: Performed By: #### 2 063033, 1479535, 3385270, 7552007, 6719829, 85636375 ####[facility] [address] [place] [address] CO2 [Moles/Vol] 29 mmol/L Normal 21-31 [facility] Comment on above: Performed By: #### 2 625330, 8992151, 0660451, 5890233, 9526287, 29509121 ####[facility] [address] [place] [address] Creatinine [Mass/Vol] 1.1 mg/dL Normal 0.5-1.3 [facility] Comment on above: Performed By: #### 2 010032, 4947558, 0049470, 6128209, 0520330, 89104689 ####[facility] [address] [place] [address] Glucose [Mass/Vol] 97 mg/dL Normal 55-199 [facility] Comment on above: Result Comment: If t his glucose result represents a fasting glucose, interpretation should refer to the following reference range: 55-99 mg/dL Performed By: #### 2 497734, 9133775, 4470554, 5680830, 1502278, 16876290 ####[facility] [address] [place] [address] Potassium [Moles/Vol] 4.5 mmol/L Normal 3.5-5.3 [facility] Comment on above: Performed By: #### 2 957096, 4432635, 5501966, 4139826, 2592568, 52267628 ####[facility] [address] [place] [address] Sodium [Moles/Vol] 138 mmol/L Normal 135-145 [facility] Comment on above: Performed By: #### 2 226959, 5246400, 4990815, 2188422, 4010818, 64625274 ####[facility] [address] [place] [address] Urea nitrogen [Mass/Vol] 19 mg/dL Normal 5-21 [facility] Comment on above: Performed By: #### 2 954510, 1684567, 6019586, 2952034, 2225801, 29228355 ####[facility] [address] [place] [address] Urea nitrogen/Creatinine [Mass ratio] 17 No Units Normal 10-20 [facility] Comment on above: Performed By: #### 2 801954, 6325717, 5307207, 0180713, 5245857, 17121251 ####[facility] [address] [place] [address] CBC w/ Auto Diffon 3 Erythrocyte distribution width (RBC) [Ratio] 13.4 % Normal 10.9-14.2 [facility] Comment on above: Performed By: #### 2 353205, 2832989, 9544768, 4044182, 3353509, 32061580 ####[address] [place] [address] Hematocrit (Bld) [Volume fraction] 39.5 % Normal 37.7-49.0 [facility] Comment on above: Performed By: #### 2 208452, 9250362, 1485487, 4736475, 9832452, 80390335 ####[address] [place] [address] Hemoglobin (Bld) [Mass/Vol] 13.5 g/dL Normal 13.5-17.5 [facility] Comment on above: Performed By: #### 2 511967, 9042584, 5663123, 9965177, 8707421, 54256107 ####[address] [address] MCH (RBC) [Entitic mass] 29.8 pg Normal 27.0-34.0 [facility] Comment on above: Performed By: #### 2 245933, 1610938, 1245103, 5180115, 8576055, 51113135 ####[address] [address] MCHC (RBC) [Mass/Vol] 34.3 g/dL Normal 31.4-36.0 [facility] Comment on above: Performed By: #### 2 820662, 1334272, 7635029, 1652758, 5783977, 71139435 ####[address] [address] MCV (RBC) [Entitic vol] 86.8 fL Normal 80.0-100.0 [facility] Comment on above: Performed By: #### 2 715635, 1402876, 5000086, 1719701, 3235140, 41226652 ####[address] [place] [address] Platelet mean volume (Bld) [Entitic vol] 7.0 fL Normal 6.4-10.8 [facility] Comment on above: Performed By: #### 2 591601, 6980665, 8362092, 5648759, 1537372, 61526987 ####[facility] [address] [place] [address] Platelets (Bld) [#/Vol] 195.0 E9/L Normal 150.0-500. 0 [facility] Comment on above: Performed By: #### 2 824106, 3400980, 0300529, 1252989, 4098123, 15690509 ####[facility] [address] [place] [address] RBC (Bld) [#/Vol] 4.5 E12/L Normal 4.3-5.9 [facility] Comment on above: Performed By: #### 2 549249, 6991314, 0013438, 3187566, 5253074, 27749761 ####[facility] [address] [place] [address] WBC corrected for nucl RBC Auto (Bld) [#/Vol] 7.3 E9/L Normal 4.0-11.0 [facility] Comment on above: Performed By: #### 2 105101, 1956819, 2079002, 4931133, 8010902, 25532585 ####[address] [address] Consent for Treatmenton 02-15 Consent for Treatment [id number]:[id number] Normal [facility] Gastroenterology Office/Clin ic Noteon 03-05-2023 Gastroenterology [...] management/evaluation of umbilical hernia. Patient saw Dr. Soria, general surgery 03/14/22 who indicated hernia was [...] During today's visit, patient reports he joined [employer] and has been exercising routinely: has been [...] Height/Length Dosing, 81.8, kg, 03/05/23 14:46:00 EDT, Angelica (more content not included)... Normal [facility] Comment on above: Result Comment: Elec tronically Signed By: Kristy MILTON, Palak Qiu\.br\Date and Time Signed: 03/05/23 15:24 EDT Magnesiumon 03-05-2023 Magnesium [Mass/Vol] 2.1 mg/dL Normal 1.3-2.[address] 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 Follow these instructions at home: Medicines ? Take fxiq-cam-zdvuwic and prescription medicines only as told by [...] your h (more content not included)... Normal [facility] Vit B12on 03-05-2023 Cobalamin (Vitamin B12) [Mass/Vol] 292 pg/mL Normal 50-1500 [facility] Comment on above: Performed By: #### 2 154541, 3061395, 5348564, 9729119, 5712014, 94761286 ####[facility] [address] [place] [address] eGFRon 03-05-2023 GFR/1.73 sq M.predicted among non-blacks MDRD (S/P/Bld) [Vol rate/Area] 75 mL/min/1.73 m2 Normal >=59 [facility] Comment on above: Order Comment: Order added by Discern Expert. Result Comment: Curtain [employer] Automatic alexa kidney disease could be indicated at eGFR's of less than 60 mL/min/1.73m2. Kidney failure is indicated at less than 15 mL/min/1.73m2. Performed By: #### 2 884625, 1481924, 8990809, 2806022, 9479146, 66426251 ####[facility] [address] [place] [address] Office Visit (Cardiology)on 01-23-2023 Follow-up visit Diagnoses/Problems [...] Weight Tips; Status:Complete - Retrospective Authorization; Done: [id number] Some eating tips that can help you lose weight.; Status:Complete - Retrospective Authorization; Done: [id number] SocHx: Never a smoker Tobacco Use Screening; Status:Complete; Done: [id number] Patient Instructions Please bring all medicines, vitamins, [...] negative for complaint. Vitals Vital Signs Recorded: 23Jan2023 03:43PM Heart Rate58, L Radial Areyefwn602, LUE, Sitting Wutgdiqlr13, LUE, Sitting Height5 ft 6 in Oeuczi089 lb BMI Woswymsbhf41.73 kg/m2 BSA Calculated1.9 Tobacco Useb) No PHQ-2 [...] no bruit (more content not included)... Normal [employer] Tobacco Screening.on 023 Adult depression screening assessment No [facility] marielena 250 DO Work Phone: Fall risk assessment c) Not medically indicated [facility] [employer] marielena 250 DO Work Phone: Tobacco use status [facility] b) No [facility] [employer] marielena 250 DO Work Phone: Radiologyon 11-08-2022 CTA Chest vessels Normal [facility] marielena 250 DO Work Phone: Tobacco Screening.on 022 Adult depression screening assessment No [facility] [employer] marielena 250 DO Work Phone: Fall risk assessment a) No falls within the last year [facility] [employer] marielena 250 DO Work Phone: Tobacco use status [facility] b) No [facility] marielena 250 DO Work Phone: Creatinine and Glomerular fi ltration rate.predicted panel (S/P/Bld)Ordered By: Jose Kimbrough on 11-22-2021 Creatinine [Mass/Vol] 1.09 mg/dL 0.64-1.27 [facility] Estimated glomerular filtrat ion rate (GFR) non- AmericanOrdered By: Jose Kimbrough on 11-22-2021 GFR/1.73 sq M.predicted among non-blacks MDRD (S/P/Bld) [Vol rate/Area] > 60 mL/Min [facility] No Panel InformationOrdered By: Jose Kimbrough on 11-22-2021 Estimated GFR () > 60 mL/Min [facility] Comment on above: GFR estimated refere nce range: According to KDOQI guidelines, <60 ml/min/1.73m2 is sufficient to diagnose a patient with chronic kidney disease. Pharmacy Creatinine Clearance (Chem N/A [facility] No Panel Informationon 11-22 14\S\14 Normal 9-23 [facility] 600 DO Work Phone: > 60 Normal [facility] 600 DO Work Phone: Comment on above: GFR estimated refere nce range: According to KDOQI guidelines, <60 ml/min/1.73m2 is sufficient to diagnose a patient with chronic kidney disease.PERFORMED BY:[address] [place], [place] [phone] MEDICAL DIRECTORESTEBAN RUIZ M.D. 1.09\S\1.09 Normal 0.64-1.27 [facility] 600 DO Work Phone: [phone] 25.3\S\25.3 Normal 22.0-30.0 [facility] 600 DO Work Phone: [phone] 103\S\103 Normal 95-114 [facility] 600 DO Work Phone: 4.3\S\4.3 Normal 3.5-5.1 [facility] 600 DO Work Phone: [phone] 138\S\138 Normal 136-146 [facility] l[facility] 600 DO Work Phone: Radiologyon 11-22-2021 CTA Chest vessels Normal [facility] 600 DO Work Phone: Serum or plasma chloride april surement (moles/volume)Ordered By: Jose Kimbrough on 11-22-2021 Chloride [Moles/Vol] 103 mmol/L 95-114 [facility] Serum or plasma potassium me asurement (moles/volume)Ordered By: Jose Kimbrough on 11-22-2021 Potassium [Moles/Vol] 4.3 mmol/L 3.5-5.1 [facility] Serum or plasma sodium measu rement (moles/volume)Ordered By: Jose Kimbrough on 11-22-2021 Sodium [Moles/Vol] 138 mmol/L 136-146 [facility] Serum or plasma total carbon dioxide measurement (moles/volume)Ordered By: Jose Kimbrough on 11-22-2021 CO2 [Moles/Vol] 25.3 mmol/L 22.0-30.0 [facility] Serum or plasma urea nitroge n measurement (mass/volume)Ordered By: Jose Kimbrough on 11-22-2021 Urea nitrogen [Mass/Vol] 14 mg/dL 9-23 [facility] MRI CSPINE WO CONon 08-18-19 MRI CSPINE [...] recess. Constellation of the findings are causing hsjn-gl-vtbnahxv right neural foraminal narrowing. There is also [...] thecal sac compression. Electronically authenticated by: ADÁN AHMARK Date: 2021-08-17 13:09 Normal [facility] Comprehensive Metabolic Pane [facility] 06-28-2021 Albumin [Mass/Vol] 4.5 g/dL Normal 3.6-5.1 [facility] [employer] Comment on above: Performed By: #### C MP #### [facility] [address], [place] [id number] Albumin/Globulin [Mass ratio] 1.9 {ratio} Normal 1.0-2.5 [facility] Specialist Comment on above: Performed By: #### C MP #### [facility] [address], [place] [id number] ALP [Catalytic activity/Vol] 108 U/L Normal 40-129 [place] [employer] Comment on above: Performed By: #### C MP #### [facility] [address] [facility] [place] [id number] ALT [Catalytic activity/Vol] 36 U/L Normal 9-46 [facility] Comment on above: Result Comment: 05/17 Female reference range changed. Performed By: #### C MP #### [facility] [address] [facility] [place] [id number] Anion gap [Moles/Vol] 17 mmol/L Normal 12-20 [facility] Comment on above: Result Comment: Effe ctive 06/22/2019 reference range changed. Performed By: #### C MP #### [facility] [address] [facility] [place] [id number] AST [Catalytic activity/Vol] 29 U/L Normal 10-40 [facility] Comment on above: Performed By: #### C MP #### [facility] [address] [facility] [place] [id number] BUN/CREA 21 Ratio Normal 6-22 [facility] Comment on above: Performed By: #### C MP #### [facility] [address] [facility] [place] [id number] Calcium [Mass/Vol] 9.9 mg/dL Normal 8.6-10.[address] [facility] Comment on above: Performed By: #### C MP #### [facility] [address] [facility] [place] [id number] Chloride [Moles/Vol] 107 mmol/L Normal 98-107 [facility] Comment on above: Performed By: #### C MP #### [facility] [address] [facility] [place] [id number] CO2 [Moles/Vol] 23 mmol/L Normal 20-31 [facility] Comment on above: Performed By: #### C MP #### [facility] [address] [facility] [place] [id number] Creatinine [Mass/Vol] 1.1 mg/dL Normal 0.7-1.4 [facility] Comment on above: Performed By: #### C MP #### [facility] [address] [facility] [place] [id number] eGFRAA 86 mL/min/1.73m2 Normal >60 [facility] Specialist Comment on above: Performed By: #### C MP #### [facility] [address] [place], [place] [id number] eGFRNAA 71 mL/min/1.73m2 Normal >60 [facility] Specialist Comment on above: Performed By: #### C MP #### [facility] [address] [place], [place] [id number] Globulin (S) [Mass/Vol] 2.4 g/dL Normal 1.9-3.7 [facility] Comment on above: Performed By: #### C MP #### [facility] [address] [place], [place] [id number] Glucose [Mass/Vol] 84 mg/dL Normal 65-99 [facility] Specialist Comment on above: Result Comment: For FASTING Glucose --- ADA reference ranges: Normal 65-99 mg/dl Prediabetes 100-125 Diabetes >/= 126 Performed By: #### C MP #### [facility] [address] [place], [place] [id number] Potassium [Moles/Vol] 4.5 mmol/L Normal 3.5-5.5 [facility] Specialist Comment on above: Performed By: #### C MP #### [facility] [address] [place], [place] [id number] Protein [Mass/Vol] 6.9 g/dL Normal 6.1-8.1 [facility] Specialist Comment on above: Performed By: #### C MP #### [facility] [address] [place], [place] [id number] Sodium [Moles/Vol] 143 mmol/L Normal 135-146 [facility] Specialist Comment on above: Performed By: #### C MP #### [facility] [address] [place], [place] [id number] TBIL <0.3 Normal [facility] Comment on above: Performed By: #### C MP #### [facility] [address] [place], [place] [id number] Urea nitrogen [Mass/Vol] 22 mg/dL Normal 7-25 [facility] Specialist Comment on above: Performed By: #### C MP #### [facility] [address] [facility] [place] [id number] BNPon 06-21-2021 Natriuretic peptide B (Bld) [Mass/Vol] 114.0 pg/mL Normal <=900.0 [facility] Comment on above: Performed By: #### H STROPN, CMP, BNP #### [facility] [address] [address] [address] Ashely Garibay CBC AUTO DIFFon 06-21-2021 BASO # 0.0 103/ul Normal 0.0-0.1 [facility] Comment on above: Performed By: #### C BC #### [facility] [address] [place] [address] Dr. Ashely Garibay Basophils/100 WBC (Bld) 0.2 % Normal 0.2-2.0 [facility] Comment on above: Performed By: #### C BC #### [facility] [address] [place] [address] Dr. Ashely Garibay EO # 0.0 103/ul Normal 0.0-0.7 [facility] Comment on above: Performed By: #### C BC #### [facility] [address] [place] [address] Dr. Ashely Garibay Eosinophils/100 WBC (Bld) 0.1 % Critically low 0.9-7.0 [facility] Comment on above: Performed By: #### C BC #### [facility] [address] [place] [address] Dr. Ashely Garibay Erythrocyte distribution width (RBC) [Ratio] 13.0 % Normal 11.0-15.0 [facility] Comment on above: Performed By: #### C BC #### [facility] [address] [place] [address] Dr. Ashely Garibay Hematocrit (Bld) [Volume fraction] 43.2 % Normal 42.0-54.0 [facility] Comment on above: Performed By: #### C BC #### [facility] [address] [place] [address] Dr. Ashely Garibay Hemoglobin (Bld) [Mass/Vol] 14.8 g/dL Normal 14.0-18.0 [facility] Comment on above: Performed By: #### C BC #### [facility] [address] [place] [address] Dr. Ashely Garibay IG # 0.08 10e3/ul Critically high 0.00-0.03 [facility] Comment on above: Performed By: #### C BC #### [facility] [address] [place] [address] Dr. Ashely Garibay IG % 0.8 % Critically high 0.0-0.5 [facility] Comment on above: Performed By: #### C BC #### [facility] [address] [place] [address] Dr. Ashely Garibay LYMPH # 0.8 103/ul Critically low 1.2-3.8 [facility] Comment on above: Performed By: #### C BC #### [facility] [address] [place] [address] Dr. Ashely Garibay Lymphocytes/100 WBC (Bld) 7.6 % Critically low 20.5-60.0 [facility] Comment on above: Performed By: #### C BC #### [facility] [address] [place] [address] Dr. Ashely Garibay MANUAL DIFF REQ NO Normal [facility] Comment on above: Performed By: #### C BC #### [facility] [address] [place] [address] Dr. Ashely Garibay MCH (RBC) [Entitic mass] 28.6 pg Normal 25.9-34.0 [facility] Comment on above: Performed By: #### C BC #### [facility] [address] [place] [address] Dr. Ashely Garibay MCHC (RBC) [Mass/Vol] 34.3 g/dL Normal 29.9-35.2 [facility] Comment on above: Performed By: #### C BC #### [facility] [address] [place] [address] Dr. Ashely Garibay MCV (RBC) [Entitic vol] 83.6 fL Normal 80.0-94.0 [facility] Comment on above: Performed By: #### C BC #### [facility] [address] [address] [address] Ashely Garibay MONO # 0.7 103/ul Normal 0.3-0.8 [facility] Comment on above: Performed By: #### C BC #### [facility] [address] [address] [address] Ashely Garibay Monocytes/100 WBC (Bld) 6.3 % Normal 1.7-12.0 [facility] Comment on above: Performed By: #### C BC #### [facility] [address] [address] [address] Ashely Garibay NEUT # 9.0 103/ul Critically high 1.4-6.5 [facility] Comment on above: Performed By: #### C BC #### [facility] [address] [place] [address] Dr. Ashely Garibay Neutrophils/100 WBC (Bld) 85.0 % Critically high 43.0-75.0 [facility] Comment on above: Performed By: #### C BC #### [facility] [address] [place] [address] Dr. Ashely Garibay Platelet mean volume (Bld) [Entitic vol] 9.3 fL Critically low 9.5-13.5 [facility] Comment on above: Performed By: #### C BC #### [facility] [address] [address] [address] Ashely Garibay PLT 146 103/ul Critically low 150-450 [facility] Comment on above: Performed By: #### C BC #### [facility] [address] [place] [address] Dr. Ashely Garibay RBC 5.17 106/ul Normal 4.70-6.10 [facility] Comment on above: Performed By: #### C BC #### [facility] [address] [place] [address] Dr. Ashely Garibay WBC 10.6 103/ul Normal 4.0-11.0 [facility] Comment on above: Performed By: #### C BC #### [facility] [address] [address] [address] Ashely Garibay CTA CHEST WO W CONon 022 CTA CHEST WO W CON EXAM: [...] CJ MULLER Date: 2021-06-21 16:57 Normal [facility] Covid-19 PCR (CVDTBH)on SARS-CoV-2 (COVID-19) RNA NIECY+probe Ql (Unsp spec) Not detected Normal NOT DETECTED [facility] [facility] Comment on above: Result Comment: When diagnostic testing is negative, the possibility of a false negative should be considered in the context of a patient's recent exposures and the presence of clinical signs and symptoms consistent with SARS-CoV-2. This test is not yet approved or cleared by the [place] Food and Drug Administration (FDA). This test was developed by [employer], [place], [place]. The performance characteristics of this test were validated by [facility]. The results are not intended to be used as the sole means for clinical diagnosis or patient management decisions. [facility] is authorized under Clinical Laboratory Improvement Amendments [...] for this test is supported by the [place] of Health and Human Service's declaration that [...] be used). Performed By: #### C VDTBH ####[facility] [id number] [address]Dr. Ashely Garibay D-DIMERon 06-21-2021 D-DIMER 0.74 mg/L FEU Critically high 0.19-0.50 [facility] Comment on above: Performed By: #### P TT, DDIM, PT #### [facility] [address] [address] [address] Ashely Garibay D-DIMER COMMENTS SEE BELOW Normal [facility] Comment on above: Result Comment: [...] By: #### P TT, DDIM, PT #### [facility] [address] [address] [address] Ashely Garibay PROF 14(COMP METB)on 022 Albumin [Mass/Vol] 3.6 g/dL Normal 3.5-5.0 [facility] Comment on above: Performed By: #### H STROPN, CMP, BNP #### [facility] [address] [place] [address] Dr. Ashely Garibay Albumin/Globulin [Mass ratio] 0.8 {ratio} Normal [facility] Comment on above: Performed By: #### H STROPN, CMP, BNP #### [facility] [address] [address] [address] Ashely Garibay ALP [Catalytic activity/Vol] 130 U/L Critically high 38-126 [facility] Comment on above: Performed By: #### H STROPN, CMP, BNP #### [facility] [address] [place] [address] Dr. Ashely Garibay ALT [Catalytic activity/Vol] 94 U/L Critically high 21-72 [facility] Comment on above: Performed By: #### H STROPN, CMP, BNP #### [facility] [address] [place] [address] Dr. Ashely Garibay Anion gap [Moles/Vol] 16.8 mmol/L Normal [facility] Comment on above: Performed By: #### H STROPN, CMP, BNP #### [facility] [address] [place] [address] Dr. Ashely Garibay AST [Catalytic activity/Vol] 85 U/L Critically high 17-59 [facility] Comment on above: Performed By: #### H STROPN, CMP, BNP #### [facility] [address] [place] [address] Dr. Ashely Garibay Bilirubin [Mass/Vol] 0.9 mg/dL Normal 0.2-1.3 [facility] Comment on above: Performed By: #### H STROPN, CMP, BNP #### [facility] [address] [place] [address] Dr. Ashely Garibay Calcium [Mass/Vol] 8.9 mg/dL Normal 8.4-10.2 [facility] Comment on above: Performed By: #### H STROPN, CMP, BNP #### [facility] [address] [place] [address] Dr. Ashely Garibay Chloride [Moles/Vol] 101 mmol/L Normal 98-107 [facility] Comment on above: Performed By: #### H STROPN, CMP, BNP #### [facility] [address] [place] [address] Dr. Ashely Garibay CO2 [Moles/Vol] 25.4 mmol/L Normal 22.0-30.0 [facility] Comment on above: Performed By: #### H STROPN, CMP, BNP #### [facility] [address] [address] [address] Ashely Garibay Creatinine [Mass/Vol] 2.07 mg/dL Critically high 0.66-1.25 [facility] Comment on above: Performed By: #### H STROPN, CMP, BNP #### [facility] [address] [place] [address] Dr. Ashely Garibay EGFR-AF HONDURAN 40 mL/min/1.73m2 Critically low >=60 [facility] Comment on above: Performed By: #### H STROPN, CMP, BNP #### [facility] [address] [place] [address] Dr. Ashely Garibay EGFR-NON AF HONDURAN 33 mL/min/1.73m2 Critically low >=60 [facility] Comment on above: Performed By: #### H STROPN, CMP, BNP #### [facility] [address] [place] [address] Dr. Ashely Garibay Globulin (S) [Mass/Vol] 4.7 g/dL Normal [facility] Comment on above: Performed By: #### H STROPN, CMP, BNP #### [facility] [address] [place] [address] Dr. Ashely Garibay Glucose [Mass/Vol] 99 mg/dL Normal 74-106 [facility] Comment on above: Performed By: #### H STROPN, CMP, BNP #### [facility] [address] [place] [address] Dr. Ashely Garibay Potassium [Moles/Vol] 4.2 mmol/L Normal 3.4-5.0 [facility] Comment on above: Performed By: #### H STROPN, CMP, BNP #### [facility] [address] [place] [address] Dr. Ashely Garibay Protein [Mass/Vol] 8.3 g/dL Critically high 6.1-8.2 [facility] Comment on above: Performed By: #### H STROPN, CMP, BNP #### [facility] [address] [place] [address] Dr. Ashely Garibay Sodium [Moles/Vol] 139 mmol/L Normal 137-145 [facility] Comment on above: Performed By: #### H EDNA CMP, BNP #### [facility] [address] [place] [address] Dr. Asehly Garibay Urea nitrogen [Mass/Vol] 31.0 mg/dL Critically high 9.0-20.0 [facility] Comment on above: Performed By: #### H EDNA CMP, BNP #### [facility] [address] [place] [address] Dr. Ashely Garibay Urea nitrogen/Creatinine [Mass ratio] 15.0 mg/mg Normal [facility] Comment on above: Performed By: #### H JEANINE BISHOP, BNP #### [facility] [address] [place] [address] Dr. Ashely Garibay PROTIMEon 06-21-2021 INR Coag (PPP) [Relative time] 1.02 {INR} Normal [facility] Comment on above: Performed By: #### P TT, DDIM, PT #### [facility] [address] [place] [address] Dr. Ashely Garibay INR GUIDELINES SEE BELOW Normal [facility] Comment on above: Result Comment: SENA RED INR: 2.0 - 3.0 CONDITIONS NOT LISTED BELOW 2.5 - 3.5 FOR PROSTHETIC HEART VALVE REPLACEMENT 2.5 - 3.5 RECURRENT THROMBOSIS Performed By: #### P TT, DDIM, PT #### [facility] [address] [place] [address] Dr. Ashely Garibay PT Coag (PPP) [Time] 11.0 s Normal 9.0-11.6 [facility] Comment on above: Performed By: #### P TT, DDIM, PT #### [facility] [address] [place] [address] Dr. Ashely Garibay PTTon 06-21-2021 aPTT Coag (Bld) [Time] 32.2 s Normal 22.3-36.2 [facility] Comment on above: Performed By: #### P TT, DDIM, PT #### [facility] [address] [place], [place] [address] Dr. Ashely Garibay TROPONIN, HIGH SENSITIVITYon 06-21-2021 HSTROP 19.4 pg/mL Normal 4.0-42.2 [facility] Comment on above: Result Comment: CUT- OFF POINTS HAVE BEEN ESTABLISHED BASED ON THE FOURTH UNIVERSAL DEFINITIONS OF MYOCARDIAL INFARCTION. THE UPPER REFERENCE LIMIT (URL) OF TROPONIN, DEFINED THE 99TH PERCENTILE OF cTnI DISTRIBUTION IN A REFERENCE POPULATION, HAS BEEN CONFIRMED THE DECISION THRESHOLD FOR LA DIAGNOSIS. Performed By: #### H STROPN, CMP, BNP ####[facility] [id number] [place], [place] [address]QsDr. Ashely Garibay XR CHEST 1 Von 06-21-2021 [...] ADÁN EDWARDS Date: 2021-06-21 21:12 Normal [facility] Covid-19 PCR (CVDTBH)on 05-17 SARS-CoV-2 (COVID-19) RNA NIECY+probe Ql (Unsp spec) Not detected Normal NOT DETECTED [facility] Comment on above: Result Comment: This test is not yet approved or cleared by the [place] FDA. When there are no FDA-approved or cleared tests available, and other criteria are met, FDA can make tests available under an emergency access mechanism called an Emergency Use Authorization (EUA). The EUA for this test is supported by the Electrical Project [employer] of Health and Human Service's (HHS's) declaration [...] consistent with SARS-CoV-2. Performed By: #### C [facility] #### [facility] [address] [place] [address] Dr. Ashely Garibay Vital Signs Date Time Vital Sign Value Performing Clinician Facility 07-29-2023 17:00-0500 Heart rate 63 /min Paul Sarmini [facility] 07-29-2023 17:00-0500 Respiratory rate 21 /min Paul Sarmini [facility] 07-29-2023 17:00-0500 Systolic blood pressure 128 mm[Hg] Paul Sarmini [facility] 07-29-2023 16:50-0500 Blood Pressure Location Paul Sarmini [facility] 07-29-2023 16:50-0500 Diastolic blood pressure 76 mm[Hg] Paul Sarmini [facility] 07-29-2023 16:50-0500 Heart rate 64 /min Paul Sarmini [facility] 07-29-2023 16:50-0500 Mean blood pressure 93 mm[Hg] Paul Sarmini [facility] 07-29-2023 16:50-0500 Respiratory rate 27 /min Paul Sarmini [facility] 07-29-2023 16:50-0500 SaO2% (BldA) [Mass fraction] 97 % Paul Sarmini [facility] 07-29-2023 16:50-0500 Systolic blood pressure 127 mm[Hg] Paul Sarmini [facility] 07-29-2023 16:45-0500 Diastolic blood pressure 68 mm[Hg] Paul Sarmini [facility] 07-29-2023 16:45-0500 Heart rate 66 /min Paul Sarmini [facility] 07-29-2023 16:45-0500 Mean blood pressure 83 mm[Hg] Paul Sarmini [facility] 07-29-2023 16:45-0500 Respiratory rate 13 /min Paul Sarmini [facility] 07-29-2023 16:45-0500 Systolic blood pressure 112 mm[Hg] Paul Sarmini [facility] 07-29-2023 16:34-0500 Body temperature 97.52 [degF] Paul Sarmini [facility] 07-29-2023 16:30-0500 Respiratory rate 14 /min Paul Sarmini [facility] 07-29-2023 16:25-0500 Respiratory rate 14 /min Paul Sarmini [facility] 07-29-2023 16:20-0500 Respiratory rate 14 /min Paul Sarmini [facility] 07-29-2023 13:35-0500 Body temperature 97.7 [degF] Paul Sarmini [facility] 06-05-2023 15:25-0500 Diastolic blood pressure 92 mm[Hg] Palak Kristy [facility] 06-05-2023 15:25-0500 Mean blood pressure 111 mm[Hg] Palak Kristy [facility] 06-05-2023 15:25-0500 Systolic blood pressure 148 mm[Hg] Palak Kristy [facility] 06-05-2023 15:03-0500 Blood Pressure Location Palak Kristy [facility] 06-05-2023 15:03-0500 Body temperature 97.52 [degF] Palak Kristy [facility] 06-05-2023 15:03-0500 Diastolic blood pressure 90 mm[Hg] Palak Kristy [facility] 06-05-2023 15:03-0500 Heart rate 65 /min Palak Kristy [facility] 06-05-2023 15:03-0500 Systolic blood pressure 156 mm[Hg] Palak Kristy [facility] 03-05-2023 14:41-0400 Blood Pressure Location Palak Kristy [facility] 03-05-2023 14:41-0400 Body temperature 97.34 [degF] Palak Kristy [facility] 03-05-2023 14:41-0400 Diastolic blood pressure 86 mm[Hg] Palak Kristy [facility] 03-05-2023 14:41-0400 Heart rate 59 /min Palak Kristy [facility] 03-05-2023 14:41-0400 Systolic blood pressure 135 mm[Hg] Palaklesia Wagner [facility] 01-23-2023 15:43-0400 Body height 167.64 cm Thor Tawny Pantera Work Phone: [facility] [address] DO Work Phone: 01-23-2023 15:43-0400 Body mass index (BMI) [Ratio] 28.73 kg/m2 Thor Tawny Pantera Work Phone: [facility] [address] DO Work Phone: 01-23-2023 15:43-0400 Body surface area Derived from formula 1.9 m2 Thor Tawny Pantera Work Phone: [facility] [address] DO Work Phone: 01-23-2023 15:43-0400 Body weight 80.74 kg Thor Tawny Pantera Work Phone: [facility] [address] DO Work Phone: 01-23-2023 15:43-0400 Diastolic blood pressure 62 mm[Hg] Thor Hector [address]tera Work Phone: [facility] [address] DO Work Phone: 01-23-2023 15:43-0400 Heart rate 58 /min Thor Hector Pantera Work Phone: [facility] [address] DO Work Phone: 01-23-2023 15:43-0400 Systolic blood pressure 104 mm[Hg] Thor Mott Work Phone: [facility] [address] DO Work Phone: 05-08-2022 15:42-0500 Blood Pressure Location Palak Chavarriaz [facility] 05-08-2022 15:42-0500 Body temperature 97.52 [degF] Palak Wagner [facility] 05-08-2022 15:42-0500 Diastolic blood pressure 74 mm[Hg] Palak Sanchesmetz [facility] 05-08-2022 15:42-0500 Heart rate 68 /min Palak Sanchesmetz [facility] 05-08-2022 15:42-0500 Systolic blood pressure 119 mm[Hg] Palak Sanchesmetz [facility] 03-14-2022 15:47-0400 Blood Pressure Location Kenan NILL [facility] [place] 03-14-2022 15:47-0400 Diastolic blood pressure 80 mm[Hg] Kenan NILL [facility] [place] 03-14-2022 15:47-0400 Heart rate 72 /min Keann NILL [facility] [place] 03-14-2022 15:47-0400 Respiratory rate 16 /min Kenan NILL [facility] [place] 03-14-2022 15:47-0400 Systolic blood pressure 120 mm[Hg] Kenan NILL [facility] [place] 02-14-2022 10:15-0400 Blood Pressure Location Palak Chavarriaz [facility] 02-14-2022 10:15-0400 Body temperature 97.16 [degF] Palak Sanchesmetz [facility] 02-14-2022 10:15-0400 Diastolic blood pressure 77 mm[Hg] Palaklesia SanchesKristy [facility] 02-14-2022 10:15-0400 Heart rate 63 /min Palak Sanchesmetz [facility] 02-14-2022 10:15-0400 Systolic blood pressure 117 mm[Hg] Palak Wagner [facility] 12-11-2021 12:52-0400 Blood Pressure Location Palak Wagner [facility] 12-11-2021 12:52-0400 Body temperature 96.8 [degF] Palak Wagner [facility] 12-11-2021 12:52-0400 Diastolic blood pressure 66 mm[Hg] Palak Wagner [facility] 12-11-2021 12:52-0400 Heart rate 61 /min Palak Wagner [facility] 12-11-2021 12:52-0400 SaO2% (BldA) [Mass fraction] 98 % Palak Wagner [facility] 12-11-2021 12:52-0400 Systolic blood pressure 103 mm[Hg] Palak Wagner [facility] 12-06-2021 13:34-0400 Body height 167.64 cm Jose Kimbrough MD Work Phone: [facility] [employer] [address] DO Work Phone: 12-06-2021 13:34-0400 Body mass index (BMI) [Ratio] 28.25 kg/m2 Jose Kimbrough MD Work Phone: [facility] [employer] [address] DO Work Phone: 12-06-2021 13:34-0400 Body surface area Derived from formula 1.89 m2 Jose Kimbrough MD Work Phone: [facility] [address] DO Work Phone: 12-06-2021 13:34-0400 Body weight 79.38 kg Jose Kimbrough MD Work Phone: [facility] [address] DO Work Phone: 12-06-2021 13:34-0400 Diastolic blood pressure 68 mm[Hg] Jose Kimbrough MD Work Phone: [facility] [address] DO Work Phone: 12-06-2021 13:34-0400 Heart rate 60 /min Jose Kimbrough MD Work Phone: [facility] [address] DO Work Phone: 12-06-2021 13:34-0400 Systolic blood pressure 120 mm[Hg] Jose Kimbrough MD Work Phone: [facility] [address] DO Work Phone: 11-15-2021 13:05-0400 Diastolic blood pressure 85 mm[Hg] Lees SALAM [facility] 11-15-2021 13:05-0400 Heart rate 60 /min Lees SALAM [facility] 11-15-2021 13:05-0400 Respiratory rate 12 /min Lees SALAM [facility] 11-15-2021 13:05-0400 SaO2% (BldA) [Mass fraction] 97 % Lees SALAM [facility] 11-15-2021 13:05-0400 Systolic blood pressure 129 mm[Hg] Lees SALAM [facility] 11-15-2021 12:50-0400 Diastolic blood pressure 79 mm[Hg] Lees SALAM [facility] 11-15-2021 12:50-0400 Heart rate 65 /min Lees SALAM [facility] 11-15-2021 12:50-0400 Respiratory rate 25 /min Lees SALAM [facility] 11-15-2021 12:50-0400 SaO2% (BldA) [Mass fraction] 94 % Lees SALAM [facility] 11-15-2021 12:50-0400 Systolic blood pressure 116 mm[Hg] Lees SALAM [facility] 11-15-2021 12:45-0400 Diastolic blood pressure 70 mm[Hg] Lees SALAM [facility] 11-15-2021 12:45-0400 Heart rate 64 /min Lees SALAM [facility] 11-15-2021 12:45-0400 Respiratory rate 24 /min Lees SALAM [facility] 11-15-2021 12:45-0400 SaO2% (BldA) [Mass fraction] 96 % Lees SALAM [facility] 11-15-2021 12:45-0400 Systolic blood pressure 110 mm[Hg] Lees SALAM [facility] 11-15-2021 12:38-0400 Body temperature 98.24 [degF] Lees SALAM [facility] 11-15-2021 12:35-0400 Respiratory rate 3 /min Lees SALAM [facility] 11-15-2021 12:30-0400 Respiratory rate 18 /min Lees SALAM [facility] 11-15-2021 12:24-0400 Respiratory rate 18 /min Lees SALAM [facility] 11-15-2021 11:46-0400 Blood Pressure Location Lees SALAM [facility] 11-15-2021 11:46-0400 Body temperature 98.6 [degF] Lees SALAM [facility] 10-04-2021 15:40-0400 Diastolic blood pressure 86 mm[Hg] Palak Kristy [facility] 10-04-2021 15:40-0400 Mean blood pressure 104 mm[Hg] Palak Kristy [facility] 10-04-2021 15:40-0400 Systolic blood pressure 140 mm[Hg] Palak Kristy [facility] 10-04-2021 15:32-0400 Blood Pressure Location Palak Kristy [facility] 10-04-2021 15:32-0400 Body temperature 97.52 [degF] Palak Kristy [facility] 10-04-2021 15:32-0400 Diastolic blood pressure 89 mm[Hg] Palak Kristy [facility] 10-04-2021 15:32-0400 Heart rate 73 /min Palak Kristy [facility] 10-04-2021 15:32-0400 SaO2% (BldA) [Mass fraction] 97 % Palak Wagner [facility] 10-04-2021 15:32-0400 Systolic blood pressure 149 mm[Hg] Palak Wagner [facility] Encounters Encounter Date Encounter Type Care Provider Facility Start: 01-02-2024 End: 01-02-2024 ambulatory BEA FOUNTAIN Not Available Start: 12-23-2023 End: 12-23-2023 ambulatory JAYE C AMOLNAGEL Not Available Start: 12-09-2023 End: 12-09-2023 ambulatory [facility] Start: 11-06-2023 End: 11-06-2023 Patient encounter procedure II Thor Mott Work Phone: [facility] [place] Work Phone: Start: 11-06-2023 End: 11-06-2023 ambulatory II Thor Mott Work Phone: [facility] Work Phone: Start: 10-30-2023 End: 10-30-2023 ambulatory SERGEY CHAWLA Not Available Start: 10-28-2023 End: 10-28-2023 ambulatory THOR MOTT Not Available Start: 10-24-2023 End: 10-24-2023 ambulatory THOR MOTT Not Available Start: 10-17-2023 End: 10-18-2023 ambulatory Kenan SORIA Facility:[id number] Start: 10-16-2023 End: 10-16-2023 ambulatory JANA QUEZADA Not Available Start: 10-10-2023 End: 10-10-2023 ambulatory BEA Uyen FOUNTAIN Not Available Start: 10-07-2023 End: 10-07-2023 ambulatory JAYE C WINDNAGEL Not Available Start: 09-04-2023 End: 09-04-2023 ambulatory THOR MOTT Not Available Start: 07-29-2023 End: 07-30-2023 ambulatory Humberto Hernandez Facility:[facility] Start: 07-29-2023 End: 07-29-2023 Patient encounter procedure Humberto Hernandez [facility] Start: 07-04-2023 End: 07-04-2023 ambulatory BEA Qiu ESSIE Not Available Start: 06-05-2023 End: 06-06-2023 ambulatory Palak Wagner Facility:[facility] Start: 06-05-2023 End: 06-05-2023 Patient encounter procedure Palak Wagner [facility] Start: 05-08-2023 End: 05-08-2023 ambulatory THOR MOTT Not Available Start: 03-05-2023 End: 03-06-2023 ambulatory Palak Uyen Kristy Facility:[facility] Start: 03-05-2023 End: 03-06-2023 ambulatory Palak A Kristy Facility:[facility] Start: 03-05-2023 End: 03-05-2023 Patient encounter procedure Palak Uyen SanchesKristy [facility] Start: 01-23-[address] Thor Mott II Facility: Start: 01-23-2023 Office outpatient vi sit 25 minutes Thor Mott Work Phone: [facility] [address] DO Work Phone: Start: 11-13-2022 Chart Update Jose grayson MD Work Phone: [facility] [address] DO Work Phone: Start: 08-08-2022 End: 08-08-2022 Patient encounter procedure Palak Uyen Kristy [facility] Start: 05-08-2022 End: 05-08-2022 Patient encounter procedure Palak Wagner [facility] Start: 03-22-2022 End: 03-22-2022 Patient encounter procedure Palak Wagner [facility] Start: 03-14-2022 End: 03-14-2022 Patient encounter procedure Kenan Terry [facility]IL[facility] Start: 02-21-2022 End: 02-21-2022 Patient encounter procedure Palak Wagner [facility] Start: 02-14-2022 End: 02-14-2022 Patient encounter procedure Palak Wagner [facility] Start: 12-11-2021 End: 12-11-2021 Patient encounter procedure Palak Wagner [facility] Start: 12-06-2021 Office outpatient vi sit 15 minutes Jose Kimbrough MD Work Phone: [facility] [address] DO Work Phone: Start: 11-23-2021 Chart Update Jose grayson MD Work Phone: [facility] [address] DO Work Phone: Start: 11-22-2021 Chart Update Jose grayson MD Work Phone: [facility] [address] DO Work Phone: Start: 11-22-2021 End: 11-22-2021 Patient encounter procedure II Thor Mott Work Phone: [facility] [place] Start: 11-15-2021 End: 11-15-2021 Patient encounter procedure Nabeel CHUNG [facility] Start: 10-31-2021 End: 10-31-2021 Patient encounter procedure Nabeel CHUNG [facility] Start: 10-04-2021 End: 10-04-2021 Patient encounter procedure Palak Qiu Kristy [facility] Start: 08-16-2021 End: 08-17-2021 ambulatory ADÁN EDWARDS Facility:[facility] Start: 06-21-2021 End: 06-21-2021 ambulatory SAVI KYLE Facility:[facility] Start: 05-25-2021 End: 05-25-[address] THOR MOTT Facility:[facility] Start: 09-20-2020 End: 09-21-2020 ambulatory NONE LISTED REQUEST Facility:[facility] Start: 08-29-2020 End: 08-30-2020 ambulatory NONE LISTED REQUEST Facility:[facility] Patient encounter status Jose Kimbrough MD Work Phone: [facility] 250 DO Work Phone: Procedures Date Procedure Procedure Detail Performing Clinician Start: 11-06-2023 CT of chest II Thor Mott Work Phone: Start: 07-29-2023 Colonoscopy Humberto S armini Start: 07-29-2023 Esophagogastroduodenoscopy Humberto Hernandez Start: 11-22-2021 CT of chest II Thor Mott Work Phone: Start: 11-15-2021 Colonoscopy Nabeel Gutierrez Comment on above: diverticulosis t/o c olon Start: 11-15-2021 Esophagogastroduodenoscopy Nabeel CHUNG Comment on above: normal Cholecystectomy Palak Lu rothman Cholecystectomy Jose anguiano MD Work Phone: Colonoscopy Palak Wagner Colonoscopy Jose Kimbrough MD Work Phone: Comment on above: [id number]; 15nov2021; Nasal sinus procedure Corina Kimbrough MD Work Phone: Operation on mouth Jose Tobin MD Work Phone: Plan of Treatment Date Care Activity Detail Author Start: 01-29-2024 FUV, Provider: Jose Kimbrough, Status: Pen, Time: 3:40 PM FUV, Provider: Jose Kimbrough, Status: Pen, Time: 3:40 PM [facility] 250 DO Work Phone: Start: 01-09-2023 FUV, Provider: Jose Kimbrough, Status: Pen, Time: 1:00 PM FUV, Provider: Jose Kimbrough, Status: Pen, Time: [facility]:00 PM [facility] Work Phone: Start: 12-06-2021 FUV, Provider: Jose Kimbrough, Status: Pen, Time: 1:15 PM FUV, Provider: Jose Kimbrough, Status: Pen, Time: 1:15 PM [facility] Work Phone: Immunizations Immunization Date Immunization Notes Care Provider Fa anais 04-04-2023 influenza virus vaccine, unspecified formulation Palak Wagner [facility] 04-11-2022 influenza virus vaccine, unspecified formulation Palak Wagner [facility] 04-11-2022 influenza, injectabl e, quadrivalent, preservative free Thor Mott Work Phone: [facility] 250 DO Work Phone: 03-17-2022 influenza virus vaccine, unspecified formulation Palak Kristy [facility] 03-17-2022 influenza, seasonal, injectable Thor Mott Work Phone: [facility] 250 DO Work Phone: Comment on above: Series: 06-05-2021 Pfizer-BioNTech COVID-19 Vacc 30 MCG/0.3ML Intramuscular Suspension Jose Kimbrough MD Work Phone: [facility] Comment on above: Result Comment: 2021: [id number] 04-13-2021 influenza virus vaccine, unspecified formulation Palak Wagner [facility] 04-13-2021 influenza, injectabl e, quadrivalent, contains preservative Jose Kimbrough MD Work Phone: [facility] 250 DO Work Phone: 09-20-2020 Pfizer-BioNTech COVID-19 Vacc 30 MCG/0.3ML Intramuscular Suspension Jose Kimbrough MD Work Phone: [facility] 08-29-2020 Pfizer-BioNTech COVID-19 Vacc 30 MCG/0.3ML Intramuscular Suspension Jose Kimbrough MD Work Phone: [facility] 03-29-2020 influenza virus vaccine, unspecified formulation Palak Wagner [facility] 03-29-2020 influenza, injectabl e, quadrivalent, preservative free Jose Kimbrough MD Work Phone: [facility] 250 DO Work Phone: 03-17-2020 influenza virus vaccine, unspecified formulation Jose Kimbrough MD Work Phone: [facility] 05-27-2019 zoster vaccine recombinant Jose Kimbrough MD Work Phone: [facility] 03-18-2019 influenza virus vaccine, unspecified formulation Palak Wagner [facility] 03-17-2019 influenza virus vaccine, unspecified formulation Jose [facility]imbrough MD [facility]: [facility] Work Phone: 02-20-2019 zoster vaccine recombinant Jose Kimbrough MD Work Phone: [facility] 07-17-2017 influenza virus vaccine, unspecified formulation Palak Wagner [facility] 07-17-2017 seasonal influenza, intradermal, preservative free Jose Kimbrough MD Work Phone: [facility] [employer] 250 DO Work Phone: 03-17-2017 influenza virus vaccine, unspecified formulation Jose Kimbrough MD [facility] Phone: [facility] Work Phone: 08-14-2016 zoster vaccine, live Jose Kimbrough MD Work Phone: [facility] 05-03-2016 influenza virus vaccine, unspecified formulation Palak Wagner [facility] 05-03-2016 influenza, injectabl e, quadrivalent, contains preservative Jose Kimbrough MD Work Phone: [facility] [employer] 250 DO Work Phone: 03-17-2016 influenza virus vaccine, unspecified formulation Jose Kimbrough MD Work Phone: [facility] 600 DO Work Phone: 03-17-2015 influenza virus vaccine, unspecified formulation Jose Kimbrough MD Work Phone: [facility] 600 DO Work Phone: 12-15-2014 pneumococcal polysaccharide vaccine, 23 valchalo Kimbrough MD Work Phone: [facility] 600 DO Work Phone: 12-14-2014 pneumococcal conjuga te vaccine, 13 valchalo Kimbrough MD Work Phone: [facility] 08-15-2014 pneumococcal conjuga te vaccine, 13 valchalo Kimbrough MD Work Phone: [facility] 11-25-2013 pneumococcal polysaccharide vaccine, 23 valchalo Kimbrough MD Work Phone: [facility] 03-17-2011 pneumococcal polysaccharide vaccine, 23 valchalo Kimbrough MD Work Phone: [facility] 600 DO Work Phone: NEGATED: Highlighted row has not occurred!02-14-2022 influenza virus vaccine, unspecified formulation Palak Wagner [facility] Payers Date Payer Category Payer Medicaid [id number] 1961 Self-pay 1961 Unknown [id number] 1961 Unknown [id number] 1958 Unknown [id number] 2.16.84 0.1.297594.3.579.2.593 1958 Unknown [id number] .16.84 0.1.635701.3.579.2.593 1958 Unknown [id number] .16.84 0.1.369496.3.579.2.593 1958 Unknown [id number] 2.16. 840.1.874017.3.579.2.356 1958 Unknown [id number] 2.16.8 40.1.925464.3.579.2.727 1958 Unknown [id number] 2.16.8 40.1.344630.3.579.2.727 1958 Unknown [id number] 2.16.8 40.1.152182.3.579.2.727 1958 Unknown [id number] 2.16.8 40.1.860206.3.579.2.727 1958 Unknown [id number] 2.16.8 40.1.157089.3.579.2.727 1958 Unknown [id number] 2.16.8 40.1.205023.3.579.2.1244 1958 Unknown [id number] 2.16.84 0.1.125663.3.579.2.9 1958 Unknown [id number] 2.16.84 0.1.720575.3.579.2.1258 1958 Unknown [id number] 2.16.84 0.1.898131.3.579.2.1259 1958 Unknown [id number] 2.16.84 0.1.815731.3.579.2.1258 1958 Unknown [id number] 2.16.84 0.1.271109.3.579.2.1259 1958 Unknown [id number] 2.16.84 0.1.318910.3.579.2.1259 1958 Unknown [id number] 2.16.84 0.1.546008.3.579.2.125 1958 Unknown [id number] 2.16.84 0.1.410461.3.579.2.125 1958 Unknown [id number] 2.16.84 0.1.277659.3.579.2.125 1958 Unknown [id number] 2.16.84 0.1.047606.3.579.2.125 1958 Unknown [id number] 2.16.840 .1.448783.3.579.2.1259 Unknown [id number] 2.16.84 0.1.603794.3.579.2.593 Unknown [id number] 2.16.84 0.1.339048.3.579.2.593 Unknown Unknown HCAP/HFA/FAP Active [id number] Unknown [id number] 2.16.8 40.1.029747.3.579.2.531 Social History Date Type Detail Facility Start: 10-04-2021 End: 06-05-2023 Tobacco smoking status Never smoked tobacco (finding) [facility] Tobacco smoking status Never Fishe [facility] Sex Assigned At Male [facility] Never a smoker Never a smoker [facility] Thrasos DO Work Phone: Start: 1960 Sex Assigned At Male F [facility] Functional Status Date Assessment Result Facility 07-29-2023 Functional Status N/A [facility] 06-05-2023 Functional Status N/A [facility] 03-05-2023 Functional Status N/A [facility] 05-08-2022 Functional Status N/A [facility] 03-14-2022 Functional Status N/A [facility] 02-14-2022 Functional Status N/A [facility] 12-11-2021 Functional Status N/A [facility] Clinical Notes 10-04-2021 to 07-31-2023 LaboratoryRadiology Note Date & Type Note Facility 07-31-2023 Note [id number] [facility] 07-29-2023 Hospital Discharge instructions Patient Education [...] unsweetened, w/added ascorbic acid 1 cup 0.5 [place] 1 cup 0.7 Vegetables Cooked Green beans 1 cup 4.0 Carrots 1/2 cup sliced 2.3 Peas 1 cup 8.8 Potato (baked, with skin) 1 medium potato 3.8 Raw [place] (with peel) 1 cucumber 1.5 Lettuce 1 [...] 8.7 Peanuts 1/2 cup 7.9 [facility]. SEEK IMMEDIATE MEDICAL CARE IF: You [...] Information adapted from: ExitCare Patient Information 2009 [employer]. [employer] 2012 http://www.View Inc./contents /cvdgfaqjalus-mktywrm-ikausv-the -basics 07/29/2023 16:40:57 Duodenitis Duodenitis Duodenitis is [...] Follow these instructions at home: Medicines Take jpvo-xze-xwounqa and prescription medicines only as told by [...] or drinks. ?Garlic or onions. ?Spicy foods. ?[place] fruits. ?Tomato-based foods. ?Fatty or fried foods. [...] infection from a type of bacteria. Take crtu-skc-enryujs and prescription medicines only as told by your health care provider. This information is not intended to replace advice given to you by your health care provider. Make sure you discuss any questions you have with your health care provider. Document Revised: 12/12/2021 Document Reviewed: 12/13/2021 [employer]ystems Patient Education 2022 [employer]. 07/29/2023 16:40:51 Hemorrhoids, Fbbr-or-Ivzm Hemorrhoids Hemorrhoids are swollen veins that may [...] 3 times a day. General instructions Take uped-tdz-yqcevku and prescription medicines only as told by [...] provider. Document Revised: 12/13/2021 Document Reviewed: 12/13/2021 [employer] Patient Education 2022 [employer] Inc. 07/29/2023 16:40:37 Endoscopy, Care After Procedure [facility] (CUSTOM) Endoscopy Care After Procedure Please read the [...] blood. Document Released: 01/15/2005 Document Re-Released: 11/25/2006 Active[employer] Patient Information Here@ Networks. 07/29/2023 16:40:34 Colonoscopy, Care After Surgery [facility] (CUSTOM) Colonoscopy Care After Surgery Please read [...] Up Care 06/05/2023 16:35:30 With:Humberto Hernandez Address: [address] [place] [address], [address] [address] [phone] Business (1) When: only if needed Comments:Call for any problems. [facility] 06-05-2023 Hospital Discharge instructions Patient Education 06/05/2023 [...] grapefruit, pineapple, and ida. Vegetables Deep-fried vegetables. Tristanian fries. Any vegetables prepared with added fat. [...] provider. Document Revised: 12/12/2020 Document Reviewed: 12/12/2020 [employer]ystems Patient Education 2022 [employer]. Follow Up Care 03/05/2023 15:29:52 With:Palak Wagner CNP Address: When:1 week Comments:Following EGD/Colonoscopy. 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 Follow these instructions at home: Medicines Take jljj-clr-fgyjmsf and prescription medicines only as told by [...] provider. Document Revised: 04/20/2020 Document Reviewed: 04/20/2020 [employer] Patient Education 2022 [employer]. 03/05/2023 15:04:46 Food Choices for Gastroesophageal Reflux [...] grapefruit, pineapple, and ida. Vegetables Deep-fried vegetables. Tristanian fries. Any vegetables prepared with added fat. [...] provider. Document Revised: 12/12/2020 Document Reviewed: 12/12/2020 [employer] Patient Education 2022 [employer]. 03/05/2023 14:56:07 Colonoscopy, Adult Colonoscopy, Adult A [...] including vitamins, herbs, eye drops, creams, and crxl-qjb-nhykkxd medicines. Any problems you or family members [...] provider tells you to take them. Taking kuog-vih-htvuapi medicines, vitamins, herbs, and supplements. General instructions [...] provider. Document Revised: 05/28/2022 Document Reviewed: 01/24/2022 [employer] [place] Patient Education 2022 [employer]. Follow Up Care 08/28/2022 15:16:00 With:Palak Wagner CNP Address: When:6 months [facility] 05-08-2022 Hospital Discharge instructions Patient [...] including vitamins, herbs, eye drops, creams, and ssjx-ljh-lwfpmek medicines. Any problems you or family members [...] 05/31/2001 Document Revised: 03/26/2018 Document Reviewed: 08/14/2016 [employer] Patient Education 2020 [employer]. 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 Follow these instructions at home: Take zizg-nsd-fypirsj and prescription medicines only as told by [...] 12/31/2017 Document Revised: 05/16/2018 Document Reviewed: 02/18/2018 [employer] Patient Education 2020 [employer]. Follow Up Care 12/11/2021 13:08:43 With:Palak Wagner CNP Address: When:1 month [facility] 12-11-2021 Hospital Discharge instructions Patient [...] per serving. Talk with a diet and food and nutrition services supervisor (dietitian) if you have questions about specific [...] Bulgur wheat. Millet. Quinoa. Bran muffins. Popcorn. [place] wafer crackers. Meats and other proteins [place], kidney, and marcos beans. Soybeans. Split peas. [...] Cream cheese. Sour cream. Fats and oils Kreamer. Beverages Soft drinks. Other foods Cakes and [...] 06/03/2006 Document Revised: 04/07/2018 Document Reviewed: 04/07/2018 [employer] Patient Education 2020 [employer]. 12/11/2021 12:52:04 Hemorrhoids Hemorrhoids Hemorrhoids are swollen [...] 3 times a day. General instructions Take pobp-mmq-cnnjcpf and prescription medicines only as told by [...] 05/31/2001 Document Revised: 10/30/2019 Document Reviewed: 10/23/2018 [employer] Patient Education 2020 [employer]. 12/11/2021 12:52:02 Diverticulosis Diverticulosis Diverticulosis is a [...] overweight. Not getting enough exercise. Smoking. Taking dpho-jwz-mqybcvl pain medicines, like aspirin and ibuprofen. Having [...] health care provider or your diet and food and nutrition services supervisor (dietitian). ?Take a fiber supplement or probiotic, if your health care provider approves. Take zvbc-wok-chyxbdc and prescription medicines only as told by [...] 02/28/2005 Document Revised: 05/16/2018 Document Reviewed: 04/22/2017 [employer] Patient Education 2020 [employer]. Follow Up Care 11/22/2021 09:59:49 With:Palak Wagner CNP Address: When:3 months [facility] 11-15-2021 Hospital Discharge instructions Patient [...] what activities are safe for you. Take vxei-iil-ulzguls and prescription medicines only as told by [...] 12/02/2012 Document Revised: 11/25/2018 Document Reviewed: 11/03/2018 [employer] Patient Education 2020 [employer]. 11/15/2021 12:56:45 Colonoscopy, Care After Surgery [place]am [...] unsweetened, w/added ascorbic acid 1 cup 0.5 Wees[place] 1 cup 0.7 Vegetables Cooked Green beans 1 cup 4.0 Carrots 1/2 cup sliced 2.3 Peas 1 cup 8.8 Potato (baked, with skin) 1 medium potato 3.8 Raw [place] (with peel) 1 cucumber 1.5 Lettuce 1 [...] 8.7 Peanuts 1/2 cup 7.9 Chart from [facility] 2013. SEEK IMMEDIATE MEDICAL CARE IF: You [...] Nutrient Database for Standard Reference. Available at http://www.KSE.usda.gov/fnic/rebecca dcomp/search/. Information adapted from: [facility] Patient Information 2009 [employer]. Horse Collaborative 2012 http://www.View Inc./contents /qzjuatclocqc-clgdcfp-uorbth-the -basics [facility] 11-15-2021 Evaluation + Plan note Extrac maryjane from: Title:Post-anesthesia - General Author:Marvin Dunn DO Date:11/15/21 Plan Transfer/ Discharge: Condition stable. Extracted from: Title:Pre-anesthesia - Endoscopy Author:Marvin Nguyen Jr., DO Date:11/15/21 Plan [place] [employer] Anesthesiologists (ASA) physical status classification: Class II. Anesthetic Preoperative Plan Anesthesia: General. . Anesthetic plan, risks, benefits, and alternatives discussed with the patient and/or family. Patient verbalized understanding. Future Scheduled Tests Laboratory* CBC w/ Auto Diff 10/04/21 * Comprehensive Metabolic Panel 10/04/21 Radiology* US Abdomen Complete 10/04/21 [facility]04-20-2022 Hospital Discharge instructions Patient Education 10/04/2021 15:27:33 [...] including vitamins, herbs, eye drops, creams, and diwu-gpr-dyxbckx medicines. Any problems you or family members [...] 05/31/2001 Document Revised: 03/26/2018 Document Reviewed: 08/14/2016 [employer] Patient Education 2020 [employer]. Follow Up Care 05/16/2021 10:18:44 With:Palak Wagner CNP Address: When:2 to 4 weeks [facility] 04-20-2022 Evaluation + Plan note Future Scheduled Tests Laboratory* CBC w/ Auto Diff 10/04/21 * Comprehensive Metabolic Panel 10/04/21 Radiology* US Abdomen Complete 10/04/21 [facility] evaluation + Plan note Future Appointments Appointment Date:11/15/2021 12:15:00 PM Scheduled Provider: Location:[facility] Appointment Type:Surgery FT Future Scheduled Tests Laboratory* CBC w/ Auto Diff 10/04/21 * Comprehensive Metabolic Panel 10/04/21 Radiology* US Abdomen Complete 10/04/21 [facility] evaluation + Plan note Future Appointments Appointment Date:03/07/2022 12:20:00 PM Scheduled Provider:Palak Wagner CNP Location:[facility] Appointment Type:[facility] Follow Up Future Scheduled Tests Laboratory* CBC w/ Auto Diff 10/04/21 * Comprehensive Metabolic Panel 10/04/21 Radiology* US Abdomen Complete 10/04/21 [facility] evaluation + Plan note Future Appointments Appointment Date:02/21/2022 10:00:00 AM Scheduled [facility]: [facility] Type:US Abdominal/Pelvis (FT) Appointment Date:03/22/2022 03:20:00 PM Scheduled Provider:Palak Wagner CNP Location:[facility] Appointment Type:[facility] Follow Up Future Scheduled Tests Radiology* CT Abdomen/Pelvis w/ Contrast 02/14/22 * US Abdomen Complete 02/21/22 [facility] Evaluation + Plan note Future Appointments Appointment Date:03/22/2022 03:20:00 PM Scheduled Provider:Palak Wagner CNP Location:[facility] Appointment Type:BAD Follow Up Future Scheduled Tests Radiology* CT Abdomen/Pelvis w/ Contrast [facility]ments Appointment Date:08/08/2022 02:40:00 PM Scheduled Provider:Palak Wagner CNP Location:[facility] Appointment Type:[facility] Follow Up Future Scheduled Tests Radiology* CT Abdomen/Pelvis w/ Contrast 02/14/22 [facility] evaluation + Plan note Future Appointments Appointment Date:08/28/2022 02:40:00 PM Scheduled Provider:Palak Wagner CNP Location:[facility] Appointment Type:[facility] Follow Up Future Scheduled Tests Radiology* CT Abdomen/Pelvis w/ Contrast 02/14/22 [facility] Evaluation + Plan note Future Appointments Appointment Date:09/03/2023 02:40:00 PM Scheduled Provider:Palak Wagner CNP Location:[facility] Appointment Type:BAD Follow Up [facility] evaluation + Plan note Future Appointments Appointment Date:07/29/2023 02:45:00 PM Scheduled Provider: Location:[facility] Appointment Type:Surgery FT Future Scheduled Tests Laboratory* Fecal WBC Lactoferrin 06/05/23 * Giardia lamblia, Direct Detection EIA 06/05/23 * O & P Exam, Routine 06/05/23 * Clostridium Difficile PCR 06/05/23 * Enteric Panel by PCR 06/05/23 * CBC w/ Auto Diff 06/05/23 * Comprehensive Metabolic Panel 06/05/23 * Vitamin B12 Level 06/05/23 [facility] evaluation noteNo assessment information available [facility] Work Phone: History of Present illness Narrative* [...] of the merits of dietand weight loss. [facility] 250 DO Work Phone: Hospital course Narrative No data available for this section [facility] Hospital Discharge instructions No data available for this section [facility] Progress note No data available for this section [facility] Reason for referral (narrative) Referred by: Palak Wagner CNP [facility] Summary Purpose Family History No [...] Chief Complaint AAA I71.2 I10 Chief Complaint i71.21 Chief Complaint CECILIO NICKERSON is being seen [...] section and content) DATE CREATED AUTHOR 06/29/2021 [facility] dical Specialist DATE CREATED AUTHOR AUTHOR'S ORGANIZ ATION 08/18/2021 [facility] DATE CREATED AUTHOR AUTHOR'S ORGANIZ ATION 01/24/2023 [facility] DATE CREATED AUTHOR AUTHOR'S ORGANIZ ATION 01/24/2023 [employer] DATE CREATED AUTHOR AUTHOR'S ORGANIZ ATION 10/22/2023 [facility] DATE CREATED AUTHOR AUTHOR'S ORGANIZ ATION 11/17/2023 [facility] DATE CREATED AUTHOR AUTHOR'S ORGANIZ ATION 12/14/2023 [facility] DATE CREATED AUTHOR AUTHOR'S ORGANIZ ATION 01/06/2024 [facility] dical Specialists [employer] Care Teams (unrecognized sec tion and content) Team Status: Inactive Member Role Status Dates Thor Mott II MD Primary Care Provider Active Jose Kimbrough MD Attending Provider Active Team Status: Active Member Role Status Dates Thor Mott II MD Primary Care Provider Active Team Status: Inactive Member Role Status Dates Thor Mott II MD Primary Care Provider Active Start: November 06, 2023 End: November 06, 2023 Jose Kimbrough MD Attending Provider Active Start: November 06, 2023 End: November 06, 2023 Goals (unrecognized section and content) Goals may [...] BE BASED ON THE PRIMARY CLINICAL RECORDS. [facility] [employer] provides no warranty or guarantee of the accuracy or completeness of information in this document.
== END 2024-02-19 20:46 | disposition home or self-care (01) ==
LOC: SLEEP 20:46
PROVIDERS: PCP Nurse Practitioner Adult Health; Visit Provider Nurse Practitioner Adult Health
DX: G47.33 Obstructive sleep apnea (adult) (pediatric) (principal)
CPT/HCPCS: 95811

== ENCOUNTER 2024-06-07 14:37 | Emergency (ER) | payer MEDICARE, MEDICAID, SELFPAY ==
[2024-06-07 14:42] VITALS: BP 133/68; PULSE 56; TEMP 36.7; O2SAT 97; BMI 28.7
--- OUTSIDE RECORDS SUMMARY | 2024-06-07 14:47 | XMS_ITS | CCD ---
Author Organization [facility] Care Team Providers Care Trial Judge Name Role Phone CHAO EDWARDSIMA Consulting Unavailable MARIA L, DELANEY Admitting Unavailable PANTERA, DR MITCHELL Primary Care Unavailable LOWE, DELANEY Attending Unavailable LOWE, DELANEY Consulting Unavailable SAROJ, SAVI Attending Unavailable AHMED, ADÁN Consulting Unavailable MOTT, DR MITCHELL Primary Care Unavailable SAROJ, SAVI Admitting Unavailable Rojelio, Cj Consulting Unavailable SAROJ, SAVI Consulting Unavailable PANTERA, DR MITCHELL Admitting Unavailable MOTT, DR MITCHELL Attending Unavailable PANTERA, DR MITCHELL Consulting Unavailable PANTERA, DR MITCHELL [...] Dr. Jose Steiner Attending Unavailable Luis E DAVILA, Dr. Jose Steiner Referring Unavailable Palak Wagner Admitting Unavailable Palak Wagner Attending Unavailable Kristy Palak A Attending Unavailable Kristy, Palak A Attending Unavailable Kenan SORIA Attending Unavailable Humberto Hernandez Admitting Unavaila ble Humberto Hernandez Attending UnavailHumberto Faulkner Referring UnavailLOLA Morrow Primary Care Provider [phone] MD Jose Kimbrough Attending Provider Jose Kimbrough Attending Unavail able Jose Kimbrough Admitting Unavail Thor Sandoval Primary Care Unavailable JOSE KIMBROUGH Attending Unavailable THOR MOTT Primary Care Unavailable Thor Mott MD Unavailable [phone] Thor Mott MD Primary Care Provider Saturday B[employer]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 VAULT 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, Radha Unavailable SOLOMON FOUNTAIN Attending Unavailable THOR MOTT Attending Unavailable THOR MOTT Attending Unavailable JAYE MACK Attending Unavailable SOLOMON FOUNTAIN Attending Unavailable JANA QUEZADA Attending Unavailable THOR MOTT Attending Unavailable THOR MOTT Attending Unavailable SERGEY CHAWLA Attending Unavailable THOR MOTT Referring Unavailable JAYE MACK Attending Unavailable SOLOMON FOUNTAIN Attending Unavailable THOR MOTT Attending Unavailable SOLOMON FOUNTAIN Attending Unavailable JAYE MACK Attending Unavailable THOR MOTT Attending Unavailable Thor Mott MD Primary Care Provider Allergies Allergy Classification Reported Allergen(s) Allergy Type Date of Onset Reaction(s) Facility (7 sources) Shellfish; Translations: [shellfish] Drug allergy (disorder) 6 Hives [facility] (2 sources) Shellfish; Translations: [shellfish derived] Allergy to substance 7 Swelling of Lip/Tongue/Thro at [facility] (8 sources) Shellfish; Translations: [shellfish] [facility] (9 sources) Shellfish Allergy to substance 4 Anaphylaxis, Hives, Rash [facility] (9 sources) Mixed Ragweed Propensity to adverse reactions 1 [facility] Work Phone: Medications Current Medications Medication Drug Class(es) Dates Sig (Normalized) Sig (Original) [id number] 200 actuat albuterol 0.09 mg/actuat metered dose inhaler (9 sources) beta2-Adrenergic Agonist take 1 puff(s) by inhalation every four hours albuterol HFA 90 mcg/act inhaler Inhale 1 puff every 4 (four) hours if needed. Active benztropine mesylate 0.5 mg oral tablet (20 sources) Anticholinergic, Antihistamine Start: 08-14-2023 take 1 tablet by mouth in the morning benztropine (Cogentin) 0.5 MG tablet Take 0.5 mg by mouth in the morning and 0.5 mg before bedtime. 08/14/2023 Active Start: 03-14-2022 take 1 tablet by taryn th twice daily benztropine 0.5 mg oral tablet 0.5 mg = 1 tab(s), Oral, BID, Refills(s) 0, Other (see comment) Start Date: 03/14/22 Status: Ordered Start: 10-10-2016 take 1 mg by mouth once daily benztropine 1 mg, Oral, Daily, Refills(s) 0, Psychosis Start Date: 10/10/16 Status: Ordered take 1 tablet by taryn th twice daily as needed benztropine (Cogentin) 1 mg tablet Take 1 tablet (1 mg) by mouth 2 times a day as needed. Active Fiber Tab (2 sources) Start: 06-05-2023 take 1 tablet by taryn th twice daily Fiber Tabs 1,250 mg, Oral, BID, Refills(s) 0, Constipation Start Date: 06/05/23 Status: Ordered Start: 06-05-2023 Fiber Tabs Ref ills(s) 0 Start Date: 06/05/23 Status: Ordered dicyclomine hydrochloride 10 mg oral capsule (17 sources) Anticholinergic Start: 11-26-2023 take 1 capsule by mouth every eight hours dicyclomine (Bentyl) 10 MG capsule Indications: Generalized abdominal pain Take 1 capsule (10 mg) by mouth every 8 (eight) hours if needed (abdominal pain) 60 capsule 5 11/26/2023 Active Start: 06-05-2023 take 1 capsule by mo [facility] four times daily as needed for muscle spasms dicyclomine 10 mg Cap 10 mg = 1 cap(s), Oral, QID, PRN Spasm, Refills(s) 0 Start Date: 06/05/23 Status: Ordered Start: 10-26-2020 End: 10-21-2021 take 1 capsule by mouth twice daily dicyclomine 10 mg Cap 10 mg = 1 cap(s), Oral, BID, X 90 day(s), # 180 cap(s), Refills(s) 3, [facility], cm, 10/26/20 15:36:00 EDT, Height/Length Dosing, 82.8, kg, 10/26/20 15:36:00 EDT, Weight Dosing Start Date: 10/26/20 Stop Date: 10/21/21 Status: Ordered famotidine 20 mg oral tablet (16 sources) Histamine-2 Receptor Antagonist Start: 11-25-2023 take 1 tablet by mouth once daily famotidine (Pepcid) 20 MG tablet Indications: Gastroesophageal reflux disease, unspecified whether esophagitis present Take 1 tablet (20 mg) by mouth Daily 100 tablet 4 11/25/2023 Active Start: 06-05-2023 End: 09-03-2023 take 1 tablet by mouth once daily at bedtime Pepcid 40 mg Tab 40 mg = 1 tab(s), Oral, Once a day (at bedtime), X 90 day(s), # 90 tab(s), Refills(s) 0, Pharmacy: [facility], 167, cm, 06/05/23 15:25:00 EST, Height/Length Dosing, 80.1, kg, 06/05/23 15:25:00 EST, Weight Dosing Start Date: 06/05/23 Stop Date: 09/03/23 Status: Ordered Start: 03-05-2023 End: 09-01-2023 take 1 tablet by mouth once daily at bedtime Pepcid 20 mg Tab 20 mg = 1 tab(s), Oral, Once a day (at bedtime), X 90 day(s), # 90 tab(s), Refills(s) 1, [facility], cm, 03/05/23 14:46:00 EDT, Height/Length Dosing, 81.8, kg, 03/05/23 14:46:00 EDT, Weight Dosing Start Date: 03/05/23 Stop Date: 3/17/24 Status: Ordered Start: 05-08-2022 End: 08-06-2022 take 1 tablet by mouth once daily at bedtime Pepcid 20 mg Tab 20 mg = 1 tab(s), Oral, Once a day (at bedtime), X 90 day(s), # 90 tab(s), Refills(s) 0, Pharmacy: [facility], 167, cm, 05/08/22 15:44:00 EST, Height/Length Dosing, 80.1, kg, 05/08/22 15:44:00 EST, Weight Dosing Start Date: 05/08/22 Stop Date: 08/06/22 Status: Ordered Fish Oils (10 sources) Start: 09-04-2017 take 1000 mg by mouth twice daily Fish Oil 1,000 mg, Oral, BID, Refill(s) 0, Prophylaxis Start Date: 09/04/17 Status: Ordered iloperidone 6 mg oral tablet (20 sources) Atypical Antipsychotic Start: 04-04-2021 take 0.5 tablet by mouth twice daily iloperidone (Fanapt) 6 mg tablet Take 0.5 tablets (3 mg) by mouth 2 times a day. 04/04/2021 Active Start: 10-10-2016 Fanapt 6 MG ta blet Take 6 mg by mouth. 08/08/2022 Active meloxicam 15 mg oral tablet (20 sources) Nonsteroidal Anti-inflammatory Drug Start: 02-19-2024 take 1 tablet by mouth once daily meloxicam (Mobic) 15 MG tablet Indications: Tension-type headache, unspecified, not intractable TAKE 1 TABLET BY MOUTH EVERY DAY 30 tablet 3 02/19/2024 Active Start: 08-08-2021 take 1 tablet by taryn once daily meloxicam (Mobic) 15 mg tablet Take 1 tablet (15 mg) by mouth once daily. 08/08/2021 Active Start: 11-03-2019 meloxicam 7.5 mg oral tablet Refills(s) 0 Start Date: 11/03/19 Status: Ordered Methocarbamol (8 sources) Muscle Relaxant Start: 05-08-2022 methocarbamol Oral, TID, Refills(s) 0, Spasm Start Date: 05/08/22 Status: Ordered Start: 05-08-2022 methocarbamol Refills(s) 0 Start Date: 05/08/22 Status: Ordered End: 12-09-2023 take 1 tablet by mouth twice daily as needed for muscle spasms methocarbamol (Robaxin) 750 mg tablet Take 1 tablet (750 mg) by mouth 2 times a day as needed for muscle spasms. 12/09/2023 Discontinued (Discontinued by another clinician) Miralax 3350 17 gram packet (3 sources) Start: 01-21-2020 Miralax 3350 1 7 gram packet 17 gram, Oral, Daily, # 30 EA, Refills(s) 1, Pharmacy: [facility], 167.64, cm, 01/21/20 15:03:00 EDT, Height/Length Measured, 77.7, kg, 01/21/20 15:03:00 EDT, Weight Measured Start Date: 01/21/20 Status: Ordered omeprazole 40 mg delayed release oral capsule (20 sources) Proton Pump Inhibitor Start: 09-27-2023 End: 09-26-2024 take 1 capsule by mouth in the morning omeprazole (PriLOSEC) [address] capsule Indications: Gastroesophageal reflux disease, unspecified whether esophagitis present Take 1 capsule (40 mg) by mouth in the morning and 1 capsule (40 mg) in the evening. Take with meals. 200 capsule 3 09/27/2023 09/26/2024 Active Start: 06-05-2023 omeprazole 40 mg Cap-DR 40 mg = 1 cap(s), Oral, Daily, Refills(s) 0, Control of stomach acid Start Date: 06/05/23 Status: Ordered Start: 01-27-2021 End: 09-01-2023 take 1 capsule by mouth once daily omeprazole 20 mg Cap-DR 20 mg = 1 cap(s), Oral, Daily, X 90 day(s), # 90 cap(s), Refills(s) 1, Pharmacy: [facility], 167, cm, 03/05/23 14:46:00 EDT, Height/Length Dosing, 81.8, kg, 03/05/23 14:46:00 EDT, Weight Dosing Start Date: 03/05/23 Stop Date: 09/01/23 Status: Ordered omeprazole 20 mg Cap-DR (3 sources) Start: 01-27-2021 take 1 capsule by mouth once daily omeprazole 20 mg Cap-DR 20 mg = 1 cap(s), Oral, Daily, # 30 cap(s), Refills(s) 5, Pharmacy: [facility], 167, cm, 10/26/20 15:36:00 EDT, Height/Length Dosing, 82.8, kg, 10/26/20 15:36:00 EDT, Weight Dosing Start Date: 01/27/21 Status: Ordered ondansetron 4 mg disintegrating oral tablet (9 sources) Serotonin-3 Receptor Antagonist Start: 10-19-2023 take 1 tablet by mouth every eight hours as needed for nausea and vomiting ondansetron ODT (Zofran-ODT) 4 MG disintegrating tablet Take 4 mg by mouth every 8 (eight) hours if needed for nausea or vomiting 10/19/2023 Active OXcarbazepine 300 mg oral tablet (20 sources) Anti-epileptic Agent Start: 05-12-2024 OXcarbazepine (Trileptal) 300 MG tablet Indications: Chronic tension-type headache, not intractable TAKE 1 AND 1/2 TABLETS BY MOUTH TWICE A DAY 90 tablet 05/12/2024 Active Start: 02-10-2024 OXcarbazepine (Trileptal) 300 MG tablet Indications: Chronic tension-type headache, not intractable TAKE 1 AND 1/2 TABLETS BY MOUTH TWICE A DAY 90 tablet 3 02/10/2024 Active Start: 04-17-2021 take 1.5 tablets by mouth once daily at bedtime OXcarbazepine (Trileptal) 300 mg tablet Take 1.5 tablets (450 mg) by mouth once daily at bedtime. 04/17/2021 Active Start: 04-17-2021 take 2 tablets by mo [facility] at bedtime OXcarbazepine 300 MG Oral Tablet [...] 0 Refills: 0 Ordered: 06-Dec-2021 DO Active polyethylene glycol 3350 36152 mg powder for oral solution (10 sources) [...] Status: Ordered simvastatin 20 mg oral tablet (20 sources) HMG-CoA Reductase Inhibitor Start: 04-15-2024 take 1 tablet by mouth in the evening simvastatin (Zocor) 20 MG tablet Indications: Mixed hyperlipidemia (CMS/HCC) Take 1 tablet (20 mg) by mouth in the evening 90 tablet 3 04/15/2024 Active Start: 10-10-2016 take 1 tablet by taryn once daily in the evening simvastatin (Zocor) 20 MG tablet Indications: Mixed hyperlipidemia (CMS/HCC) TAKE ONE TABLET BY MOUTH ONCE DAILY IN THE EVENING 30 tablet 11 04/05/2023 Active tiZANidine 4 mg oral tablet (20 sources) Central alpha-2 Adrenergic Agonist Start: 12-30-2023 take 1 tablet by mouth at bedtime tiZANidine (Zanaflex) 4 MG tablet Indications: Cervicalgia TAKE 1/2-1 TABLET BY MOUTH AT BEDTIME 30 tablet 2 12/30/2023 Active Start: 04-17-2021 take 0.5-1 tablets b y mouth twice daily tiZANidine HCl - 4 MG Oral Tablet TAKE HALF TO ONE TABLET TWICE A DAY FOR 30 DAYS Quantity: 60 Refills: 0 Ordered: 19-Jul-2021 DO Start : 17-Apr-2021 Active Start: 10-06-2018 take 1 tablet by taryn th once daily tiZANidine (Zanaflex) 4 mg tablet Take 1 tablet (4 mg) by mouth once daily. 04/17/2021 Active topiramate 50 mg oral tablet (13 sources) Start: 03-17-2024 End: 06-15-2024 take 1 tablet by mouth in the morning topiramate 50 MG tablet Indications: Tremor , Cervicogenic headache Take 50 mg by mouth in the morning and 50 mg before bedtime. 60 tablet 2 03/17/2024 06/15/2024 Active Start: 03-09-2024 End: 03-17-2024 take 1 tablet by mouth twice daily topiramate (Topamax) 25 MG tablet Indications: Tremor TAKE 1 TABLET BY MOUTH TWICE A DAY 60 tablet 3 03/09/2024 03/17/2024 Discontinued (Reorder) Start: 02-19-2024 take 1 tablet by taryn th once daily at bedtime topiramate (Topamax) 25 MG tablet Indications: Tremor TAKE 1 TABLET BY MOUTH EVERY DAY AT BEDTIME 30 tablet 3 02/19/2024 Active Start: 03-05-2023 take 1 tablet by taryn th once daily Topamax 25 mg Tab 25 mg = 1 tab(s), Oral, Daily, Refills(s) 0, Headache Start Date: 03/05/23 Status: Ordered venlafaxine 75 mg oral tablet (20 sources) Serotonin and Norepinephrine Reuptake Inhibitor Start: 10-10-2016 take 1 tablet by mouth once daily before mealtime venlafaxine (Effexor) 75 mg tablet Take 1 tablet (75 mg) by mouth once daily in the morning. Take before meals. 06/21/2021 Active vitamin B12 (11 sources) Vitamin B12 Start: 06-05-2023 Vitamin B12 Oral, Daily, Refills(s) 0, Prophylaxis Start Date: 06/05/23 Status: Ordered Start: 06-05-2023 Vitamin B12 Re fills(s) 0 Start Date: 06/05/23 Status: Ordered Start: 06-05-2023 take 1 tablet by taryn th once daily cyanocobalamin (Vitamin B-12) 100 MCG tablet Take 100 mcg by mouth Daily 06/05/2023 Active Completed/Discontinued Medications Medication Drug Class(es) Dates Sig (Normalized) Sig (Original) psyllium 525 mg oral capsule (11 sources) Start: 10-04-2021 End: 01-02-2022 take 8 capsules by mouth once daily Metamucil 525 mg oral capsule 1,575 mg = 3 cap(s), Oral, Daily, with at least 8 ounces of water, X 90 day(s), # 270 cap(s), Refills(s) 0, Pharmacy: [facility], 167, cm, 10/04/21 15:39:00 EDT, Height/Length Dosing, 79.6, kg, 10/04/21 15:39:00 EDT, Weight Dosing Start Date: 10/04/21 Stop Date: 01/02/22 Status: Ordered Start: 10-04-2021 End: 12-09-2023 take 3 capsules by mouth in the morning psyllium (Metamucil) 0.4 gram capsule Take 3 capsules by mouth early in the morning.. 10/04/2021 12/09/2023 Discontinued (Discontinued by another clinician) Start: 10-04-2021 Daily Fiber 40 0 MG Oral Capsule TAKE THREE CAPSULES BY MOUTH DAILY WITH AT LEAST 8 OUNCES OF WATER Quantity: 270 Refills: 0 Ordered: 04-Oct-2021 DO Start : 04-Oct-2021 Active Problems Active Problems Problem Classification Problem Date Documented Da te Episodic/Chronic Acquired foot deformities (1 source) Acquired deformity of toe of right foot; Translations: [Acquired deformities of toe(s), unspecified, right foot] 05-17-2024 Episodic Anxiety disorders (18 sources) Anxiety; Translations: [Anxiety state, unspecified] Onset: 4 10-16-2023 Chronic Aortic; peripheral; and visceral artery aneurysms (20 sources) Aortic aneurysm of unspecified site, without rupture; Translations: [Aneurysm of ascending aorta] Onset: 5 10-21-2019 Chronic Chronic kidney disease (9 sources) Chronic kidney disease stage 3; Translations: [Stage 3 chronic kidney disease (HCC)] Onset: 0 03-22-2023 Chronic Disorders of lipid metabolism (20 sources) Hyperlipidemia; Translations: [Other and unspecified hyperlipidemia] Onset: 5 Chronic Diverticulosis and diverticulitis (20 sources) Diverticula of intestine; Translations: [Diverticulosis of intestine, part unspecified, without perforation or abscess without bleeding] Onset: 2 Chronic Esophageal disorders (20 sources) Gastroesophageal reflux disease; Translations: [Gastroesophageal reflux disease without esophagitis] Onset: 5 01-21-2020 Chronic Essential hypertension (20 sources) Essential hypertension; Translations: [Unspecified essential hypertension] Onset: 4 Chronic Gastritis and duodenitis (9 sources) Atrophic gastritis; Translations: [Chronic atrophic gastritis without bleeding] Onset: 5 03-22-2023 Chronic Headache; including migraine (9 sources) Tension-type headache; Translations: [Tension-type headache, unspecified, not intractable] Onset: 9 12-18-2023 Chronic Hemorrhoids (11 sources) Hemorrhoids; Translations: [Unspecified hemorrhoids] Onset: 2 Episodic Immunizations and screening for infectious disease (3 sources) Patient encounter status; Translations: [Other specified vaccination] Resolved: 3 04-30-2024 Episodic Miscellaneous mental health disorders (13 sources) Mental disorder 10-21-2019 Chronic Mood disorders (20 sources) Depressive disorder; Translations: [Depression] Onset: 3 10-21-2019 Chronic Mycoses (2 sources) Onychomycosis; Translations: [Tinea unguium] 05-17-2024 Episodic Osteoarthritis (20 sources) Osteoarthritis; Translations: [Unspecified osteoarthritis, unspecified site] Onset: 3 10-21-2019 Chronic Other aftercare (1 source) Other moth exterminator (current) drug therapy; Translations: [OTH NURSING HOME CURRENT DRUG THERAPY] Onset: 2 Episodic Other and unspecified benign neoplasm (18 sources) History of polyp of colon; Translations: [Personal history of colonic polyps] Onset: 2 Episodic Other connective tissue disease (1 source) Diastasis of muscle; Translations: [Separation of muscle (nontraumatic), other site] Onset: 2 Episodic Other connective tissue disease (2 sources) Pain of toe of left foot; Translations: [Pain in left toe(s)] 05-17-2024 Episodic Other connective tissue disease (2 sources) Pain of toe of right foot; Translations: [Pain in right toe(s)] 05-17-2024 Episodic Other disorders of stomach and duodenum (13 sources) Gastroparesis syndrome 01-21-2020 Episodic Other gastrointestinal disorders (20 sources) Chronic idiopathic constipation; Translations: [Chronic idiopathic constipation] Onset: 2 Chronic Other gastrointestinal disorders (9 sources) Irritable bowel syndrome; Translations: [Irritable bowel syndrome without diarrhea] Onset: 3 05-08-2023 Chronic Other gastrointestinal disorders (1 source) H/O: gastrointestinal disease; Translations: [Personal history of other diseases of the digestive system] Onset: 2 Episodic Other gastrointestinal disorders (1 source) Digestive system finding; Translations: [Other specified symptoms and signs involving the digestive system and abdomen] Onset: 2 Episodic Other gastrointestinal disorders (9 sources) Irregular bowel habits 02-14-2022 Episodic Other nervous system disorders (1 source) Chronic pain; Translations: [Other chronic pain] Onset: 4 Chronic Other nervous system disorders (9 sources) Neuropathy; Translations: [Polyneuropathy, unspecified] Onset: 4 12-23-2023 Chronic Other nervous system disorders (4 sources) [...] (BMI) 27.0-27.9, adult] Onset: 4 Episodic Other upper respiratory infections (18 sources) Chronic maxillary sinusitis; Translations: [Chronic maxillary sinusitis] Onset: 9 03-22-2023 Chronic Other upper respiratory infections (1 source) Acute pharyngitis, unspecified; Translations: [ACUTE PHARYNGITIS UNSPECIFIED] Onset: 1 Episodic Pneumonia (except that caused by tuberculosis or sexually transmitted disease) (1 source) Pneumonia, unspecified organism; Translations: [PNEUMONIA UNSPECIFIED ORGANISM] Onset: 2 Episodic Residual codes; unclassified (20 sources) Sleep apnea; Translations: [Unspecified sleep apnea] Onset: 4 10-21-2019 Chronic Residual codes; unclassified (12 sources) Obstructive sleep apnea syndrome; Translations: [Obstructive sleep apnea (adult) (pediatric)] Onset: 5 12-18-2023 Chronic Residual codes; unclassified (9 sources) Hypersomnia; Translations: [Hypersomnia, unspecified] Onset: 4 12-23-2023 Chronic Residual codes; unclassified (1 source) Pain, unspecified; Translations: [PAIN UNSPECIFIED] Onset: 1 Episodic Residual codes; unclassified (2 sources) Other specified health status; Translations: [Other specified health status] Onset: 4 Episodic Schizophrenia and other psychotic disorders (9 sources) Chronic schizoaffective schizophrenia; Translations: [Schizoaffective disorder, unspecified] Onset: 5 03-22-2023 Chronic Sickle cell anemia (18 sources) Sickle cell trait; Translations: [Sickle-cell trait] Onset: 5 03-22-2023 Chronic Spondylosis; intervertebral disc disorders; other back problems (18 sources) Cervical spondylosis; Translations: [Spondylosis without myelopathy or radiculopathy, cervical region] Onset: 4 09-19-2023 Chronic Unclassified (2 sources) COUGH, UNSPECIFIED; Translations: [...] Date Documented Da te Episodic/Chronic Abdominal hernia (20 sources) Umbilical hernia; Translations: [Umbilical hernia without obstruction or gangrene] Onset: 2 Episodic Abdominal pain (20 sources) Abdominal pain; Translations: [Unspecified abdominal pain] Onset: 2 Episodic Conditions associated with dizziness or vertigo (18 sources) Lightheadedness; Translations: [Dizziness and giddiness] Onset: 3 12-18-2023 Episodic Deficiency and other anemia (13 sources) Anemia; Translations: [Anemia, unspecified] Onset: 3 Episodic Diseases of mouth; excluding dental (9 sources) Burning mouth syndrome ; Translations: [Glossodynia] Onset: 1 03-22-2023 Episodic Headache; including migraine (20 sources) Frequent headache; Translations: [Frequent headaches] Onset: 8 03-22-2023 Episodic Nonspecific chest pain (13 sources) Chest pain, unspecified; Translations: [Chest pain] Onset: 2 Episodic Other and unspecified benign neoplasm (20 sources) Polyp of colon; Translations: [Polyp of colon] Onset: 3 10-21-2019 Episodic Other circulatory disease (18 sources) History of hypotension; Translations: [Personal history of other diseases of circulatory system] Onset: 4 10-16-2023 Episodic Other circulatory disease (9 sources) Orthostatic hypotension; Translations: [Orthostatic hypotension] Onset: 5 03-22-2023 Episodic Other connective tissue disease (16 sources) Diastasis recti; Translations: [Separation of muscle (nontraumatic), other site] Onset: 3 03-14-2022 Episodic Other connective tissue disease (9 sources) Fibromyalgia; Translations: [Fibromyalgia] Onset: 5 03-22-2023 Episodic Other gastrointestinal disorders (18 sources) H/O: abdominal hernia; Translations: [Personal history of other diseases of the digestive system] Onset: 3 Resolved: 3 02-14-2022 Episodic Other gastrointestinal disorders (12 sources) Altered bowel function; Translations: [Change in bowel habit] Onset: 3 Episodic Other nervous system disorders (11 sources) Tremor; Translations: [Tremor, unspecified] Onset: 4 10-07-2023 Episodic Other nutritional; endocrine; and metabolic disorders (20 sources) Overweight in adulthood with body mass index of 25 or more but less than 30; Translations: [Overweight] Onset: 3 03-14-2022 Episodic Other screening for suspected conditions (not mental disorders or infectious disease) (13 sources) Abnormal electrocardiogram [ECG] [EKG]; Translations: [Blood chemistry abnormal] Onset: 2 Episodic Other upper respiratory disease (9 sources) Deviated nasal septum; Translations: [Deviated nasal septum] Onset: 9 03-22-2023 Episodic Residual codes; unclassified (9 sources) Amnesia; Translations: [Other amnesia] Onset: 4 12-23-2023 Episodic Residual codes; unclassified (11 sources) Never smoked any substance; Translations: [Other specified health status] Onset: 4 01-08-2024 Episodic Spondylosis; intervertebral disc disorders; other back problems (18 sources) Neck pain; Translations: [Cervicalgia] Onset: 9 03-22-2023 Episodic Thyroid disorders (9 sources) Sick-euthyroid syndrome; Translations: [Sick-euthyroid syndrome] Onset: 5 03-22-2023 Episodic Unclassified (1 source) COUGH, UNSPECIFIED; Translations: [COUGH, UNSPECIFIED] Onset: 2 Unclassified (1 source) CONTACT W/AND (SUSP) EXPOS COVID-19; Translations: [CONTACT W/AND (SUSP) EXPOS COVID-19] Onset: 1 Unclassified (6 sources) Never smoked tobacco; Translations: [Never a smoker] Unclassified (1 source) Aneurysm of the ascending aorta, without rupture (CMS-HCC); Translations: [Aneurysm of the ascending aorta, without rupture (CMS-HCC)] Onset: 4 Unclassified (1 source) Onset: 4 12-09-2023 Results Test Name Value Interpretation Reference Range Facility CT angio [place] 11-06-2023 CT angio chest [facility] Main [place] [address] [place] [address] CT Scan Report Signed Patient: Cecilio Nickerson MR#: [id number] : 1960 Acct:[id number] Age/Sex: 63 / M ADM Date: 11/06/23 Loc: CT Room: Type: [facility] Attending Dr: Jose Kimbrough MD Copies to: [...] Jana Wakefield M.D.11/06/2023 5:22 PM Dictation Location: [place] [address] Transcribed By: [facility] 11/06/23 1722 Dictated By: Jana Wakefield MD 11/06/23 1713 Signed By: 11/06/23 172 Normal [facility] ISTAT XRay CREon 11-06-2023 ISTAT GFR > 60.0 Normal [facility] Comment on above: Result Comment: PERF ORMED BY: [place] [address] PATHOLOGIST TRIAL JUDGE ESTEBAN RUIZ M.D. Performed By: #### I SCRE #### [facility] [address] [place] [address] No Panel InformationOrdered By: Jose Kimbrough on 11-06-2023 Bedside Estimated GFR (eGFR) > 60.0 [facility] Whole blood creatinine measu rementOrdered By: Jose Kimbrough on 11-06-2023 Creatinine [Mass/Vol] 1.2 mg/dL Normal 0.6-1.3 [facility] Comment on above: ER/ESD physician is notified/shown all ISTAT results.Critical values may be confirmed by laboratory testing ifdeemed necessary by ER attending doctor. Result Comment: ER/E SD physician is notified/shown all ISTAT results. Critical values may be confirmed by laboratory testing if deemed necessary by ER attending doctor. Performed By: #### I SCRE #### [facility] [address] [place] [address] Consultation Noteon 10-18-19 Consultation Note [id number]#1.00TIFF Normal [facility] Consultation Note [id number]#1.00TIFF Normal [facility] Consultation Noteon 10-17-19 Consultation Note [id number]#1.00TIFF Normal [facility] IntraOperative Documentson 0 08-07-2023 IntraOperative Documents [id number]#1.00TIFF Normal [facility] Postoperative Documentson Postoperative Documents [id number]#1.00TIFF Normal [facility] Reminderson 08-05-2023 Reminders - From: Janes Blanco To: [facility] - Reminders/Recalls; Sent: 08/05/2023 15:13:53 EST Show up: 07/18/2033 15:13:00 EST Subject: Ambulatory Reminder Due Date/Time: 07/29/2033 15:13:00 EST Reminder/Recall Repeat colonoscopy in 10 years(2033) Normal [facility] Result Letter Officeon 08-05 Result Letter Office (Inserted Image. Un able to display) August 05, 2023 CECILIO NICKERSON [address] [place] [address] : 1960 Below is a summary of [...] if you wish to make an appointment. [facility] [phone] [facility] Consenton 07-31-2023 Consent [id number]#1.00TIFF [facility] Discharge Instructionson Discharge Instructions [id number]#1.00TIFF [facility] Progress Note-Physicianon Progress Note-Physician Patient: CECILIO NICKERSON Age: 63 years Sex: Male : 1960 Associated Diagnoses: None Author: MD Em, Mikala F Postoperative Information Postoperative disposition: Postoperative disposition: To PACU. Optimetrix number: Optimetrix number [id number]. Anesthetic utilized: General. Health Status Allergies: Allergic [...] meets criteria ( To home ). Normal [facility] Comment on above: Result Comment: Elec tronically Signed By: MD Em, Mikala Townsend\.br\Date and Time Signed: 07/31/23 11:48 EST Main OR Intraoperative Recor don 07-30-2023 Main OR Intraoperative Record IntraOp Document Type FT Summary Primary Physician: Humberto Hernandez MD Finalized Date/Time: 07/30/23 10:47:30 Pt. Name: CECILIO NICKERSON Nicolas Argueta/Sex: 1960 Male Med Rec #: [id number] Physician: Humberto Hernandez MD Financial #: [id number] Pt. Type: O Room/Bed: / Admit/Disch: 07/29/23 [...] at 1612./EDDIE CAZARES Colonoscopy start time at 1615./SAGE,RN 07/30/23 Chart opened to review and send charges LRoth CSFA Case Attendance FT Entry 1 Entry 2 Entry 3 Case Attendee Truong Muñoz RN, Airam Sanchez Role Performed Anesthesiologist Production Repairer - Primary Staff - Other [employer] Time In 07/29/23 16:04:00 07/29/23 16:04:00 07/29/23 16:04:00 Time Out 07/29/23 16:33:00 02/12/24 16:33:00 07/29/23 16:33:00 Procedure EGD AND COLONOSCOPY(.) [...] and tissue Entry 1 Skin Integrity Intact, [place], Warm, and Skin Abnormality No Dry Outcomes Met? Yes Last Modified By: Bertha Charles RN 07/29/23 16:09:56 Post-Care Text: The patient is free from signs and symptoms of injury caused by extraneous objects Patient Positioning FT Pre-Care Text: Identifies physical alterations that require additional precautions for procedure-specific positioning, v (more content not included)... Normal [facility] Progress Note-Physicianon Progress Note-Physician Patient: CECILIO NICKERSON [...] Low vitamin B12 level / SNOMED CT 8143951779 / Confirmed Sleep apnea / SNOMED CT 121381038 / Confirmed Reducible umbilical hernia / SNOMED CT 530720559 / Confirmed Colon polyps / SNOMED CT 456946945 / Confirmed BMI 28.0-28.9,adult / SNOMED CT 1025698558 / Confirmed Osteoarthritis / SNOMED CT 6947665139 / Confirmed Psychiatric disorder / SNOMED CT 404605960 / Confirmed Left-sided chest pain / SNOMED CT 784717939 / Confirmed Irregular bowel habits / SNOMED CT 2933032701 / Confirmed History of colon polyps / SNOMED CT 4259255968 / Confirmed Hemorrhoids / SNOMED CT 095247839 / Confirmed History of umbilical hernia / SNOMED CT 994883127 / Confirmed Gastroparesis / SNOMED CT 795268183 / Confirmed GERD (gastroesophageal reflux disease) / SNOMED CT 061276684 / Confirmed Epigastric hernia / SNOMED CT 699999162 / Confirmed Diverticulosis / SNOMED CT 5366787111 / Confirmed Diastasis recti / SNOMED CT 375125678 / Confirmed Depression / SNOMED CT 12960428 / Confirmed Chronic idiopathic constipation / SNOMED CT 010432822 / Confirmed Ascending aortic aneurysm / SNOMED CT 8937282520 / Confirmed Anemia / SNOMED CT 476180735 / Confirmed Change in bowel habits / SNOMED CT 565963744 / Confirmed Abdominal pain / SNOMED CT 90461159 / Confirmed Canceled: Blood in diaper / SNOMED CT 080667576 Canceled: Change in bowel habits / SNOMED CT 016049278 Histories Procedure history: Esophagogastroduodenoscopy (293465367) on 11/15/2021 at 61 Years. Comments: 11/15/2021 14:24 EDT - Gerry RN, Danita normal Colonoscopy (312322782) on 11/15/2021 at 61 Years. Comments: 11/15/2021 14:24 EDT - Danita Garrett RN diverticulosis t/o colon Cholecystectomy; (40725). Colonoscopy (938926998). Social History Social & Psychosocial Habits Alcohol 06/05/2023 Risk Assessment: Denies Alcohol Use Substance Abuse 06/05/2023 Risk Assessment: Denies Substance Abuse Tobacco 06/05/2023 Risk Assessment: Denies Tobacco Use 06/05/2023 Tobacco Use: Never (less than 100 in l Smokeless tobacco use: Never . Physical Examination Airway: Mallampati classification: II (soft palate, fauces, uvula visible). Respiratory: adequate air exchange. Cardiovascular: Regular rhythm. Plan [place] [employer] Anesthesiologists (ASA) physical status classification: Class II. Anesthetic Preoperative Plan: Anesthesia General. [facility] Comment on above: Result Comment: Elec tronically Signed By: Ayush Borja Jr, DO\.jamel\Date and Time Signed: 07/30/23 15:58 EST Consent for Treatmenton 07-18 Consent for Treatment [id number]#1.00TIFF [facility] Discharge Instructionson Discharge Instructions CECILIO NICKERSON Nicolas :1960 Visit Date:07/29/2023 Inpatient Discharge Instructions Your [...] Persistent or heavy bleeding [facility] Information [facility] Discharge Instructions Discharge Instructions New Follow Up Appointments after Discharge Follow Up with Humberto Hernandez When: Only if needed Comments: Call for any problems. Where: [address] [place] [address], [facility] [address] [address]- [phone] Business (1) Medications What How Much When [...] pressure ins (more content not included)... Normal [facility] Comment on above: Result Comment: Elec tronically Signed By: Rodrigue MORGAN, Michell\.jamel\Date and Time Signed: 07/29/23 16:41 EST Endoscopic [...] hours. Education and Follow-up: Counseled: Patient, Family. [facility] Comment on above: Result Comment: Elec tronically Signed By: Humberto Hernandez MD\.br\Date and Time Signed: 07/29/23 16:33 EST Other Comment: Abigail hoskins Attachment - attachment storage system not supported [id number] Can be viewed in source systemMissing Attachment - attachment storage system not supported [id number] Can be viewed in source systemMissing Attachment - attachment storage system not supported 7147852 Can be viewed in source system Endoscopic [...] GI clinic in 1-2 after discharge Normal [facility] Comment on above: Result Comment: Elec tronically Signed By: Humberto Hernandez MD\.br\Date and Time Signed: 07/29/23 16:13 EST Inpatient Patient Summaryon 07-29-2023 Inpatient Patient Summary [place] [id number] [facility] Clinical Discharge Instructions PERSON INFORMATION Name: CECILIO NICKERSON [facility]#:[id number] PHYSICIANS Admitting Physician: Humberto Hernandez MD Attending [...] Milligram By Mouth every day. Comment: Normal [facility] Main OR PACU I Recordon 07-18 Main OR PACU I Record PACU Phase I Document Type FT Summary Primary Physician: Humberto Hernandez MD Finalized Date/Time: 07/29/23 17:19:05 Pt. Name: CECILIO NICKERSON /Sex: 1960 Male [facility] Rec #: [id number] Physician: Humberto Hernandez MD Financial #: [id number] Pt. Type: O Room/Bed: / Admit/Disch: 07/29/23 [...] By: Michell Husain RN 07/29/23 17:19 Normal [facility] Main OR Preoperative Recordo n 07-29-2023 Main OR Preoperative Record Holding Area Document Type FT Summary Primary Physician: Humberto Hernandez MD Finalized Date/Time: 07/29/23 13:42:27 Pt. Name: CECILIO NICKERSON Nicolas Argueta/Sex: 1960 Male Med Rec #: [id number] Physician: Humberto Hernandez MD Financial #: [id number] Pt. Type: O Room/Bed: / Admit/Disch: 07/29/23 [...] By: Winsome Perdomo RN 07/29/23 13:42 Normal [facility] Monitor Recordon 07-29-2023 Monitor Record [id number]#1.00TIFF Normal [facility] Monitor Record [id number]#1.00TIFF Normal [facility] Outpatient Surgery Discharge Instructionon 07-29-2023 Outpatient Surgery Discharge Instruction [place] [id number] Patient Discharge Instructions PERSON INFORMATION Name: CECILIO [...] THE NEAREST EMERGENCY ROOM OR CALL 911 IKALLI VINCENT O, have received the attached patient education materials/instructions and have verbalized understanding: May we do a follow up call? Yes No I was present when discharge instructions were given __ Patient Signature Date Clinican/Nurse Signature Date Follow up: [facility] You may receive a survey from [employer] asking you to rate your care experience. Your feedback is important and will help us understand what we do well and how we can improve the quality of care we provide to you, your loved ones and our community. It?s an honor to serve you. Thank you for choosing [facility] HERE ARE THE MEDICATION CHANGES THAT [...] day. PATIENT EDUCATION INFORMATION Instructions: Medication Leaflets: [facility] Patient Education - Texton 0 07-29-2023 [...] unsweetened, w/added ascorbic acid 1 cup 0.5 [place] 1 cup 0.7 Vegetables Cooked Green beans 1 cup 4.0 Carrots 1/2 cup sliced 2.3 Peas 1 cup 8.8 Potato (baked, with skin) 1 medium potato 3.8 Raw [place] (with peel) 1 cucumber 1.5 Lettuce 1 [...] 8.7 Peanuts 1/2 cup 7.9 Chart from [facility] 2013. SEEK IMMEDIATE MEDICAL CARE [...] Information adapted from: ExitCare? Patient Information ?2009 [employer]. vogogo 2012 [email or web address] Endoscopy Care After Procedure Please read the [...] your nor (more content not included)... Normal [facility] Insurance Correspondenceon 0 2023 Insurance Correspondence [id number]#1.00TIFF [facility] Consultation Noteon 06-18-19 Consultation Note [id number]#1.00TIFF [facility] Consultation Noteon 06-13-20 Consultation Note [id number]#1.00TIFF [facility] RAD - CT Reporton 06-13-2023 RAD - CT Report [id number]#1.00TIFF [facility] RAD - CT Report [id number]#1.00TIFF [facility] RAD - CT Report [id number]#1.00TIFF Normal [facility] RAD - MISCon 06-13-2023 RAD - MISC [id number]#1.00TIFF Normal [facility] Consent for Procedure/Surger yon 06-07-2023 Consent for Procedure/Surgery [id number]#1.00TIFF Normal [facility] Physician Referralon 023 Physician Referral [id number]#1.00TIFF Normal [facility] Gastroenterology Office/Clin ic Noteon 06-05-2023 Gastroenterology Office/Clinic [...] visit with me that he had joined [employer] and was exercising routinely. He reported that [...] Auto Diff (more content not included)... Normal [facility] Comment on above: Result Comment: Elec tronically [...] grapefruit, pineapple, and ida. Vegetables Deep-fried vegetables. Bahamian fries. Any vegetables prepared with added fat. [...] reflux di (more content not included)... Normal [facility] Ambulatory Visit Summaryon 0 03-05-2023 Ambulatory Visit [...] Duration: 90 Days Refills: 1 Pickup at [facility] Changed omeprazole (omeprazole 20 mg Cap-DR) 1 Capsules By Mouth Every day GERD (gastroesophageal reflux disease) Duration: 90 Days Pickup at [facility] Unchanged benztropine (benztropine 0.5 mg oral [...] Pharmacy Information [facility]: [address] [place], [place] [id number] [phone] Allergies shellfish (Hives) Problems Ongoing - Any [...] at hig (more content not included)... Normal [facility] Auto Diffon 03-05-2023 Basophils/100 WBC (Bld) 0.4 % Normal 0.0-2.0 [facility] Comment on above: Order Comment: Order Added by Discern Expert. Performed By: #### 2 114924, 9874318, 5249564, 0195391, 9638284, 10401291 ####[address] [address] Basophils/Leukocytes Auto (Bld) [Pure # fraction] 0.0 E9/L Normal 0.0-0.2 [facility] Comment on above: Order Comment: Order Added by Discern Expert. Performed By: #### 2 253393, 0464141, 1494294, 8473130, 3041908, 75371175 ####[address] [address] Eosinophils/100 WBC (Bld) 2.7 % Normal 0.0-8.0 [facility] Comment on above: Order Comment: Order Added by Discern Expert. Performed By: #### 2 497956, 8078837, 7984161, 9928379, 2116400, 89441249 ####[address] [address] Eosinophils/Leukocyt es Auto (Bld) [Pure # fraction] 0.2 E9/L Normal 0.0-0.5 [facility] Comment on above: Order Comment: Order Added by Discern Expert. Performed By: #### 2 517289, 7732476, 9124408, 5891331, 6508294, 15997426 ####[address] [address] Lymphocytes/100 WBC (Bld) 15.7 % Normal 14.0-50.0 [facility] Comment on above: Order Comment: Order Added by Discern Expert. Performed By: #### 2 742502, 7701860, 3257282, 0530897, 2705827, 73276198 ####[address] [address] Lymphocytes/Leukocyt es Auto (Bld) [Pure # fraction] 1.1 E9/L Normal 1.0-4.0 [facility] Comment on above: Order Comment: Order Added by Discern Expert. Performed By: #### 2 091843, 3373586, 6491488, 4232181, 1459435, 92708895 ####[address] [place] [address] Monocytes/100 WBC (Bld) 8.5 % Normal 4.0-14.0 [facility] Comment on above: Order Comment: Order Added by Discern Expert. Performed By: #### 2 120498, 5773231, 2923567, 5284857, 5402686, 00352792 ####[address] [address] Monocytes/Leukocytes Auto (Bld) [Pure # fraction] 0.6 E9/L Normal 0.2-1.0 [facility] Comment on above: Order Comment: Order Added by Discern Expert. Performed By: #### 2 320721, 3352157, 8767949, 1844593, 3902036, 30707197 ####[address] [address] Neutrophils/100 WBC (Bld) 72.7 % Normal 36.0-75.0 [facility] Comment on above: Order Comment: Order Added by Discern Expert. Performed By: #### 2 936088, 5348432, 6319608, 8050466, 1705488, 48697680 ####[address] [address] Neutrophils/Leukocyt es Auto (Bld) [Pure # fraction] 5.3 E9/L Normal 2.0-7.5 [facility] Comment on above: Order Comment: Order Added by Discern Expert. Performed By: #### 2 079047, 6151037, 3567135, 8322083, 1835431, 04933685 ####[facility] [address] [place] [address] BMPon 03-05-2023 Anion gap [Moles/Vol] 10 mmol/L Normal 6-16 [facility] Comment on above: Performed By: #### 2 012854, 4408048, 8750071, 8593084, 0613469, 15700845 ####[place] [address] [place] [address] Calcium [Mass/Vol] 9.3 mg/dL Normal 8.9-11.1 [facility] Comment on above: Performed By: #### 2 224636, 2060546, 9307619, 2697064, 7526953, 32242685 ####[facility] [address] [place] [address] Chloride [Moles/Vol] 104 mmol/L Normal 101-111 [facility] Comment on above: Performed By: #### 2 618430, 6819047, 4319584, 6908400, 8881345, 53720693 ####[facility] [address] [place] [address] CO2 [Moles/Vol] 29 mmol/L Normal 21-31 [facility] Comment on above: Performed By: #### 2 677982, 3841133, 8036716, 0229906, 7182354, 08868539 ####[facility] [address] [place] [address] Creatinine [Mass/Vol] 1.1 mg/dL Normal 0.5-1.3 [facility] Comment on above: Performed By: #### 2 434013, 6472677, 1750593, 1080393, 2399641, 74542941 ####[facility] [address] [place] [address] Glucose [Mass/Vol] 97 mg/dL Normal 55-199 [facility] Comment on above: Result Comment: If t his glucose result represents a fasting glucose, interpretation should refer to the following reference range: 55-99 mg/dL Performed By: #### 2 640827, 0824553, 0283116, 1345705, 8434775, 00083328 ####[facility] [address] [place] [address] Potassium [Moles/Vol] 4.5 mmol/L Normal 3.5-5.3 [facility] Comment on above: Performed By: #### 2 048173, 8606716, 4862023, 4748705, 6874121, 56020053 ####[facility] [address] [place] [address] Sodium [Moles/Vol] 138 mmol/L Normal 135-145 [facility] Comment on above: Performed By: #### 2 982712, 3600187, 3684988, 4064722, 8680819, 93718961 ####[facility] [address] [place] [address] Urea nitrogen [Mass/Vol] 19 mg/dL Normal 5-21 [facility] Comment on above: Performed By: #### 2 522581, 8278314, 8904544, 7424801, 6135574, 88948600 ####[facility] [address] [place] [address] Urea nitrogen/Creatinine [Mass ratio] 17 No Units Normal 10-20 [facility] Comment on above: Performed By: #### 2 587311, 0932099, 2030945, 4866556, 5551051, 52999110 ####[facility] [address] [place] [address] CBC w/ Auto Diffon Erythrocyte distribution width (RBC) [Ratio] 13.4 % Normal 10.9-14.2 [facility] Comment on above: Performed By: #### 2 395915, 9861316, 7165785, 1019842, 5271743, 22529402 ####[facility] [address] [place] [address] Hematocrit (Bld) [Volume fraction] 39.5 % Normal 37.7-49.0 [facility] Comment on above: Performed By: #### 2 505632, 7969160, 8061831, 2146716, 2734657, 43670965 ####[facility] [address] [place] [address] Hemoglobin (Bld) [Mass/Vol] 13.5 g/dL Normal 13.5-17.5 [facility] Comment on above: Performed By: #### 2 070644, 7850118, 3097750, 7420412, 6136720, 68759726 ####[address] [address] MCH (RBC) [Entitic mass] 29.8 pg Normal 27.0-34.0 [facility] Comment on above: Performed By: #### 2 654687, 0405398, 7482548, 9338638, 4990376, 47415826 ####[address] [address] MCHC (RBC) [Mass/Vol] 34.3 g/dL Normal 31.4-36.0 [facility] Comment on above: Performed By: #### 2 483306, 4535650, 5635294, 9963682, 2707077, 33371732 ####[address] [address] MCV (RBC) [Entitic vol] 86.8 fL Normal 80.0-100.0 [facility] Comment on above: Performed By: #### 2 645058, 4786858, 2574361, 8437368, 9946295, 26001120 ####[address] [address] Platelet mean volume (Bld) [Entitic vol] 7.0 fL Normal 6.4-10.8 [facility] Comment on above: Performed By: #### 2 887585, 1547223, 2637104, 4485747, 9655186, 96583046 ####[address] [address] Platelets (Bld) [#/Vol] 195.0 E9/L Normal 150.0-500. 0 [facility] Comment on above: Performed By: #### 2 169054, 2930242, 7460217, 2792360, 8376606, 36914766 ####[address] [address] RBC (Bld) [#/Vol] 4.5 E12/L Normal 4.3-5.9 [facility] Comment on above: Performed By: #### 2 818515, 8534049, 2478658, 3440188, 2243870, 38294580 ####[facility] [address] [place] [address] WBC corrected for nucl RBC Auto (Bld) [#/Vol] 7.3 E9/L Normal 4.0-11.0 [facility] Comment on above: Performed By: #### 2 976874, 4407188, 8733370, 3116915, 8654519, 38197896 ####[facility] [address] [place] [address] Consent for Treatmenton 02-15 Consent for Treatment [id number]:127 Normal [facility] Gastroenterology Office/Clin ic Noteon 03-05-2023 Gastroenterology Office/Clinic [...] During today's visit, patient reports he joined [employer] and has been exercising routinely: has been [...] EDT, Angelica (more content not included)... Normal [facility] Comment on above: Result Comment: Elec tronically Signed By: Palak Wagner CNP\.br\Date and Time Signed: 03/05/23 15:24 EDT Magnesiumon 03-05-2023 Magnesium [Mass/Vol] 2.1 mg/dL Normal 1.3-2.4 [facility] Comment on above: Performed By: #### 2 709352, 3308266, 8349678, 2770203, 9647124, 60574012 ####[facility] [address] [place] [address] Patient Educationon 03-05-20 Patient Education Gastroenterology Chronic [...] who treats conditions of the digestive system (template checker). Follow these instructions at home: Medicines ? Take uywz-afp-msrsakc and prescription medicines only as told by [...] your h (more content not included)... Normal [facility] Vit B12on 03-05-2023 Cobalamin (Vitamin B12) [Mass/Vol] 292 pg/mL Normal 50-1500 [facility] Comment on above: Performed By: #### 2 571720, 8777593, 7770519, 4426845, 8177893, 75468210 ####[facility] [address] [place] [address] eGFRon 03-05-2023 GFR/1.73 sq M.predicted among non-blacks MDRD (S/P/Bld) [Vol rate/Area] 75 mL/min/1.73 m2 Normal >=59 [facility] Comment on above: Order Comment: Order added by Discern Expert. Result Comment: Water Safety Teacher alexa kidney disease could be indicated at eGFR's of less than 60 mL/min/1.73m2. Kidney failure is indicated at less than 15 mL/min/1.73m2. Performed By: #### 2 930720, 0020247, 6733330, 8782998, 3261821, 23173302 ####[facility] [address] [place] [address] Office Visit (Cardiology)on 01-23-2023 Follow-up visit Diagnoses/Problems [...] Weight Tips; Status:Complete - Retrospective Authorization; Done: [id number] Some eating tips that can help you lose weight.; Status:Complete - Retrospective Authorization; Done: [id number] SocHx: Never a smoker Tobacco Use Screening; Status:Complete; Done: [id number] Patient Instructions Please bring all medicines, vitamins, [...] negative for complaint. Vitals Vital Signs Recorded: [id number] 03:43PM Heart Rate58, L Radial Nuimvewi109, LUE, Sitting Ipgdksbmv42, LUE, Sitting Height5 ft 6 in Zxvnbs771 lb BMI Cfnoeczpiv84.73 kg/m2 BSA Calculated1.9 Tobacco Useb) No PHQ-2 [...] no bruit (more content not included)... Normal [employer] Tobacco Screening.on 023 Adult depression screening assessment No [facility] [employer] 250 DO Work Phone: Fall risk assessment c) Not medically indicated [facility] [employer]icket[employer] 250 DO Work Phone: Tobacco use status CP b) No [facility] [employer] 250 DO Work Phone: Radiologyon 05-25-2023 CTA Chest vessels Normal -[facility]-Carlynu marielena 250 DO Work Phone: Tobacco Screening.on 022 Adult depression screening assessment No [facility]-Saloni saraviay 250 DO Work Phone: Fall risk assessment a) No falls within the last year [facility] marielena 250 DO Work Phone: Tobacco use status CPHS b) No [facility] saraviay 250 DO Work Phone: Creatinine and Glomerular fi ltration rate.predicted panel (S/P/Bld)Ordered By: Jose Kimbrough on 11-22-2021 Creatinine [Mass/Vol] 1.09 mg/dL 0.64-1.27 [facility] Estimated glomerular filtrat ion rate (GFR) non- AmericanOrdered By: Jose Kimbrough on 11-22-2021 GFR/1.73 sq M.predicted among non-blacks MDRD (S/P/Bld) [Vol rate/Area] > 60 mL/Min [facility] No Panel InformationOrdered By: Jose Kimbrough on 11-22-2021 Estimated GFR () > 60 mL/Min [facility] Comment on above: GFR estimated refere nce range: According to KDOQI guidelines, <60 ml/min/1.73m2 is sufficient to diagnose a patient with chronic kidney disease. Pharmacy Creatinine Clearance (Chem N/A [facility] No Panel Informationon 11-22 14\S\14 Normal 9-23 [facility] lk 600 DO Work Phone: > 60 Normal [facility] lk 600 DO Work Phone: Comment on above: GFR estimated refere nce range: According to KDOQI guidelines, <60 ml/min/1.73m2 is sufficient to diagnose a patient with chronic kidney disease.PERFORMED BY:[place] [address] [place], [place] [id number] MEDICAL DIRECTORESTEBAN RUIZ M.D. 1.09\S\1.09 Normal 0.64-1.27 [facility] 600 DO Work Phone: [phone] 25.3\S\25.3 Normal 22.0-30.0 [facility] 600 DO Work Phone: [phone] 103\S\103 Normal 95-114 [facility] 600 DO Work Phone: [phone] 4.3\S\4.3 Normal 3.5-5.1 [facility] 600 DO Work Phone: [phone] 138\S\138 Normal 136-146 [facility] 600 DO Work Phone: Radiologyon 11-22-2021 CTA Chest vessels Normal [facility] 600 DO Work Phone: [phone] Serum or plasma chloride april surement (moles/volume)Ordered By: Jose Kimbrough on 11-22-2021 Chloride [Moles/Vol] 103 mmol/L 95-114 [facility] Serum or plasma potassium me asurement (moles/volume)Ordered By: Jose Kimbrough on 11-22-2021 Potassium [Moles/Vol] 4.3 mmol/L 3.5-5.1 [facility] Serum or plasma sodium measu rement (moles/volume)Ordered By: Jose Kimbrough on 11-22-2021 Sodium [Moles/Vol] 138 mmol/L 136-146 [facility] Serum or plasma total carbon dioxide measurement (moles/volume)Ordered By: Jose Kimbrough on 11-22-2021 CO2 [Moles/Vol] 25.3 mmol/L 22.0-30.0 [facility] Serum or plasma urea nitroge n measurement (mass/volume)Ordered By: Jose Kimbrough on 11-22-2021 Urea nitrogen [Mass/Vol] 14 mg/dL 9-23 [facility] MRI CSPINE WO CONon 08-18-19 MRI [...] recess. Constellation of the findings are causing [id number] right neural foraminal narrowing. There is also [...] ADÁN EDWARDS Date: 2021-08-17 13:09 Normal [facility] Metabolic Pane aleja 06-28-2021 Albumin [Mass/Vol] 4.5 g/dL Normal 3.6-5.1 [facility] Comment on above: Performed By: #### C MP #### [facility] [address], [place] [id number] Albumin/Globulin [Mass ratio] 1.9 {ratio} Normal 1.0-2.5 [facility] Comment on above: Performed By: #### C MP #### [facility] [address], [place] [id number] ALP [Catalytic activity/Vol] 108 U/L Normal 40-129 [facility] Comment on above: Performed By: #### C MP #### [facility] [address], [place] [id number] ALT [Catalytic activity/Vol] 36 U/L Normal 9-46 [facility] Comment on above: Result Comment: 05/17 Female reference range changed. Performed By: #### C MP #### [facility] [address], [place] [id number] Anion gap [Moles/Vol] 17 mmol/L Normal 12-20 [facility] Specialist Comment on above: Result Comment: Effe ctive 06/22/2019 reference range changed. Performed By: #### C MP #### [facility] [address], [place] [id number] AST [Catalytic activity/Vol] 29 U/L Normal 10-40 [facility] Comment on above: Performed By: #### C MP #### [facility] [address], [place] [id number] BUN/CREA 21 Ratio Normal 6-22 [facility] Comment on above: Performed By: #### C MP #### [facility] [address], [place] [id number] Calcium [Mass/Vol] 9.9 mg/dL Normal 8.6-10.2 [facility] Specialist Comment on above: Performed By: #### C MP #### [facility] [address], [place] [id number] Chloride [Moles/Vol] 107 mmol/L Normal 98-107 [facility] Comment on above: Performed By: #### C MP #### [facility] [address], [place] [id number] CO2 [Moles/Vol] 23 mmol/L Normal 20-31 [facility] Comment on above: Performed By: #### C MP #### [facility] [address], [place] [id number] Creatinine [Mass/Vol] 1.1 mg/dL Normal 0.7-1.4 [facility] Comment on above: Performed By: #### C MP #### [facility] [address], [place] [id number] eGFRAA 86 mL/min/1.73m2 Normal >60 [facility] Specialist Comment on above: Performed By: #### C MP #### [facility] [address], [place] [id number] eGFRNAA 71 mL/min/1.73m2 Normal >60 [facility] Comment on above: Performed By: #### C MP #### [facility] [address], [place] [id number] Globulin (S) [Mass/Vol] 2.4 g/dL Normal 1.9-3.7 [facility] Comment on above: Performed By: #### C MP #### [facility] [address], [place] [id number] Glucose [Mass/Vol] 84 mg/dL Normal 65-99 [facility] Comment on above: Result Comment: For FASTING Glucose --- ADA reference ranges: Normal 65-99 mg/dl Prediabetes 100-125 Diabetes >/= 126 Performed By: #### C MP #### [facility] [address], [place] [id number] Potassium [Moles/Vol] 4.5 mmol/L Normal 3.5-5.5 [facility] Comment on above: Performed By: #### C MP #### [facility] [address], [place] [id number] Protein [Mass/Vol] 6.9 g/dL Normal 6.1-8.1 [facility] Comment on above: Performed By: #### C MP #### [facility] [address], [place] [id number] Sodium [Moles/Vol] 143 mmol/L Normal 135-146 [facility] Comment on above: Performed By: #### C MP #### [facility] [address], [place] [id number] TBIL <0.3 Normal [facility] Specialist Comment on above: Performed By: #### C MP #### [facility] [address], [place] [id number] Urea nitrogen [Mass/Vol] 22 mg/dL Normal 7-25 [facility] Comment on above: Performed By: #### C MP #### [facility] [address], [place] [id number] BNPon 06-21-2021 Natriuretic peptide B (Bld) [Mass/Vol] 114.0 pg/mL Normal <=900.0 [facility] Comment on above: Performed By: #### H STROPN, CMP, BNP #### [facility] [address] [place] [address] Dr. Ashely Garibay CBC AUTO DIFFon 06-21-2021 BASO # 0.0 103/ul Normal 0.0-0.1 [facility] Comment on above: Performed By: #### C BC #### [facility] [address] [place] [address] Dr. Ashely Garibay Basophils/100 WBC (Bld) 0.2 % Normal 0.2-2.0 [facility] Comment on above: Performed By: #### C BC #### [facility] [address] [place] [address] Dr. Ashely Garibay EO # 0.0 103/ul Normal 0.0-0.7 [facility] Comment on above: Performed By: #### C BC #### [facility] [address] [place] [address] Dr. Ashely Garibay Eosinophils/100 WBC (Bld) 0.1 % Critically low 0.9-7.0 [facility] Comment on above: Performed By: #### C BC #### [facility] [address] [place] [address] Dr. Ashely Garibay Erythrocyte distribution width (RBC) [Ratio] 13.0 % Normal 11.0-15.0 [facility] Comment on above: Performed By: #### C BC #### [facility] [address] [place] [address] Dr. Ashely Garibay Hematocrit (Bld) [Volume fraction] 43.2 % Normal 42.0-54.0 [facility] Comment on above: Performed By: #### C BC #### [facility] [address] [place] [address] Dr. Ashely Garibay Hemoglobin (Bld) [Mass/Vol] 14.8 g/dL Normal 14.0-18.0 [facility] Comment on above: Performed By: #### C BC #### [facility] [address] [place] [address] Dr. Ashely Garibay IG # 0.08 10e3/ul Critically high 0.00-0.03 [facility] Comment on above: Performed By: #### C BC #### [facility] [address] [place] [address] Dr. Ashely Garibay IG % 0.8 % Critically high 0.0-0.5 [facility] Comment on above: Performed By: #### C BC #### [facility] [address] [place] [address] Dr. Ashely Garibay LYMPH # 0.8 103/ul Critically low 1.2-3.8 [facility] Comment on above: Performed By: #### C BC #### [facility] [address] [place] [address] Dr. Ashely Garibay Lymphocytes/100 WBC (Bld) 7.6 % Critically low 20.5-60.0 [facility] Comment on above: Performed By: #### C BC #### [facility] [address] [place] [address] Dr. Ashely Garibay MANUAL DIFF REQ NO Normal [facility] Comment on above: Performed By: #### C BC #### [facility] [address] [place] [address] Dr. Ashely Garibay MCH (RBC) [Entitic mass] 28.6 pg Normal 25.9-34.0 [facility] Comment on above: Performed By: #### C BC #### [facility] [address] [place] [address] Dr. Ashely Garibay MCHC (RBC) [Mass/Vol] 34.3 g/dL Normal 29.9-35.2 [facility] Comment on above: Performed By: #### C BC #### [facility] [address] [place] [address] Dr. Ashely Garibay MCV (RBC) [Entitic vol] 83.6 fL Normal 80.0-94.0 [facility] Comment on above: Performed By: #### C BC #### [facility] [address] [place] [address] Dr. Ashely Garibay MONO # 0.7 103/ul Normal 0.3-0.8 [facility] Comment on above: Performed By: #### C BC #### [facility] [address] [place] [address] Dr. Ashely Garibay Monocytes/100 WBC (Bld) 6.3 % Normal 1.7-12.0 [facility] Comment on above: Performed By: #### C BC #### [facility] [address] [place] [address] Dr. Ashely Garibay NEUT # 9.0 103/ul Critically high 1.4-6.5 [facility] Comment on above: Performed By: #### C BC #### [facility] [address] [place] [address] Dr. Ashely Garibay Neutrophils/100 WBC (Bld) 85.0 % Critically high 43.0-75.0 [facility] Comment on above: Performed By: #### C BC #### [facility] [address] [address] [address] Ashely Garibay Platelet mean volume (Bld) [Entitic vol] 9.3 fL Critically low 9.5-13.5 [facility] Comment on above: Performed By: #### C BC #### [facility] [address] [id number] Ashely Garibay PLT 146 103/ul Critically low 150-450 [facility] Comment on above: Performed By: #### C BC #### [facility] [address] [address] [address] Ashely Garibay RBC 5.17 106/ul Normal 4.70-6.10 [facility] Comment on above: Performed By: #### C BC #### [facility] [address] [address] [address] Ashely Garibay WBC 10.6 103/ul Normal 4.0-11.0 [facility] Comment on above: Performed By: #### C BC #### [facility] [address] [place] [address] Dr. Ashely Garibay CTA CHEST WO W [...] CJ MULLER Date: 2021-06-21 16:57 Normal [facility] Covid-19 PCR (CVDTB)on SARS-CoV-2 (COVID-19) RNA NIECY+probe Ql (Unsp spec) Not detected Normal NOT DETECTED [facility] Comment on above: Result Comment: When diagnostic testing is negative, the possibility of a false negative should be considered in the context of a patient's recent exposures and the presence of clinical signs and symptoms consistent with SARS-CoV-2. This test is not yet approved or cleared by the [place] Food and Drug Administration (FDA). This test was developed by [employer], [place], [place]. The performance characteristics of this test were validated by [facility]. The results are not intended to be used as the sole means for clinical diagnosis or patient management decisions. [facility] is authorized under Clinical Laboratory Improvement [...] for this test is supported by the [place] of Health and Human Service's declaration that [...] be used). Performed By: #### C VDTBH ####[facility] [id number] [place], [place] [id number]. Ashely Garibay D-DIMERon 06-21-2021 D-DIMER 0.74 mg/L FEU Critically high 0.19-0.50 [facility] Comment on above: Performed By: #### P TT, DDIM, PT #### [facility] [address] [place], [place] [address] Dr. Ashely Garibay D-DIMER COMMENTS SEE BELOW Normal [facility] Comment on above: Result Comment: Incr eases [...] By: #### P TT, DDIM, PT #### [facility] [address] [place] [address] Dr. Ashely Garibay PROF 14(COMP METB)on 022 Albumin [Mass/Vol] 3.6 g/dL Normal 3.5-5.0 [facility] Comment on above: Performed By: #### H STROPN, CMP, BNP #### [facility] [address] [place] [address] Dr. Ashely Garibay Albumin/Globulin [Mass ratio] 0.8 {ratio} Normal [facility] Comment on above: Performed By: #### H STROPN, CMP, BNP #### [facility] [address] [place] [address] Dr. Ashely Garibay ALP [Catalytic activity/Vol] 130 U/L Critically high 38-126 [facility] Comment on above: Performed By: #### H STROPN, CMP, BNP #### [facility] [address] [place] [address] Dr. Ashely Garibay ALT [Catalytic activity/Vol] 94 U/L Critically high 21-72 [facility] Comment on above: Performed By: #### H STROPN, CMP, BNP #### [facility] [address] [place] [address] Dr. Ashely Garibay Anion gap [Moles/Vol] 16.8 mmol/L Normal [facility] Comment on above: Performed By: #### H STROPN, CMP, BNP #### [facility] [address] [place] [address] Dr. Ashely Garibay AST [Catalytic activity/Vol] 85 U/L Critically high 17-59 [facility] Comment on above: Performed By: #### H STROPN, CMP, BNP #### [facility] [address] [place] [address] Dr. Ashely Garibay Bilirubin [Mass/Vol] 0.9 mg/dL Normal 0.2-1.3 [facility] Comment on above: Performed By: #### H STROPN, CMP, BNP #### [facility] [address] [place] [address] Dr. Ashely Garibay Calcium [Mass/Vol] 8.9 mg/dL Normal 8.4-10.2 [facility] Comment on above: Performed By: #### H STROPN, CMP, BNP #### [facility] [address] [place] [address] Dr. Ashely Garibay Chloride [Moles/Vol] 101 mmol/L Normal 98-107 [facility] Comment on above: Performed By: #### H STROPN, CMP, BNP #### [facility] [address] [place] [address] Dr. Ashely Garibay CO2 [Moles/Vol] 25.4 mmol/L Normal 22.0-30.0 [facility] Comment on above: Performed By: #### H STROPN, CMP, BNP #### [facility] [address] [place] [address] Dr. Ashely Garibay Creatinine [Mass/Vol] 2.07 mg/dL Critically high 0.66-1.25 [facility] Comment on above: Performed By: #### H STROPN, CMP, BNP #### [facility] [address] [place] [address] Dr. Ashely Garibay EGFR-AF SLOVENIAN 40 mL/min/1.73m2 Critically low >=60 [facility] Comment on above: Performed By: #### H STROPN, CMP, BNP #### [facility] [address] [place] [address] Dr. Ashely Garibay EGFR-NON AF SLOVENIAN 33 mL/min/1.73m2 Critically low >=60 [facility] Comment on above: Performed By: #### H STROPN, CMP, BNP #### [facility] [address] [place] [address] Dr. Ashely Garibay Globulin (S) [Mass/Vol] 4.7 g/dL Normal [facility] Comment on above: Performed By: #### H STROPN, CMP, BNP #### [facility] [address] [address] [address] Ashely Garibay Glucose [Mass/Vol] 99 mg/dL Normal 74-106 [facility] Comment on above: Performed By: #### H STROPN, CMP, BNP #### [facility] [address] [address] [address] Ashely Garibay Potassium [Moles/Vol] 4.2 mmol/L Normal 3.4-5.0 [facility] Comment on above: Performed By: #### H STROPN, CMP, BNP #### [facility] [address] [place] [address] Dr. Ashely Garibay Protein [Mass/Vol] 8.3 g/dL Critically high 6.1-8.2 [facility] Comment on above: Performed By: #### H STROPN, CMP, BNP #### [facility] [address] [place] [address] Dr. Asehly Garibay Sodium [Moles/Vol] 139 mmol/L Normal 137-145 [facility] Comment on above: Performed By: #### H STROPN, CMP, BNP #### [facility] [address] [place] [address] Dr. Ashely Garibay Urea nitrogen [Mass/Vol] 31.0 mg/dL Critically high 9.0-20.0 [facility] Comment on above: Performed By: #### H STROPN, CMP, BNP #### [facility] [address] [place] [address] Dr. Ashely Garibay Urea nitrogen/Creatinine [Mass ratio] 15.0 mg/mg [facility] Comment on above: Performed By: #### H STROPN, CMP, BNP #### [facility] [address] [place] [address] Dr. Ashely Garibay PROTIMEon 06-21-2021 INR Coag (PPP) [Relative time] 1.02 {INR} Normal [facility] Comment on above: Performed By: #### P TT, DDIM, PT #### [facility] [address] [address] [address] Ashely Garibay INR GUIDELINES SEE BELOW Normal [facility] Comment on above: Result Comment: SENA RED INR: 2.0 - 3.0 CONDITIONS NOT LISTED BELOW 2.5 - 3.5 FOR PROSTHETIC HEART VALVE REPLACEMENT 2.5 - 3.5 RECURRENT THROMBOSIS Performed By: #### P TT, DDIM, PT #### [facility] [address] [address] [address] Ashely Garibay PT Coag (PPP) [Time] 11.0 s Normal 9.0-11.6 [facility] Comment on above: Performed By: #### P TT, DDIM, PT #### [facility] [address] [address] [address] Ashely Garibay PTTon 06-21-2021 aPTT Coag (Bld) [Time] 32.2 s Normal 22.3-36.2 [facility] Comment on above: Performed By: #### P TT, DDIM, PT #### [facility] [address] [address] [address] Ashely Garibay TROPONIN, HIGH SENSITIVITYon 06-21-2021 HSTROP 19.4 pg/mL Normal 4.0-42.2 [facility] Comment on above: Result Comment: CUT- OFF POINTS HAVE BEEN ESTABLISHED BASED ON THE FOURTH UNIVERSAL DEFINITIONS OF MYOCARDIAL INFARCTION. THE UPPER REFERENCE LIMIT (URL) OF TROPONIN, DEFINED THE 99TH PERCENTILE OF cTnI DISTRIBUTION IN A REFERENCE POPULATION, HAS BEEN CONFIRMED THE DECISION THRESHOLD FOR [place] DIAGNOSIS. Performed By: #### H STROPN, CMP, BNP ####[facility] [id number] [address]Dr. Ashely Garibay XR CHEST 1 Von 06-21-2021 [...] ADÁN EDWARDS Date: 2021-06-21 21:12 Normal [facility] Covid-19 PCR ([facility])on 05-17 SARS-CoV-2 (COVID-19) RNA NIECY+probe Ql (Unsp spec) Not detected Normal NOT DETECTED [facility] Comment on above: Result Comment: This test is not yet approved or cleared by the [place] FDA. When there are no FDA-approved or cleared tests available, and other criteria are met, FDA can make tests available under an emergency access mechanism called an Emergency Use Authorization (EUA). The EUA for this test is supported by the [place] of Health and Human Service's (HHS's) declaration [...] consistent with SARS-CoV-2. Performed By: #### C [facility] #### [facility] [address] [place] [address] Dr. Ashely Garibay Vital Signs Date Time Vital Sign Value Performing Clinician Facility 05-21-2024 14:45-050 Body height 167.6 cm Solomon Fountain DPM Work Phone: [facility] 05-21-2024 14:45-050 Body mass index (BMI) [Ratio] 29.38 kg/m2 Solomon Fountain DPM Work Phone: [facility] 05-21-2024 14:45-050 Body weight 82.56 kg Solomon Fountain DPM Work Phone: [facility] 05-21-2024 14:45-0500 Respiratory rate 16 /min Solomon Fountain DPM Work Phone: [facility] 03-17-2024 14:55-0400 Body height 167.6 cm Jaye Trujillogel LABEL DESIGNER Work Phone: [facility] 03-17-2024 14:55-0400 Body mass index (BMI) [Ratio] 29.38 kg/m2 Jaye Trujillogel LABEL DESIGNER Work Phone: [facility] 03-17-2024 14:55-0400 Body weight 82.56 kg Jaye Trujillogel LABEL DESIGNER Work Phone: [facility] 03-17-2024 14:55-0400 Diastolic blood pressure 61 mm[Hg] Jaye Pughnagel LABEL DESIGNER Work Phone: [facility] 03-17-2024 14:55-0400 Heart rate 73 /min Jaye Trujillogel LABEL DESIGNER Work Phone: [facility] 03-17-2024 14:55-0400 Systolic blood pressure 122 mm[Hg] Jaye Trujillogel LABEL DESIGNER Work Phone: [facility] 03-12-2024 15:06-0400 Body height 167.6 cm Solomon Fountain DPM Work Phone: [facility] 03-12-2024 15:06-0400 Body mass index (BMI) [Ratio] 28.57 kg/m2 Solomon Fountain DPM Work Phone: [facility] 03-12-2024 15:06-0400 Body weight 80.29 kg Solomon Fountain DPM Work Phone: [facility] 03-12-2024 15:06-0400 Diastolic blood pressure 80 mm[Hg] Solomon Fountain DPM Work Phone: [facility] 03-12-2024 15:06-0400 Heart rate 75 /min Solomon Fountain DPM Work Phone: [facility] 03-12-2024 15:06-0400 Respiratory rate 18 /min Solomon Fountain DPM Work Phone: [facility] 03-12-2024 15:06-0400 Systolic blood pressure 120 mm[Hg] Solomon Fountain DPM Work Phone: [facility] 12-09-2023 10:43-0400 Body height 167.6 cm Jose Kimbrough MD Work Phone: [facility] 12-09-2023 10:43-0400 Body mass index (BMI) [Ratio] 27.76 kg/m2 Jose Kimbrough MD Work Phone: [facility] 12-09-2023 10:43-0400 Body weight 78.02 kg Jose Kimbrough MD Work Phone: [facility] 12-09-2023 10:43-0400 Diastolic blood pressure 78 mm[Hg] Jose Kimbrough MD Work Phone: [facility] 12-09-2023 10:43-0400 Heart rate 68 /min Jose Kimbrough MD Work Phone: [facility] 12-09-2023 10:43-0400 Systolic blood pressure 114 mm[Hg] Jose Kimbrough MD Work Phone: [facility] 07-29-2023 17:00-0500 Heart rate 63 /min Paul Sarmini [facility] 07-29-2023 17:00-0500 Respiratory rate 21 /min Paul Sarmini [facility] 07-29-2023 17:00-0500 Systolic blood pressure 128 mm[Hg] Paul Sarmini [facility] 07-29-2023 16:50-0500 Blood Pressure Location Paul Sarmini [facility] 07-29-2023 16:50-0500 Diastolic blood pressure 76 mm[Hg] Paul Sarmini [facility] 07-29-2023 16:50-0500 Heart rate 64 /min Paul Sarmini [facility] 07-29-2023 16:50-0500 Mean blood pressure 93 mm[Hg] Paul Sarmini [facility] 07-29-2023 16:50-0500 Respiratory rate 27 /min Paul Sarmini [facility] 07-29-2023 16:50-0500 SaO2% (BldA) [Mass fraction] 97 % Paul Sarmini [facility] 07-29-2023 16:50-0500 Systolic blood pressure 127 mm[Hg] Paul Sarmini [facility] 07-29-2023 16:45-0500 Diastolic blood pressure 68 mm[Hg] Paul Sarmini [facility] 07-29-2023 16:45-0500 Heart rate 66 /min Paul Sarmini [facility] 07-29-2023 16:45-0500 Mean blood pressure 83 mm[Hg] Paul Sarmini [facility] 07-29-2023 16:45-0500 Respiratory rate 13 /min Paul Sarmini [facility] 07-29-2023 16:45-0500 Systolic blood pressure 112 mm[Hg] Paul Sarmini [facility] 07-29-2023 16:34-0500 Body temperature 97.52 [degF] Paul Sarmini [facility] 07-29-2023 16:30-0500 Respiratory rate 14 /min Paul Sarmini [facility] 07-29-2023 16:25-0500 Respiratory rate 14 /min Paul Sarmini [facility] 07-29-2023 16:20-0500 Respiratory rate 14 /min Paul Sarmini [facility] 07-29-2023 13:35-0500 Body temperature 97.7 [degF] Paul Sarmini [facility] 06-05-2023 15:25-0500 Diastolic blood pressure 92 mm[Hg] Palak Kristy [facility] 06-05-2023 15:25-0500 Mean blood pressure 111 mm[Hg] Palak Kristy [facility] 06-05-2023 15:25-0500 Systolic blood pressure 148 mm[Hg] Palak Kristy [facility] 06-05-2023 15:03-0500 Blood Pressure Location Palak Kristy [facility] 06-05-2023 15:03-0500 Body temperature 97.52 [degF] Palak Kristy [facility] 06-05-2023 15:03-0500 Diastolic blood pressure 90 mm[Hg] Palak Kristy [facility] 06-05-2023 15:03-0500 Heart rate 65 /min Palak Kristy [facility] 06-05-2023 15:03-0500 Systolic blood pressure 156 mm[Hg] Palak Kristy [facility] 03-05-2023 14:41-0400 Blood Pressure Location Palak Wagner [facility] 03-05-2023 14:41-0400 Body temperature 97.34 [degF] Palak Wagner [facility] 03-05-2023 14:41-0400 Diastolic blood pressure 86 mm[Hg] Palak Wagner [facility] 03-05-2023 14:41-0400 Heart rate 59 /min Palak Wagner [facility] 03-05-2023 14:41-0400 Systolic blood pressure 135 mm[Hg] Palak Wagner [facility] 01-23-2023 15:43-0400 Body height 167.64 cm Thor Hector Pantera Work Phone: [facility] 250 DO Work Phone: 01-23-2023 15:43-0400 Body mass index (BMI) [Ratio] 28.73 kg/m2 Thor Mott Work Phone: [facility] 250 DO Work Phone: 01-23-2023 15:43-0400 Body surface area Derived from formula 1.9 m2 Thor Mott Work Phone: [facility] 250 DO Work Phone: 01-23-2023 15:43-0400 Body weight 80.74 kg Thor Mott Work Phone: [facility] 250 DO Work Phone: 01-23-2023 15:43-0400 Diastolic blood pressure 62 mm[Hg] Thor Mott Work Phone: [facility] [address] DO Work Phone: 01-23-2023 15:43-0400 Heart rate 58 /min Thoralejandra Mott Work Phone: [facility] 250 DO Work Phone: 01-23-2023 15:43-0400 Systolic blood pressure 104 mm[Hg] Thoralejandra Mott Work Phone: [facility] 250 DO Work Phone: 05-08-2022 15:42-0500 Blood Pressure Location Palak Wagner [facility] 05-08-2022 15:42-0500 Body temperature 97.52 [degF] Palak Wagner [facility] 05-08-2022 15:42-0500 Diastolic blood pressure 74 mm[Hg] Palak Wagner [facility] 05-08-2022 15:42-0500 Heart rate 68 /min Palak Wagner [facility] 05-08-2022 15:42-0500 Systolic blood pressure 119 mm[Hg] Palak Sanchesmetz [facility] 03-14-2022 15:47-0400 Blood Pressure Location Kenan SORIA [facility] 03-14-2022 15:47-0400 Diastolic blood pressure 80 mm[Hg] Kenan SORIA [facility] 03-14-2022 15:47-0400 Heart rate 72 /min Kenan SORIA [facility] [place] 03-14-2022 15:47-0400 Respiratory rate 16 /min Kenan SORIA [facility] [place] 03-14-2022 15:47-0400 Systolic blood pressure 120 mm[Hg] Kenan SORIA [facility] 02-14-2022 10:15-0400 Blood Pressure Location Palak Wagner [facility] 02-14-2022 10:15-0400 Body temperature 97.16 [degF] Palak Wagner [facility] 02-14-2022 10:15-0400 Diastolic blood pressure 77 mm[Hg] Palak Wagner [facility] 02-14-2022 10:15-0400 Heart rate 63 /min Palak Wagner [facility] 02-14-2022 10:15-0400 Systolic blood pressure 117 mm[Hg] Palak Wagner [facility] 12-11-2021 12:52-0400 Blood Pressure Location Palak Wagner [facility] 12-11-2021 12:52-0400 Body temperature 96.8 [degF] Palak Wagner [facility] 12-11-2021 12:52-0400 Diastolic blood pressure 66 mm[Hg] Palak Sanchesmetz [facility] 12-11-2021 12:52-0400 Heart rate 61 /min Palak Wagner [facility] 12-11-2021 12:52-0400 SaO2% (BldA) [Mass fraction] 98 % Palak Sanchesmetz [facility] 12-11-2021 12:52-0400 Systolic blood pressure 103 mm[Hg] Palak Wagner [facility] 12-06-2021 13:34-0400 Body height 167.64 cm Jose Kimbrough MD Work Phone: [facility] 250 DO Work Phone: 12-06-2021 13:34-0400 Body mass index (BMI) [Ratio] 28.25 kg/m2 Jose Kimbrough MD Work Phone: [facility] 250 DO Work Phone: 12-06-2021 13:34-0400 Body surface area Derived from formula 1.89 m2 Jose Kimbrough MD Work Phone: [facility] 250 DO Work Phone: 12-06-2021 13:34-0400 Body weight 79.38 kg Jose Kimbrough MD Work Phone: [facility] 250 DO Work Phone: 12-06-2021 13:34-0400 Diastolic blood pressure 68 mm[Hg] Jose Kimbrough MD Work Phone: [facility] 250 DO Work Phone: 12-06-2021 13:34-0400 Heart rate 60 /min Jose Kimbrough MD Work Phone: [facility] 250 DO Work Phone: 12-06-2021 13:34-0400 Systolic blood pressure 120 mm[Hg] Jose Kimbrough MD Work Phone: [facility] 250 DO Work Phone: 11-15-2021 13:05-0400 Diastolic blood pressure 85 mm[Hg] Lees SALAM [facility] 11-15-2021 13:05-0400 Heart rate 60 /min Lees SALAM [facility] 11-15-2021 13:05-0400 Respiratory rate 12 /min Lees SALAM [facility] 11-15-2021 13:05-0400 SaO2% (BldA) [Mass fraction] 97 % Lees SALAM [facility] 11-15-2021 13:05-0400 Systolic blood pressure 129 mm[Hg] Lees SALAM [facility] 11-15-2021 12:50-0400 Diastolic blood pressure 79 mm[Hg] Lees SALAM [facility] 11-15-2021 12:50-0400 Heart rate 65 /min Lees SALAM [facility] 11-15-2021 12:50-0400 Respiratory rate 25 /min Lees SALAM [facility] 11-15-2021 12:50-0400 SaO2% (BldA) [Mass fraction] 94 % Lees SALAM [facility] 11-15-2021 12:50-0400 Systolic blood pressure 116 mm[Hg] Lees SALAM [facility] 11-15-2021 12:45-0400 Diastolic blood pressure 70 mm[Hg] Lees SALAM [facility] 11-15-2021 12:45-0400 Heart rate 64 /min Lees SALAM [facility] 11-15-2021 12:45-0400 Respiratory rate 24 /min Lees SALAM [facility] 11-15-2021 12:45-0400 SaO2% (BldA) [Mass fraction] 96 % Lees SALAM [facility] 11-15-2021 12:45-0400 Systolic blood pressure 110 mm[Hg] Lees SALAM [facility] 11-15-2021 12:38-0400 Body temperature 98.24 [degF] Lees SALAM [facility] 11-15-2021 12:35-0400 Respiratory rate 3 /min Lees SALAM [facility] 11-15-2021 12:30-0400 Respiratory rate 18 /min Lees SALAM [facility] 11-15-2021 12:24-0400 Respiratory rate 18 /min Lees SALAM [facility] 11-15-2021 11:46-0400 Blood Pressure Location Lees SALAM [facility] 11-15-2021 11:46-0400 Body temperature 98.6 [degF] Lees SALAM [facility] 10-04-2021 15:40-0400 Diastolic blood pressure 86 mm[Hg] Palak Kristy [facility] 10-04-2021 15:40-0400 Mean blood pressure 104 mm[Hg] Palak Krisyt [facility] 10-04-2021 15:40-0400 Systolic blood pressure 140 mm[Hg] Palak Kristy [facility] 10-04-2021 15:32-0400 Blood Pressure Location Palak Wagner [facility] 10-04-2021 15:32-0400 Body temperature 97.52 [degF] Palak Wagner [facility] 10-04-2021 15:32-0400 Diastolic blood pressure 89 mm[Hg] Palak Wagner [facility] 10-04-2021 15:32-0400 Heart rate 73 /min Palak Wagner [facility] 10-04-2021 15:32-0400 SaO2% (BldA) [Mass fraction] 97 % Palak Wagner [facility] 10-04-2021 15:32-0400 Systolic blood pressure 149 mm[Hg] Palak Wagner [facility] Encounters Encounter Date Encounter Type Care Provider Facility Start: 05-21-2024 End: 05-21-2024 Patient encounter procedure Solomon Fountain DPM Work Phone: [facility] Comment on above: Onychomycosis (Prima ry Dx); Toe pain, left; Toe pain, right; Acquired deformity of right toe Start: 05-21-2024 End: 05-21-2024 Bamboo flowsheet Solomon Fountain DPM Work Phone: [facility] Start: 05-21-2024 End: 05-21-2024 Bamboo flowsheet Solomon Fountain DPM Work Phone: [facility] Start: 04-30-2024 End: 04-30-2024 Patient encounter procedure Thor Mott MD Work Phone: [facility] Comment on above: Encounter for vaccin ation Start: 04-30-2024 End: 04-30-2024 ambulatory THOR MOTT Not Available Start: 03-17-2024 End: 03-17-2024 Office outpatient visit 25 minutes Jaye Mack LABEL DESIGNER Work Phone: [facility] Comment on above: MARY (obstructive sle ep apnea) (Primary Dx); Tremor; Cervicogenic headache Start: 03-17-2024 End: 03-17-2024 ambulatory JAYE MACK Not Available Start: 03-17-2024 End: 03-17-2024 Bamboo flowsheet Jaye Mack LABEL DESIGNER Work Phone: [facility] [place] [address] Start: 03-17-2024 End: 03-17-2024 Bamboo flowsheet Jaye Dmitri Mack LABEL DESIGNER Work Phone: [facility] [place] [address] Start: 03-12-2024 End: 03-12-2024 Patient encounter procedure Solomon Fountain DPM Work Phone: [facility] Comment on above: Onychomycosis (Prima ry Dx); Toe pain, left; Toe pain, right Start: 03-12-2024 End: 03-12-2024 ambulatory SOLOMON FOUNTAIN Not Available Start: 03-12-2024 End: 03-12-2024 Bamboo flowsheet Solomon Fountain DPM Work Phone: [facility] Start: 03-12-2024 End: 03-12-2024 Bamboo flowsheet Solomon Fountain DPM Work Phone: [facility] Start: 03-09-2024 End: 03-09-2024 Orders Only Jaye Mack LABEL DESIGNER Work Phone: [facility] [place] [address] Comment on above: MARY (obstructive sle ep apnea) (Primary Dx) Start: 01-08-2024 End: 01-08-2024 ambulatory THOR MOTT Not Available Start: 01-02-2024 End: 01-02-2024 ambulatory SOLOMON FOUNTAIN Not Available Start: 12-23-2023 End: 12-23-2023 ambulatory JAYE Rizvi WINDNAGEL Not Available Start: 12-09-2023 End: 12-09-2023 Office outpatient visit 25 minutes Jose Kimbrough MD Work Phone: [facility] Comment on above: Aneurysm of ascendin g aorta without rupture ([facility]) (Primary Dx); Essential hypertension; Mixed hyperlipidemia; BMI 27.0-27.9,adult; Never smoked any substance Start: 12-09-2023 End: 12-09-2023 ambulatory JOSE KIMBROUGH [facility] Ambulatory Start: 11-06-2023 End: 11-06-2023 Patient encounter procedure II Thor Mott Work Phone: [facility] [place] Work Phone: Start: 11-06-2023 End: 11-06-2023 ambulatory II Thor Mott Work Phone: [facility] Work Phone: Start: 10-30-2023 End: 10-30-2023 ambulatory SERGEY CHAWLA Not Available Start: 10-28-2023 End: 10-28-2023 ambulatory THOR MOTT Not Available Start: 10-24-2023 End: 10-24-2023 ambulatory THOR MOTT Not Available Start: 10-17-2023 End: 10-18-2023 ambulatory Kenan SORIA Facility:[id number] Start: 10-16-2023 End: 10-16-2023 ambulatory JANA QUEZADA Not Available Start: 10-10-2023 End: 10-10-2023 ambulatory SOLOMON FOUNTAIN Not Available Start: 10-07-2023 End: 10-07-2023 ambulatory JAYE Rizvi WINDNAGEL Not Available Start: 09-04-2023 End: 09-04-2023 ambulatory THOR MOTT Not Available Start: 07-29-2023 End: 07-30-2023 ambulatory Humberto Hernandez Facility:[facility] Start: 07-29-2023 End: 07-29-2023 Patient encounter procedure Humberto Hernandez [facility] Start: 07-04-2023 End: 07-04-2023 ambulatory SOLOMONVannesa FOUNTAIN Not Available Start: 06-05-2023 End: 06-06-2023 ambulatory Palak Uyen Kristy Facility:[facility] Start: 06-05-2023 End: 06-05-2023 Patient encounter procedure Palak Uyen Kristy [facility] Start: 05-08-2023 End: 05-08-2023 ambulatory THOR MOTT Not Available Start: 03-05-2023 End: 03-06-2023 ambulatory Palak Wagner Facility:[facility] Start: 03-05-2023 End: 03-06-2023 ambulatory [facility] Start: 03-05-2023 End: 03-05-2023 Patient encounter procedure Palak Uyen Chavarriaz [facility] Start: 01-23-[address] Thor Mott II Facility: Start: 01-23-2023 Office outpatient vi sit 25 minutes Thor Mott Work Phone: [facility] 250 DO Work Phone: Start: 11-13-2022 Chart Update Jose grayson MD Work Phone: [facility] 250 DO Work Phone: Start: 08-08-2022 End: 08-08-2022 Patient encounter procedure Palak Uyen Kristy [facility] Start: 05-08-2022 End: 05-08-2022 Patient encounter procedure Palak Wagner [facility] Start: 03-22-2022 End: 03-22-2022 Patient encounter procedure Palak Wagner [facility] Start: 03-14-2022 End: 03-14-2022 Patient encounter procedure Kenan Terry NILL [facility] Nill[facility] [place] Start: 02-21-2022 End: 02-21-2022 Patient encounter procedure Palak Wagner [facility] Start: 02-14-2022 End: 02-14-2022 Patient encounter procedure Palak Wagner [facility] Start: 12-11-2021 End: 12-11-2021 Patient encounter procedure Palak Wagner [facility] Start: 12-06-2021 Office outpatient vi sit 15 minutes Jose Kimbrough MD Work Phone: [facility] 250 DO Work Phone: Start: 11-23-2021 Chart Update Jose grayson MD Work Phone: [facility] 600 DO Work Phone: Start: 11-22-2021 Chart Update Jose grayson MD Work Phone: [facility] 600 DO Work Phone: Start: 11-22-2021 End: 11-22-2021 Patient encounter procedure II Thor Mott Work Phone: [facility] [place] Start: 11-15-2021 End: 11-15-2021 Patient encounter procedure Nabeel CHUNG [facility] Start: 10-31-2021 End: 10-31-2021 Patient encounter procedure Nabeel CHUNG [facility] Start: 10-04-2021 End: 10-04-2021 Patient encounter procedure Palak Wagner [facility] Start: 08-16-2021 End: 08-17-2021 ambulatory ADÁN EDWARDS Facility:[facility] Start: 06-21-2021 End: 06-21-2021 ambulatory SAVI KYLE Facility:[facility] Start: 05-25-2021 End: 05-25-[address] THOR MOTT Facility:[facility] Start: 09-20-2020 End: 09-21-2020 ambulatory NONE LISTED REQUEST Facility:[facility] Start: 08-29-2020 End: 08-30-2020 ambulatory NONE LISTED REQUEST Facility:[facility] Patient encounter status Jose Kimbrough MD Work Phone: [facility] 250 DO Work Phone: Procedures Date Procedure Procedure Detail Performing Clinician Start: 11-06-2023 CT of chest II Thor Mott Work Phone: Start: 09-13-2023 Lipid 1996 panel - Serum or Plasma Jason Kimbrough MD Work Phone: Start: 07-29-2023 Colonoscopy Jose Kimbrough MD Work Phone: Start: 07-29-2023 Colonoscopy Humberto Hernandez Start: 07-29-2023 Esophagogastroduodenoscopy Humberto Villa ini Start: 11-22-2021 CT of chest II Thor Mott Work Phone: Start: 11-15-2021 Colonoscopy Nabeel CHUNG Comment on above: diverticulosis t/o colon Start: 11-15-2021 Esophagogastroduodenoscopy Nabeel CHUNG Comment on above: normal Cholecystectomy Palak Leigh stephan Cholecystectomy Jose anguiano MD Work Phone: Colonoscopy Palak Wagner Colonoscopy Jose Kimbrough MD Work Phone: Comment on above: [id number]; 15nov2021; Nasal sinus procedure Corina Kimbrough MD Work Phone: Operation on mouth Jose Tobin MD Work Phone: Plan of Treatment Date Care Activity Detail Author Start: 07-29-2033 Screening for malign ant neoplasm of colon [facility] Start: 09-12-2028 Lipid panel Lipid Panel [facility] Start: 12-29-2024 End: 12-29-2024 Patient encounter procedure 12/29/2024 3:30 PM EDT Office Visit [facility] [address] [id number] Supa Loaiza MD 703 [facility] [address], [address] [address] [facility] Start: 12-08-2024 End: 12-08-2024 CTA Chest vessels WO and W contrast IV CT angio chest w and wo IV contrast Imaging Routine Aneurysm of ascending aorta without rupture (CMS-HCC) Expected: 12/08/2024 (Approximate), Expires: 12/08/2024 [facility] Service Area Work Phone: Comment on above: Expected: 12/08/2024 (Approximate), Expires: 12/08/2024 Start: 09-03-2024 Medicare Annual Well ness (AWV) Medicare Annual Wellness (AWV) [facility] Start: 07-30-2024 End: 07-30-2024 Patient encounter procedure 07/30/2024 3:00 PM EST Procedure Visit [facility] [address] [facility] [address] [place] [address] Solomon Fountain, DPM [address] [facility] [address] [place] [address] [facility] Start: 07-09-2024 End: 07-09-2024 Patient encounter procedure 07/09/2024 2:20 PM EST Office Visit [facility] [place] [facility] [address] [place] [id number] Delaney Carvalho PA [address] [place], [place] [id number] [facility] Start: 05-21-2024 End: 05-21-2024 Patient encounter procedure [facility] Comment on above: Onychomycosis (Prima ry Dx); Toe pain, left; Toe pain, right; Acquired deformity of right toe Start: 05-11-2024 End: 05-11-2024 Patient encounter procedure 05/11/2024 3:40 PM EST Office Visit [facility] [place] [facility] [address] [place] [id number] Jaye Mack, LABEL DESIGNER [address] [place] [address] [facility] Start: 03-17-2024 End: 03-17-2024 Patient encounter procedure [facility] Comment on above: Arrived Start: 03-12-2024 End: 03-12-2024 Patient encounter procedure [facility] Comment on above: Onychomycosis (Prima ry Dx); Toe pain, left; Toe pain, right Start: 02-16-2024 Influenza vaccination Influenza Vacc ine (#1) [facility] Start: 01-29-2024 FUV, Provider: Jose Kimbrough, Status: Pen, Time: 3:40 PM FUV, Provider: Jose Kimbrough, Status: Pen, [facility]: 3:40 [facility] Work [facility]: Start: 2023 Pneumococcal Vaccine : 65+ Years (3 of 3 - PPSV23 or PCV20) Pneumococcal Vaccine: 65+ Years (3 of 3 - PPSV23 or PCV20) [facility] Start: 02-15-2023 COVID-19 Vaccine ( season) COVID-19 Vaccine ( season) [facility] Start: 01-09-2023 FUV, Provider: Jose Kimbrough, Status: Pen, Time: 1:00 PM FUV, Provider: Jose Kimbrough, Status: Pen, Time: 1:00 PM [facility] 250 DO Work Phone: Start: 12-06-2021 FUV, Provider: Jose Kimbrough, Status: Pen, Time: 1:15 PM FUV, Provider: Jose Kimbrough, Status: Pen, Time: 1:15 PM [facility] Work Phone: Start: 10-09-2016 MMR Vaccines (1 of 1 - Standard series) MMR Vaccines (1 of 1 - Standard series) [facility] Start: 1980 DTaP/Tdap/Td Vaccine s (1 - Tdap) DTaP/Tdap/Td Vaccines (1 - Tdap) [facility] Start: 1976 Diabetes mellitus screening Diabetes Screening [facility] Start: 1976 Hepatitis C screening Hepatitis C [facility] Start: 1958 Annual wellness visit Medicare Initial Physical (IPPE) [facility] Start: 1960 Screening for malign ant neoplasm of colon [facility] Immunizations Immunization Date Immunization Notes Care Provider Anitha jolley 04-30-2024 Influenza, High-dose Seasonal, Quadrivalent, Preservative Free Thor Mott MD Work Phone: [facility] 09-05-2023 RSV, recombinant, protein subunit RSVpreF, adjuvant reconstitu, 120mcg/0.5mL, PF (Arexvy) Jaye Mack LABEL DESIGNER Work Phone: [facility] 04-04-2023 influenza virus vaccine, unspecified formulation Palak Wagner [facility] 04-04-2023 influenza, injectabl e, quadrivalent, preservative free Jaye Pughnagel LABEL DESIGNER Work Phone: [facility] 04-11-2022 influenza virus vaccine, unspecified formulation Palak Wagner [facility] 04-11-2022 influenza, injectabl e, quadrivalent, preservative free Thor Mott Work [facility]: [facility] Work Phone: 04-11-2022 seasonal influenza, intradermal, preservative free Jose Kimbrough MD Work Phone: [facility] Work Phone: 03-17-2022 influenza virus vaccine, unspecified formulation Palak Wagner [facility] 03-17-2022 influenza, seasonal, injectable Thor Mott Work Phone: [facility] DO Work Phone: Comment on above: Series: 06-05-2021 Pfizer-BioNTFRAMED COVID-19 Vacc 30 MCG/0.3ML Intramuscular Suspension Jose Kimbrough MD Work Phone: [facility] Comment on above: Result Comment: 2021: [id number] 04-13-2021 influenza virus vaccine, unspecified formulation Palak Wagner [facility] 04-13-2021 influenza, injectabl e, quadrivalent, contains preservative [facility]rough [facility] Work Phone: 09-20-2020 PfizerBioNTech COVID-19 Vacc 30 MCG/0.3ML Intramuscular Suspension Jose Kimbrough MD Work Phone: [facility] 08-29-2020 Pfizer-BioNTech COVID-19 Vacc 30 MCG/0.3ML Intramuscular Suspension Jose Kimbrough MD Work Phone: [facility] 03-29-2020 influenza virus vaccine, unspecified formulation Palak Wagner [facility] 03-29-2020 influenza, injectabl e, quadrivalent, preservative free Jose Kimbrough MD Work Phone: [facility] Work Phone: 03-17-2020 influenza virus vaccine, unspecified formulation Jose Kimbrough MD Work Phone: [facility] 03-17-2020 influenza, seasonal, injectable Jaye Windnagel LABEL DESIGNER Work Phone: [facility] 05-27-2019 zoster vaccine recombinant Jose Kimbrough MD Work Phone: [facility] 03-18-2019 influenza virus vaccine, unspecified formulation Palak Wagner [facility] 03-18-2019 influenza, injectabl e, quadrivalent, contains preservative Jaye Windnagel LABEL DESIGNER Work Phone: [facility] 03-17-2019 influenza virus vaccine, unspecified formulation Jose Kimbrough MD Work Phone: [facility] DO Work Phone: 02-20-2019 zoster vaccine recombinant Jose Kimbrough MD Work Phone: [facility] 07-17-2017 influenza virus vaccine, unspecified formulation Palak Wagner [facility] 07-17-2017 seasonal influenza, intradermal, preservative free Jose Kimbrough MD Work Phone: [facility] 250 DO Work Phone: 03-17-2017 influenza virus vaccine, unspecified formulation Jose Kimbrough MD Work Phone: [facility] 600 DO Work Phone: 09-11-2016 zoster vaccine, live Jaye Keatonnagel LABEL DESIGNER Work Phone: [facility] 08-14-2016 zoster vaccine, live Jose Kimbrough MD Work Phone: [facility] 05-03-2016 influenza virus vaccine, unspecified formulation Palak Wagner [facility] 05-03-2016 influenza, injectabl e, quadrivalent, contains preservative Jose Kimbrough MD Work Phone: [facility] 250 DO Work Phone: 03-17-2016 influenza virus vaccine, unspecified formulation Jose Kimbrough MD Work Phone: [facility] 600 DO Work Phone: 03-17-2015 influenza virus vaccine, unspecified formulation Jose Kimbrough MD Work Phone: [facility] 600 DO Work Phone: 03-03-2015 seasonal influenza, intradermal, preservative free Jaye Keatonnagel LABEL DESIGNER Work Phone: [facility] 12-15-2014 pneumococcal polysaccharide vaccine, 23 valent Jose Kimbrough MD Work Phone: [facility] 600 DO Work Phone: 12-14-2014 pneumococcal conjuga te vaccine, 13 valchalo Kimbrough MD Work Phone: [facility] 08-15-2014 pneumococcal conjuga te vaccine, 13 valchalo Kimbrough MD Work Phone: [facility] 04-08-2014 influenza, seasonal, injectable Jaye Keatonnagel LABEL DESIGNER Work Phone: [facility] 11-25-2013 pneumococcal polysaccharide vaccine, 23 carrol Kimbrough MD Work Phone: [facility] 03-17-2011 pneumococcal polysaccharide vaccine, 23 carrol Kimbrough MD Work Phone: [facility] 600 DO Work Phone: 03-07-2011 seasonal influenza, intradermal, preservative free Jaye Keatonnagel LABEL DESIGNER Work Phone: [facility] NEGATED: Highlighted row has not occurred!02-14-2022 influenza virus vaccine, unspecified formulation Palak Wagner [facility] Payers Date Payer Category Payer Medicare [id number] 2019 Medicare (Managed Care) [employer] [id number] 2017 Medicaid [id number] 1959 Medicaid [id number] 1959 Self-pay 1959 Unknown [id number] 1959 Unknown [id number] 1958 Unknown [id number] 2.16.840.1.813611.3.579.2. 593 1958 Unknown [id number] 2.16.840.1.700211.3.579.2. 593 1958 Unknown [id number] 2.16.840.1.231074.3.579.2. 593 1958 Unknown [id number] 2.16.840.1.252046.3.579.2. 356 1958 Unknown [id number] 2.16.840.1.255994.3.579.2. 727 1958 Unknown [id number] 2.16.840.1.277208.3.579.2. 727 1958 Unknown [id number] 2.16.840.1.128871.3.579.2. 727 1958 Unknown [id number] 2.16.840.1.538116.3.579.2. 727 1958 Unknown [id number] 2.16.840.1.711386.3.579.2. 727 1958 Unknown [id number] 2.16.840.1.221139.3.579.2. 1244 1958 Unknown [id number] 2.16.840.1.644048.3.579.2. 1259 1958 Unknown [id number] 2.16.840.1.999075.3.579.2. 1259 1958 Unknown [id number] 2.16.840.1.048671.3.579.2. 1259 1958 Unknown [id number] 2.16.840.1.169045.3.579.2. 1259 1958 Unknown [id number] 2.16.840.1.416447.3.579.2. 1259 1958 Unknown [id number] 2.16.840.1.174365.3.579.2. 1259 1958 Unknown [id number] 2.16.840.1.415035.3.579.2. 9 1958 Unknown [id number] 2.16.840.1.137188.3.579.2. 1258 1958 Unknown [id number] 2.16.840.1.307377.3.579.2. 1258 1958 Unknown [id number] 2.16.840.1.731689.3.579.2. 1258 1958 Unknown [id number] 2.16.840.1.438149.3.579.2. 1258 1958 Unknown [id number] 2.16.840.1.576196.3.579.2. 1258 1958 Unknown [id number] 2.16.840.1.477861.3.579.2. 1258 1958 Unknown [id number] 2.16.840.1.943201.3.579.2. 9 1958 Unknown [id number] 2.16.840.1.028028.3.579.2. 1259 Unknown [id number] 2.16.840.1.164366.3.579.2. 593 Unknown [id number] 2.16.840.1.970613.3.579.2. 593 Unknown Unknown HCAP/HFA/FAP Active [id number] Unknown [id number] 2.16.840.1.722366.3.579.2. 531 Social History Date Type Detail Facility Start: 10-04-2021 End: 10-16-2023 Tobacco smoking status Never smoked tobacco (finding) [facility] Tobacco smoking status Never [facility] Start: 10-21-2023 End: 01-22-2024 Sex Assigned At Male [facility] Start: 10-21-2023 End: 01-22-2024 Never a smoker Never a smoker [facility] 600 DO Work Phone: Start: 1960 Sex Assigned At Male [facility] Start: 10-16-2023 End: 12-09-2023 Tobacco use and exposure Smokeless tobacco non-user [facility] Work Phone: Start: 01-08-2024 End: 03-12-2024 Alcoholic beverage intake Lifetime non-drinker (finding) [facility] Within the last year , have you been afraid of your partner or ex-partner? No [facility] Do you belong to any clubs or organizations such as catholic groups, unions, fraternal or athletic groups, or school groups? Yes [facility] Are you now , , , , never or living with a partner? [facility] How often to you hav e a drink containing alcohol? Never [facility] Do you feel stress - tense, restless, nervous, or anxious, or unable to sleep at night because your mind is troubled all the time - these days [OSQ] To some extent [facility] (I/We) worried wheth er (my/our) food would run out before (I/we) got money to buy more. Never true [facility] Start: 1960 Sex assigned at Not on file [facility] Work Phone: Start: 12-09-2023 Alcoholic beverage intake Curr ent drinker of alcohol (finding) [facility] Work Phone: Start: 08-30-2023 Alcohol Comment occsional [facility] Work Phone: Start: 11-29-2023 End: 12-09-2023 Exposure to SARS-CoV-2 (event) Not sure [facility] Medical Equipment Procedure Code Equipment Code Equipment Origin al Text Equipment Identifier Dates 1 each if needed. Start: 08-08-2022 Functional Status Date Assessment Result Facility 07-29-2023 Functional Status N/A [facility] 06-05-2023 Functional Status N/A [facility] 03-05-2023 Functional Status N/A [facility] 05-08-2022 Functional Status N/A [facility] 03-14-2022 Functional Status N/A [facility] 02-14-2022 Functional Status N/A [facility] 12-11-2021 Functional Status N/A [facility] Clinical Notes 10-04-2021 to 05-21-2024 Solomon Fountain DPM - 05/21/2024 2:50 PM ESTHeather MISTI Lynn - 04/30/2024 10:00 AM ESTPatient InstructionsSolomon Fountain DPM - 03/12/2024 3:00 PM EDTPatient InstructionsLaboratoryRadiology Note Date & Type Note Facility 05-21-2024 History of Present illness Narrative Patient: Cecilio Nickerson : 1960 PCP: Thor Mott MD SUBJECTIVE This is a 63 y.o. male that presents today with a CC of elongated, thick nails. Pt states nails have been elongated and thick for many years and cause pain with ambulation in shoegear. Pt has tried previous treatment with minimal relief. Pt presents today for nail care and treatment. Patient has chronic history of pain to the right 5th digit toenail and states it is painful with ambulation at times. Denies any problems at this time Allergies: Allergies Allergen Reactions Shellfish Allergy Anaphylaxis, Hives and Rash Mixed Ragweed Other Reaction(s): Unknown Past Medical History: Past Medical History: Diagnosis Date Allergies Antral gastritis 2012 Anxiety Anxiety Ascending aortic aneurysm (CMS/HCC) Burning mouth syndrome Chronic maxillary sinusitis Chronic pansinusitis Colon polyp 09/2018 Karissa bullosa Depression (CMS/HCC) Diabetes mellitus, type II (CMS/HCC) Dizziness DNS (deviated nasal septum) Gastric polyp 2011 Gastric ulcer 2011 and 2012 History of esophagogastroduodenoscopy 2023 History of umbilical hernia 03/22/2023 HLD (hyperlipidemia) (CMS/HCC) HTN (hypertension) ([facility]) Hypertrophy of nasal turbinates IBS (irritable bowel syndrome) Obstructive sleep apnea Thyroid disease ([facility]) Ulcer of gastric fundus 2011 Ulcer of gastric fundus 2011 Medications: Current Outpatient Medications: albuterol HFA 90 mcg/act inhaler, Inhale 1 puff every 4 (four) hours if needed., Disp: , Rfl: benztropine (Cogentin) 0.5 MG tablet, Take 0.5 mg by mouth in the morning and 0.5 mg before bedtime., Disp: , Rfl: cyanocobalamin (Vitamin B-12) 100 MCG tablet, Take 100 mcg by mouth Daily, Disp: , Rfl: dicyclomine (Bentyl) 10 MG capsule, Take 1 capsule (10 mg) by mouth every 8 (eight) hours if needed (abdominal pain), Disp: 60 capsule, Rfl: 5 famotidine (Pepcid) 20 MG tablet, Take 1 tablet (20 mg) by mouth Daily, Disp: 100 tablet, Rfl: 4 Fanapt 6 MG tablet, Take 6 mg by mouth., Disp: , Rfl: meloxicam (Mobic) 15 MG tablet, TAKE 1 TABLET BY MOUTH EVERY DAY, Disp: 30 tablet, Rfl: 3 omeprazole (PriLOSEC) [address] capsule, Take 1 capsule (40 mg) by mouth in the morning and 1 capsule (40 mg) in the evening. Take with meals., Disp: 200 capsule, Rfl: 3 ondansetron ODT (Zofran-ODT) 4 MG disintegrating tablet, Take 4 mg by mouth every 8 (eight) hours if needed for nausea or vomiting, Disp: , Rfl: OneTouch Ultra test strip, 1 each if needed., Disp: , Rfl: OXcarbazepine (Trileptal) 300 MG tablet, TAKE 1 AND 1/2 TABLETS BY MOUTH TWICE A DAY, Disp: 90 tablet, Rfl: 0 simvastatin (Zocor) 20 MG tablet, Take 1 tablet (20 mg) by mouth in the evening, Disp: 90 tablet, Rfl: 3 tiZANidine (Zanaflex) 4 MG tablet, TAKE 1/2-1 TABLET BY MOUTH AT BEDTIME, Disp: 30 tablet, Rfl: 2 topiramate 50 MG tablet, Take 50 mg by mouth in the morning and 50 mg before bedtime., Disp: 60 tablet, Rfl: 2 venlafaxine (Effexor) 75 MG tablet, Take 75 mg by mouth 1 (one) time each day at the same time., Disp: , Rfl: Social History: Social History Socioeconomic History Marital status: Spouse name: Not on file Number of children: Not on file Years of education: Not on file Highest education level: Not on file Occupational History Not on file Tobacco Use Smoking status: Never Smokeless tobacco: Never Vaping Use Vaping status: Never Used Substance and Sexual Activity Alcohol use: Never Drug use: Not on file Sexual activity: Defer Partners: Decline to Answer Other Topics Concern Not on file Social History Narrative Not on file Social Drivers of Health Financial Resource Strain: Low Risk (10/21/2023) Overall Financial Resource Strain (CARDIA) Difficulty of Paying Living Expenses: Not hard at all Food Insecurity: No Food Insecurity (10/21/2023) Hunger Vital Sign Worried About Running Out of Food in the Last Year: Never true Ran Out of Food in the Last Year: Never true Transportation Needs: No Transportation Needs (10/21/2023) PRAPARE - Transportation Lack of Transportation (Medical): No Lack of Transportation (Non-Medical): No Physical Activity: Insufficiently Active (10/21/2023) Exercise Vital Sign Days of Exercise per Week: 7 days Minutes of Exercise per Session: 20 min Stress: Stress Concern Present (10/21/2023) [place] [facility] [employer] - Occupational Stress Questionnaire Feeling of Stress : To some extent Social Connections: Moderately Isolated (10/21/2023) Social Connection and Isolation Panel [NHANES] Frequency of Communication with Friends and Family: More than three times a week Frequency of Social Gatherings with Friends and Family: More than three times a week Attends Islam Services: Never Active Member of Clubs or Organizations: Yes Attends Club or Organization Meetings: More than 4 times per year Marital Status: Intimate Partner Violence: Not At Risk (10/21/2023) Humiliation, Afraid, Rape, and Kick questionnaire Fear of Current or Ex-Partner: No Emotionally Abused: No Physically Abused: No Sexually Abused: No Housing Stability: Low Risk (10/21/2023) Housing Stability Vital Sign Unable to Pay for Housing in the Last Year: No Number of Places Lived in the Last Year: 1 Unstable Housing in the Last Year: No ROS: General: denies fever, chills, fatigue, malaise Cardiovascular: denies CP, palpitations, irregular rhythms. History of AAA that measures 4.8 cm according to patient OBJECTIVE LE EXAM: DERM: Elongated thick yellow crumbly nails digits 1 through 10. Positive hair growth b/l feet. Rubor to right 5th digit PIPJ region VASC: Positive palpable pedal pulses bilaterally NEURO: Gross sensation intact to bilateral feet ORTHO: Positive pain on palpation to nails 1 through 10 Digital deformity right 5th toe ASSESSMENT 1. Onychomycosis 2. Toe pain, left 3. Toe pain, right 4. Acquired deformity of right toe PLAN Discussed proper foot care with patient today. Debride nails in length and thickness digits 1 through 10 Solomon Fountain DPM documented in this encounter [facility] 04-30-2024 History of Present illness Narrative Pt was her to get flu vacc given in right arm admin danielle lynn documented in this encounter [facility] 03-17-2024 Instructions Jaye Mack NP - 03/17/2024 3:00 PM EDT Topamax (totipalmate) - take 25mg - 2 tablets - two times a day until gone. With the new prescription it will be 1 50mg tablet two times a day Can hold tizanidine to se if fatigue improves and how the headaches do. If headaches worsen and fatigue does not improve you can restart it. If fatigue improves and headache worsen give us a call. documented in this encounter [facility] 03-12-2024 History of Present illness Narrative Patient: Cecilio Nickerson : 1960 PCP: Thor Mott MD SUBJECTIVE This is a 63 y.o. male that presents today with a CC of elongated, thick nails. Pt states nails have been elongated and thick for many years and cause pain with ambulation in shoegear. Pt has tried previous treatment with minimal relief. Pt presents today for nail care and treatment. Patient has chronic history of pain to the right 5th digit toenail and states it is painful with ambulation at times. Denies any problems at this time Allergies: Allergies Allergen Reactions Shellfish Allergy Anaphylaxis, Hives and Rash Mixed Ragweed Other Reaction(s): Unknown Past Medical History: Past Medical History: Diagnosis Date Allergies Antral gastritis 2012 Anxiety Anxiety Ascending aortic aneurysm (CMS/HCC) Burning mouth syndrome Chronic maxillary sinusitis Chronic pansinusitis Colon polyp 09/2018 Karissa bullosa Depression ([facility]/HCC) Diabetes mellitus, type II ([facility]/HCC) Dizziness DNS (deviated nasal septum) Gastric polyp 2011 Gastric ulcer 2011 and 2012 History of esophagogastroduodenoscopy 2023 History of umbilical hernia 03/22/2023 HLD (hyperlipidemia) ([facility]) HTN (hypertension) ([facility]) Hypertrophy of nasal turbinates IBS (irritable bowel syndrome) Obstructive sleep apnea Thyroid disease ([facility]) Ulcer of gastric fundus 2011 Ulcer of gastric fundus 2011 Medications: Current Outpatient Medications: albuterol HFA 90 mcg/act inhaler, Inhale 1 puff every 4 (four) hours if needed., Disp: , Rfl: benztropine (Cogentin) 0.5 MG tablet, Take 0.5 mg by mouth in the morning and 0.5 mg before bedtime., Disp: , Rfl: cyanocobalamin (Vitamin B-12) 100 MCG tablet, Take 100 mcg by mouth Daily, Disp: , Rfl: dicyclomine (Bentyl) 10 MG capsule, Take 1 capsule (10 mg) by mouth every 8 (eight) hours if needed (abdominal pain), Disp: 60 capsule, Rfl: 5 famotidine (Pepcid) 20 MG tablet, Take 1 tablet (20 mg) by mouth Daily, Disp: 100 tablet, Rfl: 4 Fanapt 6 MG tablet, Take 6 mg by mouth., Disp: , Rfl: meloxicam (Mobic) 15 MG tablet, TAKE 1 TABLET BY MOUTH EVERY DAY, Disp: 30 tablet, Rfl: 3 omeprazole (PriLOSEC) [address] capsule, Take 1 capsule (40 mg) by mouth in the morning and 1 capsule (40 mg) in the evening. Take with meals., Disp: 200 capsule, Rfl: 3 ondansetron ODT (Zofran-ODT) 4 MG disintegrating tablet, Take 4 mg by mouth every 8 (eight) hours if needed for nausea or vomiting, Disp: , Rfl: OneTouch Ultra test strip, 1 each if needed., Disp: , Rfl: OXcarbazepine (Trileptal) 300 MG tablet, TAKE 1 AND 1/2 TABLETS BY MOUTH TWICE A DAY, Disp: 90 tablet, Rfl: 3 simvastatin (Zocor) 20 MG tablet, TAKE ONE TABLET BY MOUTH ONCE DAILY IN THE EVENING, Disp: 30 tablet, Rfl: 11 tiZANidine (Zanaflex) 4 MG tablet, TAKE 1/2-1 TABLET BY MOUTH AT BEDTIME, Disp: 30 tablet, Rfl: 2 topiramate (Topamax) 25 MG tablet, TAKE 1 TABLET BY MOUTH EVERY DAY AT BEDTIME, Disp: 30 tablet, Rfl: 3 venlafaxine (Effexor) 75 MG tablet, Take 75 mg by mouth 1 (one) time each day at the same time., Disp: , Rfl: Social History: Social History Socioeconomic History Marital status: Spouse name: Not on file Number of children: Not on file Years of education: Not on file Highest education level: Not on file Occupational History Not on file Tobacco Use Smoking status: Never Smokeless tobacco: Never Vaping Use Vaping status: Never Used Substance and Sexual Activity Alcohol use: Never Drug use: Not on file Sexual activity: Defer Partners: Decline to Answer Other Topics Concern Not on file Social History Narrative Not on file Social Determinants of Health Financial Resource Strain: Low Risk (10/21/2023) Overall Financial Resource Strain (CARDIA) Difficulty of Paying Living Expenses: Not hard at all Food Insecurity: No Food Insecurity (10/21/2023) Hunger Vital Sign Worried About Running Out of Food in the Last Year: Never true Ran Out of Food in the Last Year: Never true Transportation Needs: No Transportation Needs (10/21/2023) PRAPARE - Transportation Lack of Transportation (Medical): No Lack of Transportation (Non-Medical): No Physical Activity: Insufficiently Active (10/21/2023) Exercise Vital Sign Days of Exercise per Week: 7 days Minutes of Exercise per Session: 20 min Stress: Stress Concern Present (10/21/2023) [place] [facility] [employer] - Occupational Stress Questionnaire Feeling of Stress : To some extent Social Connections: Moderately Isolated (10/21/2023) Social Connection and Isolation Panel [NHANES] Frequency of Communication with Friends and Family: More than three times a week Frequency of Social Gatherings with Friends and Family: More than three times a week Attends Islam Services: Never Active Member of Clubs or Organizations: Yes Attends Club or Organization Meetings: More than 4 times per year Marital Status: Intimate Partner Violence: Not At Risk (10/21/2023) Humiliation, Afraid, Rape, and Kick questionnaire Fear of Current or Ex-Partner: No Emotionally Abused: No Physically Abused: No Sexually Abused: No Housing Stability: Low Risk (10/21/2023) Housing Stability Vital Sign Unable to Pay for Housing in the Last Year: No Number of Places Lived in the Last Year: 1 Unstable Housing in the Last Year: No ROS: General: denies fever, chills, fatigue, malaise Cardiovascular: denies CP, palpitations, irregular rhythms. History of AAA that measures 4.8 cm according to patient OBJECTIVE LE EXAM: DERM: Elongated thick yellow crumbly nails digits 1 through 10. Positive hair growth b/l feet. Rubor to right 5th digit PIPJ region VASC: Positive palpable pedal pulses bilaterally NEURO: Gross sensation intact to bilateral feet ORTHO: Positive pain on palpation to nails 1 through 10 Digital deformity right 5th toe ASSESSMENT 1. Onychomycosis 2. Toe pain, left 3. Toe pain, right PLAN Discussed proper foot care with patient today. Debride nails in length and thickness digits 1 through 10 Solomon Fountain DPM documented in this encounter [facility] 03-09-2024 History of Present illness Narrative Titration study recommended CPAP with pressure of 7 cm of water with a medium AirFit F20 fullface mask Ramp time of 20 minutes, heated humidification Diagnosis severe obstructive sleep apnea with AHI of 36.8. No residual events with CPAP documented in this encounter [facility] 12-09-2023 History of Present illness Narrative Subjective Cecilio Nickerson is a 63 y.o. male Chief Complaint Annual Exam HPI Review of Systems All other systems reviewed and are negative. Patient returns in follow-up of problems as noted. He is done well. Recent CT scan demonstrates no change in his ascending aortic aneurysm. Actually several millimeters smaller. From a cardiac standpoint he is doing well and I cannot elicit any angina CHF or arrhythmia symptomatology. He is normotensive in the absence of any antihypertensive medication and he was congratulated in this regard. His lipids are adequately managed. Increased BMI is noted in the merits of diet and weight loss were advocated. Vitals: 12/09/23 1043 BP: 114/78 BP Location: Right arm Patient Position: Sitting Pulse: 68 Weight: 78 kg (172 lb) Height: 1.676 m (5' 6 ) Objective Physical Exam Constitutional: Appearance: Normal appearance. HENT: Nose: Nose normal. Neck: Vascular: No carotid bruit. Cardiovascular: Rate and Rhythm: Normal rate. Pulses: Normal pulses. Heart sounds: Normal heart sounds. Pulmonary: Effort: Pulmonary effort is normal. Abdominal: General: Bowel sounds are normal. Palpations: Abdomen is soft. Musculoskeletal: General: Normal range of motion. Cervical back: Normal range of motion. Right lower leg: No edema. Left lower leg: No edema. Skin: General: Skin is warm and dry. Neurological: General: No focal deficit present. Mental Status: He is alert. Psychiatric: Mood and Affect: Mood normal. Behavior: Behavior normal. Thought Content: Thought content normal. Judgment: Judgment normal. Allergies Patient has no known allergies. Current Medications Current Outpatient Medications: benztropine (Cogentin) 1 mg tablet, Take 1 tablet (1 mg) by mouth 2 times a day as needed., Disp: , Rfl: dicyclomine (Bentyl) 10 mg capsule, TAKE 1 CAPSULE BY MOUTH ONCE EVERY 8 HOURS IF NEEDED FOR ABDOMINAL PAIN, Disp: , Rfl: famotidine (Pepcid) 20 mg tablet, Take 1 tablet (20 mg) by mouth once daily at bedtime., Disp: , Rfl: iloperidone (Fanapt) 6 mg tablet, Take 0.5 tablets (3 mg) by mouth 2 times a day., Disp: , Rfl: meloxicam (Mobic) 15 mg tablet, Take 1 tablet (15 mg) by mouth once daily., Disp: , Rfl: omeprazole (PriLOSEC) [address] capsule, Take 1 capsule (20 mg) by mouth once daily in the morning. Take before meals., Disp: , Rfl: OXcarbazepine (Trileptal) 300 mg tablet, Take 1.5 tablets (450 mg) by mouth once daily at bedtime., Disp: , Rfl: simvastatin (Zocor) 20 mg tablet, Take 1 tablet (20 mg) by mouth once daily at bedtime., Disp: , Rfl: tiZANidine (Zanaflex) 4 mg tablet, Take 1 tablet (4 mg) by mouth once daily., Disp: , Rfl: venlafaxine (Effexor) 75 mg tablet, Take 1 tablet (75 mg) by mouth once daily in the morning. Take before meals., Disp: , Rfl: Assessment/Plan 1. Aneurysm of ascending aorta without rupture (CMS-HCC) No progression based upon recent CT scan. Continue annual surveillance. 2. Essential hypertension Review of treatment strategy demonstrates excellent blood pressure on no antihypertensive medication. 3. Mixed hyperlipidemia Review of treatment strategy demonstrates good control 4. BMI 27.0-27.9,adult The merits of diet and weight loss were advocated 5. Never smoked any substance Noted Scribe Attestation By signing my name below, I, Bertha Rivas LPN attest that this documentation has been prepared under the direction and in the presence of Jose Kimbrough MD. Provider Attestation - Scribe documentation All medical record entries made by the Scribe were at my direction and personally dictated by me. I have reviewed the chart and agree that the record accurately reflects my personal performance of the history, physical exam, discussion and plan. documented in this encounter [facility] Work Phone: 12-09-2023 Instructions Jo Ann Oropeza LPN - 12/09/2023 10:20 AM EDT Please bring all medicines, vitamins, and herbal supplements with you when you come to the office. Prescriptions will not be filled unless you are compliant with your follow up appointments or have a follow up appointment scheduled as per instruction of your physician. Refills should be requested at the time of your visit. BMI was above normal measurement. Current weight: 78 kg (172 lb) Weight change since last visit (-) denotes wt loss -3 lbs Weight loss needed to achieve BMI 25: 17.4 Lbs Weight loss needed to achieve BMI 30: -13.5 Lbs Provided instructions on dietary changes Provided instructions on exercise . documented in this encounter [facility] Work Phone: 07-31-2023 Note [id number] [facility] 07-29-2023 Hospital Discharge instructions Patient Education 07/29/2023 [...] unsweetened, w/added ascorbic acid 1 cup 0.5 [place] 1 cup 0.7 Vegetables Cooked Green beans 1 cup 4.0 Carrots 1/2 cup sliced 2.3 Peas 1 cup 8.8 Potato (baked, with skin) 1 medium potato 3.8 Raw [place] (with peel) 1 cucumber 1.5 Lettuce 1 [...] 8.7 Peanuts 1/2 cup 7.9 Chart from [facility] 2013. SEEK IMMEDIATE MEDICAL CARE [...] of Agriculture (USDA) National Nutrient Database at: http://www.nal.usda.gov/fnic/foodcomp/ search/ Created using data from the USDA National Nutrient Database for Standard Reference. Available at http://www.nal.usda.gov/fnic/foodcomp/ search/. Information adapted from: [facility] Patient Information 2009 [place]. vogogo 2012 http://www.Yushino/contents/diver ydbpsjx-ypxlbcd-mfbswj-the-basics 07/29/2023 16:40:57 Duodenitis Duodenitis Duodenitis is inflammation [...] Follow these instructions at home: Medicines Take vmca-ksl-qyawgkm and prescription medicines only as told by [...] or drinks. ?Garlic or onions. ?Spicy foods. ?Radom fruits. ?Tomato-based foods. ?Fatty or fried foods. [...] infection from a type of bacteria. Take pkil-dhf-tthnizx and prescription medicines only as told by your health care provider. This information is not intended to replace advice given to you by your health care provider. Make sure you discuss any questions you have with your health care provider. Document Revised: 12/12/2021 Document Reviewed: 12/13/2021 HomeTouch Patient Education 2022 [employer]. 07/29/2023 16:40:51 Hemorrhoids, Eoyr-lw-Uqai Hemorrhoids Hemorrhoids are swollen veins that may [...] 3 times a day. General instructions Take syii-ups-edgvowi and prescription medicines only as told by [...] provider. Document Revised: 12/13/2021 Document Reviewed: 12/13/2021 HomeTouch Patient Education 2022 [employer]. 07/29/2023 16:40:37 Endoscopy, Care After Procedure [facility] ([facility]) Endoscopy Care After Procedure Please read [...] blood. Document Released: 01/15/2005 Document Re-Released: 11/25/2006 ExitCare Patient Information 2010 [employer]. 07/29/2023 16:40:34 Colonoscopy, Care After Surgery Salam [...] Up Care 06/05/2023 16:35:30 With:Humberto Hernandez Address: [address] [place], [place] [address], [address] [address] [phone] Business (1) When: only if needed Comments:Call for any problems. [facility] 06-05-2023 Hospital Discharge instructions Patient Education [...] grapefruit, pineapple, and ida. Vegetables Deep-fried vegetables. Bahamian fries. Any vegetables prepared with added fat. [...] provider. Document Revised: 12/12/2020 Document Reviewed: 12/12/2020 HomeTouch Patient Education 2022 [employer]. Follow Up Care 03/05/2023 15:29:52 With:Palak Wagner CNP Address: When:1 week Comments:Following EGD/Colonoscopy. [facility] 06-05-2023 Evaluation + Plan note Future Scheduled TestsFecal WBC Lactoferrin 06/05/23Giardia lamblia, Direct Detection EIA 06/05/23O & P Exam, Routine 06/05/23Clostridium Difficile PCR 06/05/23Enteric Panel by PCR 06/05/23CBC w/ Auto Diff 06/05/23Comprehensive Metabolic Panel 06/05/23Vitamin B12 Level 06/05/23 [facility] 03-05-2023 Hospital Discharge instructions Patient Education [...] who treats conditions of the digestive system (template checker). Follow these instructions at home: Medicines Take mjel-qzc-owymxfp and prescription medicines only as told by [...] provider. Document Revised: 04/20/2020 Document Reviewed: 04/20/2020 HomeTouch Patient Education 2022 [employer]. 03/05/2023 15:04:46 Food Choices for Gastroesophageal Reflux [...] grapefruit, pineapple, and ida. Vegetables Deep-fried vegetables. Bahamian fries. Any vegetables prepared with added fat. [...] provider. Document Revised: 12/12/2020 Document Reviewed: 12/12/2020 HomeTouch Patient Education 2022 [employer]. 03/05/2023 14:56:07 Colonoscopy, Adult Colonoscopy, Adult A [...] including vitamins, herbs, eye drops, creams, and guty-ulc-nrjnsac medicines. Any problems you or family members [...] provider tells you to take them. Taking skvf-sbh-cthfavo medicines, vitamins, herbs, and supplements. General instructions [...] provider. Document Revised: 05/28/2022 Document Reviewed: 01/24/2022 HomeTouch Patient Education 2022 [employer]. Follow Up Care 08/28/2022 15:16:00 With:Palak Wagner CNP Address: When:6 months [facility] 05-08-2022 Hospital Discharge instructions [...] including vitamins, herbs, eye drops, creams, and ekzx-jqw-hcdjyuk medicines. Any problems you or family members [...] 05/31/2001 Document Revised: 03/26/2018 Document Reviewed: 08/14/2016 HomeTouch Patient Education 2019 [employer]. Follow Up Care 04/05/2022 13:22:50 With:Palak Wagner CNP Address: When:3 months [facility] 02-14-2022 Evaluation + Plan note Future Scheduled TestsCT Abdomen/Pelvis w/ Contrast 02/14/22 [facility] 02-14-2022 Hospital Discharge instructions [...] who treats conditions of the digestive system (template checker). Follow these instructions at home: Take ewar-qfq-tagzrez and prescription medicines only as told by [...] 12/31/2017 Document Revised: 05/16/2018 Document Reviewed: 02/18/2018 HomeTouch Patient Education 2020 [employer]. Follow Up Care 12/11/2021 13:08:43 With:Kristy PLATFORM MILL SUPERVISOR, Palak A Address: When:1 month [facility] 12-11-2021 Hospital Discharge instructions [...] per serving. Talk with a diet and air traffic control specialist center (dietitian) if you have questions about specific [...] Bulgur wheat. Millet. Quinoa. Bran muffins. Popcorn. [place] wafer crackers. Meats and other proteins [place], kidney, and marcos beans. Soybeans. Split peas. [...] Cream cheese. Sour cream. Fats and oils [place]. Beverages Soft drinks. Other foods Cakes and [...] 06/03/2006 Document Revised: 04/07/2018 Document Reviewed: 04/07/2018 HomeTouch Patient Education 2020 [employer]. 12/11/2021 12:52:04 Hemorrhoids Hemorrhoids Hemorrhoids are swollen [...] 3 times a day. General instructions Take wuzo-acc-vtjnrfb and prescription medicines only as told by [...] 05/31/2001 Document Revised: 10/30/2019 Document Reviewed: 10/23/2018 HomeTouch Patient Education 2020 [employer]. 12/11/2021 12:52:02 Diverticulosis Diverticulosis Diverticulosis is a [...] overweight. Not getting enough exercise. Smoking. Taking aqao-tkb-cwmhvsz pain medicines, like aspirin and ibuprofen. Having [...] health care provider or your diet and air traffic control specialist center (dietitian). ?Take a fiber supplement or probiotic, if your health care provider approves. Take lkdk-vmq-obpwabb and prescription medicines only as told by [...] 02/28/2005 Document Revised: 05/16/2018 Document Reviewed: 04/22/2017 HomeTouch Patient Education 2020 [employer]. Follow Up Care 11/22/2021 09:59:49 With:Palak Wagner CNP Address: When:3 months [facility] 11-15-2021 Hospital Discharge instructions [...] what activities are safe for you. Take itsm-phy-uaectrt and prescription medicines only as told by [...] 12/02/2012 Document Revised: 11/25/2018 Document Reviewed: 11/03/2018 HomeTouch Patient Education 2020 [employer]. 11/15/2021 12:56:45 Colonoscopy, Care After Surgery Salam [...] unsweetened, w/added ascorbic acid 1 cup 0.5 [place] 1 cup 0.7 Vegetables Cooked Green beans 1 cup 4.0 Carrots 1/2 cup sliced 2.3 Peas 1 cup 8.8 Potato (baked, with skin) 1 medium potato 3.8 Raw [place] (with peel) 1 cucumber 1.5 Lettuce 1 [...] 8.7 Peanuts 1/2 cup 7.9 Chart from [facility] 2013. SEEK IMMEDIATE MEDICAL CARE [...] of Agriculture (USDA) National Nutrient Database at: http://www.nal.usda.gov/fnic/foodcomp/ search/ Created using data from the USDA National Nutrient Database for Standard Reference. Available at http://www.nal.usda.gov/fnic/foodcomp/ search/. Information adapted from: [facility] Patient Information 2009 [employer]. [facility] 2012 http://www.Yushino/contents/diver ybsvphz-qkzbjcm-gxldjh-the-basics [facility] 11-15-2021 Evaluation + Plan note Extrac maryjane from: Title:Post-anesthesia - General Author:Marvni Dunn DO Date:11/15/21 Plan Transfer/ Discharge: Condition stable. Extracted from: Title:Pre-anesthesia - Endoscopy Author:Marvin Nguyen Jr., DO Date:11/15/21 Plan [place] [employer] Anesthesiologists (ASA) physical status classification: Class II. Anesthetic Preoperative Plan Anesthesia: General. . Anesthetic plan, risks, benefits, and alternatives discussed with the patient and/or family. Patient verbalized understanding. Future Scheduled Tests Laboratory* CBC w/ Auto Diff 4/20/22 * Comprehensive Metabolic Panel 10/04/21 Radiology* US Abdomen Complete 10/04/21 [facility]04-20-2022 Hospital Discharge instructions Patient Education 10/04/2021 [...] including vitamins, herbs, eye drops, creams, and cwae-mht-xhfoapu medicines. Any problems you or family members [...] 05/31/2001 Document Revised: 03/26/2018 Document Reviewed: 08/14/2016 HomeTouch Patient Education 2020 [employer]. Follow Up Care 05/16/2021 10:18:44 With:Palak Wagner CNP Address: When:2 to 4 weeks [facility] 04-20-2022 Evaluation + Plan note Future Scheduled Tests Laboratory* CBC w/ Auto Diff 10/04/21 * Comprehensive Metabolic Panel 10/04/21 Radiology* US Abdomen Complete 10/04/21 [facility] Evaluation + Plan note Future Appointments Appointment Date:11/15/2021 12:15:00 PM Scheduled Provider: Location:[facility] Appointment Type:Surgery FT Future Scheduled Tests Laboratory* CBC w/ Auto Diff 10/04/21 * Comprehensive Metabolic Panel 10/04/21 Radiology* US Abdomen Complete 10/04/21 [facility] Evaluation + Plan note Future Appointments Appointment Date:03/07/2022 12:20:00 PM Scheduled Provider:Palak Wagner CNP Location:[facility] Appointment Type:BAD Follow Up Future Scheduled Tests Laboratory* CBC w/ Auto Diff 10/04/21 * Comprehensive Metabolic Panel 10/04/21 Radiology* US Abdomen Complete 10/04/21 [facility] GFRANQaluation + Plan note Future Appointments Appointment Date:02/21/2022 10:00:00 AM Scheduled [facility]: [facility] Type:US Abdominal/Pelvis () Appointment Date:03/22/2022 03:20:00 PM Scheduled Provider:Palak Wagner CNP Location:[facility] Appointment Type:BAD Follow Up Future Scheduled Tests Radiology* CT Abdomen/Pelvis w/ Contrast 02/14/22 * US Abdomen Complete 02/21/22 [facility] GFRANQaluation + Plan note Future Appointments Appointment Date:03/22/2022 03:20:00 PM Scheduled Provider:Palak Wagner CNP Location:[facility] Appointment Type:BAD Follow Up Future Scheduled Tests Radiology* CT Abdomen/Pelvis w/ Contrast [facility] App[facility]ments Appointment Date:08/08/2022 02:40:00 PM Scheduled Provider:Palak Wagner CNP Location:[facility] Appointment Type:BAD Follow Up Future Scheduled Tests Radiology* CT Abdomen/Pelvis w/ Contrast 02/14/22 [facility] Evaluation + Plan note Future Appointments Appointment Date:08/28/2022 02:40:00 PM Scheduled Provider:Palak Wagner CNP Location:[facility] Appointment Type:BAD Follow Up Future Scheduled Tests Radiology* CT Abdomen/Pelvis w/ Contrast 02/14/22 [facility] evaluation + Plan note Future Appointments Appointment Date:09/03/2023 02:40:00 PM Scheduled Provider:Palak Wagner CNP Location:[facility] Appointment Type:BADH Follow Up [facility] Evaluation + Plan note Future Appointments Appointment Date:07/29/2023 02:45:00 PM Scheduled Provider: Location:[facility] Appointment Type:Surgery FT Future Scheduled Tests Laboratory* Fecal WBC Lactoferrin 06/05/23 * Giardia lamblia, Direct Detection EIA 06/05/23 * O & P Exam, Routine 06/05/23 * Clostridium Difficile PCR 06/05/23 * Enteric Panel by PCR 06/05/23 * CBC w/ Auto Diff 06/05/23 * Comprehensive Metabolic Panel 06/05/23 * Vitamin B12 Level 06/05/23 [facility] Evaluation noteNo assessment information available [facility] Work Phone: Evaluaslig note* Diagnosis MARY (obstructive sleep apnea)- Primary Obstructive sleep apnea (adult) (pediatric) Tremor Abnormal involuntary movements Cervicogenic headache Headache [facility] Diagnosis Encounter for vaccination [facility]* Diagnosis Onychomycosis- Primary Dermatophytosis of nail Toe pain, left Pain in soft tissues of limb Toe pain, right Pain in soft tissues of limb Acquired deformity of right toe [facility]* Diagnosis Aneurysm of ascending aorta without rupture ([facility]-H[facility])- Primary Essential hypertension Unspecified essential hypertension Mixed hyperlipidemia BMI 27.0-27.9,adult Never smoked any substance documented in this encounter [facility] Work Phone: Evaluation note* Diagnosis Onychomycosis- Primary Dermatophytosis of nail Toe pain, left Pain in soft tissues of limb Toe pain, right Pain in soft tissues of limb [facility]* Diagnosis MARY (obstructive sleep apnea)- Primary Obstructive sleep apnea (adult) (pediatric) Onychomycosis- Primary Dermatophytosis of nail Toe pain, left Pain in soft tissues of limb Toe pain, right Pain in soft tissues of limb [facility] Narrative* walks 1.5 miles [...] of the merits of dietand weight loss. [facility] 250 DO Work Phone: Hospital course Narrative No data available for this section [facility] Hospital Discharge instructions No data available for this section [facility] Progress note No data available for this section [facility] Rebjli for referral (narrative) Referred by: Palak Wagner CNP [facility] Regqsw for referral (narrative)* Consultation (Routine) - Authorized Specialty Diagnoses / Procedures Referred By Contac t Referred To Contact Cardiology Diagnoses Aneurysm of ascending aorta without rupture ([facility]-H[facility]) Procedures Follow Up In Cardiology Jose Kimbrough MD [address] [place] [address] [address], [address] [address] Supa Loaiza MD [address] [facility] [address], [address] [address] Referral ID Status Reason Start Date Expiration Date V isits Requested Visits Authorized [id number] Authorized 12/09/2023 12/08/2024 1 1 * Imaging (Routine) - Pending Review Specialty Diagnoses / Procedures Referred By Contac t Referred To Contact Radiology Diagnoses Aneurysm of ascending aorta without rupture ([facility]-HCC) Procedures CT angio chest w and wo IV contrast Jose Kimbrough MD [address] [facility] [address], [address] [address] Referral ID Status Reason Start Date Expiration Date Visits Requested Visits Authorized [id number] Pending Review Perform Procedure 12/09/2023 12/08/2024 1 1 [facility] Work Phone: Summary Purpose Family History Unknown Family Member Name Dates Details Family [...] myocardial infarction: Father(V17.3, Z82.49) Status:Active Advance Directives Advance Directive Response Recorded Date/ Time Advance [...] section and content) DATE CREATED AUTHOR 06/29/2021 [facility] dical Specialist DATE CREATED AUTHOR AUTHOR'S ORGANIZ ATION 08/18/2021 [facility] DATE CREATED AUTHOR AUTHOR'S ORGANIZ ATION 01/24/2023 [facility] ical [facility] DATE CREATED AUTHOR AUTHOR'S ORGANIZ ATION 01/24/2023 [facility] DATE CREATED AUTHOR AUTHOR'S ORGANIZ ATION 10/22/2023 [facility] ical Center DATE CREATED AUTHOR AUTHOR'S ORGANIZ ATION 11/17/2023 [facility] DATE CREATED AUTHOR AUTHOR'S ORGANIZ ATION 12/14/2023 [facility] DATE CREATED AUTHOR AUTHOR'S ORGANIZ ATION 05/02/2024 [facility] dical Specialists EPIC Care Teams (unrecognized sec [...] November 06, 2023 End: November 06, 2023 Jsoe Kimbrough MD Attending Provider Active Start: November 06, 2023 End: November 06, 2023 Trial Judge Relationship Specialty Start Date End Date Thor Mott MD [address] [place] [address] PCP - Caren CHAPPELL 06/17/21 Thor Mott MD [address] [place] [address] PCP - General Internal Medicine 10/23/22Saturday, Radha, BURIAL VAULT MAKER [address] [place] [address] Licensed Practical Nurse Family Medicine 10/21/23 Trial Judge Relationship Specialty Start Date End Date Thor Mott MD [address] [place] [address] PCP - Caren CHAPPELL 06/17/21 Thor Mott MD [address] [place] [address] PCP - General Internal Medicine 10/23/22Saturday, Radha, BURIAL VAULT MAKER [address] [place] [address] Licensed Practical Nurse Family Medicine 10/21/23 Trial Judge Relationship Specialty Start Date End Date Thor Mott MD [address] [place] [address] PCP - Caren CHAPPELL 06/17/21 Thor Mott MD [address] [place] [address] PCP - General Internal Medicine 10/23/22Saturday, Radha, BURIAL VAULT MAKER [address] [place] [address] Licensed Practical Nurse Family Medicine 10/21/23 Trial Judge Relationship Specialty Start Date End Date Thor Mott MD [address] [place] [address] PCP - Caren CHAPPELL 06/17/21 Thor Mott MD [address] [place] [address] PCP - General Internal Medicine 10/23/22Saturday, FRANK GarciaN [address] [place] [address] Licensed Practical Nurse Family Medicine 10/21/23 Trial Judge Relationship Specialty Start Date End Date Thor Mott MD [address] [place] [address] PCP - General 01/20/23 Trial Judge Relationship Specialty Start Date End Date Thor Mott MD [address] [place] [address] PCP - Caren CHAPPELL 06/17/21 Thor Mott MD [address] [place] [address] PCP - General Internal Medicine 10/23/22Saturday, FRANK GarciaN [address] [place] [address] Licensed Practical Nurse Family Medicine 10/21/23 Trial Judge Relationship Specialty Start Date End Date Thor Mott MD [address] [place] [address] PCP - Caren CHAPPELL 06/17/21 Thor Mott MD [address] [place] [address] PCP - General Internal Medicine 10/23/22Saturday, KADIE Garcia [address] [place] [address] Licensed Practical Nurse Family Medicine 10/21/23 Trial Judge Relationship Specialty Start Date End Date Thor Mott MD [address] [place] [address] PCP - Caren CHAPPELL 06/17/21 Thor Mott MD [address] [facility] [address] [place] [address] PCP - General Internal Medicine 10/23/22Saturday, KADIE Garcia [address] [facility] [address] [place] [address] Licensed Practical Nurse Family Medicine 10/21/23 Goals (unrecognized section and content) Goals may be documented in a n alternate section Reason for Visit (unrecogniz ed section and content) Reason Comments Flu Vaccine Reason Comments Toenail Problem Non dm nail care Reason Comments Annual Exam 1yr Reason Comments Toenail Care Non dm nail FOR RECORDS PERTAINING TO PATIENTS WHO ARE [...] BE BASED ON THE PRIMARY CLINICAL RECORDS. [employer] provides no warranty or guarantee of the accuracy or completeness of information in this document.
--- NOTE | 2024-06-07 15:02 | CT_ITS ---
[address] [address] Patient Name: DAMI MAHAN MRN: [id number] date: 1960 Sex: M Assigned Patient Location: ER Current Patient Location: ER Accession/Order Number: [id number] Exam Date: 06/07/2024 15:28 Report Date: 06/07/2024 16:44 At the request of: MAKENNA EVANS Procedure: CT abdomen pelvis wo con EXAM: CT abdomen pelvis wo con HISTORY: sbo hx COMPARISON: 10/16/2023 TECHNIQUE: Axial CT imaging was performed through the abdomen and pelvis without intravenous contrast. Multiplanar reformats were performed. Dose reduction techniques were achieved by using automated exposure control and/or adjustment of mA and/or kV according to patient size and/or use of iterative reconstruction technique. FINDINGS: Lung bases: Lung bases are clear. No pleural effusion. GI upper: Small hiatal hernia. Liver: Normal size and contour. Gallbladder: Cholecystectomy. Biliary system: No intra or extrahepatic biliary ductal dilatation. Spleen: Normal size. Pancreas: Fatty infiltration of the pancreas. Adrenal glands: Normal adrenal glands. Kidneys/ureters: Normal contours. No hydronephrosis. No nephrolithiasis or ureterolithiasis. Vessels: No aneurysm. Lymph Nodes: No lymphadenopathy. Small bowel: No wall thickening or dilatation. Colon: No wall thickening or dilatation. Fluid is noted throughout the small large bowel loops, may represent diarrhea. Appendix: No findings of appendicitis. Peritoneal cavity: No free fluid or pneumoperitoneum. Lower : Prostatomegaly. Correlation with PSA is recommended. The urinary bladder is unremarkable. Bones: No acute bony abnormality. Soft tissues: Small fat-containing periumbilical hernia. Additional findings: None. CT/CT abdomen pelvis wo con IMPRESSION: Small hiatal hernia. Fluid is noted throughout the small large bowel loops, may represent diarrhea. Electronically authenticated by: URBAN WHITTAKER Date: 06/07/2024 16:44
[2024-06-07 15:06] LABS: Basophils Percent Auto 0.3 % (0.2-2.0); Eosinophils Absolute Auto 0.3 10^3/uL (0.0-0.7); Eosinophils Percent Auto 2.7 % (0.9-7.0); Hematocrit 35.9 % (42.0-54.0); Hemoglobin 12.5 g/dL (14.0-18.0); Immature Granulocytes Abs Auto 0.06 10^3/uL (0.00-0.03); Immature Granulocytes Pct Auto 0.6 % (0.0-0.5); Lymphocytes Absolute Auto 1.4 10^3/uL (1.2-3.8); Lymphocytes Percent Auto 14.3 % (20.5-60.0); Mean Corpuscular HGB Conc 34.8 g/dL (29.9-35.2); Mean Corpuscular Volume 86.3 fL (80.0-94.0); Monocytes Percent Auto 10.8 % (1.7-12.0); Neutrophils Absolute Auto 6.7 10^3/uL (1.4-6.5); Neutrophils Percent Auto 71.3 % (43.0-75.0); Platelet Count 202 10^3/uL (150-450); Red Blood Count 4.16 10^6/uL (4.70-6.10); White Blood Count 9.4 10^3/uL (4.0-11.0)
[2024-06-07 15:27] LABS: Lactate/Lactic Acid 1.8 mmol/L (0.4-2.0)
[2024-06-07 15:30] LABS: Alanine Aminotransferase 58 U/L (16-63); Albumin Globulin Ratio 0.9; Albumin Level 3.3 g/dL (3.4-5.0); Alkaline Phosphatase 112 U/L (46-116); Anion Gap 16.6; Aspartate Amino Transferase 50 U/L (15-37); BUN Creatinine Ratio 18.6; Bilirubin Total 0.6 mg/dL (0.2-1.0); Calcium 8.8 mg/dL (8.5-10.1); Carbon Dioxide 24.8 mmol/L (21.0-32.0); Chloride 106 mmol/L (98-107); Estimated GFR (African America 47 (>=60 mL/min/1.73m^2); Estimated GFR (Non-African Ame 39 (>=60 mL/min/1.73m^2); Globulin 3.7 g/dL; Glucose 113 mg/dL (74-106); Potassium 3.4 mmol/L (3.5-5.1); Sodium 144 mmol/L (136-145)
--- NOTE | 2024-06-07 16:52 | ED_ITS ---
HPI - Abdominal Pain General Chief Complaint: Abdominal Pain Stated Complaint: ABDOMINAL PAIN, DIARRHEA, LIGHTHEADED Time Seen by Provider: 06/07/24 14:55 Source: patient Mode of arrival: walk-in Limitations: no limitations History of Present Illness HPI narrative: Patient have a previous history of small bowel obstructions coming to the ER with a abdominal distention and diarrhea for the last few days he mentioned that he also did not have a good appetite and he is complaining of crampy abdominal pain mostly in the periumbilical area There is no history of vomiting except for 1 time and he denies any other concern, Related Data Home Medications ?Medication ?Instructions ?Recorded ?Confirmed benztropine 0.5 mg tablet 0.5 mg PO BID 10/16/23 10/16/23 dicyclomine 10 mg capsule 10 mg PO Q8H PRN abdominal pain 10/16/23 10/16/23 famotidine 20 mg tablet 20 mg PO .qd 10/16/23 10/16/23 iloperidone 4 mg tablet (Fanapt) 4 mg PO BID 10/16/23 10/16/23 meloxicam 15 mg tablet 15 mg PO .qd 10/16/23 10/16/23 omeprazole 40 mg capsule,delayed 40 mg PO BID 10/16/23 10/16/23 release oxcarbazepine 300 mg tablet 450 mg PO BID 10/16/23 10/16/23 simvastatin 20 mg tablet 20 mg PO QPM 10/16/23 10/16/23 tizanidine 4 mg tablet 4 mg PO .qhs PRN muscle spasticity 10/16/23 10/16/23 topiramate 25 mg tablet 25 mg PO Q12H 10/16/23 10/16/23 venlafaxine 75 mg tablet 75 mg PO QAM 10/16/23 10/16/23 Previous Rx's ?Medication ?Instructions ?Recorded ciprofloxacin HCl 500 mg tablet 500 mg PO BID #10 tabs 10/19/23 metronidazole 500 mg tablet 500 mg PO Q8H 5 days #15 tabs 10/19/23 ondansetron 4 mg disintegrating 4 mg PO Q8H PRN nausea and 10/19/23 tablet vomiting 3 days #9 tabs ondansetron 4 mg disintegrating 4 mg PO Q8H PRN nausea and 06/07/24 tablet vomiting 1 day #3 tabs Allergies Allergy/AdvReac Type Severity Reaction Status Date / Time shellfish derived Allergy Mild Hives Verified 06/07/24 14:42 Review of Systems ROS Status of ROS 10 or more systems reviewed and unremark able except as noted in history and below [facility] Medical History (Updated 06/07/24 @ 16:54 by Abby Cosby MD) Anemia ?D64.9 - Anemia, unspecified (ICD-10) Pneumonia ?J18.9 - Pneumonia, unspecified organism (ICD-10) Gastroenteritis ?K52.9 - Noninfective gastroenteritis and colitis, unspecified (ICD-10) Intractable headache ?R51.9 - Headache, unspecified (ICD-10) Chronic pain ?G89.29 - Other chronic pain (ICD-10) Sickle cell trait ?D57.3 - Sickle-cell trait (ICD-10) Osteoarthritis ?M19.90 - Unspecified osteoarthritis, unspecified site (ICD-10) GERD (gastroesophageal reflux disease) ?K21.9 - Gastro-esophageal reflux disease without esophagitis (ICD-10) Umbilical hernia ?K42.9 - Umbilical hernia without obstruction or gangrene (ICD-10) Hyperlipidemia ?E78.5 - Hyperlipidemia, unspecified (ICD-10) TMJ dysfunction ?M26.609 - Unspecified temporomandibular joint disorder, unspecified side (ICD-10) Aortic aneurysm ?I71.9 - Aortic aneurysm of unspecified site, without rupture (ICD-10) Anxiety ?F41.9 - Anxiety disorder, unspecified (ICD-10) Depression ?F32.A - Depression, unspecified (ICD-10) Surgical History (Updated 10/16/23 @ 22:23 by Jose Nagel) H/O colonoscopy ?Z98.890 - Other specified postprocedural states (ICD-10) Social History Highest level of school completed/degree received: 12th grade, no diploma Little interest or pleasure in doing things: not at all Feeling down, depressed, or hopeless: not at all Exam Narrative Exam Narrative: Nurses notes and vital signs reviewed and patient is not hypoxic. General: Well-appearing and in no apparent distress. Skin: Warm, dry, no pallor noted. No rash. Head: Normocephalic, atraumatic. Neck: Supple, non-tender. Eye: Pupils are equal, round and EOMI. No scleral icterus. Ears, Nose, Mouth, and Throat: TM are clear, no nasal mucosal hypertrophy. Oral mucosa is moist, no posterior oropharynx erythema, uvula is mid-line Cardiovascular: Regular Rate and Rhythm without murmur, gallop or rub. Respiratory: No accessory muscle use or respiratory distress. Lungs are clear to auscultation, no wheezing, rales or rhonchi Chest Wall: no tenderness Back: No midline thoracic or lumbar vertebral tenderness. No CVA tenderness Musculoskeletal: normal ROM, no calf or popliteal tenderness, no lower extremity edema/swelling GI: Abdomen is soft, abdominal distention noted that is tympanic. No tenderness to palpation. No rebound, guarding, or rigidity noted. Neurological: A&O x4. No cranial nerve dysfunction observed. No truncal ataxia. Moves all extremities. Sensation intact. Psychiatric: Cooperative and interactive. Normal mood and affect. Constitutional Vital Signs, click to edit/add: Last Vital Signs Temp 98.1 F 06/07/24 14:42 Pulse 56 L 06/07/24 14:42 Resp 18 06/07/24 14:42 BP 133/68 06/07/24 14:42 Pulse Ox 97 06/07/24 14:42 O2 Del Method Room Air 06/07/24 14:42 Course Vital Signs Vital signs: Vital Signs Temperature 98.1 F 06/07/24 14:42 Pulse Rate 56 L 06/07/24 14:42 Respiratory Rate 18 06/07/24 14:42 Blood Pressure 133/68 06/07/24 14:42 Pulse Oximetry 97 06/07/24 14:42 Oxygen Delivery Method Room Air 06/07/24 14:42 Temperature 98.1 F 06/07/24 14:42 Pulse Rate 56 L 06/07/24 14:42 Respiratory Rate 18 06/07/24 14:42 Blood Pressure 133/68 06/07/24 14:42 Pulse Oximetry 97 06/07/24 14:42 Oxygen Delivery Method Room Air 06/07/24 14:42 MDM - Abdominal Pain MDM Narrative Medical decision making narrative: The patient had multiple presentation apparently for small bowel obstruction and he did had a history of incontinence of stool with that before Right now the patient blood workup shows a mild acute kidney injury CAT scan of the abdomen pelvis showed no acute pathology except for possible gastroenteritis Right now the patient will just provided with IV fluid he was discharged home with supportive care and hydration in addition to some Zofran to control his nausea medication in case of nausea Otherwise the patient instructed on hydration to follow-up with his primary care The patient is to follow up with primary care physician in next 2-3 days or to return to the emergency department should any of the signs or symptoms worsen or new symptoms develop. The patient agrees with the following Diagnosis and Treatment plan and the patient will be discharged home. The patient need to follow-up within the next 2 days to repeat the kidney function as well with his primary care Lab Data Labs: Lab Results 06/07/24 Range/Units 14:59 WBC 9.4 (4.0-11.0) 10^3/uL RBC 4.16 L (4.70-6.10) 10^6/uL Hgb 12.5 L (14.0-18.0) g/dL Hct 35.9 L (42.0-54.0) % MCV 86.3 (80.0-94.0) fL MCH 30.0 (25.9-34.0) pg MCHC 34.8 (29.9-35.2) g/dL RDW 13.0 (11.0-15.0) % Plt Count 202 (150-450) 10^3/uL MPV 9.0 L (9.5-13.5) fL Neut % (Auto) 71.3 (43.0-75.0) % Lymph % (Auto) 14.3 L (20.5-60.0) % [place] % (Auto) 10.8 (1.7-12.0) % Eos % (Auto) 2.7 (0.9-7.0) % Baso % (Auto) 0.3 (0.2-2.0) % Neut # (Auto) 6.7 H (1.4-6.5) 10^3/uL Lymph # (Auto) 1.4 (1.2-3.8) 10^3/uL [place] # (Auto) 1.0 H (0.3-0.8) 10^3/uL Eos # (Auto) 0.3 (0.0-0.7) 10^3/uL Baso # (Auto) 0.0 (0.0-0.1) 10^3/uL Abs Immat Gran (auto) 0.06 H (0.00-0.03) 10^3/uL Imm/Tot Granulo (auto) 0.6 H (0.0-0.5) % Sodium 144 (136-145) mmol/L Potassium 3.4 L (3.5-5.1) mmol/L Chloride 106 (98-107) mmol/L Carbon Dioxide 24.8 (21.0-32.0) mmol/L Anion Gap 16.6 BUN 33.0 H (7.0-18.0) mg/dL Creatinine 1.77 H (0.70-1.30) mg/dL Est GFR ( Amer) 47 L (>=60 mL/min/1.73m^2) Est GFR (Non-Af Amer) 39 L (>=60 mL/min/1.73m^2) BUN/Creatinine Ratio 18.6 Glucose 113 H (74-106) mg/dL Lactate 1.8 (0.4-2.0) mmol/L Calcium 8.8 (8.5-10.1) mg/dL Total Bilirubin 0.6 (0.2-1.0) mg/dL AST 50 H (15-37) U/L ALT 58 (16-63) U/L Alkaline Phosphatase 112 (46-116) U/L Total Protein 7.0 (6.4-8.2) g/dL Albumin 3.3 L (3.4-5.0) g/dL Globulin 3.7 g/dL Albumin/Globulin Ratio 0.9 Discharge Plan Discharge Chief Complaint: Abdominal Pain Clinical Impression: Gastroenteritis, MURIEL (acute kidney injury) Patient Disposition: Home, Self-Care Time of Disposition Decision: 16:53 Prescriptions / Home Meds: New ondansetron 4 mg tablet,disintegrating 4 mg PO Q8H PRN (Reason: nausea and vomiting) 1 Days Qty: 3 0RF No Action benztropine 0.5 mg tablet 0.5 mg PO BID venlafaxine 75 mg tablet 75 mg PO QAM tizanidine 4 mg tablet 4 mg PO .qhs PRN (Reason: muscle spasticity) Rx Instructions: 2 mg to 4 mg po q hs prn meloxicam 15 mg tablet 15 mg PO .qd topiramate 25 mg tablet 25 mg PO Q12H oxcarbazepine 300 mg tablet 450 mg PO BID omeprazole 40 mg capsule,delayed release(DR/EC) 40 mg PO BID famotidine 20 mg tablet 20 mg PO .qd simvastatin 20 mg tablet 20 mg PO QPM dicyclomine 10 mg capsule 10 mg PO Q8H PRN (Reason: abdominal pain) Fanapt 4 mg tablet 4 mg PO BID ciprofloxacin HCl 500 mg tablet 500 mg PO BID Qty: 10 0RF ondansetron 4 mg tablet,disintegrating 4 mg PO Q8H PRN (Reason: nausea and vomiting) 3 Days Qty: 9 0RF metronidazole 500 mg tablet 500 mg PO Q8H 5 Days Qty: 15 0RF Print Language: Iraqi Instructions: Acute Kidney Injury (DC), Acute Diarrhea (ED) Referrals: STEPHEN DAVISON [Primary Care Provider] - 1 week
[2024-06-07] MEDS: 0.9 % SODIUM CHLORIDE 1,000 ML 500 ML IV (17:11)
== END 2024-06-07 17:54 | disposition home or self-care (01) ==
PROVIDERS: Emergency Provider Emergency Medicine; PCP Internal Medicine
DX: N17.9 Acute kidney failure, unspecified (principal); K52.9 Noninfective gastroenteritis and colitis, unspecified
CPT/HCPCS: 36415; 74176; 80053; 83605; 85025; 96360; 99285

== ENCOUNTER 2024-06-09 11:27 | Outpatient (OUT) | payer MEDICARE, MEDICAID, SELFPAY ==
--- OUTSIDE RECORDS SUMMARY | 2024-06-09 11:31 | XMS_ITS | CCD ---
Author Organization [facility] Care Team Providers Care Dust Handler Name Role Phone [employer]WAR[employer] Unavailable [...] Attending Unavailable Kristy Palak A Attending Unavailable Kristy Palak A Attending Unavailable Kenan SORIA Attending Unavailable Humberto Hernandez Admitting Unavaila ble Humberto Hernandez Attending UnavailHumberto Faulkner Referring UnavailLOLA Morrow Primary Care Provider MD Jose Kimbrough Attending Provider Jose Kimbrough Attending Unavail able Jose Kimbrough Admitting Unavail Thor Sandoval Primary Care Unavailable JOSE KIMBROUGH Attending Unavailable THOR MOTT Primary Care Unavailable Thor Mott MD Unavailable [phone] Thor Mott MD Primary Care Provider Saturday HEALTH PROMOTION MANAGER, Radha Unavailable SOLOMON FOUNTAIN Attending Unavailable THOR [...] Unavailable Thor Mott MD Primary Care Provider [phone] Allergies Allergy Classification Reported Allergen(s) Allergy Type Date of Onset Reaction(s) Facility (7 sources) Shellfish; Translations: [shellfish] Drug allergy (disorder) 6 Hives [facility] Repository (2 sources) Shellfish; Translations: [shellfish derived] Allergy to substance 7 Swelling of Lip/Tongue/Thro at [facility] (8 sources) Shellfish; Translations: [shellfish] Drug allergy [facility] (9 sources) Shellfish Allergy to substance 4 Anaphylaxis, Hives, Rash [facility] (9 sources) Mixed Ragweed Propensity to adverse reactions 1 [facility] Work Phone: Medications Current Medications Medication Drug Class(es) Dates Sig (Normalized) Sig (Original) [id number] 200 actuat albuterol 0.09 mg/actuat metered dose [...] Start: 06-05-2023 take 1 capsule by mo [facility] four times daily as needed for muscle spasms dicyclomine 10 mg Cap 10 mg = 1 cap(s), Oral, QID, PRN Spasm, Refills(s) 0 Start Date: 06/05/23 Status: Ordered Start: 10-26-2020 End: 10-21-2021 take 1 capsule by mouth twice daily dicyclomine 10 mg Cap 10 mg = 1 cap(s), Oral, BID, X 90 day(s), # 180 cap(s), Refills(s) 3, [facility], 167, cm, 10/26/20 15:36:00 EDT, Height/Length [...] day(s), # 90 tab(s), Refills(s) 0, Pharmacy: [facility], 167, cm, 06/05/23 15:25:00 EST, Height/Length Dosing, 80.1, kg, 06/05/23 15:25:00 EST, Weight Dosing Start Date: 06/05/23 Stop Date: 09/03/23 Status: Ordered Start: 03-05-2023 End: 09-01-2023 take 1 tablet by mouth once daily at bedtime Pepcid 20 mg Tab 20 mg = 1 tab(s), Oral, Once a day (at bedtime), X 90 day(s), # 90 tab(s), Refills(s) 1, [facility], 167, cm, 03/05/23 14:46:00 EDT, Height/Length Dosing, 81.8, kg, 03/05/23 14:46:00 EDT, Weight Dosing Start Date: 03/05/23 Stop Date: 3/17/24 Status: Ordered Start: 05-08-2022 End: 08-06-2022 take 1 tablet by mouth once daily at bedtime Pepcid 20 mg Tab 20 mg = 1 tab(s), Oral, Once a day (at bedtime), X 90 day(s), # 90 tab(s), Refills(s) 0, Pharmacy: [facility]5, 167, cm, 05/08/22 15:44:00 EST, [...] Daily, # 30 EA, Refills(s) 1, Pharmacy: [facility], 167.64, cm, 01/21/20 15:03:00 EDT, Height/Length [...] day(s), # 90 cap(s), Refills(s) 1, Pharmacy: [facility], 167, cm, 03/05/23 14:46:00 EDT, Height/Length Dosing, 81.8, kg, 03/05/23 14:46:00 EDT, Weight Dosing Start Date: 03/05/23 Stop Date: 09/01/23 Status: Ordered omeprazole 20 mg Cap-DR (3 sources) Start: 01-27-2021 take 1 capsule by mouth once daily omeprazole 20 mg Cap-DR 20 mg = 1 cap(s), Oral, Daily, # 30 cap(s), Refills(s) 5, Pharmacy: [facility] 1155, 167, cm, 10/26/20 15:36:00 EDT, [...] Start: 04-17-2021 take 2 tablets by mo [facility] at bedtime OXcarbazepine 300 MG Oral Tablet [...] Ordered: 06-Dec-2021 DO Active polyethylene glycol 3350 52564 mg powder for oral solution (10 sources) [...] day(s), # 270 cap(s), Refills(s) 0, Pharmacy: 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; Translations: [OTH DETENTION CURRENT DRUG THERAPY] Onset: 2 Episodic Other [...] CT angio cheston 11-06-2023 CT angio chest [facility] [place] [address] [place] [address] CT Scan Report Signed Patient: Cecilio Nickerson MR#: [id number] : 1960 Acct:[id number] Age/Sex: 63 / M ADM Date: 11/06/23 Loc: CT Room: Type: [facility] Attending Dr: Jose Kimbrough MD Copies to: [...] Jana Wakefield M.D.11/06/2023 5:22 PM Dictation Location: [place] [address] Transcribed By: [facility] 11/06/23 1722 Dictated By: Jana Wakefield MD 11/06/23 1713 Signed By: 11/06/23 172 Normal [facility] ISTAT XRay CREon 11-06-2023 ISTAT GFR > 60.0 Normal [facility] Comment on above: Result Comment: PERF ORMED BY: [place] [address] PATHOLOGIST ASSOCIATE PROFESSOR OF ARCHAEOLOGY ESTEBAN RUIZ M.D. Performed By: #### I SCRE #### [facility] [address] [place] [address] No Panel InformationOrdered By: Jose Kimbrough on 11-06-2023 Bedside Estimated GFR (eGFR) > 60.0 [facility] Whole blood creatinine measu rementOrdered By: Jose Kimbrough on 11-06-2023 Creatinine [Mass/Vol] 1.2 mg/dL Normal 0.6-1.3 [facility] Comment on above: ER/ESD physician is notified/shown all ISTAT results.Critical values may be confirmed by laboratory testing ifdeemed necessary by ER attending doctor. Result Comment: ER/E SD physician is notified/shown all ISTAT results. Critical values may be confirmed by laboratory testing if deemed necessary by ER attending doctor. Performed By: #### I SCRE #### [facility] [address] [place] [address] Consultation Noteon 10-18-19 Consultation Note [id number]#1.00TIFF Normal [facility] Consultation Note [id number]#1.00TIFF Normal [facility] Consultation Noteon 10-17-19 Consultation Note [id number]#1.00TIFF Normal [facility] IntraOperative Documentson 0 08-07-2023 IntraOperative Documents [id number]#1.00TIFF Normal [facility] Postoperative Documentson Postoperative Documents [id number]#1.00TIFF Normal [facility] Reminderson 08-05-2023 Reminders - From: Janes Blanco To: [facility] - Reminders/Recalls; Sent: 08/05/2023 15:13:53 EST Show up: 07/18/2033 15:13:00 EST Subject: Ambulatory Reminder Due Date/Time: 07/29/2033 15:13:00 EST Reminder/Recall Repeat colonoscopy in 10 years(2033) Normal [facility] Result Letter Officeon 08-05 Result Letter Office (Inserted Image. Un able to display) August 05, 2023 CECILIO NICKERSON [address] [place] [address] : 1960 Below is a summary of [...] if you wish to make an appointment. [facility] [phone] [facility] Consenton 07-31-2023 Consent [id number]#1.00TIFF [facility] Discharge Instructionson Discharge Instructions [id number]#1.00TIFF [facility] Progress Note-Physicianon Progress Note-Physician Patient: CECILIO NICKERSON Age: 63 years Sex: Male : 1960 Associated Diagnoses: None Author: MD Em, Mikala F Postoperative Information Postoperative disposition: Postoperative disposition: To PACU. Optimetrix number: Optimetrix number [id number]. Anesthetic utilized: General. Health Status Allergies: Allergic [...] meets criteria ( To home ). Normal [facility] Comment on above: Result Comment: Elec tronically Signed By: MD Em, Mikala Townsend\.br\Date and Time Signed: 07/31/23 11:48 EST Main OR Intraoperative Recor don 07-30-2023 Main OR Intraoperative Record IntraOp Document Type FT Summary Primary Physician: Humberto Hernandez MD Finalized Date/Time: 07/30/23 10:47:30 Pt. Name: CECILIO NICKERSON Nicolas Argueta/Sex: 1960 Male Med Rec #: [id number] Physician: Humberto Hernandez MD Financial #: [id number] Pt. Type: O Room/Bed: / Admit/Disch: 07/29/23 [...] Muñoz RN, Airam Sanchez Role Performed Anesthesiologist Cooperer - Primary Staff - Other Director Funds Development Time In 07/29/23 16:04:00 07/29/23 16:04:00 07/29/23 [...] and tissue Entry 1 Skin Integrity Intact, [place], Warm, and Skin Abnormality No Dry Outcomes Met? Yes Last Modified By: Bertha Charles RN 07/29/23 16:09:56 Post-Care Text: The patient is free from signs and symptoms of injury caused by extraneous objects Patient Positioning FT Pre-Care Text: Identifies physical alterations that require additional precautions for procedure-specific positioning, v (more content not included)... Normal [facility] Progress Note-Physicianon Progress Note-Physician Patient: CECILIO [...] Low vitamin B12 level / SNOMED CT 3277741065 / Confirmed Sleep apnea / SNOMED CT 832665919 / Confirmed Reducible umbilical hernia / SNOMED CT 937561472 / Confirmed Colon polyps / SNOMED CT 685120089 / Confirmed BMI 28.0-28.9,adult / SNOMED CT 0325605685 / Confirmed Osteoarthritis / SNOMED CT 2608445349 / Confirmed Psychiatric disorder / SNOMED CT 496323566 / Confirmed Left-sided chest pain / SNOMED CT 378518388 / Confirmed Irregular bowel habits / SNOMED CT 3213558759 / Confirmed History of colon polyps / SNOMED CT 1521789581 / Confirmed Hemorrhoids / SNOMED CT 924199174 / Confirmed History of umbilical hernia / SNOMED CT 828797170 / Confirmed Gastroparesis / SNOMED CT 957378375 / Confirmed GERD (gastroesophageal reflux disease) / SNOMED CT 398524771 / Confirmed Epigastric hernia / SNOMED CT 693943028 / Confirmed Diverticulosis / SNOMED CT 0403899966 / Confirmed Diastasis recti / SNOMED CT 773917663 / Confirmed Depression / SNOMED CT 44578494 / Confirmed Chronic idiopathic constipation / SNOMED CT 513469536 / Confirmed Ascending aortic aneurysm / SNOMED CT 7096394548 / Confirmed Anemia / SNOMED CT 263605063 / Confirmed Change in bowel habits / SNOMED CT 590935810 / Confirmed Abdominal pain / SNOMED CT 08302158 / Confirmed Canceled: Blood in diaper / SNOMED CT 222032251 Canceled: Change in bowel habits / SNOMED CT 849160170 Histories Procedure history: Esophagogastroduodenoscopy (417141602) on 11/15/2021 at 61 Years. Comments: 11/15/2021 14:24 EDT - Gerry RN, Danita normal Colonoscopy (770044542) on 11/15/2021 at 61 Years. Comments: 11/15/2021 14:24 EDT - Danita Garrett RN diverticulosis t/o colon Cholecystectomy; (00432). Colonoscopy (384837563). Social History Social & Psychosocial Habits Alcohol 06/05/2023 Risk Assessment: Denies Alcohol Use Substance Abuse 06/05/2023 Risk Assessment: Denies Substance Abuse Tobacco 06/05/2023 Risk Assessment: Denies Tobacco Use 06/05/2023 Tobacco Use: Never (less than 100 in l Smokeless tobacco use: Never . Physical Examination Airway: Mallampati classification: II (soft palate, fauces, uvula visible). Respiratory: adequate air exchange. Cardiovascular: Regular rhythm. Plan [place] Society of Anesthesiologists (ASA) physical status classification: Class II. Anesthetic Preoperative Plan: Anesthesia General. [facility] Comment on above: Result Comment: Elec tronically Signed By: Ayush Borja Jr, DO\.jamel\Date and Time Signed: 07/30/23 15:58 EST Consent for Treatmenton 07-18 Consent for Treatment [id number]#1.00TIFF [facility] Discharge Instructionson Discharge Instructions CECILIO NICKERSON [...] Persistent or heavy bleeding [facility] Discharge Instructions Discharge Instructions New Follow Up Appointments after Discharge Follow Up with Humberto Hernandez When: Only if needed Comments: Call for any problems. Where: [address] [place] [address], [facility] [address] [address]- [phone] Business (1) Medications What How Much When [...] pressure ins (more content not included)... Normal [facility] Comment on above: Result Comment: Elec [...] hours. Education and Follow-up: Counseled: Patient, Family. [facility] Comment on above: Result Comment: Elec tronically Signed By: Humberto Hernandez MD\.br\Date and Time Signed: 07/29/23 16:33 EST Other Comment: Abigail hoskins Attachment - attachment storage system not supported [id number] Can be viewed in source systemMissing Attachment - attachment storage system not supported [id number] Can be viewed in source systemMissing Attachment - attachment storage system not supported [id number] Can be viewed in source system Endoscopic [...] GI clinic in 1-2 after discharge Normal [facility] Comment on above: Result Comment: Elec tronically Signed By: Humberto Hernandez MD\.br\Date and Time Signed: 07/29/23 16:13 EST Inpatient Patient Summaryon 07-29-2023 Inpatient Patient Summary [place] [id number] [facility] Clinical Discharge Instructions PERSON INFORMATION Name: CECILIO NICKERSON [facility]#:[id number] PHYSICIANS Admitting Physician: Humberto Hernandez MD Attending [...] Milligram By Mouth every day. Comment: Normal [facility] Main OR PACU I Recordon 07-18 Main OR PACU I Record PACU Phase I Document Type FT Summary Primary Physician: Humberto Hernandez MD Finalized Date/Time: 07/29/23 17:19:05 Pt. Name: CECILIO NICKERSON /Sex: 1960 Male [facility] Rec #: [id number] Physician: Humberto Hernandez MD Financial #: [id number] Pt. Type: O Room/Bed: / Admit/Disch: 07/29/23 [...] By: Michell Husain RN 07/29/23 17:19 Normal [facility] Main OR Preoperative Recordo n 07-29-2023 Main OR Preoperative Record Holding Area Document Type FT Summary Primary Physician: Humberto Hernandez MD Finalized Date/Time: 07/29/23 13:42:27 Pt. Name: CECILIO NICKERSON Nicolas Argueta/Sex: 1960 Male Med Rec #: [id number] Physician: Humberto Hernandez MD Financial #: [id number] Pt. Type: O Room/Bed: / Admit/Disch: 07/29/23 [...] By: Winsome Perdomo RN 07/29/23 13:42 Normal [facility] Monitor Recordon 07-29-2023 Monitor Record [id number]#1.00TIFF Normal [facility] Monitor Record [id number]#1.00TIFF Normal [facility] Outpatient Surgery Discharge Instructionon 07-29-2023 Outpatient Surgery Discharge Instruction [place] [id number] Patient Discharge Instructions PERSON INFORMATION Name: CECILIO [...] Signature Date Follow up: [facility] You may receive a survey from [employer] asking you to rate your care experience. Your feedback is important and will help us understand what we do well and how we can improve the quality of care we provide to you, your loved ones and our community. It?s an honor to serve you. Thank you for choosing [facility] HERE ARE THE MEDICATION CHANGES THAT OCCURRED [...] day. PATIENT EDUCATION INFORMATION Instructions: Medication Leaflets: [facility] Patient Education - Texton 0 07-29-2023 [...] unsweetened, w/added ascorbic acid 1 cup 0.5 [place] 1 cup 0.7 Vegetables Cooked Green beans 1 cup 4.0 Carrots 1/2 cup sliced 2.3 Peas 1 cup 8.8 Potato (baked, with skin) 1 medium potato 3.8 Raw [place] (with peel) 1 cucumber 1.5 Lettuce 1 [...] 8.7 Peanuts 1/2 cup 7.9 Chart from [facility] 2013. SEEK IMMEDIATE MEDICAL CARE IF: You [...] Information adapted from: ExitCare? Patient Information ?2009 [employer] 2012 [email or web address] Endoscopy Care After Procedure Please read the [...] your nor (more content not included)... Normal [facility] Insurance Correspondenceon 0 2023 Insurance Correspondence [id number]#1.00TIFF [facility] Consultation Noteon 06-18-19 Consultation Note [id number]#1.00TIFF [facility] Consultation Noteon 06-13-20 Consultation Note [id number]#1.00TIFF [facility] RAD - CT Reporton 06-13-2023 RAD - CT Report [id number]#1.00TIFF [facility] RAD - CT Report [id number]#1.00TIFF [facility] RAD - CT Report [id number]#1.00TIFF Normal [facility] RAD - MISCon 06-13-2023 RAD - MISC [id number]#1.00TIFF Normal [facility] Consent for Procedure/Surger yon 06-07-2023 Consent for Procedure/Surgery [id number]#1.00TIFF Normal [facility] Physician Referralon 023 Physician Referral [id number]#1.00TIFF Normal [facility] Gastroenterology Office/Clin ic Noteon 06-05-2023 Gastroenterology [...] visit with me that he had joined [employer] and was exercising routinely. He reported that [...] Auto Diff (more content not included)... Normal [facility] Comment on above: Result Comment: Elec [...] grapefruit, pineapple, and ida. Vegetables Deep-fried vegetables. Sudanese fries. Any vegetables prepared with added fat. [...] reflux di (more content not included)... Normal [facility] Ambulatory Visit Summaryon 0 03-05-2023 Ambulatory [...] Duration: 90 Days Refills: 1 Pickup at [facility] 115 Changed omeprazole (omeprazole 20 mg Cap-DR) 1 Capsules By Mouth Every day GERD (gastroesophageal reflux disease) Duration: 90 Days Pickup at [facility] Unchanged benztropine (benztropine 0.5 mg [...] Pharmacy Information [facility]: [address] [place], [place] [phone] Allergies shellfish (Hives) Problems Ongoing - Any [...] at hig (more content not included)... Normal [facility] Auto Diffon 03-05-2023 Basophils/100 WBC (Bld) 0.4 % Normal 0.0-2.0 [facility] Comment on above: Order Comment: Order Added by Discern Expert. Performed By: #### 2 687658, 8329004, 4606944, 5543266, 0570377, 68385717 ####[address] [address] Basophils/Leukocytes Auto (Bld) [Pure # fraction] 0.0 E9/L Normal 0.0-0.2 [facility] Comment on above: Order Comment: Order Added by Discern Expert. Performed By: #### 2 863023, 3807458, 2132912, 5194300, 8457398, 86636508 ####[address] [address] Eosinophils/100 WBC (Bld) 2.7 % Normal 0.0-8.0 [facility] Comment on above: Order Comment: Order Added by Discern Expert. Performed By: #### 2 314151, 5675347, 6824246, 7307822, 6714492, 27725424 ####[address] [address] Eosinophils/Leukocyt es Auto (Bld) [Pure # fraction] 0.2 E9/L Normal 0.0-0.5 [facility] Comment on above: Order Comment: Order Added by Discern Expert. Performed By: #### 2 532249, 2725927, 3948878, 8094239, 9654479, 78776748 ####[address] [address] Lymphocytes/100 WBC (Bld) 15.7 % Normal 14.0-50.0 [facility] Comment on above: Order Comment: Order Added by Discern Expert. Performed By: #### 2 430351, 6146650, 4411520, 2848666, 3104031, 56624923 ####[address] [address] Lymphocytes/Leukocyt es Auto (Bld) [Pure # fraction] 1.1 E9/L Normal 1.0-4.0 [facility] Comment on above: Order Comment: Order Added by Discern Expert. Performed By: #### 2 576413, 3154215, 9250367, 8365258, 5082402, 86599273 ####[address] [place] [address] Monocytes/100 WBC (Bld) 8.5 % Normal 4.0-14.0 [facility] Comment on above: Order Comment: Order Added by Discern Expert. Performed By: #### 2 610696, 0474921, 2279542, 2766347, 6465285, 94114905 ####[address] [address] Monocytes/Leukocytes Auto (Bld) [Pure # fraction] 0.6 E9/L Normal 0.2-1.0 [facility] Comment on above: Order Comment: Order Added by Discern Expert. Performed By: #### 2 519591, 1222433, 9740387, 1978065, 9746005, 26689329 ####[address] [address] Neutrophils/100 WBC (Bld) 72.7 % Normal 36.0-75.0 [facility] Comment on above: Order Comment: Order Added by Discern Expert. Performed By: #### 2 473673, 1875207, 0172402, 5842950, 7974018, 39422834 ####[address] [address] Neutrophils/Leukocyt es Auto (Bld) [Pure # fraction] 5.3 E9/L Normal 2.0-7.5 [facility] Comment on above: Order Comment: Order Added by Discern Expert. Performed By: #### 2 206655, 1488515, 6599245, 0176284, 0016845, 39130403 ####[facility] [address] [place] [address] BMPon 03-05-2023 Anion gap [Moles/Vol] 10 mmol/L Normal 6-16 [facility] Comment on above: Performed By: #### 2 343317, 2615650, 3557814, 4896814, 3950239, 77904622 ####[place] [address] [place] [address] Calcium [Mass/Vol] 9.3 mg/dL Normal 8.9-11.1 [facility] Comment on above: Performed By: #### 2 731750, 5774582, 3673470, 1987792, 6785865, 84813883 ####[facility] [address] [place] [address] Chloride [Moles/Vol] 104 mmol/L Normal 101-111 [facility] Comment on above: Performed By: #### 2 770166, 4946490, 2328944, 9727952, 7354719, 99344541 ####[facility] [address] [place] [address] CO2 [Moles/Vol] 29 mmol/L Normal 21-31 [facility] Comment on above: Performed By: #### 2 253325, 3282605, 1311748, 5788586, 2214439, 28198992 ####[facility] [address] [place] [address] Creatinine [Mass/Vol] 1.1 mg/dL Normal 0.5-1.3 [facility] Comment on above: Performed By: #### 2 258410, 1154141, 4557594, 6492029, 9801846, 51223473 ####[facility] [address] [place] [address] Glucose [Mass/Vol] 97 mg/dL Normal 55-199 [facility] Comment on above: Result Comment: If t his glucose result represents a fasting glucose, interpretation should refer to the following reference range: 55-99 mg/dL Performed By: #### 2 540298, 2729379, 8033998, 3061260, 9691493, 36194338 ####[facility] [address] [place] [address] Potassium [Moles/Vol] 4.5 mmol/L Normal 3.5-5.3 [facility] Comment on above: Performed By: #### 2 790886, 6984646, 6943441, 6886173, 6212102, 40156323 ####[facility] [address] [place] [address] Sodium [Moles/Vol] 138 mmol/L Normal 135-145 [facility] Comment on above: Performed By: #### 2 079917, 4422111, 4682220, 0448617, 8490818, 66603679 ####[facility] [address] [place] [address] Urea nitrogen [Mass/Vol] 19 mg/dL Normal 5-21 [facility] Comment on above: Performed By: #### 2 793759, 5836017, 4482723, 0041915, 4855940, 11461410 ####[facility] [address] [place] [address] Urea nitrogen/Creatinine [Mass ratio] 17 No Units Normal 10-20 [facility] Comment on above: Performed By: #### 2 371288, 5312336, 6909875, 3478781, 6685603, 44811880 ####[facility] [address] [place] [address] CBC w/ Auto Diffon Erythrocyte distribution width (RBC) [Ratio] 13.4 % Normal 10.9-14.2 [facility] Comment on above: Performed By: #### 2 051759, 7697351, 4401310, 3069733, 0517320, 05564263 ####[facility] [address] [place] [address] Hematocrit (Bld) [Volume fraction] 39.5 % Normal 37.7-49.0 [facility] Comment on above: Performed By: #### 2 769246, 9064770, 5983161, 0252916, 4671804, 12533241 ####[facility] [address] [place] [address] Hemoglobin (Bld) [Mass/Vol] 13.5 g/dL Normal 13.5-17.5 [facility] Comment on above: Performed By: #### 2 263619, 3590729, 6673948, 1379641, 3566519, 14305511 ####[address] [address] MCH (RBC) [Entitic mass] 29.8 pg Normal 27.0-34.0 [facility] Comment on above: Performed By: #### 2 410334, 0651850, 7313325, 3661744, 8575499, 78115502 ####[address] [address] MCHC (RBC) [Mass/Vol] 34.3 g/dL Normal 31.4-36.0 [facility] Comment on above: Performed By: #### 2 531677, 1944424, 6726446, 1525957, 3670921, 61418065 ####[address] [address] MCV (RBC) [Entitic vol] 86.8 fL Normal 80.0-100.0 [facility] Comment on above: Performed By: #### 2 [id number], 9208377, 6909705, 1417083, 1062854, [id number] ####[address] [address] Platelet mean volume (Bld) [Entitic vol] 7.0 fL Normal 6.4-10.8 [facility] Comment on above: Performed By: #### 2 725237, 8262723, 4170414, 4949946, 7625288, 49606328 ####[address] [address] Platelets (Bld) [#/Vol] 195.0 E9/L Normal 150.0-500. 0 [facility] Comment on above: Performed By: #### 2 769846, 6249758, 4399664, 6992747, 8584895, 86447602 ####[address] [address] RBC (Bld) [#/Vol] 4.5 E12/L Normal 4.3-5.9 [facility] Comment on above: Performed By: #### 2 320310, 8421163, 6965505, 4773965, 9933114, 37327132 ####[facility] [address] [place] [address] WBC corrected for nucl RBC Auto (Bld) [#/Vol] 7.3 E9/L Normal 4.0-11.0 [facility] Comment on above: Performed By: #### 2 829493, 3045884, 8783316, 4295149, 8314122, 19880516 ####[facility] [address] [place] [address] Consent for Treatmenton 02-15 Consent for Treatment [id number] Normal [facility] Gastroenterology Office/Clin ic Noteon 03-05-2023 Gastroenterology [...] During today's visit, patient reports he joined [employer] and has been exercising routinely: has been [...] EDT, Angelica (more content not included)... Normal [facility] Comment on above: Result Comment: Elec tronically Signed By: Palak Wagner CNP\.br\Date and Time Signed: 03/05/23 15:24 EDT Magnesiumon 03-05-2023 Magnesium [Mass/Vol] 2.1 mg/dL Normal 1.3-2.4 [facility] Comment on above: Performed By: #### 2 925610, 4895101, 1312132, 5034345, 6674448, [id number] ####[facility] [address] [place] [address] Patient Educationon 03-05-20 Patient Education Gastroenterology Chronic [...] who treats conditions of the digestive system (pension examiner). Follow these instructions at home: Medicines ? Take jesw-llk-bgmkgco and prescription medicines only as told by [...] your h (more content not included)... Normal [facility] Vit B12on 03-05-2023 Cobalamin (Vitamin B12) [Mass/Vol] 292 pg/mL Normal 50-1500 [facility] Comment on above: Performed By: #### 2 684485, 3435552, 4255129, 3831316, 4345201, 91912021 ####[facility] [address] [place] [address] eGFRon 03-05-2023 GFR/1.73 sq M.predicted among non-blacks MDRD (S/P/Bld) [Vol rate/Area] 75 mL/min/1.73 m2 Normal >=59 [facility] Comment on above: Order Comment: Order added by Discern Expert. Result Comment: Confidential Investigator alexa kidney disease could be indicated at eGFR's of less than 60 mL/min/1.73m2. Kidney failure is indicated at less than 15 mL/min/1.73m2. Performed By: #### 2 678686, 5391714, 0357100, 2918675, 9143734, 76329150 ####[facility] [address] [place] [address] Office Visit (Cardiology)on 01-23-2023 Follow-up visit Diagnoses/Problems [...] Weight Tips; Status:Complete - Retrospective Authorization; Done: [id number] Some eating tips that can help you lose weight.; Status:Complete - Retrospective Authorization; Done: [id number] SocHx: Never a smoker Tobacco Use Screening; Status:Complete; Done: [id number] Patient Instructions Please bring all medicines, vitamins, [...] negative for complaint. Vitals Vital Signs Recorded: [id number] 03:43PM Heart Rate58, L Radial Eypvcfef568, LUE, Sitting Idnaqdsbk37, LUE, Sitting Height5 ft 6 in Tdrsre521 lb BMI Conduzishc65.73 kg/m2 BSA Calculated1.9 Tobacco Useb) No PHQ-2 [...] no bruit (more content not included)... Normal [facility] Tobacco Screening.on 023 Adult depression screening assessment No [employer] [facility] combionic 250 DO Work Phone: Fall risk assessment c) Not medically indicated [facility] combionic 250 DO Work Phone: Tobacco use status CP b) No [employer] [employer] 250 DO Work Phone: Radiologyon 05-25-2023 CTA Chest vessels Normal -[facility]-Carlynu marielena 250 DO Work Phone: Tobacco Screening.on 022 Adult depression screening assessment No [facility]-Saloni saraviay 250 DO Work Phone: Fall risk assessment a) No falls within the last year [facility] marielena 250 DO Work Phone: Tobacco use status [facility] b) No [facility] Heart-Saloni saraviay 250 DO Work Phone: Creatinine and Glomerular fi ltration rate.predicted panel (S/P/Bld)Ordered By: Jose Kimbrough on 11-22-2021 Creatinine [Mass/Vol] 1.09 mg/dL 0.64-1.27 [facility] Estimated glomerular filtrat ion rate (GFR) non- AmericanOrdered By: Jose Kimbrough on 11-22-2021 GFR/1.73 sq M.predicted among non-blacks MDRD (S/P/Bld) [Vol rate/Area] > 60 mL/Min [facility] No Panel InformationOrdered By: Jose Kimbrough on 11-22-2021 Estimated GFR () > 60 mL/Min [facility] Comment on above: GFR estimated refere nce range: According to KDOQI guidelines, <60 ml/min/1.73m2 is sufficient to diagnose a patient with chronic kidney disease. Pharmacy Creatinine Clearance (Chem N/A [facility] No Panel Informationon 11-22 14\S\14 Normal 9-23 [facility] HeartBrii lk 600 DO Work Phone: > 60 Normal [facility] lk 600 DO Work Phone: Comment on above: GFR estimated refere nce range: According to KDOQI guidelines, <60 ml/min/1.73m2 is sufficient to diagnose a patient with chronic kidney disease.PERFORMED BY:[place] [address] [place], [place] [phone] MEDICAL DIRECTORESTEBAN RUIZ M.D. 1.09\S\1.09 Normal 0.64-1.27 [facility] Heart-Brii lk 600 DO Work Phone: [phone] 25.3\S\25.3 Normal 22.0-30.0 [facility] Heart-Brii lk 600 DO Work Phone: [phone] 103\S\103 Normal 95-114 [facility] Heart-Brii lk 600 DO Work Phone: [phone] 4.3\S\4.3 Normal 3.5-5.1 [facility] Heart-Brii lk 600 DO Work Phone: [phone] 138\S\138 Normal 136-146 [facility] Heart-Brii lk 600 DO Work Phone: Radiologyon 11-22-2021 CTA Chest vessels Normal [facility] Heart-Brii lk 600 DO Work Phone: [phone] Serum or plasma chloride april surement (moles/volume)Ordered By: Jose Kimbrough on 11-22-2021 Chloride [Moles/Vol] 103 mmol/L 95-114 [facility] Serum or plasma potassium me asurement (moles/volume)Ordered By: Jose Kimbrough on 11-22-2021 Potassium [Moles/Vol] 4.3 mmol/L 3.5-5.1 [facility] Serum or plasma sodium measu rement (moles/volume)Ordered By: Jose Kimbrough on 11-22-2021 Sodium [Moles/Vol] 138 mmol/L 136-146 [facility] Serum or plasma total carbon dioxide measurement (moles/volume)Ordered By: Jose Kimbrough on 11-22-2021 CO2 [Moles/Vol] 25.3 mmol/L 22.0-30.0 [facility] Serum or plasma urea nitroge n measurement (mass/volume)Ordered By: Jose Kimbrough on 11-22-2021 Urea nitrogen [Mass/Vol] 14 mg/dL 9-23 [facility] MRI CSPINE WO CONon 08-18-19 MRI [...] recess. Constellation of the findings are causing elds-yx-ntudfsxy right neural foraminal narrowing. There is also [...] ADÁN EDWARDS Date: 2021-08-17 13:09 Normal [facility] Metabolic Pane aleja 06-28-2021 Albumin [Mass/Vol] 4.5 g/dL Normal 3.6-5.1 [facility] Comment on above: Performed By: #### C MP #### [facility] [address] [place], [place] [id number] Albumin/Globulin [Mass ratio] 1.9 {ratio} Normal 1.0-2.5 [facility] Comment on above: Performed By: #### C MP #### [facility] [address], [place] [id number] ALP [Catalytic activity/Vol] 108 U/L Normal 40-129 [facility] Comment on above: Performed By: #### C MP #### [facility] [address], [place] [id number] ALT [Catalytic activity/Vol] 36 U/L Normal 9-46 [facility] Comment on above: Result Comment: 05/17 Female reference range changed. Performed By: #### C MP #### [facility] [address], [place] [id number] Anion gap [Moles/Vol] 17 mmol/L Normal 12-20 [facility] Comment on above: Result Comment: Effe ctive 06/22/2019 reference range changed. Performed By: #### C MP #### [facility] [address], [place] [id number] AST [Catalytic activity/Vol] 29 U/L Normal 10-40 [facility] Comment on above: Performed By: #### C MP #### [facility] [address], [place] [id number] BUN/CREA 21 Ratio Normal 6-22 [place] [facility] Comment on above: Performed By: #### C MP #### [facility] [address], [place] [id number] Calcium [Mass/Vol] 9.9 mg/dL Normal 8.6-10.2 [facility] Comment on above: Performed By: #### C MP #### [facility] [address], [place] [id number] Chloride [Moles/Vol] 107 mmol/L Normal 98-107 [facility] Comment on above: Performed By: #### C MP #### [facility] [address], [place] [id number] CO2 [Moles/Vol] 23 mmol/L Normal 20-31 [facility] Comment on above: Performed By: #### C MP #### [facility] [address], [place] [id number] Creatinine [Mass/Vol] 1.1 mg/dL Normal 0.7-1.4 [facility] Comment on above: Performed By: #### C MP #### [facility] [address], [place] [id number] eGFRAA 86 mL/min/1.73m2 Normal >60 [facility] Comment on above: Performed By: #### C MP #### [facility] [address], [place] [id number] eGFRNAA 71 mL/min/1.73m2 Normal >60 [facility] Comment on above: Performed By: #### C MP #### [facility] [address], [place] [id number] Globulin (S) [Mass/Vol] 2.4 g/dL Normal 1.9-3.7 [facility] Comment on above: Performed By: #### C MP #### [facility] [address], [place] [id number] Glucose [Mass/Vol] 84 mg/dL Normal 65-99 [facility] Comment on above: Result Comment: For FASTING Glucose --- ADA reference ranges: Normal 65-99 mg/dl Prediabetes 100-125 Diabetes >/= 126 Performed By: #### C MP #### [facility] [address], [place] [id number] Potassium [Moles/Vol] 4.5 mmol/L Normal 3.5-5.5 [facility] Comment on above: Performed By: #### C MP #### [facility] [address], [place] [id number] Protein [Mass/Vol] 6.9 g/dL Normal 6.1-8.1 [facility] [place] [facility] Comment on above: Performed By: #### C MP #### [facility] [address], [place] [id number] Sodium [Moles/Vol] 143 mmol/L Normal 135-146 [facility] [place] [facility] Comment on above: Performed By: #### C MP #### [facility] [address], [place] [id number] TBIL <0.3 Normal [facility] Comment on above: Performed By: #### C MP #### [facility] [address], [place] [id number] Urea nitrogen [Mass/Vol] 22 mg/dL Normal 7-25 [facility] Comment on above: Performed By: #### C MP #### [facility] [address], [place] [id number] BNPon 06-21-2021 Natriuretic peptide B (Bld) [Mass/Vol] 114.0 pg/mL Normal <=900.0 [facility] Comment on above: Performed By: #### H STROPN, CMP, BNP #### [facility] [address] [place] [address] Dr. Ashely Garibay CBC AUTO DIFFon 06-21-2021 BASO # 0.0 103/ul Normal 0.0-0.1 [facility] Comment on above: Performed By: #### C BC #### [facility] [address] [place] [address] Dr. Ashely Garibay Basophils/100 WBC (Bld) 0.2 % Normal 0.2-2.0 [facility] Comment on above: Performed By: #### C BC #### [facility] [address] [place] [address] Dr. Ashely Garibay EO # 0.0 103/ul Normal 0.0-0.7 [facility] Comment on above: Performed By: #### C BC #### [facility] [address] [place] [address] Dr. Ashely Garibay Eosinophils/100 WBC (Bld) 0.1 % Critically low 0.9-7.0 [facility] Comment on above: Performed By: #### C BC #### [facility] [address] [place] [address] Dr. Ashely Garibay Erythrocyte distribution width (RBC) [Ratio] 13.0 % Normal 11.0-15.0 [facility] Comment on above: Performed By: #### C BC #### [facility] [address] [place] [address] Dr. Ashely Garibay Hematocrit (Bld) [Volume fraction] 43.2 % Normal 42.0-54.0 [facility] Comment on above: Performed By: #### C BC #### [facility] [address] [place] [address] Dr. Ashely Garibay Hemoglobin (Bld) [Mass/Vol] 14.8 g/dL Normal 14.0-18.0 [facility] Comment on above: Performed By: #### C BC #### [facility] [address] [place] [address] Dr. Ashely Garibay IG # 0.08 10e3/ul Critically high 0.00-0.03 [facility] Comment on above: Performed By: #### C BC #### [facility] [address] [place] [address] Dr. Ashely Garibay IG % 0.8 % Critically high 0.0-0.5 [facility] Comment on above: Performed By: #### C BC #### [facility] [address] [place] [address] Dr. Ashely Garibay LYMPH # 0.8 103/ul Critically low 1.2-3.8 [facility] Comment on above: Performed By: #### C BC #### [facility] [address] [place] [address] Dr. Ashely Garibay Lymphocytes/100 WBC (Bld) 7.6 % Critically low 20.5-60.0 [facility] Comment on above: Performed By: #### C BC #### [facility] [address] [place] [address] Dr. Ashely Garibay MANUAL DIFF REQ NO Normal [facility] Comment on above: Performed By: #### C BC #### [facility] [address] [place] [address] Dr. Ashely Garibay MCH (RBC) [Entitic mass] 28.6 pg Normal 25.9-34.0 [facility] Comment on above: Performed By: #### C BC #### [facility] [address] [place] [address] Dr. Ashely Garibay MCHC (RBC) [Mass/Vol] 34.3 g/dL Normal 29.9-35.2 [facility] Comment on above: Performed By: #### C BC #### [facility] [address] [place] [address] Dr. Ashely Garibay MCV (RBC) [Entitic vol] 83.6 fL Normal 80.0-94.0 [facility] Comment on above: Performed By: #### C BC #### [facility] [address] [place] [address] Dr. Ashely Garibay MONO # 0.7 103/ul Normal 0.3-0.8 [facility] Comment on above: Performed By: #### C BC #### [facility] [address] [place] [address] Dr. Ashely Garibay Monocytes/100 WBC (Bld) 6.3 % Normal 1.7-12.0 [facility] Comment on above: Performed By: #### C BC #### [facility] [address] [place] [address] Dr. Ashely Garibay NEUT # 9.0 103/ul Critically high 1.4-6.5 [facility] Comment on above: Performed By: #### C BC #### [facility] [address] [place] [address] Dr. Ashely Garibay Neutrophils/100 WBC (Bld) 85.0 % Critically high 43.0-75.0 [facility] Comment on above: Performed By: #### C BC #### [facility] [address] [address] [address] Ashely Garibay Platelet mean volume (Bld) [Entitic vol] 9.3 fL Critically low 9.5-13.5 [facility] Comment on above: Performed By: #### C BC #### [facility] [address] [id number] Ashely Garibay PLT 146 103/ul Critically low 150-450 [facility] Comment on above: Performed By: #### C BC #### [facility] [address] [address] [address] Ashely Garibay RBC 5.17 106/ul Normal 4.70-6.10 [facility] Comment on above: Performed By: #### C BC #### [facility] [address] [address] [address] Ashely Garibay WBC 10.6 103/ul Normal 4.0-11.0 [facility] Comment on above: Performed By: #### C BC #### [facility] [address] [place] [address] Dr. Ashely Garibay CTA CHEST WO W [...] CJ MULLER Date: 2021-06-21 16:57 Normal [facility] Covid-19 PCR (CVDTB)on SARS-CoV-2 (COVID-19) RNA NIECY+probe Ql (Unsp spec) Not detected Normal NOT DETECTED [facility] Comment on above: Result Comment: When diagnostic testing is negative, the possibility of a false negative should be considered in the context of a patient's recent exposures and the presence of clinical signs and symptoms consistent with SARS-CoV-2. This test is not yet approved or cleared by the [place] Food and Drug Administration (FDA). This test was developed by [employer], [place], [place]. The performance characteristics of this test were validated by [facility]. The results are not intended to be used as the sole means for clinical diagnosis or patient management decisions. [facility] is authorized under Clinical Laboratory [...] for this test is supported by the [place] of Health and Human Service's declaration [...] be used). Performed By: #### C VDTBH ####[facility] [address] [place], [place] [address]FpDr. Ashely Garibay D-DIMERon 06-21-2021 D-DIMER 0.74 mg/L FEU Critically high 0.19-0.50 [facility] Comment on above: Performed By: #### P TT, DDIM, PT #### [facility] [address] [place], [place] [address] Dr. Ashely Garibay D-DIMER COMMENTS SEE BELOW Normal [facility] Comment on above: Result Comment: [...] By: #### P TT, DDIM, PT #### [facility] [address] [place] [address] Dr. Ashely Garibay PROF 14(COMP METB)on 022 Albumin [Mass/Vol] 3.6 g/dL Normal 3.5-5.0 [facility] Comment on above: Performed By: #### H STROPN, CMP, BNP #### [facility] [address] [place] [address] Dr. Ashely Garibay Albumin/Globulin [Mass ratio] 0.8 {ratio} Normal [facility] Comment on above: Performed By: #### H STROPN, CMP, BNP #### [facility] [address] [place] [address] Dr. Ashely Garibay ALP [Catalytic activity/Vol] 130 U/L Critically high 38-126 [facility] Comment on above: Performed By: #### H STROPN, CMP, BNP #### [facility] [address] [place] [address] Dr. Ashely Garibay ALT [Catalytic activity/Vol] 94 U/L Critically high 21-72 [facility] Comment on above: Performed By: #### H STROPN, CMP, BNP #### [facility] [address] [place] [address] Dr. Ashely Garibay Anion gap [Moles/Vol] 16.8 mmol/L Normal [facility] Comment on above: Performed By: #### H STROPN, CMP, BNP #### [facility] [address] [place] [address] Dr. Ashely Garibay AST [Catalytic activity/Vol] 85 U/L Critically high 17-59 [facility] Comment on above: Performed By: #### H STROPN, CMP, BNP #### [facility] [address] [place] [address] Dr. Ashely Garibay Bilirubin [Mass/Vol] 0.9 mg/dL Normal 0.2-1.3 [facility] Comment on above: Performed By: #### H STROPN, CMP, BNP #### [facility] [address] [place] [address] Dr. Ashely Garibay Calcium [Mass/Vol] 8.9 mg/dL Normal 8.4-10.2 [facility] Comment on above: Performed By: #### H STROPN, CMP, BNP #### [facility] [address] [place] [address] Dr. sAhely Garibay Chloride [Moles/Vol] 101 mmol/L Normal 98-107 [facility] Comment on above: Performed By: #### H STROPN, CMP, BNP #### [facility] [address] [place] [address] Dr. Ashely Garibay CO2 [Moles/Vol] 25.4 mmol/L Normal 22.0-30.0 [facility] Comment on above: Performed By: #### H STROPN, CMP, BNP #### [facility] [address] [place] [address] Dr. Ashely Garibay Creatinine [Mass/Vol] 2.07 mg/dL Critically high 0.66-1.25 [facility] Comment on above: Performed By: #### H STROPN, CMP, BNP #### [facility] [address] [place] [address] Dr. Ashely Garibay EGFR-AF LEBANESE 40 mL/min/1.73m2 Critically low >=60 [facility] Comment on above: Performed By: #### H STROPN, CMP, BNP #### [facility] [address] [place] [address] Dr. Ashely Garibay EGFR-NON AF LEBANESE 33 mL/min/1.73m2 Critically low >=60 [facility] Comment on above: Performed By: #### H STROPN, CMP, BNP #### [facility] [address] [place] [address] Dr. Ashely Garibay Globulin (S) [Mass/Vol] 4.7 g/dL Normal [facility] Comment on above: Performed By: #### H STROPN, CMP, BNP #### [facility] [address] [address] [address] Ashely Garibay Glucose [Mass/Vol] 99 mg/dL Normal 74-106 [facility] Comment on above: Performed By: #### H STROPN, CMP, BNP #### [facility] [address] [address] [address] Ashely Garibay Potassium [Moles/Vol] 4.2 mmol/L Normal 3.4-5.0 [facility] Comment on above: Performed By: #### H STROPN, CMP, BNP #### [facility] [address] [place] [address] Dr. Ashely Garibay Protein [Mass/Vol] 8.3 g/dL Critically high 6.1-8.2 [facility] Comment on above: Performed By: #### H STROPN, CMP, BNP #### [facility] [address] [place] [address] Dr. Ashely Garibay Sodium [Moles/Vol] 139 mmol/L Normal 137-145 [facility] Comment on above: Performed By: #### H STROPN, CMP, BNP #### [facility] [address] [place] [address] Dr. Ashely Garibay Urea nitrogen [Mass/Vol] 31.0 mg/dL Critically high 9.0-20.0 [facility] Comment on above: Performed By: #### H STROPN, CMP, BNP #### [facility] [address] [place] [address] Dr. Ashely Garibay Urea nitrogen/Creatinine [Mass ratio] 15.0 mg/mg [facility] Comment on above: Performed By: #### H STROPN, CMP, BNP #### [facility] [address] [place] [address] Dr. Ashely Garibay PROTIMEon 06-21-2021 INR Coag (PPP) [Relative time] 1.02 {INR} Normal [facility] Comment on above: Performed By: #### P TT, DDIM, PT #### [facility] [address] [address] [address] Ashely Garibay INR GUIDELINES SEE BELOW Normal [facility] Comment on above: Result Comment: SENA RED INR: 2.0 - 3.0 CONDITIONS NOT LISTED BELOW 2.5 - 3.5 FOR PROSTHETIC HEART VALVE REPLACEMENT 2.5 - 3.5 RECURRENT THROMBOSIS Performed By: #### P TT, DDIM, PT #### [facility] [address] [address] [address] Ashely Garibay PT Coag (PPP) [Time] 11.0 s Normal 9.0-11.6 [facility] Comment on above: Performed By: #### P TT, DDIM, PT #### [facility] [address] [address] [address] Ashely Garibay PTTon 06-21-2021 aPTT Coag (Bld) [Time] 32.2 s Normal 22.3-36.2 [facility] Comment on above: Performed By: #### P TT, DDIM, PT #### [facility] [address] [address] [address] Ashely Garibay TROPONIN, HIGH SENSITIVITYon 06-21-2021 HSTROP 19.4 pg/mL Normal 4.0-42.2 [facility] Comment on above: Result Comment: CUT- OFF POINTS HAVE BEEN ESTABLISHED BASED ON THE FOURTH UNIVERSAL DEFINITIONS OF MYOCARDIAL INFARCTION. THE UPPER REFERENCE LIMIT (URL) OF TROPONIN, DEFINED THE 99TH PERCENTILE OF cTnI DISTRIBUTION IN A REFERENCE POPULATION, HAS BEEN CONFIRMED THE DECISION THRESHOLD FOR DE DIAGNOSIS. Performed By: #### H STROPN, CMP, BNP ####[facility] [address] [address]Dr. Ashely Garibay XR CHEST 1 Von 06-21-2021 [...] ADÁN EDWARDS Date: 2021-06-21 21:12 Normal [facility] Covid-19 PCR ([facility])on 05-17 SARS-CoV-2 (COVID-19) RNA NIECY+probe Ql (Unsp spec) Not detected Normal NOT DETECTED [facility] Comment on above: Result Comment: This test is not yet approved or cleared by the [place] FDA. When there are no FDA-approved or cleared tests available, and other criteria are met, FDA can make tests available under an emergency access mechanism called an Emergency Use Authorization (EUA). The EUA for this test is supported by the [place] of Health and Human Service's (HHS's) [...] consistent with SARS-CoV-2. Performed By: #### [facility] #### [facility] [address] [place] [address] Dr. Ashely Garibay Vital Signs Date Time Vital Sign Value Performing Clinician Facility 05-21-2024 14:45-050 Body height 167.6 cm Solomon Fountain DPM Work Phone: [facility] 05-21-2024 14:45-050 Body mass index (BMI) [Ratio] 29.38 kg/m2 Solomon Fountain DPM Work Phone: [facility] 05-21-2024 14:45-050 Body weight 82.56 kg Solomon Fountain DPM Work Phone: [facility] 05-21-2024 14:45-0500 Respiratory rate 16 /min Solomon Fountain DPM Work Phone: [facility] 03-17-2024 14:55-0400 Body height 167.6 cm Jaye Trujillogel [employer] Work Phone: [facility] 03-17-2024 14:55-0400 Body mass index (BMI) [Ratio] 29.38 kg/m2 Jaye Trujillogel [employer] Work Phone: [facility] 03-17-2024 14:55-0400 Body weight 82.56 kg Jaye Trujillogel [employer] Work Phone: [facility] 03-17-2024 14:55-0400 Diastolic blood pressure 61 mm[Hg] Jaye Pughnagel [employer] Work Phone: [facility] 03-17-2024 14:55-0400 Heart rate 73 /min Jaye Trujillogel [employer] Work Phone: [facility] 03-17-2024 14:55-0400 Systolic blood pressure 122 mm[Hg] Jaye Trujillogel [employer] Work Phone: [facility] 03-12-2024 15:06-0400 Body height 167.6 cm Solomon Fountain DPM Work Phone: [facility] 03-12-2024 15:06-0400 Body mass index (BMI) [Ratio] 28.57 kg/m2 Solomon Fountain DPM Work Phone: [facility] 03-12-2024 15:06-0400 Body weight 80.29 kg Solomon Fountain DPM Work Phone: [facility] 03-12-2024 15:06-0400 Diastolic blood pressure 80 mm[Hg] Solomon Fountain DPM Work Phone: [facility] 03-12-2024 15:06-0400 Heart rate 75 /min Solomon Fountain DPM Work Phone: [facility] 03-12-2024 15:06-0400 Respiratory rate 18 /min Solomon Fountain DPM Work Phone: [facility] 03-12-2024 15:06-0400 Systolic blood pressure 120 mm[Hg] Solomon Fountain DPM Work Phone: [facility] 12-09-2023 10:43-0400 Body height 167.6 cm Jose Kimbrough MD Work Phone: [facility] 12-09-2023 10:43-0400 Body mass index (BMI) [Ratio] 27.76 kg/m2 Jose Kimbrough MD Work Phone: [facility] 12-09-2023 10:43-0400 Body weight 78.02 kg Jose Kimbrough MD Work Phone: [facility] 12-09-2023 10:43-0400 Diastolic blood pressure 78 mm[Hg] Jose Kimbrough MD Work Phone: [facility] 12-09-2023 10:43-0400 Heart rate 68 /min Jose Kimbrough MD Work Phone: [facility] 12-09-2023 10:43-0400 Systolic blood pressure 114 mm[Hg] Jose Kimbrough MD Work Phone: [facility] 07-29-2023 17:00-0500 Heart rate 63 /min Paul Sarmini [facility] 07-29-2023 17:00-0500 Respiratory rate 21 /min Paul Sarmini [facility] 07-29-2023 17:00-0500 Systolic blood pressure 128 mm[Hg] Paul Sarmini [facility] 07-29-2023 16:50-0500 Blood Pressure Location Paul Sarmini [facility] 07-29-2023 16:50-0500 Diastolic blood pressure 76 mm[Hg] Paul Sarmini [facility] 07-29-2023 16:50-0500 Heart rate 64 /min Paul Sarmini [facility] 07-29-2023 16:50-0500 Mean blood pressure 93 mm[Hg] Paul Sarmini [facility] 07-29-2023 16:50-0500 Respiratory rate 27 /min Paul Sarmini [facility] 07-29-2023 16:50-0500 SaO2% (BldA) [Mass fraction] 97 % Paul Sarmini [facility] 07-29-2023 16:50-0500 Systolic blood pressure 127 mm[Hg] Paul Sarmini [facility] 07-29-2023 16:45-0500 Diastolic blood pressure 68 mm[Hg] Paul Sarmini [facility] 07-29-2023 16:45-0500 Heart rate 66 /min Paul Sarmini [facility] 07-29-2023 16:45-0500 Mean blood pressure 83 mm[Hg] Paul Sarmini [facility] 07-29-2023 16:45-0500 Respiratory rate 13 /min Paul Sarmini [facility] 07-29-2023 16:45-0500 Systolic blood pressure 112 mm[Hg] Paul Sarmini [facility] 07-29-2023 16:34-0500 Body temperature 97.52 [degF] Paul Sarmini [facility] 07-29-2023 16:30-0500 Respiratory rate 14 /min Paul Sarmini [facility] 07-29-2023 16:25-0500 Respiratory rate 14 /min Paul Sarmini [facility] 07-29-2023 16:20-0500 Respiratory rate 14 /min Paul Sarmini [facility] 07-29-2023 13:35-0500 Body temperature 97.7 [degF] Paul Sarmini [facility] 06-05-2023 15:25-0500 Diastolic blood pressure 92 mm[Hg] Palak Kristy [facility] 06-05-2023 15:25-0500 Mean blood pressure 111 mm[Hg] Palak Kristy [facility] 06-05-2023 15:25-0500 Systolic blood pressure 148 mm[Hg] Palak Kristy [facility] 06-05-2023 15:03-0500 Blood Pressure Location Palak Kristy [facility] 06-05-2023 15:03-0500 Body temperature 97.52 [degF] Palak Kristy [facility] 06-05-2023 15:03-0500 Diastolic blood pressure 90 mm[Hg] Palak Kristy [facility] 06-05-2023 15:03-0500 Heart rate 65 /min Palak Kristy [facility] 06-05-2023 15:03-0500 Systolic blood pressure 156 mm[Hg] Palak Kristy [facility] 03-05-2023 14:41-0400 Blood Pressure Location Palak Wagner [facility] 03-05-2023 14:41-0400 Body temperature 97.34 [degF] Palak Wagner [facility] 03-05-2023 14:41-0400 Diastolic blood pressure 86 mm[Hg] Palak Wagner [facility] 03-05-2023 14:41-0400 Heart rate 59 /min Palak Wagner [facility] 03-05-2023 14:41-0400 Systolic blood pressure 135 mm[Hg] Palak Wagner [facility] 01-23-2023 15:43-0400 Body height 167.64 cm Thor Hector Pantera Work Phone: [facility] 250 DO Work Phone: 01-23-2023 15:43-0400 Body mass index (BMI) [Ratio] 28.73 kg/m2 Thor Mott Work Phone: [facility] 250 DO Work Phone: 01-23-2023 15:43-0400 Body surface area Derived from formula 1.9 m2 Thor Mott Work Phone: [facility] 250 DO Work Phone: 01-23-2023 15:43-0400 Body weight 80.74 kg Thor Mott Work Phone: [facility] 250 DO Work Phone: 01-23-2023 15:43-0400 Diastolic blood pressure 62 mm[Hg] Thor Mott Work Phone: [facility] 250 DO Work Phone: 01-23-2023 15:43-0400 Heart rate 58 /min Thoralejandra Mott Work Phone: [facility] 250 DO Work Phone: 01-23-2023 15:43-0400 Systolic blood pressure 104 mm[Hg] Thoralejandra Mott Work Phone: [facility] 250 DO Work Phone: 05-08-2022 15:42-0500 Blood Pressure Location Palak Wagner [facility] 05-08-2022 15:42-0500 Body temperature 97.52 [degF] Palak Wagner [facility] 05-08-2022 15:42-0500 Diastolic blood pressure 74 mm[Hg] Palak Wagner [facility] 05-08-2022 15:42-0500 Heart rate 68 /min Palak Wagner [facility] 05-08-2022 15:42-0500 Systolic blood pressure 119 mm[Hg] Palak Sanchesmetz [facility] 03-14-2022 15:47-0400 Blood Pressure Location Kenan SORIA [facility] 03-14-2022 15:47-0400 Diastolic blood pressure 80 mm[Hg] Kenan SORIA [facility] 03-14-2022 15:47-0400 Heart rate 72 /min Kenan SORIA [facility] 03-14-2022 15:47-0400 Respiratory rate 16 /min Kenan SORIA [facility] 03-14-2022 15:47-0400 Systolic blood pressure 120 mm[Hg] Kenan SORIA [facility] 02-14-2022 10:15-0400 Blood Pressure Location Palak Wagner [facility] 02-14-2022 10:15-0400 Body temperature 97.16 [degF] Palak Wagner [facility] 02-14-2022 10:15-0400 Diastolic blood pressure 77 mm[Hg] Palak Wagner [facility] 02-14-2022 10:15-0400 Heart rate 63 /min Palak Wagner [facility] 02-14-2022 10:15-0400 Systolic blood pressure 117 mm[Hg] aPlak Wagner [facility] 12-11-2021 12:52-0400 Blood Pressure Location Palak Wagner [facility] 12-11-2021 12:52-0400 Body temperature 96.8 [degF] Palak Wagner [facility] 12-11-2021 12:52-0400 Diastolic blood pressure 66 mm[Hg] Palak Sanchesmetz [facility] 12-11-2021 12:52-0400 Heart rate 61 /min Palak Wagner [facility] 12-11-2021 12:52-0400 SaO2% (BldA) [Mass fraction] 98 % Palak Sanchesmetz [facility] 12-11-2021 12:52-0400 Systolic blood pressure 103 mm[Hg] Palak Wagner [facility] 12-06-2021 13:34-0400 Body height 167.64 cm Jose Kimbrough MD Work Phone: [facility] 250 DO Work Phone: 12-06-2021 13:34-0400 Body mass index (BMI) [Ratio] 28.25 kg/m2 Jose Kimbrough MD Work Phone: [facility] 250 DO Work Phone: 12-06-2021 13:34-0400 Body surface area Derived from formula 1.89 m2 Jose Kimbrough MD Work Phone: [facility] 250 DO Work Phone: 12-06-2021 13:34-0400 Body weight 79.38 kg Jose Kimbrough MD Work Phone: [facility] 250 DO Work Phone: 12-06-2021 13:34-0400 Diastolic blood pressure 68 mm[Hg] Jose Kimbrough MD Work Phone: [facility] 250 DO Work Phone: 12-06-2021 13:34-0400 Heart rate 60 /min Jose Kimbrough MD Work Phone: [facility] 250 DO Work Phone: 12-06-2021 13:34-0400 Systolic blood pressure 120 mm[Hg] Jose Kimbrough MD Work Phone: [facility] 250 DO Work Phone: 11-15-2021 13:05-0400 Diastolic blood pressure 85 mm[Hg] Lees SALAM [facility] 11-15-2021 13:05-0400 Heart rate 60 /min Lees SALAM [facility] 11-15-2021 13:05-0400 Respiratory rate 12 /min Lees SALAM [facility] 11-15-2021 13:05-0400 SaO2% (BldA) [Mass fraction] 97 % Lees SALAM [facility] 11-15-2021 13:05-0400 Systolic blood pressure 129 mm[Hg] Lees SALAM [facility] 11-15-2021 12:50-0400 Diastolic blood pressure 79 mm[Hg] Lees SALAM [facility] 11-15-2021 12:50-0400 Heart rate 65 /min Lees SALAM [facility] 11-15-2021 12:50-0400 Respiratory rate 25 /min Lees SALAM [facility] 11-15-2021 12:50-0400 SaO2% (BldA) [Mass fraction] 94 % Lees SALAM [facility] 11-15-2021 12:50-0400 Systolic blood pressure 116 mm[Hg] Lees SALAM [facility] 11-15-2021 12:45-0400 Diastolic blood pressure 70 mm[Hg] Lees SALAM [facility] 11-15-2021 12:45-0400 Heart rate 64 /min Lees SALAM [facility] 11-15-2021 12:45-0400 Respiratory rate 24 /min Lees SALAM [facility] 11-15-2021 12:45-0400 SaO2% (BldA) [Mass fraction] 96 % Lees SALAM [facility] 11-15-2021 12:45-0400 Systolic blood pressure 110 mm[Hg] Lees SALAM [facility] 11-15-2021 12:38-0400 Body temperature 98.24 [degF] Lees SALAM [facility] 11-15-2021 12:35-0400 Respiratory rate 3 /min Lees SALAM [facility] 11-15-2021 12:30-0400 Respiratory rate 18 /min Lees SALAM [facility] 11-15-2021 12:24-0400 Respiratory rate 18 /min Lees SALAM [facility] 11-15-2021 11:46-0400 Blood Pressure Location Lees SALAM [facility] 11-15-2021 11:46-0400 Body temperature 98.6 [degF] Lees SALAM [facility] 10-04-2021 15:40-0400 Diastolic blood pressure 86 mm[Hg] Palak Kristy [facility] 10-04-2021 15:40-0400 Mean blood pressure 104 mm[Hg] Palak Kristy [facility] 10-04-2021 15:40-0400 Systolic blood pressure 140 mm[Hg] Palak Kristy [facility] 10-04-2021 15:32-0400 Blood Pressure Location Palak Wagner [facility] 10-04-2021 15:32-0400 Body temperature 97.52 [degF] Palak Wagner [facility] 10-04-2021 15:32-0400 Diastolic blood pressure 89 mm[Hg] Palak Wagner [facility] 10-04-2021 15:32-0400 Heart rate 73 /min Palak Wagner [facility] 10-04-2021 15:32-0400 SaO2% (BldA) [Mass fraction] 97 % Palak Wagner [facility] 10-04-2021 15:32-0400 Systolic blood pressure 149 mm[Hg] Palak Wagner [facility] Encounters Encounter Date Encounter Type [...] Office outpatient visit 25 minutes Jaye Mack [employer] Work Phone: [facility] Comment on above: MARY (obstructive sle ep apnea) (Primary Dx); Tremor; Cervicogenic headache Start: 03-17-2024 End: 03-17-2024 ambulatory JAYE MACK Not Available Start: 03-17-2024 End: 03-17-2024 Bamboo flowsheet Jaye Mack [employer] Work Phone: [facility] [place] [facility] Start: 03-17-2024 End: 03-17-2024 Bamboo flowsheet Jaye Dmitri Mack [employer] DRIVER Work Phone: [facility] [place] [facility] Start: 03-12-2024 End: 03-12-2024 Patient encounter procedure Solomon Fountani DPM Work Phone: [facility] Comment [...] 03-09-2024 End: 03-09-2024 Orders Only Jaye Mack [employer] Work Phone: [facility] [place] [facility] Comment on above: MARY (obstructive sle ep apnea) (Primary Dx) Start: 01-08-2024 End: 01-08-2024 ambulatory THOR MOTT Not Available Start: 01-02-2024 End: 01-02-2024 ambulatory SOLOMON FOUNTAIN Not Available Start: 12-23-2023 End: 12-23-2023 ambulatory JAYE Rizvi WINDNAGEL Not Available Start: 12-09-2023 End: 12-09-2023 Office outpatient visit 25 minutes Jose Kimbrough MD Work Phone: [facility] Comment on above: Aneurysm of ascendin g aorta without rupture ([facility]) (Primary Dx); Essential hypertension; Mixed hyperlipidemia; BMI 27.0-27.9,adult; Never smoked any substance Start: 12-09-2023 End: 12-09-2023 ambulatory JOSE KIMBROUGH [facility] Start: 11-06-2023 End: 11-06-2023 Patient encounter procedure II Thor Mott Work Phone: [facility] [place] Work Phone: Start: 11-06-2023 End: 11-06-2023 ambulatory II Thor Mott Work Phone: [facility] Work Phone: Start: 10-30-2023 End: 10-30-2023 ambulatory SERGEY CHAWLA Not Available Start: 10-28-2023 End: 10-28-2023 ambulatory THOR MOTT Not Available Start: 10-24-2023 End: 10-24-2023 ambulatory THOR MOTT Not Available Start: 10-17-2023 End: 10-18-2023 ambulatory Kenan SORIA Facility:[id number] Start: 10-16-2023 End: 10-16-2023 ambulatory JANA QUEZADA Not Available Start: 10-10-2023 End: 10-10-2023 ambulatory SOLOMON FOUNTAIN Not Available Start: 10-07-2023 End: 10-07-2023 ambulatory JAYE Rizvi WINDNAGEL Not Available Start: 09-04-2023 End: 09-04-2023 ambulatory THOR MOTT Not Available Start: 07-29-2023 End: 07-30-2023 ambulatory Humberto Hernandez Facility[facility] Start: 07-29-2023 End: 07-29-2023 Patient encounter procedure Humberto Hernandez [facility] Start: 07-04-2023 End: 07-04-2023 ambulatory SOLOMONVannesa FOUNTAIN Not Available Start: 06-05-2023 End: 06-06-2023 ambulatory Palak Uyen Kristy Facility:[facility] Start: 06-05-2023 End: 06-05-2023 Patient encounter procedure Palak Uyen Kristy [facility] Start: 05-08-2023 End: 05-08-2023 ambulatory THOR MOTT Not Available Start: 03-05-2023 End: 03-06-2023 ambulatory Palak Wagner Facility:[facility] Start: 03-05-2023 End: 03-06-2023 ambulatory [facility] Start: 03-05-2023 End: 03-05-2023 Patient encounter procedure Palak Uyen Chavarriaz [facility] Start: 01-23-[address] Thor Mott II Facility: Start: 01-23-2023 Office outpatient vi sit 25 minutes Thor Mott Work Phone: [facility] 250 DO Work Phone: Start: 11-13-2022 Chart Update Jose grayson MD Work Phone: [facility] 250 DO Work Phone: Start: 08-08-2022 End: 08-08-2022 Patient encounter procedure Palak Uyen Kristy [facility] Start: 05-08-2022 End: 05-08-2022 Patient encounter procedure Palak Wagner [facility] Start: 03-22-2022 End: 03-22-2022 Patient encounter procedure Palak Wagner [facility] Start: 03-14-2022 End: 03-14-2022 Patient encounter procedure Kenan Terry NILL [facility] Nill/[facility] Start: 02-21-2022 End: 02-21-2022 Patient encounter procedure Palak Wagner [facility] Start: 02-14-2022 End: 02-14-2022 Patient encounter procedure Palak Wagner [facility] Start: 12-11-2021 End: 12-11-2021 Patient encounter procedure Palak Wagner [facility] Start: 12-06-2021 Office outpatient vi sit 15 minutes oJse Kimbrough MD Work Phone: [facility] 250 DO Work Phone: Start: 11-23-2021 Chart Update Jose grayson MD Work Phone: [facility] 600 DO Work Phone: Start: 11-22-2021 Chart Update Jose grayson MD Work Phone: [facility] 600 DO Work Phone: Start: 11-22-2021 End: 11-22-2021 Patient encounter procedure II Thor Mott Work Phone: [facility] [place] Start: 11-15-2021 End: 11-15-2021 Patient encounter procedure Nabeel CHUNG [facility] Start: 10-31-2021 End: 10-31-2021 Patient encounter procedure Nabeel CHUNG [facility] Start: 10-04-2021 End: 10-04-2021 Patient encounter procedure Palak Wagner [facility] Start: 08-16-2021 End: 08-17-2021 ambulatory ADÁN EDWARDS Facility:[facility] Start: 06-21-2021 End: 06-21-2021 ambulatory SAVI KYLE Facility:[facility] Start: 05-25-2021 End: 05-25-[address] THOR MOTT Facility:[facility] Start: 09-20-2020 End: 09-21-2020 ambulatory NONE LISTED REQUEST Facility:[facility] Start: 08-29-2020 End: 08-30-2020 ambulatory NONE LISTED REQUEST Facility:[facility] Patient encounter status Jose Kimbrough MD Work Phone: [facility] 250 DO Work Phone: Procedures Date Procedure [...] Kimbrough MD Work Phone: Comment on above: [id number]; 15nov2021; Nasal sinus procedure Corina Kimbrough MD Work Phone: Operation on mouth Jose Tobin MD Work Phone: Plan of Treatment Date Care Activity Detail Author Start: 07-29-2033 Screening for malign ant neoplasm of colon [facility] Start: 09-12-2028 Lipid panel Lipid Panel [facility] Start: 12-29-2024 End: 12-29-2024 Patient encounter procedure 12/29/2024 3:30 PM EDT Office Visit [facility] [address] [id number] Supa Loaiza MD 703 [facility] 2, [address] [address] [facility] Start: 12-08-2024 End: 12-08-2024 CTA Chest vessels WO and W contrast IV CT angio chest w and wo IV contrast Imaging Routine Aneurysm of ascending aorta without rupture (CMS-HCC) Expected: 12/08/2024 (Approximate), Expires: 12/08/2024 [facility] Work Phone: Comment on above: Expected: 12/08/2024 (Approximate), Expires: 12/08/2024 Start: 09-03-2024 Medicare Annual Well ness (AWV) Medicare Annual Wellness (AWV) [facility] Start: 07-30-2024 End: 07-30-2024 Patient encounter procedure 07/30/2024 3:00 PM EST Procedure Visit [facility] [address] [facility] [address] [place] [address] Solomon Fountain, DPM [address] [facility] [address] [place] [address] [facility] Start: 07-09-2024 End: 07-09-2024 Patient encounter procedure 07/09/2024 2:20 PM EST Office Visit [facility] [place] [facility] [address] [place] [id number] Delaney Carvalho PA [address] [place], [place] [id number] [facility] Start: 05-21-2024 End: 05-21-2024 Patient encounter procedure [facility] Comment on above: Onychomycosis (Prima ry Dx); Toe pain, left; Toe pain, right; Acquired deformity of right toe Start: 05-11-2024 End: 05-11-2024 Patient encounter procedure 05/11/2024 3:40 PM EST Office Visit [facility] [place] [facility] [address] [place] [id number] Jaye Mack, [employer] DRIVER [address] [place] [address] [facility] Start: 03-17-2024 End: 03-17-2024 Patient encounter procedure [facility] Comment on above: Arrived Start: 03-12-2024 End: 03-12-2024 Patient encounter procedure [facility] Comment on above: Onychomycosis (Prima ry Dx); Toe pain, left; Toe pain, right Start: 02-16-2024 Influenza vaccination Influenza Vacc ine (#1) [facility] Start: 01-29-2024 FUV, Provider: Jose Kimbrough, Status: Pen, Time: 3:40 PM FUV, Provider: Jose Kimbrough, Status: Pen, [facility]: 3:40 [facility] Work [facility]: Start: 2023 Pneumococcal Vaccine : 65+ Years (3 of 3 - PPSV23 or PCV20) Pneumococcal Vaccine: 65+ Years (3 of 3 - PPSV23 or PCV20) [facility] Start: 02-15-2023 COVID-19 Vaccine ( season) COVID-19 Vaccine ( season) [facility] Start: 01-09-2023 FUV, Provider: Jose Kimbrough, Status: Pen, Time: 1:00 PM FUV, Provider: Jose Kimbrough, Status: Pen, Time: 1:00 PM [facility] 250 DO Work Phone: Start: 12-06-2021 FUV, Provider: Jose Kimbrough, Status: Pen, Time: 1:15 PM FUV, Provider: Jose Kimbrough, Status: Pen, Time: 1:15 PM [facility] Work Phone: Start: 10-09-2016 MMR Vaccines (1 of 1 - Standard series) MMR Vaccines (1 of 1 - Standard series) [facility] Start: 1980 DTaP/Tdap/Td Vaccine s (1 - Tdap) DTaP/Tdap/Td Vaccines (1 - Tdap) [facility] Start: 1976 Diabetes mellitus screening Diabetes Screening [facility] Start: 1976 Hepatitis C screening Hepatitis C [facility] Start: 1958 Annual wellness visit Medicare Initial Physical (IPPE) [facility] Start: 1958 Screening for malign ant neoplasm of colon [facility] Immunizations Immunization Date Immunization Notes Care Provider Anitha jolley 04-30-2024 Influenza, High-dose Seasonal, Quadrivalent, Preservative Free Thor Mott MD Work Phone: [facility] 09-05-2023 RSV, recombinant, protein subunit RSVpreF, adjuvant reconstitu, 120mcg/0.5mL, PF (Arexvy) Jaye Mack [employer] Work Phone: [facility] 04-04-2023 influenza virus vaccine, unspecified formulation Palak Wagner [facility] 04-04-2023 influenza, injectabl e, quadrivalent, preservative free Jaye Pughnagel [employer] Work Phone: [facility] 04-11-2022 influenza virus vaccine, unspecified formulation Palak Wagner [facility] 04-11-2022 influenza, injectabl e, quadrivalent, preservative free Thor [facility]ott [facility] Work Phone: 04-11-2022 seasonal influenza, intradermal, preservative free Jose Kimbrough MD Work Phone: [facility] Work Phone: 03-17-2022 influenza virus vaccine, unspecified formulation Palak Wagner [facility] 03-17-2022 influenza, seasonal, injectable Thor Mott Work [facility]: [facility] Work Phone: Comment on above: Series: 06-05-2021 Pfizer-BioNTMarketMeSuite COVID-19 Vacc 30 MCG/0.3ML Intramuscular Suspension Jose Kimbrough MD Work Phone: [facility] Comment on above: Result Comment: 2021: [id number] 04-13-2021 influenza virus vaccine, unspecified formulation Palak Wagner [facility] 04-13-2021 influenza, injectabl e, quadrivalent, contains preservative Jose [facility]imbrough MD [facility] Phone: [facility] DO Work Phone: 09-20-2020 PfizerBioNTech COVID-19 Vacc 30 MCG/0.3ML Intramuscular Suspension Jose Kimbrough MD Work Phone: [facility] 08-29-2020 Pfizer-BioNTech COVID-19 Vacc 30 MCG/0.3ML Intramuscular Suspension Jose Kimbrough MD Work Phone: [facility] 03-29-2020 influenza virus vaccine, unspecified formulation Palak Wagner [facility] 03-29-2020 influenza, injectabl e, quadrivalent, preservative free Jose [facility]imbrough [facility]: [facility] Work Phone: 03-17-2020 influenza virus vaccine, unspecified formulation Jose Kimbrough MD Work Phone: [facility] 03-17-2020 influenza, seasonal, injectable Jaye Windnagel [employer] Work Phone: [facility] 05-27-2019 zoster vaccine recombinant Jose Kimbrough MD Work Phone: [facility] 03-18-2019 influenza virus vaccine, unspecified formulation Palak Wagner [facility] 03-18-2019 influenza, injectabl e, quadrivalent, contains preservative Jaye Windnagel [employer] Work Phone: [facility] 03-17-2019 influenza virus vaccine, unspecified formulation Jose [facility]imbrough MD [facility]: [facility] DO Work Phone: 02-20-2019 zoster vaccine recombinant Jose Kimbrough MD Work Phone: [facility] 07-17-2017 influenza virus vaccine, unspecified formulation Palak Wagner [facility] 07-17-2017 seasonal influenza, intradermal, preservative free Jose Kimbrough MD Work Phone: [facility] 250 DO Work Phone: 03-17-2017 influenza virus vaccine, unspecified formulation Jose Kimbrough MD Work Phone: [facility] 600 DO Work Phone: 09-11-2016 zoster vaccine, live Jaye Keatonnagel [employer] Work Phone: [facility] 08-14-2016 zoster vaccine, live Jose Kimbrough MD Work Phone: [facility] 05-03-2016 influenza virus vaccine, unspecified formulation Palak Wagner [facility] 05-03-2016 influenza, injectabl e, quadrivalent, contains preservative Jose Kimbrough MD Work Phone: [facility] 250 DO Work Phone: 03-17-2016 influenza virus vaccine, unspecified formulation Jose Kimbrough MD Work Phone: [facility] 600 DO Work Phone: 03-17-2015 influenza virus vaccine, unspecified formulation Jose Kimbrough MD Work Phone: [facility] 600 DO Work Phone: 03-03-2015 seasonal influenza, intradermal, preservative free Jaye Keatonnagel [employer] Work Phone: [facility] 12-15-2014 pneumococcal polysaccharide vaccine, 23 valent Jose Kimbrough MD Work Phone: [facility] 600 DO Work Phone: 12-14-2014 pneumococcal conjuga te vaccine, 13 valchalo Kimbrough MD Work Phone: [facility] 08-15-2014 pneumococcal conjuga te vaccine, 13 valchalo Kimbrough MD Work Phone: [facility] 04-08-2014 influenza, seasonal, injectable Jaye Keatonnagel [employer] Work Phone: [facility] 11-25-2013 pneumococcal polysaccharide vaccine, 23 carrol Kimbrough MD Work Phone: [facility] 03-17-2011 pneumococcal polysaccharide vaccine, 23 carrol Kimbrough MD Work Phone: [facility] 600 DO Work Phone: 03-07-2011 seasonal influenza, intradermal, preservative free Jaye Keatonnagel [employer] Work Phone: [facility] NEGATED: Highlighted row has not occurred!02-14-2022 influenza virus vaccine, unspecified formulation Palak Wagner [facility] Payers Date Payer Category Payer Medicare [id number] 2019 Medicare (Managed Care) [employer] [id number] 2017 Medicaid [id number] 1959 Medicaid [id number] 1959 Self-pay 1959 Unknown [id number] 1959 Unknown [id number] 1958 Unknown [id number] 2.16.840.1.752669.3.579.2. 593 1958 Unknown [id number] 2.16.840.1.586333.3.579.2. 593 1958 Unknown [id number] 2.16.840.1.504683.3.579.2. 593 1958 Unknown [id number] 2.16.840.1.488007.3.579.2. 356 1958 Unknown [id number] 2.16.840.1.681456.3.579.2. 727 1958 Unknown [id number] 2.16.840.1.950514.3.579.2. 727 1958 Unknown [id number] 2.16.840.1.334312.3.579.2. 727 1958 Unknown [id number] 2.16.840.1.725655.3.579.2. 727 1958 Unknown [id number] 2.16.840.1.347857.3.579.2. 727 1958 Unknown [id number] 2.16.840.1.905706.3.579.2. 1244 1958 Unknown [id number] 2.16.840.1.391128.3.579.2. 1259 1958 Unknown [id number] 2.16.840.1.909378.3.579.2. 1259 1958 Unknown [id number] 2.16.840.1.726817.3.579.2. 1259 1958 Unknown [id number] 2.16.840.1.689228.3.579.2. 1259 1958 Unknown [id number] 2.16.840.1.072528.3.579.2. 1259 1958 Unknown [id number] 2.16.840.1.036441.3.579.2. 1259 1958 Unknown [id number] 2.16.840.1.429159.3.579.2. 9 1958 Unknown [id number] 2.16.840.1.842925.3.579.2. 1258 1958 Unknown [id number] 2.16.840.1.401667.3.579.2. 1258 1958 Unknown [id number] 2.16.840.1.782822.3.579.2. 1258 1958 Unknown [id number] 2.16.840.1.493583.3.579.2. 1258 1958 Unknown [id number] 2.16.840.1.584187.3.579.2. 1258 1958 Unknown [id number] 2.16.840.1.066963.3.579.2. 1258 1958 Unknown [id number] 2.16.840.1.708414.3.579.2. 9 1958 Unknown [id number] 2.16.840.1.524354.3.579.2. 1259 Unknown [id number] 2.16.840.1.346938.3.579.2. 593 Unknown [id number] 2.16.840.1.986714.3.579.2. 593 Unknown Unknown HCAP/HFA/FAP Active [id number] Unknown [id number] 2.16.840.1.210512.3.579.2. 531 Social History Date Type Detail Facility Start: 10-04-2021 End: 10-16-2023 Tobacco smoking status Never smoked tobacco (finding) [facility] Tobacco smoking status Never [facility] Start: 10-21-2023 End: 01-22-2024 Sex Assigned At Male [facility] Start: 10-21-2023 End: 01-22-2024 Never a smoker Never a smoker [facility] 600 DO Work Phone: Start: 1960 Sex Assigned At Male F [facility] Start: 10-16-2023 End: 12-09-2023 Tobacco use and exposure Smokeless tobacco non-user [facility] Work Phone: Start: 01-08-2024 End: 03-12-2024 Alcoholic beverage intake Lifetime non-drinker (finding) [facility] Within the last year , have you been afraid of your partner or ex-partner? No [facility] Do you belong to any clubs or organizations such as tenriism groups, unions, fraternal or athletic groups, or [...] Sex assigned at Not on file U [facility] Work Phone: Start: 12-09-2023 Alcoholic beverage intake Curr ent drinker of alcohol (finding) [facility] Work Phone: Start: 08-30-2023 Alcohol Comment occsional [facility] Work Phone: Start: 11-29-2023 End: 12-09-2023 Exposure to SARS-CoV-2 (event) Not sure [facility] Medical Equipment Procedure Code Equipment Code Equipment Origin al Text Equipment Identifier Dates 1 each if needed. Start: 08-08-2022 Functional Status Date Assessment Result Facility 07-29-2023 Functional Status N/A [facility] 06-05-2023 Functional Status N/A [facility] 03-05-2023 Functional Status N/A [facility] 05-08-2022 Functional Status N/A [facility] 03-14-2022 Functional Status N/A [facility] 02-14-2022 Functional Status N/A [facility] 12-11-2021 Functional Status N/A [facility] Clinical Notes 10-04-2021 to 05-21-2024 [...] hernia 03/22/2023 HLD (hyperlipidemia) (CMS/HCC) HTN (hypertension) ([facility]) Hypertrophy of nasal turbinates IBS (irritable bowel syndrome) Obstructive sleep apnea Thyroid disease ([facility]) Ulcer of gastric fundus 2011 Ulcer [...] 20 min Stress: Stress Concern Present (10/21/2023) [place] [employer] - Occupational Stress Questionnaire Feeling of Stress : To some extent Social Connections: Moderately Isolated (10/21/2023) Social Connection and Isolation Panel [NHANES] Frequency of Communication with Friends and Family: More than three times a week Frequency of Social Gatherings with Friends and Family: More than three times a week Attends Spiritism Services: Never Active Member of Clubs or [...] Fountain DPM documented in this encounter [facility] 04-30-2024 History of Present illness Narrative Pt was her to get flu vacc given in right arm admin danielle lynn documented in this encounter [facility] 03-17-2024 Instructions Jaye Mack NP - 03/17/2024 [...] a call. documented in this encounter [facility] 03-12-2024 History of Present illness Narrative Patient: [...] pansinusitis Colon polyp 09/2018 Karissa bullosa Depression ([facility]/HCC) Diabetes mellitus, type II ([facility]/HCC) Dizziness DNS (deviated nasal septum) Gastric polyp 2011 Gastric ulcer 2011 and 2012 History of esophagogastroduodenoscopy 2023 History of umbilical hernia 03/22/2023 HLD (hyperlipidemia) ([facility]) HTN (hypertension) ([facility]) Hypertrophy of nasal turbinates IBS (irritable bowel syndrome) Obstructive sleep apnea Thyroid disease ([facility]) Ulcer of gastric fundus 2011 Ulcer [...] 20 min Stress: Stress Concern Present (10/21/2023) [place] [employer] - Occupational Stress Questionnaire Feeling of Stress : To some extent Social Connections: Moderately Isolated (10/21/2023) Social Connection and Isolation Panel [NHANES] Frequency of Communication with Friends and Family: More than three times a week Frequency of Social Gatherings with Friends and Family: More than three times a week Attends Spiritism Services: Never Active Member of Clubs or [...] Fountain DPM documented in this encounter [facility] 03-09-2024 History of Present illness Narrative Titration study recommended CPAP with pressure of 7 cm of water with a medium AirFit F20 fullface mask Ramp time of 20 minutes, heated humidification Diagnosis severe obstructive sleep apnea with AHI of 36.8. No residual events with CPAP documented in this encounter [facility] 12-09-2023 History of Present illness Narrative Subjective [...] discussion and plan. documented in this encounter [facility] Work Phone: 12-09-2023 Instructions Jo Ann [...] on exercise . documented in this encounter [facility] Work Phone: 07-31-2023 Note [id number] [facility] 07-29-2023 Hospital Discharge instructions Patient Education [...] unsweetened, w/added ascorbic acid 1 cup 0.5 [place] 1 cup 0.7 Vegetables Cooked Green beans 1 cup 4.0 Carrots 1/2 cup sliced 2.3 Peas 1 cup 8.8 Potato (baked, with skin) 1 medium potato 3.8 Raw [place] (with peel) 1 cucumber 1.5 Lettuce 1 [...] 8.7 Peanuts 1/2 cup 7.9 Chart from [facility] 2013. SEEK IMMEDIATE MEDICAL CARE IF: You [...] Available at http://www.nal.usda.gov/fnic/foodcomp/ search/. Information adapted from: [facility] Patient Information 2009 PartyWithMe. [employer] 2012 http://www.[employer]/contents/diver tnqgpft-mvdxcwr-ptmzia-the-basics 07/29/2023 16:40:57 Duodenitis Duodenitis Duodenitis is inflammation [...] Follow these instructions at home: Medicines Take cjcl-etq-rqfepfs and prescription medicines only as told by [...] or drinks. ?Garlic or onions. ?Spicy foods. ?[place] fruits. ?Tomato-based foods. ?Fatty or fried foods. [...] infection from a type of bacteria. Take xzbc-tcd-eqtrnyo and prescription medicines only as told by your health care provider. This information is not intended to replace advice given to you by your health care provider. Make sure you discuss any questions you have with your health care provider. Document Revised: 12/12/2021 Document Reviewed: 12/13/2021 [employer] Patient Education 2022 [employer]2Care. 07/29/2023 16:40:51 Hemorrhoids, Abpg-ku-Gxov Hemorrhoids Hemorrhoids are swollen veins that may [...] 3 times a day. General instructions Take lqhp-syn-fsbphdf and prescription medicines only as told by [...] provider. Document Revised: 12/13/2021 Document Reviewed: 12/13/2021 [employer] Patient Education 2022 [employer]Care. 07/29/2023 16:40:37 Endoscopy, Care After Procedure [facility] Endoscopy Care After Procedure Please read [...] Document Re-Released: 11/25/2006 ExitCare Patient Information 2010 PartyWithMe. 07/29/2023 16:40:34 Colonoscopy, Care After Surgery Salam [...] Up Care 06/05/2023 16:35:30 With:Humberto Hernandez Address: [address] [place], [place] [address], [address] [address]- [phone] Business (1) When: only if needed Comments:Call for any problems. [facility] 06-05-2023 Hospital Discharge instructions Patient Education 06/05/2023 [...] grapefruit, pineapple, and ida. Vegetables Deep-fried vegetables. Sudanese fries. Any vegetables prepared with added fat. [...] provider. Document Revised: 12/12/2020 Document Reviewed: 12/12/2020 [employer] Patient Education 2022 [employer]2Care. Follow Up Care 03/05/2023 15:29:52 With:Palak Wagner CNP Address: When:1 week Comments:Following EGD/Colonoscopy. [facility] 06-05-2023 Evaluation + Plan note Future Scheduled TestsFecal WBC Lactoferrin 06/05/23Giardia lamblia, Direct Detection EIA 06/05/23O & P Exam, Routine 06/05/23Clostridium Difficile PCR 06/05/23Enteric Panel by PCR 06/05/23CBC w/ Auto Diff 06/05/23Comprehensive Metabolic Panel 06/05/23Vitamin B12 Level 06/05/23 [facility] 03-05-2023 Hospital Discharge instructions Patient Education 03/05/2023 [...] who treats conditions of the digestive system (pension examiner). Follow these instructions at home: Medicines Take agiu-ybq-rnopheh and prescription medicines only as told by [...] provider. Document Revised: 04/20/2020 Document Reviewed: 04/20/2020 [employer] Patient Education 2022 N2Care. 03/05/2023 15:04:46 Food Choices for Gastroesophageal Reflux [...] grapefruit, pineapple, and ida. Vegetables Deep-fried vegetables. [place]ese fries. Any vegetables prepared with added fat. [...] provider. Document Revised: 12/12/2020 Document Reviewed: 12/12/2020 [employer] Patient Education 2022 N2Care. 03/05/2023 14:56:07 Colonoscopy, Adult Colonoscopy, Adult A [...] including vitamins, herbs, eye drops, creams, and yraw-tdr-xsrywwg medicines. Any problems you or family members [...] provider tells you to take them. Taking bley-czt-qgyevfl medicines, vitamins, herbs, and supplements. General instructions [...] provider. Document Revised: 05/28/2022 Document Reviewed: 01/24/2022 [employer] Patient Education 2022 N2Care. Follow Up Care 08/28/2022 15:16:00 With:Palak Wagner CNP Address: When:6 months [facility] 05-08-2022 Hospital Discharge instructions Patient [...] including vitamins, herbs, eye drops, creams, and ycrf-kix-rfpgmuz medicines. Any problems you or family members [...] 05/31/2001 Document Revised: 03/26/2018 Document Reviewed: 08/14/2016 [employer] Patient Education 2019 N2Care. Follow Up Care 04/05/2022 13:22:50 With:Palak Wagner CNP Address: When:3 months [facility] 02-14-2022 Evaluation + Plan note Future Scheduled TestsCT Abdomen/Pelvis w/ Contrast 02/14/22 [facility] 02-14-2022 Hospital Discharge instructions Patient [...] who treats conditions of the digestive system (pension examiner). Follow these instructions at home: Take iezj-agl-nkwmlkn and prescription medicines only as told by [...] 12/31/2017 Document Revised: 05/16/2018 Document Reviewed: 02/18/2018 [employer] Patient Education 2020 N2Care. Follow Up Care 12/11/2021 13:08:43 With:Kristy TRAFFIC [address] MAGISTRATE, Palak A Address: When:1 month [facility] 12-11-2021 Hospital Discharge instructions Patient [...] per serving. Talk with a diet and sports nutritionist (dietitian) if you have questions about specific [...] Bulgur wheat. Millet. Quinoa. Bran muffins. Popcorn. [place] wafer crackers. Meats and other proteins [place], kidney, and marcos beans. Soybeans. Split peas. [...] Cream cheese. Sour cream. Fats and oils [place]. Beverages Soft drinks. Other foods Cakes and [...] 06/03/2006 Document Revised: 04/07/2018 Document Reviewed: 04/07/2018 [employer] Patient Education 2020 N2Care. 12/11/2021 12:52:04 Hemorrhoids Hemorrhoids Hemorrhoids are swollen [...] 3 times a day. General instructions Take zlkn-ffl-djfubur and prescription medicines only as told by [...] 05/31/2001 Document Revised: 10/30/2019 Document Reviewed: 10/23/2018 [employer] Patient Education 2020 N2Care. 12/11/2021 12:52:02 Diverticulosis Diverticulosis Diverticulosis is a [...] overweight. Not getting enough exercise. Smoking. Taking gmaj-zuk-srkbzag pain medicines, like aspirin and ibuprofen. Having [...] health care provider or your diet and sports nutritionist (dietitian). ?Take a fiber supplement or probiotic, if your health care provider approves. Take efid-oep-svrnrwf and prescription medicines only as told by [...] 02/28/2005 Document Revised: 05/16/2018 Document Reviewed: 04/22/2017 [employer] Patient Education 2020 N2Care. Follow Up Care 11/22/2021 09:59:49 With:Palak Wagner CNP Address: When:3 months [facility] 11-15-2021 Hospital Discharge instructions Patient [...] what activities are safe for you. Take mcie-nqx-lmzpjie and prescription medicines only as told by [...] 12/02/2012 Document Revised: 11/25/2018 Document Reviewed: 11/03/2018 [employer] Patient Education 2020 N2Care. 11/15/2021 12:56:45 Colonoscopy, Care After Surgery Salam [...] unsweetened, w/added ascorbic acid 1 cup 0.5 [place] 1 cup 0.7 Vegetables Cooked Green beans 1 cup 4.0 Carrots 1/2 cup sliced 2.3 Peas 1 cup 8.8 Potato (baked, with skin) 1 medium potato 3.8 Raw [place] (with peel) 1 cucumber 1.5 Lettuce 1 [...] 8.7 Peanuts 1/2 cup 7.9 Chart from [facility] 2013. SEEK IMMEDIATE MEDICAL CARE IF: You [...] Available at http://www.nal.usda.gov/fnic/foodcomp/ search/. Information adapted from: [facility] Patient Information 2009 PartyWithMe. [facility] 2012 http://www.[employer] [facility]/contents/diver vcqehbd-nlznbci-bjebuk-the-basics [facility] 11-15-2021 Evaluation + Plan note Extrac maryjane from: Title:Post-anesthesia - General Author:Marvin Dunn DO Date:11/15/21 Plan Transfer/ Discharge: Condition stable. Extracted from: Title:Pre-anesthesia - Endoscopy Author:Marvin Nguyen Jr., DO Date:11/15/21 Plan [place] Society of Anesthesiologists (ASA) physical status classification: Class II. Anesthetic Preoperative Plan Anesthesia: General. . Anesthetic plan, risks, benefits, and alternatives discussed with the patient and/or family. Patient verbalized understanding. Future Scheduled Tests Laboratory* CBC w/ Auto Diff 4/20/22 * Comprehensive Metabolic Panel 10/04/21 Radiology* US Abdomen Complete 10/04/21 [facility]2022 Hospital Discharge instructions Patient Education 10/04/2021 15:27:33 [...] including vitamins, herbs, eye drops, creams, and qzjw-cnc-iikozxu medicines. Any problems you or family members [...] 05/31/2001 Document Revised: 03/26/2018 Document Reviewed: 08/14/2016 [employer] Patient Education 2020 N2Care. Follow Up Care 05/16/2021 10:18:44 With:Palak Wagner CNP Address: When:2 to 4 weeks [facility] 04-20-2022 Evaluation + Plan note Future Scheduled Tests Laboratory* CBC w/ Auto Diff 10/04/21 * Comprehensive Metabolic Panel 10/04/21 Radiology* US Abdomen Complete 10/04/21 [facility] Evaluation + Plan note Future Appointments Appointment Date:11/15/2021 12:15:00 PM Scheduled Provider: Location:[facility] Appointment Type:Surgery FT Future Scheduled Tests Laboratory* CBC w/ Auto Diff 10/04/21 * Comprehensive Metabolic Panel 10/04/21 Radiology* US Abdomen Complete 10/04/21 [facility] Evaluation + Plan note Future Appointments Appointment Date:03/07/2022 12:20:00 PM Scheduled Provider:Palak Wagner CNP Location[facility] Appointment Type:BAD Follow Up Future Scheduled Tests Laboratory* CBC w/ Auto Diff 10/04/21 * Comprehensive Metabolic Panel 10/04/21 Radiology* US Abdomen Complete 10/04/21 [facility] [employer] + Plan note Future Appointments Appointment Date:02/21/2022 10:00:00 AM Scheduled Provider[facility] Type:US Abdominal/Pelvis () Appointment Date:03/22/2022 03:20:00 PM Scheduled Provider:Palak Wagner CNP Location[facility] Appointment Type:BAD Follow Up Future Scheduled Tests Radiology* CT Abdomen/Pelvis w/ Contrast 02/14/22 * US Abdomen Complete 02/21/22 [facility] [employer] + Plan note Future Appointments Appointment Date:03/22/2022 03:20:00 PM Scheduled Provider:Palak Wagner CNP Location:[facility] Appointment Type:BAD Follow Up Future Scheduled Tests Radiology* CT Abdomen/Pelvis w/ Contrast 02/14/22 [facility] Future Appointments Appointment Date:08/08/2022 02:40:00 PM Scheduled Provider:Palak Wagner CNP Location:[facility] Appointment Type:BAD Follow Up Future Scheduled Tests Radiology* CT Abdomen/Pelvis w/ Contrast 02/14/22 [facility] Evaluation + Plan note Future Appointments Appointment Date:08/28/2022 02:40:00 PM Scheduled Provider:Palak Wagner CNP Location:[facility] Health Appointment Type:BAD Follow Up Future Scheduled Tests Radiology* CT Abdomen/Pelvis w/ Contrast 02/14/22 [facility] evaluation + Plan note Future Appointments Appointment Date:09/03/2023 02:40:00 PM Scheduled Provider:Palak Wagner CNP Location:[facility] Appointment Type:BADH Follow Up [facility] Evaluation + Plan note Future Appointments Appointment Date:07/29/2023 02:45:00 PM Scheduled Provider: Location:[facility] Appointment Type:Surgery FT Future Scheduled Tests Laboratory* Fecal WBC Lactoferrin 06/05/23 * Giardia lamblia, Direct Detection EIA 06/05/23 * O & P Exam, Routine 06/05/23 * Clostridium Difficile PCR 06/05/23 * Enteric Panel by PCR 06/05/23 * CBC w/ Auto Diff 06/05/23 * Comprehensive Metabolic Panel 06/05/23 * Vitamin B12 Level 06/05/23 [facility] Evaluation noteNo assessment information available [facility] Work Phone: Evalupaxig note* Diagnosis MARY (obstructive sleep apnea)- Primary [...] Diagnosis Aneurysm of ascending aorta without rupture ([facility])- Primary Essential hypertension Unspecified essential hypertension Mixed hyperlipidemia BMI 27.0-27.9,adult Never smoked any substance documented in this encounter [facility] Work Phone: Evaluation note* Diagnosis Onychomycosis- [...] of the merits of dietand weight loss. [facility] DO Work Phone: Hospital course Narrative No data available for this section [facility] Hospital Discharge instructions No data available for this section [facility] Progress note No data available for this section [facility] Rehghg for referral (narrative) Referred by: Palak Wagner CNP [facility] Rejlyh for referral (narrative)* Consultation (Routine) - Authorized Specialty Diagnoses / Procedures Referred By Contac t Referred To Contact Cardiology Diagnoses Aneurysm of ascending aorta without rupture ([facility]) Procedures Follow Up In Cardiology Jose Kimbrough MD [address] [place] [address] 2, [address] [address] Supa Loaiza MD [address] [facility] 2, [address] [address] Referral ID Status Reason Start Date Expiration Date V isits Requested Visits Authorized [id number] Authorized 12/09/2023 12/08/2024 1 1 * Imaging (Routine) - Pending Review Specialty Diagnoses / Procedures Referred By Contac t Referred To Contact Radiology Diagnoses Aneurysm of ascending aorta without rupture ([facility]) Procedures CT angio chest w and wo IV contrast Jose Kimbrough MD [address] [facility] 2, [address] [address] Referral ID Status Reason Start Date Expiration Date Visits Requested Visits Authorized [id number] Pending Review Perform Procedure 12/09/2023 12/08/2024 1 1 [facility] Work Phone: Summary Purpose Family History [...] section and content) DATE CREATED AUTHOR 06/29/2021 [facility] dical Specialist DATE CREATED AUTHOR AUTHOR'S ORGANIZ ATION 08/18/2021 [facility] DATE CREATED AUTHOR AUTHOR'S ORGANIZ ATION 01/24/2023 [facility] ical Center DATE CREATED AUTHOR AUTHOR'S ORGANIZ ATION 01/24/2023 [employer] DATE CREATED AUTHOR AUTHOR'S ORGANIZ ATION 10/22/2023 [facility] ical Center DATE CREATED AUTHOR AUTHOR'S ORGANIZ ATION 11/17/2023 [facility] DATE CREATED AUTHOR AUTHOR'S ORGANIZ ATION 12/14/2023 [facility] DATE CREATED AUTHOR AUTHOR'S ORGANIZ ATION 05/02/2024 [facility] dical Specialists EPIC Care Teams (unrecognized [...] November 06, 2023 End: November 06, 2023 Dust Handler Relationship Specialty Start Date End Date Thor Mott MD [address] [place] [address] PCP - Caren CHAPPELL 06/17/21 Thor Mott MD [address] [place] [address] PCP - General Internal Medicine 10/23/22Saturday, Radha, HEALTH PROMOTION MANAGER [address] [place] [address] Licensed Practical Nurse Family Medicine 10/21/23 Dust Handler Relationship Specialty Start Date End Date Thor Mott MD [address] [place] [address] PCP - Caren CHAPPELL 06/17/21 Thor Mott MD [address] [place] [address] PCP - General Internal Medicine 10/23/22Saturday, Radha, HEALTH PROMOTION MANAGER [address] [place] [address] Licensed Practical Nurse Family Medicine 10/21/23 Dust Handler Relationship Specialty Start Date End Date Thor Mott MD [address] [place] [address] PCP - Caren CHAPPELL 06/17/21 Thor Mott MD [address] [place] [address] PCP - General Internal Medicine 10/23/22Saturday, Radha, HEALTH PROMOTION MANAGER [address] [place] [address] Licensed Practical Nurse Family Medicine 10/21/23 Dust Handler Relationship Specialty Start Date End Date Thor Mott MD [address] [place] [address] PCP - Caren CHAPPELL 06/17/21 Thor Mott MD [address] [place] [address] PCP - General Internal Medicine 10/23/22Saturday, FRANK GarciaN [address] [place] [address] Licensed Practical Nurse Family Medicine 10/21/23 Dust Handler Relationship Specialty Start Date End Date Thor Mott MD [address] [place] [address] PCP - General 01/20/23 Dust Handler Relationship Specialty Start Date End Date Thor Mott MD [address] [place] [address] PCP - Caren CHAPPELL 06/17/21 Thor Mott MD [address] [place] [address] PCP - General Internal Medicine 10/23/22Saturday, FRANK GarciaN [address] [place] [address] Licensed Practical Nurse Family Medicine 10/21/23 Dust Handler Relationship Specialty Start Date End Date Thor Mott MD [address] [place] [address] PCP - Caren CHAPPELL 06/17/21 Thor Mott MD [address] [place] [address] PCP - General Internal Medicine 10/23/22Saturday, KADIE Garcia [address] [place] [address] Licensed Practical Nurse Family Medicine 10/21/23 Dust Handler Relationship Specialty Start Date End Date Thor Mott MD [address] [place] [address] PCP - Caren CHAPPELL 06/17/21 Thor Mott MD [address] [facility] [address] [place] [address] PCP - General Internal Medicine 10/23/22Saturday, KADIE Garcia [address] [facility] [address] [place] [address] Licensed Practical Nurse Family Medicine 10/21/23 Goals [...] BE BASED ON THE PRIMARY CLINICAL RECORDS. [employer] provides no warranty or guarantee of the accuracy or completeness of information in this document.
[2024-06-09 13:00] LABS: Anion Gap 13.3; BUN Creatinine Ratio 10.2; Calcium 8.8 mg/dL (8.5-10.1); Carbon Dioxide 24.2 mmol/L (21.0-32.0); Chloride 106 mmol/L (98-107); Estimated GFR (African America 58 (>=60 mL/min/1.73m^2); Estimated GFR (Non-African Ame 48 (>=60 mL/min/1.73m^2); Glucose 164 mg/dL (74-106); Potassium 3.5 mmol/L (3.5-5.1); Sodium 140 mmol/L (136-145)
== END 2024-06-09 11:28 | disposition home or self-care (01) ==
LOC: LAB 11:29
PROVIDERS: PCP Internal Medicine; Visit Provider Emergency Medicine
DX: N17.9 Acute kidney failure, unspecified (principal)
CPT/HCPCS: 36415; 80048

== ENCOUNTER 2024-12-02 16:48 | Outpatient (OUT) | payer MEDICARE, MEDICAID, SELFPAY ==
--- NOTE | 2024-12-02 16:58 | US_ITS ---
The [address] [address] Patient Name: DAMI MAHAN MRN: [id number] date: 1960 Sex: M Assigned Patient Location: Current Patient Location: Accession/Order Number: [id number] Exam Date: 12/02/2024 18:50 Report Date: 12/02/2024 18:54 At the request of: STEPHEN DAVISON Procedure: US scrotum EXAMINATION TYPE: US scrotum grayscale, color Doppler, waveform duplex analysis was performed. DATE OF EXAM ORDERED: 12/02/2024 6:09 PM HISTORY: LEFT TESTICULAR PAIN N50.812, COMPARISON: NONE TECHNIQUE: Realtime imaging of the scrotum was performed. Bolivar scale, color Doppler and spectral Doppler imaging of the testicles was performed. FINDINGS: Testicles: Both testicles demonstrate homogeneous echotexture without intratesticular filling defect. Right measurements: 3.5 x 1.6 x 2.9 cm Left measurements: 4.1 x 1.8 x 3.0 cm Epididymis: The bilateral epididymides demonstrate normal echogenicity without focal lesion. Right measurements: 7 mm in greatest dimension Left measurements: 8 mm in greatest dimension Hydrocele: None. Doppler ultrasound of the testicles: Arterial and venous waveforms are seen within both testicles. No sonographic evidence of testicular ischemia. Prominent vessels are noted lateral to the left testicle becoming more prominent with Valsalva consistent with a varicocele. US/US scrotum IMPRESSION: 1. The testicles are normal in size and echogenicity. No intratesticular lesions. 2. No sonographic evidence of testicular ischemia. 3. Prominent vessels are noted lateral to the left testicle becoming more prominent with Valsalva consistent with a varicocele. Impression dictated by: Kayode Anderson M.D. 12/02/2024 6:54 PM Dictation Location: [place] [address] Electronically authenticated by: [id number] Y Date: 12/02/2024 18:54
== END 2024-12-02 16:49 | disposition home or self-care (01) ==
PROVIDERS: PCP Internal Medicine; Visit Provider Internal Medicine
DX: N50.812 Left testicular pain (principal)
CPT/HCPCS: 76870